=== PATIENT | female | born 1930 | race Caucasian/White ===

== ENCOUNTER 2017-08-04 22:31 | Inpatient (IN) | payer MEDICAID ==
[~2017-08-04] VITALS: Ht 162.6 cm; Wt 51.0 kg
[~2017-08-04 22:31] MED LIST: MELO7.5 PO; Z.0.NO CURRENT MEDS
[2017-08-04 22:43] VITALS: BP 148/78; PULSE 111; RESP 20; TEMP 98.6; O2SAT 100
[2017-08-04 22:50] VITALS: BP 176/111; PULSE 120; RESP 20; O2SAT 96
[2017-08-04] MEDS ORDERED: MELA1TAB18 PO (22:56)
--- NOTE | 2017-08-04 23:09 | PD ---
HPI Chief Complaint: Hip Injury Time Seen by Provider: 22:50 Travel History International Travel<30 days: No Contact w/Intl Traveler<30days: No Traveled to known affect area: No History of Present Illness HPI 87yo F who is Fijian speaking only here with c/o left hip pain since yesterday. As per her son, his found the patient on the floor next to the bed at 5pm yesterday and they brought her back to bed. Unsure how she got on the floor but did not think she was there for long. Pt is baseline confuse as per son and was at baseline mental status after the fall. However, they noticed she did not get up to walk today and had pain in her left hip. Denies any other complaints. Pt was agitated and given versed 2mg by [facility]. As per [facility], pt was talking and following commands prior to versed. She was moving all extremities except left lower. Pt was also given a total of morphine 10mg prior to my evaluation in the medical bed. PFSH Past Medical History Medical History: Denies Significant Hx Tetanus Vaccination: Unknown Influenza Vaccination: No ?: Not Past Surgical History Surgical History: No Previous Surgery Social History Alcohol Use: No Tobacco Use: No Substance Use: No Allergies-Medications (Allergen,Severity, Reaction): Coded Allergies: No Known Allergies (Unverified Allergy, Unknown, 08/05/17) Reported Meds & Prescriptions Reported Meds & Active Scripts Active Reported Melatonin 10 Mg-1 Mg Tab 10 Mg PO HS PRN Review of Systems Except as stated in HPI: all other systems reviewed are Neg Physical Exam Narrative GENERAL: 87yo F in mild distress. SKIN: Focused skin assessment warm/dry. HEAD: Atraumatic. Normocephalic. EYES: Pupils equal and round at 3mm bilaterally. ENT: No nasal bleeding or discharge. Mucous membranes pink and moist. NECK: Trachea midline. No JVD. CARDIOVASCULAR: Regular rate and rhythm. No murmur appreciated. RESPIRATORY: No accessory muscle use. Clear to auscultation. Breath sounds equal bilaterally. GASTROINTESTINAL: Abdomen soft, non-tender, nondistended. No rebound tenderness or guarding. MUSCULOSKELETAL: No obvious deformities. No clubbing. No cyanosis. No edema. NEUROLOGICAL: Awake and opens eyes. Moves bilateral upper extremities but not to command. Pt is not talking to me or son now. Unable to do further testing. Data Data Last Documented VS Vital Signs Date Time Temp Pulse Resp B/P (MAP) Pulse Ox O2 Delivery O2 Flow Rate FiO2 08/04/17 22:50 120 20 176/111 (132) 96 Nasal Cannula 2.00 08/04/17 22:[address] Brain W/O Iv Contrast(Rout) (08/04/17 ) Ct Cerv Spine W/O Contrast (08/04/17 ) Complete Blood Count With Diff (08/04/17 23:02) Basic Metabolic Panel (Bmp) (08/04/17 23:02) Prothrombin Time / Inr (Pt) (08/04/17 23:02) Act Partial Throm Time (Ptt) (08/04/17 23:02) Creatine Kinase (Cpk) (08/04/17 23:02) Electrocardiogram (08/04/17 ) Hip, Uni(Ap&Lat) W Ap Pelvis (08/04/17 ) Hydralazine Inj (Apresoline Inj) (08/05/17 00:00) Sodium Chlorid 0.9% 500 Ml Inj (Ns 500 M (08/05/17 00:00) CKMB (08/04/17 23:00) CKMB% (08/04/17 23:00) Troponin I (08/04/17 23:00) Chest, Single Ap (08/05/17 ) Admit To Inpatient (08/05/17 ) Vital Signs (Adult) Q4H (08/05/17 01:08) Activity Bed Rest (08/05/17 01:08) Eyeglass Assembler / Telemetry .CONTINUOUS (08/05/17 01:08) Diet Npo (08/05/17 Breakfast) Sodium Chloride 0.9% Flush (Ns Flush) (08/05/17 01:15) Sodium Chloride 0.9% Flush (Ns Flush) (08/05/17 09:00) Basic Metabolic Panel (Bmp) (08/06/17 06:00) Complete Blood Count With Diff (08/06/17 06:00) Resp Oxygen Xavier C Titrat 1-4 L (08/05/17 ) Case Management Consult (08/05/17 01:08) Naloxone Inj (Narcan Inj) (08/05/17 01:15) Inpatient Certification (08/05/17 ) Ct Pulmonary Angiogram (08/05/17 ) Consult Orthopedic (08/05/17 ) (Hub Use Only)Inp Phy Cons/Ref (08/05/17 ) Admit Order (Ed Use Only) (08/05/17 01:31) Labs Laboratory Tests Test 08/04/17 23:00 White Blood Count 6.8 TH/MM3 Red Blood Count 3.76 MIL/MM3 Hemoglobin 10.9 GM/DL Hematocrit 31.7 % Mean Corpuscular Volume 84.4 FL Mean Corpuscular Hemoglobin 29.1 PG Mean Corpuscular Hemoglobin Concent 34.5 % Red Cell Distribution Width 15.0 % Platelet Count 143 TH/MM3 Mean Platelet Volume 8.1 FL Neutrophils (%) (Auto) 80.4 % Lymphocytes (%) (Auto) 12.9 % Monocytes (%) (Auto) 6.3 % Eosinophils (%) (Auto) 0.2 % Basophils (%) (Auto) 0.2 % Neutrophils # (Auto) 5.5 TH/MM3 Lymphocytes # (Auto) 0.9 TH/MM3 Monocytes # (Auto) 0.4 TH/MM3 Eosinophils # (Auto) 0.0 TH/MM3 Basophils # (Auto) 0.0 TH/MM3 CBC Comment DIFF FINAL Differential Comment Prothrombin Time 10.6 SEC Prothromb Time International Ratio 1.0 RATIO Activated Partial Thromboplast Time 25.9 SEC Blood Urea Nitrogen 27 MG/DL Creatinine 1.04 MG/DL Random Glucose 123 MG/DL Calcium Level 9.9 MG/DL Sodium Level 142 MEQ/L Potassium Level 3.9 MEQ/L Chloride Level 109 MEQ/L Carbon Dioxide Level 27.3 MEQ/L Anion Gap 6 MEQ/L Estimat Glomerular Filtration Rate 50 ML/MIN Total Creatine Kinase 563 U/L Creatine Kinase MB 5.7 NG/ML Creatine Kinase MB % 1.0 % Troponin I 0.09 NG/ML MDM Medical Decision Making Medical Screen Exam Complete: Yes Emergency Medical Condition: Yes Interpretation(s) EKG: Sinus tachycardia at 105bpm. LAD. No significant ST segment elevation. Differential Diagnosis AMS secondary to baseline dementia vs. hip fracture vs. dehydration vs. electrolyte abnormality Narrative Course 87yo F with left hip pain s/p being found on the floor yesterday. Pt has pain in left hip. Xray left hip showed intertrochanteric left hip fracture. CT brain negative. CT cspine showed no fracture or dislocation. Soft tissue nodule in right neck felt to relate to exophytic thyroid nodule. Pt can follow up as outpatient. Pt noted to be hypoxic on room air in the 80s so CXR ordered. CXR showed no acute disease. CTA showed no PE. Labs reviewed, no leukocytosis. H/H 10.9/31.7. BUN/creatinine elevated at 27/1.04. Pt given NS IVF for hydration. CPK also mildly elevated at 563. Troponin is mildly elevated at 0.09, will trend. Discussed with Dr. Carvalho and accepted to her service. Diagnosis Primary Impression: Trochanteric fracture of left femur Qualified Codes: S72.102A - Unspecified trochanteric fracture of left femur, initial encounter for closed fracture Additional Impression: Elevated troponin Admitting Information Admitting Physician Requests: Olivia Seo DO Aug 04, 2017 23:09
[2017-08-04 23:26] LABS: AUTOMATED NEUTROPHIL # 5.5 TH/MM3 (1.8-7.7); BASOPHIL % 0.2 % (0.0-2.0); EOSINOPHIL % 0.2 % (0.0-4.0); HEMATOCRIT 31.7 % (35.0-46.0); HEMOGLOBIN 10.9 GM/DL (11.6-15.3); LYMPH % 12.9 % (9.0-44.0); LYMPHOCYTE # 0.9 TH/MM3 (1.0-4.8); MEAN CELL VOLUME 84.4 FL (80.0-100.0); MEAN CORPUSCULAR HEMOGLOBIN 29.1 PG (27.0-34.0); MEAN CORPUSCULAR HGB CONC 34.5 % (32.0-36.0); MEAN PLATELET VOLUME 8.1 FL (7.0-11.0); MONO % 6.3 % (0.0-8.0); MONOCYTE # 0.4 TH/MM3 (0-0.9); NEUT % 80.4 % (16.0-70.0); PLATELET COUNT 143 TH/MM3 (150-450); RED BLOOD COUNT 3.76 MIL/MM3 (4.00-5.30); WHITE BLOOD COUNT 6.8 TH/MM3 (4.0-11.0)
--- NOTE | 2017-08-04 23:43 | RADRPT ---
EXAM DATE/TIME: 08/04/2017 23:29 [facility] COMPARISON: No previous studies available for comparison. INDICATIONS : Trauma. Fall. Altered mental status. RADIATION DOSE: 56.34 CTDIvol (mGy) MEDICAL HISTORY : None SURGICAL HISTORY : None. ENCOUNTER: Initial ACUITY: 1 day PAIN SCALE: 0/10 LOCATION: cranial TECHNIQUE: Multiple contiguous axial images were obtained of the head. Using automated exposure control and adj ustment of the mA and/or kV according to patient size, radiation dose was kept as low as reasonably a chievable to obtain optimal diagnostic quality images. DICOM format image data is available electro nically for review and comparison. FINDINGS: CEREBRUM: Atrophy. The ventricles are normal for age. No evidence of midline shift, mass lesion, hemorrhage or acute infarction. No extra-axial fluid collections are seen. POSTERIOR FOSSA: The cerebellum and brainstem are intact. The 4th ventricle is midline. The cerebellopontine angle i s unremarkable. EXTRACRANIAL: The visualized portion of the orbits is intact. SKULL: The calvaria is intact. No evidence of skull fracture. CONCLUSION: No acute disease. Carlos Klein Jr., MD on August 04, 2017 at 23:39 Board Certified Radiologist. This report was verified electronically.
[2017-08-04 23:47] LABS: BICARBONATE 27.3 MEQ/L (21.0-32.0); CALCIUM 9.9 MG/DL (8.5-10.1); CREATININE 1.04 MG/DL (0.50-1.00)
--- NOTE | 2017-08-04 23:51 | RADRPT ---
EXAM DATE/TIME: 08/04/2017 23:29 [facility] COMPARISON: No previous studies available for comparison. INDICATIONS : Trauma. Fall. Altered mental status. RADIATION DOSE: 28.97 CTDIvol (mGy) MEDICAL HISTORY : None SURGICAL HISTORY : None. ENCOUNTER: Initial ACUITY: 1 day PAIN SCALE: 0/10 LOCATION: neck TECHNIQUE: Volumetric scanning of the cervical spine was performed. Multiplanar reconstructions in the sagittal, coronal and oblique axial planes were performed. Using automated exposure control and adjustment o f the mA and/or kV according to patient size, radiation dose was kept as low as reasonably achievable to obtain optimal diagnostic quality images. DICOM format image data is available electronically f or review and comparison. FINDINGS: VERTEBRAE: Normal vertebral body height. ALIGNMENT: No evidence of subluxation. A 2.5 x 1.6 and meter soft tissue nodules seen exophytic from the posterior margin of the right lobe of the thyroid. C2-C3: The bony spinal canal is normal in size. No evidence of disc bulge or herniation. The neural forami na are bilaterally patent. C3-C4: A mild broad-based disc bulge. No central canal stenosis. Prominent bony uncovertebral hypertrophy ge nerally severe left and moderate right neural foraminal narrowing. C4-C5: A broad-based disc bulge. No central canal stenosis. Prominent bony uncovertebral hypertrophy generat e significant bilateral neural foraminal narrowing. C5-C6: Mild broad-based disc bulge without central canal stenosis. Bony uncovertebral hypertrophy generate m oderate bilateral neural foraminal narrowing. C6-C7: A broad-based disc osteophyte complex without central canal stenosis. Bony uncovertebral hypertrophy generate severe left and moderate right neural foraminal narrowing. C7-T1: The bony spinal canal is normal in size. No evidence of disc bulge or herniation. The neural forami na are bilaterally patent. CONCLUSION: 1. No fracture or dislocation. 2. Degenerative changes. 3. 2.5 x 1.6 and meter soft tissue nodule involving the right neck felt to relate to an exophytic thy roid nodule from the right lobe. Ultrasound could be utilized to further evaluate if needed. Carlos Klein Jr., MD on August 04, 2017 at 23:45 Board Certified Radiologist. This report was verified electronically.
[2017-08-04 23:53] LABS: PROTHROMBIN TIME - PATIENT 10.6 SEC (9.8-11.6)
[2017-08-05] VITALS (7 sets, daily range): BP systolic 115–191; BP diastolic 61–92; PULSE 72–120; RESP 17–19; TEMP 95.9–98.5; O2SAT 91–100
[2017-08-05] MEDS ORDERED: SODIUM CHLORID 0.9% 500 ML INJ 500 ML IV ONE
[2017-08-05] MEDS ORDERED: hydrALAZINE HCL 20 MG/ML VIAL IV PUSH ONE
[2017-08-05 00:13] LABS: TROPONIN I 0.09 NG/ML (0.02-0.05)
--- NOTE | 2017-08-05 00:23 | RADRPT ---
EXAM DATE/TIME: 08/04/2017 23:57 [facility] COMPARISON: No previous studies available for comparison. INDICATIONS : Left hip pain post fall. MEDICAL HISTORY : None. SURGICAL HISTORY : None. ENCOUNTER: Initial ACUITY: 1 day PAIN SCORE: Non-responsive. LOCATION: Left hip. FINDINGS: 3 views the pelvis left hip reveal acute intertrochanteric fracture on the left. No angulation or dis traction. Femoral head remains in contact with the acetabulum. Bilateral hip osteoarthritis. Underlyi ng osteopenia. The remaining pelvis is intact. CONCLUSION: Intertrochanteric left hip fracture. Carlos Klein Jr., MD on August 05, 2017 at 0:20 Board Certified Radiologist. This report was verified electronically.
[2017-08-05] MEDS ORDERED: SODIUM CHLORIDE 0.9% FLUSH 10 ML FLUSH IV FLUSH PRN (01:15)
[2017-08-05] MEDS ORDERED: NALOXONE HCL 0.4 MG/ML AMP IV PUSH PRN (01:15)
--- NOTE | 2017-08-05 01:18 | RADRPT ---
EXAM DATE/TIME: 08/05/2017 00:55 [facility] COMPARISON: No previous studies available for comparison. INDICATIONS : Short of breath. MEDICAL HISTORY : None. SURGICAL HISTORY : None. ENCOUNTER: Initial ACUITY: 1 day PAIN SCORE: Non-responsive. LOCATION: Bilateral chest FINDINGS: A single portable frontal view the chest shows a top normal heart size. No pulmonary vascular engorge ment. Clear lungs. No effusions. A scoliotic spine. CONCLUSION: No acute disease. Carlos Klein Jr., MD on August 05, 2017 at 1:16 Board Certified Radiologist. This report was verified electronically.
[2017-08-05] MEDS ORDERED: IOHEXOL 350 MG/ML 10 ML VIAL (for RAD DIAG) IVCONTRAST ONE (01:58)
--- NOTE | 2017-08-05 02:05 | RADRPT ---
EXAM DATE/TIME: 08/05/2017 01:47 [facility] COMPARISON: No previous studies available for comparison. INDICATIONS : Hip injury; rule out pulmonary embolus. IV CONTRAST: 75 cc Omnipaque 350 (iohexol) IV RADIATION DOSE: 8.98 CTDIvol (mGy) MEDICAL HISTORY : None SURGICAL HISTORY : None. ENCOUNTER: Initial ACUITY: 1 day PAIN SCALE: Non-responsive LOCATION: chest TECHNIQUE: Volumetric scanning of the chest was performed using a pulmonary embolism protocol MIP images were re constructed. Using automated exposure control and adjustment of the mA and/or kV according to patien t size, radiation dose was kept as low as reasonably achievable to obtain optimal diagnostic quality images. DICOM format image data is available electronically for review and comparison. Follow-up recommendations for detected pulmonary nodules are based at a minimum on nodule size and pa tient risk factors according to Fleischner Society Guidelines. FINDINGS: PULMONARY ARTERIES: No filling defects are seen in the pulmonary arteries through the segmental level. LUNGS: Bibasilar atelectasis. There is no consolidation or pneumothorax . No concerning pulmonary nodule is visualized. PLEURAE: There is no pleural thickening or pleural effusion. MEDIASTINUM: There is a soft tissue nodule within the base of the neck described in the CT of the cervical spine r eport. There is good visualization of the great vessels of the middle mediastinum. No evidence of me diastinal or hilar adenopathy/mass. Mild cardiomegaly without pericardial effusion. MUSCULOSKELETAL: Within normal limits for patient age. MISCELLANEOUS: The visualized upper abdominal organs demonstrate no acute abnormality. Diffuse thickening of the adr enal glands bilaterally without a discrete mass. CONCLUSION: 1. No pulmonary emboli. 2. Bibasilar atelectasis. 3. Cardiomegaly. 4. Soft tissue nodule involving within the neck. See the CT of the cervical spine reported separately . 5. Diffuse thickening of adrenal glands bilaterally without a discrete mass. Carlos Klein Jr., MD on August 05, 2017 at 2:01 Board Certified Radiologist. This report was verified electronically.
--- NOTE | 2017-08-05 05:39 | HHI.HP ---
[facility] Service [facility] Primary Care Physician No Primary Care Physician Admission Diagnosis Left trochanteric fracture, elevated troponin Diagnoses: Travel History International Travel<30 Days: No Contact w/Intl Traveler <30 Da: No Traveled to Known Affected Are: No History of Present Illness History from ER physician communication, interview of medical records. Patient is Angolan-speaking. Even when I had a nurse at the bedside who speaks fluent Angolan, patient is not answering any questions at all. She would not even answer her name when asking Angolan. The patient's family was not present at the time of my exam. I have left a voice mail message for patient's son to get further history from him. Per ER communication, patient's family was present at the bedside when the ER physician evaluated her. The of patient's son found the patient on the floor next to the bed 5 PM yesterday. They brought her back to her bed. They were not sure how long patient has been on the floor although they do not think that it was that long. Patient at baseline also has confusion as per the son. Per ER notes, patient's mental status is at her baseline confusion after the fall. They noticed though that patient was not getting up to walk today and had pain on her left hip which was why they brought her to hospital. Patient was agitated on the ambulance and was given 2 mg Versed by [facility]. Apparently, patient was talking and following commands prior to Versed. Per ER physician, patient was also given 10 mg morphine total IV prior to her evaluation. At the time of my exam, patient is saturating 98% on room air. She would easily awakens to verbal stimuli. However she would not speak back. She would just stare. Review of Systems ROS Limitations: Altered Mental Status (not able to obtain review of system at all due to baseline confusion) Past Family Social History Past Medical History Per EMR: No medical history Past Surgical History Per EMR: No prior history of surgeries Allergies: Coded Allergies: No Known Allergies (Unverified Allergy, Unknown, 08/05/17) Social History Per EMR: No history of smoking/alcohol abuse/drug abuse. Physical Exam Vital Signs Vital Signs Date Time Temp Pulse Resp B/P (MAP) Pulse Ox O2 Delivery O2 Flow Rate FiO2 08/05/17 03:53 76 18 115/61 (79) 94 Nasal Cannula 2.00 08/05/17 03:33 93 08/05/17 02:56 100 18 180/92 (121) 91 2.00 08/04/17 22:50 120 20 176/111 (132) 96 Nasal Cannula 2.00 08/04/17 22:43 98.6 111 20 148/78 (101) 100 Physical Exam GENERAL: This is an elderly lady, not in acute distress. Noncommunicative. Easily opens eyes to verbal stimuli. SKIN: No rashes, ecchymoses or lesions. Cool and dry. HEAD: Atraumatic. Normocephalic. No temporal or scalp tenderness. EYES:No scleral icterus. No injection or drainage. ENT: Nose without bleeding, purulent drainage or septal hematoma.. Airway patent. NECK: Trachea midline. No JVD Supple, nontender, no meningeal signs. CARDIOVASCULAR: Regular rate and rhythm without murmurs, gallops, or rubs. RESPIRATORY: Bilateral basilar crepitations. Decreased air entry bilaterally. GASTROINTESTINAL: Abdomen soft, non-tender, nondistended. No guarding. MUSCULOSKELETAL: Extremities without clubbing, cyanosis, or edema. No calf asymmetry or tenderness. Left lower extremity slightly shorter than the right NEUROLOGICAL: Awake Motor and sensory grossly within normal limits. Normal speech. Laboratory Laboratory Tests Test 08/04/17 23:00 White Blood Count 6.8 Red Blood Count 3.76 Hemoglobin 10.9 Hematocrit 31.7 Mean Corpuscular Volume 84.4 Mean Corpuscular Hemoglobin 29.1 Mean Corpuscular Hemoglobin Concent 34.5 Red Cell Distribution Width 15.0 Platelet Count 143 Mean Platelet Volume 8.1 Neutrophils (%) (Auto) 80.4 Lymphocytes (%) (Auto) 12.9 Monocytes (%) (Auto) 6.3 Eosinophils (%) (Auto) 0.2 Basophils (%) (Auto) 0.2 Neutrophils # (Auto) 5.5 Lymphocytes # (Auto) 0.9 Monocytes # (Auto) 0.4 Eosinophils # (Auto) 0.0 Basophils # (Auto) 0.0 CBC Comment DIFF FINAL Differential Comment Prothrombin Time 10.6 Prothromb Time International Ratio 1.0 Activated Partial Thromboplast Time 25.9 Blood Urea Nitrogen 27 Creatinine 1.04 Random Glucose 123 Calcium Level 9.9 Sodium Level 142 Potassium Level 3.9 Chloride Level 109 Carbon Dioxide Level 27.3 Anion Gap 6 Estimat Glomerular Filtration Rate 50 Total Creatine Kinase 563 Creatine Kinase MB 5.7 Creatine Kinase MB % 1.0 Troponin I 0.09 Result Diagram: 08/04/170 08/04/17 2300 Imaging Last 48 hours Impressions Chest X-Ray 08/05/17 0000 Signed Impressions: Service Date/Time: Saturday, August 05, 2017 00:55 - CONCLUSION: No acute disease. Carlos Klein Jr., MD CT Angiography 08/05/17 0000 Signed Impressions: Service Date/Time: Saturday, August 05, 2017 01:47 - CONCLUSION: 1. No pulmonary emboli. 2. Bibasilar atelectasis. 3. Cardiomegaly. 4. Soft tissue nodule involving within the neck. See the CT of the cervical spine reported separately. 5. Diffuse thickening of adrenal glands bilaterally without a discrete mass. Carlos Klein Jr., MD Hip and Pelvis X-Ray 08/04/17 0000 Signed Impressions: Service Date/Time: Friday, August 04, 2017 23:57 - CONCLUSION: Intertrochanteric left hip fracture. Carlos Klein Jr., MD Head CT 08/04/17 0000 Signed Impressions: Service Date/Time: Friday, August 04, 2017 23:29 - CONCLUSION: No acute disease. Carlos Klein Jr., MD Cervical Spine CT 08/04/17 0000 Signed Impressions: Service Date/Time: Friday, August 04, 2017 23:29 - CONCLUSION: 1. No fracture or dislocation. 2. Degenerative changes. 3. 2.5 x 1.6 and meter soft tissue nodule involving the right neck felt to relate to an exophytic thyroid nodule from the right lobe. Ultrasound could be utilized to further evaluate if needed. MD Joyce Ramsey Jr.i VTE Risk Assessment Caprini VTE Risk Assessment: Mod/High Risk (score >= 2) Caprini Risk Assessment Model Point Value = 1 Point Value = 2 Point Value = 3 Point Value = 5 Age 41-60 Minor surgery BMI > 25 kg/m2 Swollen legs Varicose veins or History of unexplained or recurrent spontaneous Oral contraceptives or hormone replacement Sepsis (< 1 month) Serious lung disease, including pneumonia (< 1 month) Abnormal pulmonary function Acute myocardial infarction Congestive heart failure (< 1 month) History of inflammatory bowel disease Medical patient at bed rest Age 61-74 Arthroscopic surgery Major open surgery (> 45 min) Laparoscopic surgery (> 45 min) Malignancy Confined to bed (> 72 hours) Immobilizing plaster cast Central venous access Age >= 75 History of VTE Family history of VTE Factor V Leiden Prothrombin [id number] Lupus anticoagulant Anticardiolipin antibodies Elevated serum homocysteine Heparin-induced thrombocytopenia Other congenital or acquired thrombophilia Stroke (< 1 month) Elective arthroplasty Hip, pelvis, or leg fracture Acute spinal cord injury (< 1 month) Prophylaxis Regimen Total Risk Factor Score Risk Level Prophylaxis Regimen 0-1 Low Early ambulation 2 Moderate Order ONE of the following: *Sequential Compression Device (SCD) *Heparin 5000 units SQ BID 3-4 Higher Order ONE of the following medications: *Heparin 5000 units SQ TID *Enoxaparin/Lovenox 40 mg SQ daily (WT < 150 kg, CrCl > 30 mL/min) *Enoxaparin/Lovenox 30 mg SQ daily (WT < 150 kg, CrCl > 10-29 mL/min) *Enoxaparin/Lovenox 30 mg SQ BID (WT < 150 kg, CrCl > 30 mL/min) AND/OR *Sequential Compression Device (SCD) 5 or more Highest Order ONE of the following medications: *Heparin 5000 units SQ TID (Preferred with Epidurals) *Enoxaparin/Lovenox 40 mg SQ daily (WT < 150 kg, CrCl > 30 mL/min) *Enoxaparin/Lovenox 30 mg SQ daily (WT < 150 kg, CrCl > 10-29 mL/min) *Enoxaparin/Lovenox 30 mg SQ BID (WT < 150 kg, CrCl > 30 mL/min) AND *Sequential Compression Device (SCD) Assessment and Plan Assessment and Plan Impression: Status post fall on August 03, 2017. Left hip intertrochanteric fracture secondary to the fall Altered mental status. At baseline per family reports to ER. Possible mild exacerbation by medications Versed/morphine Mild elevated troponin. Difficult to access for cardiac risk factors since patient is not communicative. However most likely this is secondary to rhabdo. Elevated CPK. Mild rhabdo status post fall Renal insufficiency. Likely underlying chronic kidney disease. Doubt that this is related to rhabdo. We'll check UA for RBCs. Unwitnessed fall and elderly. Question whether this could be a syncopal episode Acute urinary retention on exam. Plan: Nothing by mouth. Telemetry monitoring. Orthopedics was consulted. For now, would avoid sedative medications. Serial cardiac enzymes and EKGs. Would check echocardiogram. Carotid sono. We'll follow CPK and renal function for mild rhabdo. Check UA for RBCs. Insert Silverio catheter. DVT prophylaxis with SCD. To start chemical prophylaxis post surgery. GI prophylaxis on pantoprazole. Physician Certification 2 Midnight Certification Type: Admission for Inpatient Services Order for Inpatient Services The services are ordered in accordance with Medicare regulations or non- Medicare payer requirements, as applicable. In the case of services not specified as inpatient-only, they are appropriately provided as inpatient services in accordance with the 2-midnight benchmark. Estimated LOS (days): 3 days is the estimated time the patient will need to remain in the hospital, assuming treatment plan goals are met and no additional complications. Post-Hospital Plan: Not yet determined José Luis Carvalho MD Aug 05, 2017 05:38
[2017-08-05] MEDS ORDERED: PANTOPRAZOLE SODIUM 40 MG VIAL IV PUSH ONE (06:30)
[2017-08-05 06:46] LABS: BACTERIA, URINE RARE /hpf; BILIRUBIN, URINE NEG (NEG); BLOOD, URINE NEG (NEG); GLUCOSE,URINE NEG (NEG); HYALINE CAST, URINE 1 /lpf (RARE); KETONE, URINE NEG (NEG); NITRITE,URINE NEG (NEG); URINE COLOR YELLOW (YELLW/STRAW); URINE LEUKOCYTE ESTERASE NEG (NEG)
[2017-08-05 07:05] LABS: TROPONIN I 0.08 NG/ML (0.02-0.05)
[2017-08-05] MEDS: SODIUM CHLORIDE 0.9% FLUSH 10 ML FLUSH IV FLUSH SCH ×2 (07:24→20:32)
[2017-08-05] MEDS ORDERED: GENTAMICIN SULFATE 80 MG/2 ML VIAL ONE (07:51)
--- NOTE | 2017-08-05 07:52 | PD.ORT.PN ---
Subjective Subjective Remarks s/'p fall left hip pain Objective Vitals Vital Signs Date Time Temp Pulse Resp B/P (MAP) Pulse Ox O2 Delivery O2 Flow Rate FiO2 08/05/17 07:34 79 18 99 Nasal Cannula 2.00 08/05/17 07:34 97.9 72 18 191/87 (121) 100 Nasal Cannula 2.00 08/05/17 05:56 114 18 143/68 (93) 91 Room Air 08/05/17 03:53 76 18 115/61 (79) 94 Nasal Cannula 2.00 08/05/17 03:33 93 08/05/17 02:56 100 18 180/92 (121) 91 2.00 08/04/17 22:50 120 20 176/111 (132) 96 Nasal Cannula 2.00 08/04/17 22:43 98.6 111 20 148/78 (101) 100 I/O 08/04/17 08/04/17 08/04/17 08/05/17 08/05/17 08/05/17 07:00 15:00 23:00 07:00 15:00 23:00 Intake Total 500 ml Balance 500 ml Intake IV Total 500 ml Result Diagram: 08/04/17 2300 08/04/17 2300 Other Results Laboratory Tests Test 08/04/17 23:00 Prothromb Time International Ratio 1.0 RATIO Prothrombin Time 10.6 SEC (9.8-11.6) Imaging Last 24 hours Impressions Chest X-Ray 08/05/17 0000 Signed Impressions: Service Date/Time: Saturday, August 05, 2017 00:55 - CONCLUSION: No acute disease. Carlos Klein Jr., MD CT Angiography 08/05/17 0000 Signed Impressions: Service Date/Time: Saturday, August 05, 2017 01:47 - CONCLUSION: 1. No pulmonary emboli. 2. Bibasilar atelectasis. 3. Cardiomegaly. 4. Soft tissue nodule involving within the neck. See the CT of the cervical spine reported separately. 5. Diffuse thickening of adrenal glands bilaterally without a discrete mass. Carlos Klein Jr., MD Objective Remarks LLE: +cap refill. pain with motion Assessment & Plan Assessment and Plan 1) Left Intertroch Hip Fx -consents -npo -surgery this AM with Pacheco Hernandez/[employer] General Supervisor PA Aug 05, 2017 07:52
[2017-08-05] MEDS ORDERED: MORPHINE SULFATE 2 MG/ML SYRINGE IV PUSH PRN (08:30)
--- NOTE | 2017-08-05 08:43 | HHI.PR ---
Subjective Remarks Follow up for left hip fracture. RN at bedside reports patient was quite agitated 15min ago, thrashing around in bed, appeared to be in pain with any movement. She has been placed in bilateral upper extremity soft restraints. The patient is now currently asleep, awakens to voice, opens eyes, then falls back asleep. RN having difficulty contacting son to obtain consents for surgery. It has been reported by family that she has baseline dementia and confusion. Vital signs reviewed, patient noted to be hypertensive however this is while patient agitated. Objective Vitals Vital Signs Date Time Temp Pulse Resp B/P (MAP) Pulse Ox O2 Delivery O2 Flow Rate FiO2 08/05/17 07:34 79 18 99 Nasal Cannula 2.00 08/05/17 07:34 97.9 72 18 191/87 (121) 100 Nasal Cannula 2.00 08/05/17 05:56 114 18 143/68 (93) 91 Room Air 08/05/17 03:53 76 18 115/61 (79) 94 Nasal Cannula 2.00 08/05/17 03:33 93 08/05/17 02:56 100 18 180/92 (121) 91 2.00 08/04/17 22:50 120 20 176/111 (132) 96 Nasal Cannula 2.00 08/04/17 22:43 98.6 111 20 148/78 (101) 100 I/O 08/04/17 08/04/17 08/04/17 08/05/17 08/05/17 08/05/17 07:00 15:00 23:00 07:00 15:00 23:00 Intake Total 500 ml Balance 500 ml Intake IV Total 500 ml Result Diagram: 08/04/17 2300 08/04/17 2300 Imaging Last Impressions Chest X-Ray 08/05/17 0000 Signed Impressions: Service Date/Time: Saturday, August 05, 2017 00:55 - CONCLUSION: No acute disease. Carlos Klein Jr., MD CT Angiography 08/05/17 0000 Signed Impressions: Service Date/Time: Saturday, August 05, 2017 01:47 - CONCLUSION: 1. No pulmonary emboli. 2. Bibasilar atelectasis. 3. Cardiomegaly. 4. Soft tissue nodule involving within the neck. See the CT of the cervical spine reported separately. 5. Diffuse thickening of adrenal glands bilaterally without a discrete mass. Carlos Klein Jr., MD Hip and Pelvis X-Ray 08/04/17 Signed Impressions: Service Date/Time: Friday, August 04, 2017 23:57 - CONCLUSION: Intertrochanteric left hip fracture. Carlos Klein Jr., MD Head CT 08/04/17 Signed Impressions: Service Date/Time: Friday, August 04, 2017 23:29 - CONCLUSION: No acute disease. Carlos Klein Jr., MD Cervical Spine CT 08/04/17 Signed Impressions: Service Date/Time: Friday, August 04, 2017 23:29 - CONCLUSION: 1. No fracture or dislocation. 2. Degenerative changes. 3. 2.5 x 1.6 and meter soft tissue nodule involving the right neck felt to relate to an exophytic thyroid nodule from the right lobe. Ultrasound could be utilized to further evaluate if needed. Carlos Klein Jr., MD Objective Remarks GENERAL: Well-nourished, well-developed elderly female patient in [facility]. SKIN: Warm and dry. No rash. HEAD: Normocephalic. Atraumatic. EYES: Pupils equal and round. No scleral icterus. No injection or drainage. ENT: No nasal bleeding or discharge. Mucous membranes pink and moist. NECK: Supple. Trachea midline. CARDIOVASCULAR: Regular rate and rhythm. No murmur appreciated. RESPIRATORY: No accessory muscle use. Clear to auscultation. Breath sounds equal bilaterally. GASTROINTESTINAL: Abdomen soft, non-tender, nondistended. Normoactive bowel sounds x4. MUSCULOSKELETAL: No obvious deformities. Extremities without clubbing, cyanosis , or edema. Bilateral pedal pulses 2+. NEUROLOGICAL: Awake and alert. No obvious cranial nerve deficits. Moving all extremities spontaneously. Unable to assess speech. Medications and IVs Current Medications Medications (Trade) Dose Ordered Sig/Gilmer Route Start Time Stop Time Status Last Admin (NS Flush) 2 ml UNSCH PRN IV FLUSH 08/05/17 01:15 (NS Flush) 2 ml BID IV FLUSH 08/05/17 09:00 (Narcan Inj) 0.4 mg UNSCH PRN IV PUSH 08/05/17 01:15 (Protonix) 40 mg DAILY PO 08/06/17 09:00 A/P Assessment and Plan 87-year-old [place]ian-speaking female with history of dementia, presents 08/04 after fall with left hip fracture Left hip intertrochanteric fracture s/p Fall: Hip/pelvis images reviewed, shows intertrochanteric left hip fracture. -Keep NPO -Consult orthopedics, plan for ORIF today once able to obtain consents from family -Tylenol and IV morphine prn pain Encephalopathy?: However family reported patient at baseline dementia per report to ER. Suspect mild exacerbation by medications, patient received Versed/ morphine. -Monitor neuro checks -Caution with any sedating medications -Soft restraints as needed for now -Monitor for improvement Mild elevated troponin: Difficult to access for cardiac risk factors since patient is not communicative. However most likely this is secondary to rhabdo vs CKD. -Troponins elevated but flat at 0.09, 0.08, checking third set -EKG reviewed, shows sinus tach with no acute ischemic changes -check echocardiogram Mild Rhabdomyolysis: Elevated CPK at 563. Suspect secondary to fall. -Give IVF hydration -Monitor CPK Renal insufficiency: Likely underlying chronic kidney disease however no previous labs to compare. UA clear. -Giving IVF hydration -Avoid nephrotoxins -Monitor BMP Unwitnessed fall and elderly: Question whether this could be a syncopal episode ? No clear history provided -Head CT and C-spine CT images reviewed, no acute fracture -Check carotid U/S -Check echocardiogram -Monitor on telemetry Acute urinary retention on exam: suspect secondary to medications/pain -Silverio inserted in the ED on 08/05 with initial volume 900cc -Continue Silverio for now Thyroid Nodule: incidentally found on C-spine CT; shows 2.5 x 1.6cm soft tissue nodule involving right neck, felt to relate to an exophytic thyroid nodule from the right lobe -check TSH/T4 -will need to discussed with patient/family when more awake/alert -Outpatient f/up DVT Prophylaxis: teds/SCDs to nonoperative leg; avoiding chemoprophylaxis for now with upcoming surgery Alexa Ribera PA-C Aug 05, 2017 8:43 am
[2017-08-05] MEDS ORDERED: SODIUM CHLOR 0.9% 1000 ML INJ 1,000 ML IV SCH (08:45)
[2017-08-05] MEDS ORDERED: BUPIVACAINE/EPINEPHRINE 0.25% PF 10 ML VIAL ONE (08:45)
[2017-08-05] MEDS ORDERED: CALCTAB19 PO (09:27)
[2017-08-05] MEDS ORDERED: VITA500012 PO (09:27)
[2017-08-05] MEDS ORDERED: XARE10TA PO (09:27)
[2017-08-05] MEDS ORDERED: NORC5TAB PO (09:27)
[2017-08-05] MEDS ORDERED: WALKER/ADULT/FO1 MIS (09:27)
[2017-08-05] MEDS ORDERED: ceFAZolin INJ 1,000 MG VIAL ONE (09:57)
[2017-08-05] MEDS ORDERED: VANCOMYCIN HCL 1000 MG VIAL ONE (09:57)
--- NOTE | 2017-08-05 10:43 | MB ---
cc: Live Pandya MD DATE OF CONSULT: 08/05/2017 REASON FOR CONSULTATION: Left hip intertrochanteric fracture. CONSULTING PHYSICIAN: Dr. Hudson HISTORY: Ms. Andres is an 87-year-old female who does have some mild dementia. She speaks [place]. She is currently having some confusion. She presented to the emergency room after having a fall. Patient's [id number]-ldh apparently found her on the floor next to the bed. She presented to the emergency room where x-rays revealed a left hip intertrochanteric fracture. She was unable to stand or ambulate. She only complains of left hip pain at this time. PAST MEDICAL HISTORY: The patient is unable to give significant history. She does have mild confusion. Review of her medical chart was done. ILLNESSES: Mild dementia. SURGERIES: None. ALLERGIES: None. MEDICATIONS: Please see EMR for a complete list of inpatient medications. SOCIAL HISTORY: The patient denies alcohol, tobacco or drug use. REVIEW OF SYSTEMS: Unobtainable secondary to mild confusion. FAMILY HISTORY: Unobtainable. PHYSICAL EXAM: GENERAL: The patient is a thin 87-year-old female. She is awake. She is currently in restraints. She appears well-developed, well-nourished. VITAL SIGNS: Temperature 97.9, pulse 79, respirations 18, blood pressure 191/87, O2 sat is 99% on 2 liters nasal cannula. HEAD: The patient is normocephalic. EYES: Pupils are equal. NECK: Soft and nontender. Trachea is midline. ABDOMEN: Soft, nontender and nondistended. EXTREMITIES: Examination of the bilateral upper extremities reveals no obvious pain or deformity with shoulder, elbow or wrist motion. She has good cap refill in her fingers. Skin is intact. Examination of the right leg reveals no obvious pain or deformity with hip, knee or ankle motion. Skin is intact. Dorsalis pedis pulse is palpable. Examination of the left leg reveals that it is shortened and externally rotated. She has pain with any hip motion. She has no tenderness around her knee, tibia or ankle. Skin is intact. Dorsalis pedis pulse is palpable. X-RAYS: X-rays of the left hip and femur were reviewed. X-rays reveal a left hip intertrochanteric fracture. LABS: The patient has a white blood cell count of 6.8, hemoglobin of 10.9 and hematocrit of 31.7. INR is 1.0. BUN is 27 and creatinine is 1.04. IMPRESSION: 1. Early dementia. 2. Left hip intertrochanteric fracture. 3. Postmenopausal osteoporosis. PLAN: Treatment options were discussed with the patient. I will attempt to contact her son for consents for surgery. At this point, I would recommend left femur reduction and intramedullary nail fixation. The risks of surgery include bleeding, infection, injury to arteries, nerves and blood vessels, nonunion, malunion, painful hardware, trochanteric bursitis, as well as medical complications including blood clot, stroke, heart attack and . I will plan on surgery today. A mid-level provider in my office, nurse practitioner or PA, may see this patient on a follow-up basis and continue to implement the objective of this plan including: Starting or adjusting medications, injections of muscle, tendon, bursa or joints, cast application, orthotic or brace application, physical therapy, further radiographic studies including x-ray, MRI, CT, ultrasounds or bone scan, vascular studies, neurologic studies, or other specialist consultations, and proceeding with surgical management as appropriate. MD TANJA Hawkins/MAURICE , 10:08 AM , 10:41 AM
--- NOTE | 2017-08-05 10:45 | PD.OP ---
cc: Live Álvarez MD Operative Report Date of Surgery: Aug 05, 2017 Preoperative Diagnosis: Displaced left hip intertrochanteric fracture Postoperative Diagnosis: Procedure: Left hip reduction and intramedullary nail fixation Anesthesia: Gen. Surgeon: Live Álvarez Lightout Examiner(s): WILBERTO Maza PA-C The surgical procedure was assisted by my physician phys assistant. My P.A. presence was necessary throughout this case for the manipulation and positioning of the surgical extremity. My P.A. was assisting me throughout the duration of this procedure. The skill set of a physician phys assistant was medically necessary to complete this procedure. During the surgical case the principal technical specialist was working at the back table and the physician phys assistant was directly assisting me. Operation and Findings: Implants used: [13]mm Biomet short troch nail Plan of activity: Weight-bear as tolerated Patient was seen and evaluated preoperatively. The patient has significant hip pain from intertrochanteric hip fracture. The risk and benefits of surgery were discussed in depth with the patient to include bleeding infection nonunion malunion and need for hip replacement painful hardware as well as medical competitions including but not stroke heart attack and . Informed consent was obtained. Operative site was marked. Patient was brought to the operating room and placed on fracture table. IV sedation was administered by anesthesiologist. Timeout procedure was performed. Hip and leg were prepped with alcohol followed by DuraPrep and draped in the usual sterile fashion. IV antibiotics were given prior to incision. Procedure began with reduction of fracture. Traction was applied. The leg was manipulated to achieve reduction. Excellent reduction was achieved. Fluoroscopy was used to confirm reduction. A three inch incision was made proximal to the trochanter. Subcutaneous tissue was dissected bluntly. Guidepin was placed at the tip of the trochanter and advanced into the femoral canal. Fluoroscopy confirmed appropriate guidepin placement. A opening reamer was placed over the guidepin. The nail was attached to the insertion handle. Nail was now placed through the tip of the trochanter into the femoral canal. Fluoroscopy confirmed appropriate nail placement. A second incision was made over the lateral thigh. Cannulas were placed through the insertion handle down to the femur. Guidepin was now placed through the femoral nail into the center of the femoral head. Fluoroscopy confirmed appropriate guidepin placement. Screw length was measured. Cannulated drill was placed over the guidepin. Appropriate length lag screw was now placed. Traction was released and compression was applied. The set screw was now tightened in dynamic mode. Using the insertion handle as a guide a distal interlocking screw was drilled and placed. Final fluoroscopy revealed well aligned fracture with well-placed hardware. Incision was closed with 3-0 Vicryl and evan. Sterile dressings were applied. Patient was awakened and transferred to recovery room. Live Álvarez MD Aug 05, 2017 10:45
[2017-08-05] MEDS ORDERED: DO NOT ADM ANY ANTICOAGULANT DRUGS PRN (11:00)
--- NOTE | 2017-08-05 11:03 | RADRPT ---
EXAM DATE/TIME: 08/05/2017 10:35 [facility] COMPARISON: None. INDICATIONS : <<Open reduction internal fixation left troch nail.>> MEDICAL HISTORY : None. SURGICAL HISTORY : None. ENCOUNTER: Initial ACUITY: 1 day PAIN SCORE: Non-responsive. LOCATION: Left Hip FINDINGS: There are postoperative changes of yisel and screw fixation of the proximal left femur across an intrat rochanteric fracture. Normal alignment. No complications identified. CONCLUSION: 1. Postoperative left proximal femur fixation. Deandre Guidry MD on August 05, 2017 at 11:00 Board Certified Radiologist. This report was verified electronically.
[2017-08-05] MEDS ORDERED: *LABETALOL HCL 100 MG/20 ML VIAL PERIprocedural Use ONLY ONE (11:31)
[2017-08-05] MEDS ORDERED: PROPOFOL 200 MG/20 ML AMP IV ONE (12:00)
[2017-08-05] MEDS ORDERED: ePHEDrine/NS 25 MG/5 ML SYRINGE IV ONE (12:00)
[2017-08-05] MEDS ORDERED: ROCURONIUM INJ 50 MG/5 ML SYRINGE IV PUSH ONE (12:00)
[2017-08-05] MEDS ORDERED: ONDANSETRON HCL 4 MG/2 ML VIAL IV ONE (12:00)
[2017-08-05] MEDS ORDERED: PHENYLEPH/NS 1000 MCG/10 ML SYR IV ONE (12:00)
[2017-08-05] MEDS ORDERED: GLYCOPYRROLATE 1 MG/5 ML SYRINGE IV PUSH ONE (12:00)
[2017-08-05] MEDS ORDERED: NEOSTIGMINE 5 MG/5 ML SYRINGE IV PUSH ONE (12:00)
[2017-08-05] MEDS ORDERED: LIDOCAINE HCL 1% PF 5 ML SYRINGE OTHER ONE (12:00)
[2017-08-05] MEDS ORDERED: ONDANSETRON HCL 4 MG/2 ML VIAL IVP PRN (13:00)
[2017-08-05] MEDS ORDERED: diphenhydrAMINE HCL 25 MG CAP PO PRN (13:00)
[2017-08-05] MEDS: CALCIUM/VITAMIN D 250 MG/125 U TAB PO SCH ×2 (13:00→18:02)
[2017-08-05] MEDS ORDERED: ERGOCALCIFEROL (VIT D2) 50,000 UNIT CAP PO ONE (14:00)
[2017-08-05 15:28] LABS: TROPONIN I 0.05 NG/ML (0.02-0.05)
--- NOTE | 2017-08-05 15:56 | RADRPT ---
EXAM DATE/TIME: 08/05/2017 14:22 [facility] COMPARISON: No previous studies available for comparison. INDICATIONS : Syncope. MEDICAL HISTORY : Altered mental status. Left trochanteric fracture SURGICAL HISTORY : Uanble to obtain. ENCOUNTER: Initial ACUITY: 1 day PAIN SCORE: 0/10 LOCATION: Bilateral neck PEAK SYSTOLIC VELOCITIES (cm/sec): ICA/CCA RATIO: Right: 1.5 Left: 1.8 ICA: Right: 85 Left: 126 CCA: Right: 59 Left: 72 ECA: Right: 49 Left: 47 VERTEBRAL: Right: 47 antegrade Left: 66 antegrade Elevated flow velocities and ICA/CCA ratios have been found to correlate with increased degrees of vessel stenosis, calculated as percentage of diameter relative to a normal segment of distal ICA/CCA FINDINGS: RIGHT CAROTID: No significant stenosis is visualized. The waveforms are within normal limits. LEFT CAROTID: No significant stenosis is visualized. The waveforms are within normal limits. VERTEBRAL ARTERIES: Antegrade flow is seen in both vertebral arteries. MISCELLANEOUS: None. CONCLUSION: 1. Bilateral carotid plaque without significant flow-limiting stenosis. 2. Antegrade vertebral artery flow bilaterally. Christiano Moore MD on August 05, 2017 at 15:54 Board Certified Radiologist. This report was verified electronically.
--- NOTE | 2017-08-05 19:18 | EKG ---
Date Performed: 08/05/2017 Time Performed: 06:07:59 PTAGE: 87 years EKG: SINUS TACHYCARDIA POSSIBLE RIGHT VENTRICULAR CONDUCTION DELAY NONSPECIFIC T-WAVE ABNORMALIT Y ABNORMAL RHYTHM ECG PREVIOUS TRACING : 08/04/2017 23.42 Since the previous tracing, no significant change noted DOCTOR: Nery Rendon Interpretating Date/Time 08/05/2017 19:17:26
--- NOTE | 2017-08-05 19:40 | EKG ---
Date Performed: 08/04/2017 Time Performed: 23:42:36 PTAGE: 87 years EKG: SINUS TACHYCARDIA POSSIBLE RIGHT VENTRICULAR CONDUCTION DELAY NONSPECIFIC T-WAVE ABNORMALIT Y ABNORMAL RHYTHM ECG NO PREVIOUS TRACING DOCTOR: Nery Rendon Interpretating Date/Time 08/05/2017 19:40:13
[2017-08-05] MEDS: ACETAMINOPHEN/HYDROcodone 325 MG/5 MG TAB PO PRN (20:51)
[2017-08-06] VITALS (9 sets, daily range): BP systolic 142–190; BP diastolic 70–90; PULSE 93–114; RESP 16–20; TEMP 96.7–98.3; O2SAT 91–98
--- NOTE | 2017-08-06 06:58 | PD.ORT.PN ---
Subjective Subjective Remarks Resting in bed comfortably. Confused Objective Vitals Vital Signs Date Time Temp Pulse Resp B/P (MAP) Pulse Ox O2 Delivery O2 Flow Rate FiO2 08/06/17 04:00 97.5 114 20 160/77 (104) 92 08/06/17 00:00 96.7 101 19 145/70 (95) 94 08/05/17 20:00 95.9 120 19 166/80 (108) 91 08/05/17 16:39 98.5 97 17 153/70 (97) 91 08/05/17 16:00 85 15 146/83 (104) 98 Room Air 08/05/17 15:00 72 12 147/80 (102) 97 Room Air 08/05/17 14:00 67 12 168/70 (102) 100 Nasal Cannula 2 08/05/17 13:00 65 12 175/74 (107) 100 Nasal Cannula 2 08/05/17 12:00 98.0 66 12 160/70 (100) 100 Nasal Cannula 2 08/05/17 11:45 74 12 161/73 (102) 100 Nasal Cannula 2 08/05/17 11:30 98 14 192/83 (119) 98 Nasal Cannula 2 08/05/17 11:15 101 14 177/83 (114) 99 Nasal Cannula 2 08/05/17 11:00 98.2 95 15 178/77 (110) 99 Nasal Cannula 2 08/05/17 07:34 79 18 99 Nasal Cannula 2.00 08/05/17 07:34 97.9 72 18 191/87 (121) 100 Nasal Cannula 2.00 I/O 08/05/17 08/05/17 08/05/17 08/06/17 08/06/17 08/06/17 07:00 15:00 23:00 07:00 15:00 23:00 Intake Total 500 ml 250 ml 610 ml 0 ml Output Total 1220 ml 225 ml 300 ml Balance 500 ml -970 ml 385 ml -300 ml Intake Oral 60 ml 0 ml IV Total 500 ml 250 ml 550 ml Output Urine Total 1200 ml 225 ml 300 ml Estimated Blood Loss 20 ml # Voids 0 # Bowel Movements 0 0 Result Diagram: 08/04/17 2300 08/04/17 2300 Imaging Last 24 hours Impressions Chest X-Ray 08/05/17 0000 Signed Impressions: Service Date/Time: Saturday, August 05, 2017 00:55 - CONCLUSION: No acute disease. Carlos Klein Jr., MD CT Angiography 08/05/17 0000 Signed Impressions: Service Date/Time: Saturday, August 05, 2017 01:47 - CONCLUSION: 1. No pulmonary emboli. 2. Bibasilar atelectasis. 3. Cardiomegaly. 4. Soft tissue nodule involving within the neck. See the CT of the cervical spine reported separately. 5. Diffuse thickening of adrenal glands bilaterally without a discrete mass. Carlos Klein Jr., MD Objective Remarks Left lower extremity: Clean dry dressings intact. No pain with knee or ankle motion. Swelling minimal Assessment & Plan Assessment and Plan 1) Left Intertroch Hip Fx IM nail POD 1 Weightbearing as tolerated left lower extremity Begin daily dressing changes POD 2 Incentive spirometry Lovenox Plan for discharge to rehabilitation when bed available Follow-up Dr. Álvarez or [facility] in 2 weeks Samson Desir Jr. Aug 06, 2017 06:57
[2017-08-06] MEDS: PANTOPRAZOLE SOD 40 MG DELAYED RELEASE TAB PO SCH (08:34)
[2017-08-06] MEDS: ACETAMINOPHEN/HYDROcodone 325 MG/5 MG TAB PO PRN ×2 (08:34→13:59)
[2017-08-06] MEDS: CHOLECALCIFEROL (VIT D3) 5000 UNIT CAP PO SCH (08:34)
[2017-08-06] MEDS: CALCIUM/VITAMIN D 250 MG/125 U TAB PO SCH ×2 (08:38→13:59)
--- NOTE | 2017-08-06 09:22 | HHI.PR ---
Subjective Remarks Follow up for left hip fracture. The patient is sleeping upon my arrival, awakens to touch, smiles, then falls back asleep throughout exam. Appears much more comfortable and less agitated compared to yesterday. Vitals signs reviewed , BP elevated. Objective Vitals Vital Signs Date Time Temp Pulse Resp B/P (MAP) Pulse Ox O2 Delivery O2 Flow Rate FiO2 08/06/17 08:00 97.5 100 16 177/71 (106) 91 08/06/17 04:00 97.5 114 20 160/77 (104) 92 08/06/17 00:00 96.7 101 19 145/70 (95) 94 08/05/17 20:00 95.9 120 19 166/80 (108) 91 08/05/17 16:39 98.5 97 17 153/70 (97) 91 08/05/17 16:00 85 15 146/83 (104) 98 Room Air 08/05/17 15:00 72 12 147/80 (102) 97 Room Air 08/05/17 14:00 67 12 168/70 (102) 100 Nasal Cannula 2 08/05/17 13:00 65 12 175/74 (107) 100 Nasal Cannula 2 08/05/17 12:00 98.0 66 12 160/70 (100) 100 Nasal Cannula 2 08/05/17 11:45 74 12 161/73 (102) 100 Nasal Cannula 2 08/05/17 11:30 98 14 192/83 (119) 98 Nasal Cannula 2 08/05/17 11:15 101 14 177/83 (114) 99 Nasal Cannula 2 08/05/17 11:00 98.2 95 15 178/77 (110) 99 Nasal Cannula 2 I/O 08/05/17 08/05/17 08/05/17 08/06/17 08/06/17 08/06/17 07:00 15:00 23:00 07:00 15:00 23:00 Intake Total 500 ml 250 ml 610 ml 0 ml Output Total 1220 ml 225 ml 300 ml Balance 500 ml -970 ml 385 ml -300 ml Intake Oral 60 ml 0 ml IV Total 500 ml 250 ml 550 ml Output Urine Total 1200 ml 225 ml 300 ml Estimated Blood Loss 20 ml # Voids 0 # Bowel Movements 0 0 Result Diagram: 3/12/18 2300 3/12/18 2300 Imaging Last Impressions Hip X-Ray 08/05/17 0000 Signed Impressions: Service Date/Time: Saturday, August 05, 2017 10:35 - CONCLUSION: 1. Postoperative left proximal femur fixation. Deandre Guidry MD Chest X-Ray 08/05/17 0000 Signed Impressions: Service Date/Time: Saturday, August 05, 2017 00:55 - CONCLUSION: No acute disease. Carlos Klein Jr., MD Carotid Artery Ultrasound 08/05/17 0000 Signed Impressions: Service Date/Time: Saturday, August 05, 2017 14:22 - CONCLUSION: 1. Bilateral carotid plaque without significant flow-limiting stenosis. 2. Antegrade vertebral artery flow bilaterally. Christiano Moore MD CT Angiography 08/05/17 0000 Signed Impressions: Service Date/Time: Saturday, August 05, 2017 01:47 - CONCLUSION: 1. No pulmonary emboli. 2. Bibasilar atelectasis. 3. Cardiomegaly. 4. Soft tissue nodule involving within the neck. See the CT of the cervical spine reported separately. 5. Diffuse thickening of adrenal glands bilaterally without a discrete mass. Carlos Klein Jr., MD Hip and Pelvis X-Ray 08/04/17 0000 Signed Impressions: Service Date/Time: Friday, August 04, 2017 23:57 - CONCLUSION: Intertrochanteric left hip fracture. Carlos Klein Jr., MD Head CT 08/04/17 0000 Signed Impressions: Service Date/Time: Friday, August 04, 2017 23:29 - CONCLUSION: No acute disease. Carlos Klein Jr., MD Cervical Spine CT 08/04/17 0000 Signed Impressions: Service Date/Time: Friday, August 04, 2017 23:29 - CONCLUSION: 1. No fracture or dislocation. 2. Degenerative changes. 3. 2.5 x 1.6 and meter soft tissue nodule involving the right neck felt to relate to an exophytic thyroid nodule from the right lobe. Ultrasound could be utilized to further evaluate if needed. Carlos Klein Jr., MD Objective Remarks GENERAL: Well-nourished, well-developed elderly female patient in [place]. Drowsy. SKIN: Warm and dry. No rash. HEENT: Normocephalic. Atraumatic. Pupils equal and round. Mucous membranes pink and moist. CARDIOVASCULAR: Regular rate and rhythm. No murmur appreciated. RESPIRATORY: No accessory muscle use. Clear to auscultation. Breath sounds equal bilaterally. GASTROINTESTINAL: Abdomen soft, non-tender, nondistended. Normoactive bowel sounds x4. MUSCULOSKELETAL: No obvious deformities. Extremities without clubbing, cyanosis , or edema. Bilateral pedal pulses 2+. Left hip with surgical dressing, CDI. NEUROLOGICAL: Awake and alert. No obvious cranial nerve deficits. Moving all extremities spontaneously. Unable to assess speech. Procedures 08/05/17 - Left hip reduction and intramedullary nail fixation by Dr. Álvarez Medications and IVs Current Medications Medications (Trade) Dose Ordered Sig/Gilmer Route Start Time Stop Time Status Last Admin (NS Flush) 2 ml UNSCH PRN IV FLUSH 08/05/17 01:15 (NS Flush) 2 ml BID IV FLUSH 08/05/17 09:00 (Narcan Inj) 0.4 mg UNSCH PRN IV PUSH 08/05/17 01:15 (Protonix) 40 mg DAILY PO 08/06/17 09:00 08/06/17 08:34 (Tylenol) 650 mg Q4H PRN PO 08/05/17 08:30 (Morphine Inj) 2 mg Q3HR PRN IV PUSH 08/05/17 08:30 (Lovenox Inj) 30 mg Q24H SQ 08/06/17 10:00 Cefazolin Sodium 1000 mg/Sodium Chloride 100 ml @ 200 mls/hr Q8H IV 08/05/17 18:00 08/06/17 10:29 08/06/17 08:35 (Zofran Inj) 4 mg Q4H PRN IVP 08/05/17 13:00 (Oscal-D 250-125) 250 mg TID PO 08/05/17 13:00 08/06/17 08:38 (Benadryl) 25 mg Q6H PRN PO 08/05/17 13:00 ([place] 5-325 Mg) 1 tab Q3H PRN PO 08/05/17 13:00 08/06/17 08:34 (Vitamin D3) 5,000 units DAILY PO 08/06/17 09:00 08/06/17 08:34 Miscellaneous Information ALL NURSING DEPARTME... UNSCH PRN .XX 08/05/17 11:00 08/06/17 10:59 A/P Assessment and Plan 87-year-old Uzbek-speaking female with history of dementia, presents 08/04 after fall with left hip fracture Left hip intertrochanteric fracture s/p Fall: Hip/pelvis images reviewed, shows intertrochanteric left hip fracture. -Consulted orthopedics,s/p Left hip reduction and intramedullary nail fixation on 08/05 -WBAT LLE -Lovenox per ortho -PT consulted, patient will likely need rehab placement -Pain control with tylenol, norco, morphine prn Encephalopathy?: However family reported patient at baseline dementia per report to ER. Suspect mild exacerbation by medications, patient received Versed/ morphine. -Monitor neuro checks -Caution with any sedating medications -D/c restraints -Patient appears much improved today, smiling, but still drowsy and falls back asleep Mild elevated troponin: Difficult to access for cardiac risk factors. However most likely this is secondary to rhabdo vs CKD. -Troponins elevated but flat at 0.09, 0.08, 0.05 -EKG reviewed, shows sinus tach with no acute ischemic changes -check echocardiogram Mild Rhabdomyolysis: Elevated CPK at 563. Suspect secondary to fall. -Give IVF hydration -Monitor CPK, trending down Renal insufficiency: Likely underlying chronic kidney disease however no previous labs to compare. UA clear. -Giving IVF hydration -Avoid nephrotoxins -Monitor BMP, repeat labs pending today Unwitnessed fall and elderly: Question whether this could be a syncopal episode ? No clear history provided -Head CT and C-spine CT images reviewed, no acute fracture -Carotid U/S with bilateral plaque, no significant stenosis -Check echocardiogram -Monitor on telemetry Acute urinary retention on exam: suspect secondary to medications/pain -Silverio inserted in the ED on 08/05 with initial volume 900cc -Continue Silverio for now until patient more awake/alert Thyroid Nodule: incidentally found on C-spine CT; shows 2.5 x 1.6cm soft tissue nodule involving right neck, felt to relate to an exophytic thyroid nodule from the right lobe -check TSH/T4, labs pending today -will need to discussed with patient/family when more awake/alert -Outpatient f/up Hypertension: BP consistently elevated, likely exacerbated by pain -will start on Norvasc 5mg daily for now, consider increasing dose -IV Vasotec prn -monitor BP, adjust antihypertensives as needed DVT Prophylaxis: Lovenox per ortho; teds/SCDs to nonoperative leg Discharge Planning Hopefully discharge in 1-2 days to rehab. Case management to assist with discharge planning. Alexa Ribera PA-C Aug 06, 2017 09:22
[2017-08-06 10:14] LABS: AUTOMATED NEUTROPHIL # 6.2 TH/MM3 (1.8-7.7); BASOPHIL % 0.1 % (0.0-2.0); EOSINOPHIL % 0.1 % (0.0-4.0); HEMATOCRIT 24.7 % (35.0-46.0); HEMOGLOBIN 8.3 GM/DL (11.6-15.3); LYMPH % 12.1 % (9.0-44.0); LYMPHOCYTE # 0.9 TH/MM3 (1.0-4.8); MEAN CELL VOLUME 85.2 FL (80.0-100.0); MEAN CORPUSCULAR HEMOGLOBIN 28.5 PG (27.0-34.0); MEAN CORPUSCULAR HGB CONC 33.4 % (32.0-36.0); MEAN PLATELET VOLUME 8.6 FL (7.0-11.0); MONO % 5.5 % (0.0-8.0); MONOCYTE # 0.4 TH/MM3 (0-0.9); NEUT % 82.2 % (16.0-70.0); PLATELET COUNT 132 TH/MM3 (150-450); RED CELL DISTRIBUTION WIDTH 15.4 % (11.6-17.2); WHITE BLOOD COUNT 7.5 TH/MM3 (4.0-11.0)
[2017-08-06 10:45] LABS: CALCIUM 10.1 MG/DL (8.5-10.1); CREATININE 0.9 MG/DL (0.50-1.00)
[2017-08-06 10:55] LABS: FREE T4 1.28 NG/DL (0.76-1.46)
[2017-08-06] MEDS: amLODIPine BESYLATE 5 MG TAB PO SCH (13:59)
[2017-08-06] MEDS: ENOXAPARIN SODIUM 30 MG/0.3 ML SYRINGE SQ SCH (14:00)
[2017-08-06] MEDS: SODIUM CHLORIDE 0.9% FLUSH 10 ML FLUSH IV FLUSH SCH (20:27)
[2017-08-06] MEDS: ENALAPRILAT 1.25 MG/ML VIAL IV PUSH PRN (21:16)
[2017-08-07] VITALS (8 sets, daily range): BP systolic 130–197; BP diastolic 66–94; PULSE 73–99; RESP 15–18; TEMP 97.4–98.9; O2SAT 92–98
[2017-08-07 04:45] LABS: AUTOMATED NEUTROPHIL # 3.8 TH/MM3 (1.8-7.7); BASOPHIL % 0.1 % (0.0-2.0); EOSINOPHIL % 0.8 % (0.0-4.0); HEMATOCRIT 21.4 % (35.0-46.0); HEMOGLOBIN 7.1 GM/DL (11.6-15.3); LYMPHOCYTE # 0.8 TH/MM3 (1.0-4.8); MEAN CORPUSCULAR HEMOGLOBIN 28.2 PG (27.0-34.0); MEAN CORPUSCULAR HGB CONC 33.2 % (32.0-36.0); MEAN PLATELET VOLUME 8.4 FL (7.0-11.0); MONO % 6.8 % (0.0-8.0); MONOCYTE # 0.3 TH/MM3 (0-0.9); NEUT % 76.3 % (16.0-70.0); PLATELET COUNT 122 TH/MM3 (150-450); RED BLOOD COUNT 2.52 MIL/MM3 (4.00-5.30); RED CELL DISTRIBUTION WIDTH 15.3 % (11.6-17.2); WHITE BLOOD COUNT 4.9 TH/MM3 (4.0-11.0)
[2017-08-07 05:12] LABS: BICARBONATE 24.6 MEQ/L (21.0-32.0); CALCIUM 9.8 MG/DL (8.5-10.1); CREATININE 0.75 MG/DL (0.50-1.00)
--- NOTE | 2017-08-07 06:37 | PD.ORT.PN ---
Subjective Subjective Remarks POD 2 s/p IMN left hip patient does not speak hebrew Objective Vitals Vital Signs Date Time Temp Pulse Resp B/P (MAP) Pulse Ox O2 Delivery O2 Flow Rate FiO2 08/07/17 04:00 97.4 85 18 168/66 (100) 97 08/06/17 23:30 97.0 93 17 155/77 (103) 97 08/06/17 22:38 96.9 105 18 189/87 (121) 98 08/06/17 19:55 97 08/06/17 15:55 98.3 105 16 142/89 (106) 97 08/06/17 12:00 97 08/06/17 11:59 98.0 107 16 190/90 (123) 97 08/06/17 08:00 97.5 100 16 177/71 (106) 91 I/O 08/06/17 08/06/17 08/06/17 08/07/17 08/07/17 08/07/17 07:00 15:00 23:00 07:00 15:00 23:00 Intake Total 0 ml 420 ml 240 ml 480 ml Output Total 300 ml 250 ml 250 ml 550 ml Balance -300 ml 170 ml -10 ml -70 ml Intake Oral 0 ml 420 ml 240 ml 480 ml Output Urine Total 300 ml 250 ml 250 ml 550 ml # Bowel Movements 0 0 0 0 Result Diagram: 08/07/17 0357 08/07/17 0357 Imaging Last 24 hours Impressions Chest X-Ray 08/05/17 0000 Signed Impressions: Service Date/Time: Saturday, August 05, 2017 00:55 - CONCLUSION: No acute disease. Carlos Klein Jr., MD CT Angiography 08/05/17 0000 Signed Impressions: Service Date/Time: Saturday, August 05, 2017 01:47 - CONCLUSION: 1. No pulmonary emboli. 2. Bibasilar atelectasis. 3. Cardiomegaly. 4. Soft tissue nodule involving within the neck. See the CT of the cervical spine reported separately. 5. Diffuse thickening of adrenal glands bilaterally without a discrete mass. Carlos Klein Jr., MD Objective Remarks Left lower extremity: Clean dry dressings intact. No pain with knee or ankle motion. Swelling minimal Assessment & Plan Assessment and Plan 1) Left Intertroch Hip Fx IM nail POD 2 Weightbearing as tolerated left lower extremity Begin daily dressing changes POD 2 Incentive spirometry Lovenox Plan for discharge to rehabilitation when bed available Follow-up Dr. Álvarez or PA in 2 weeks Pacheco Yi/First Kierra MARTINO Aug 07, 2017 06:37
[2017-08-07] MEDS: SODIUM CHLORIDE 0.9% FLUSH 10 ML FLUSH IV FLUSH SCH (09:00)
[2017-08-07] MEDS: PANTOPRAZOLE SOD 40 MG DELAYED RELEASE TAB PO SCH (09:40)
[2017-08-07] MEDS: amLODIPine BESYLATE 5 MG TAB PO SCH (09:40)
[2017-08-07] MEDS: CHOLECALCIFEROL (VIT D3) 5000 UNIT CAP PO SCH (09:40)
[2017-08-07] MEDS: CALCIUM/VITAMIN D 250 MG/125 U TAB PO SCH ×3 (09:40→18:00)
[2017-08-07] MEDS: ENALAPRILAT 1.25 MG/ML VIAL IV PUSH PRN (09:41)
[2017-08-07] MEDS: ENOXAPARIN SODIUM 30 MG/0.3 ML SYRINGE SQ SCH (09:45)
--- NOTE | 2017-08-07 11:24 | HHI.PR ---
Subjective Remarks Follow-up for left hip fracture. Patient seen and examined, lying in bed comfortably, awake and pleasant. [id number] at bedside and updated. Assist with some translating. Denies any acute complaints. Denies any pain. Vital signs are stable. Objective Vitals Vital Signs Date Time Temp Pulse Resp B/P (MAP) Pulse Ox O2 Delivery O2 Flow Rate FiO2 08/07/17 10:12 98 08/07/17 08:00 98.7 99 18 197/94 (128) 92 08/07/17 04:00 97.4 85 18 168/66 (100) 97 08/06/17 23:30 97.0 93 17 155/77 (103) 97 08/06/17 22:38 96.9 105 18 189/87 (121) 98 08/06/17 19:55 97 08/06/17 15:55 98.3 105 16 142/89 (106) 97 08/06/17 12:00 97 08/06/17 11:59 98.0 107 16 190/90 (123) 97 I/O 08/06/17 08/06/17 08/06/17 08/07/17 08/07/17 08/07/17 07:00 15:00 23:00 07:00 15:00 23:00 Intake Total 0 ml 420 ml 240 ml 480 ml Output Total 300 ml 250 ml 250 ml 550 ml Balance -300 ml 170 ml -10 ml -70 ml Intake Oral 0 ml 420 ml 240 ml 480 ml Output Urine Total 300 ml 250 ml 250 ml 550 ml # Bowel Movements 0 0 0 0 Result Diagram: 08/07/17 0357 08/07/17 0357 Imaging Last Impressions Hip X-Ray 08/05/17 0000 Signed Impressions: Service Date/Time: Saturday, August 05, 2017 10:35 - CONCLUSION: 1. Postoperative left proximal femur fixation. Deandre Guidry MD Chest X-Ray 08/05/17 0000 Signed Impressions: Service Date/Time: Saturday, August 05, 2017 00:55 - CONCLUSION: No acute disease. Carlos Klein Jr., MD Carotid Artery Ultrasound 08/05/17 0000 Signed Impressions: Service Date/Time: Saturday, August 05, 2017 14:22 - CONCLUSION: 1. Bilateral carotid plaque without significant flow-limiting stenosis. 2. Antegrade vertebral artery flow bilaterally. Christiano Moore MD CT Angiography 08/05/17 0000 Signed Impressions: Service Date/Time: Saturday, August 05, 2017 01:47 - CONCLUSION: 1. No pulmonary emboli. 2. Bibasilar atelectasis. 3. Cardiomegaly. 4. Soft tissue nodule involving within the neck. See the CT of the cervical spine reported separately. 5. Diffuse thickening of adrenal glands bilaterally without a discrete mass. Carlos Klein Jr., MD Hip and Pelvis X-Ray 08/04/17 0000 Signed Impressions: Service Date/Time: Friday, August 04, 2017 23:57 - CONCLUSION: Intertrochanteric left hip fracture. Carlos Klein Jr., MD Head CT 08/04/17 0000 Signed Impressions: Service Date/Time: Friday, August 04, 2017 23:29 - CONCLUSION: No acute disease. Carlos Klein Jr., MD Cervical Spine CT 08/04/17 0000 Signed Impressions: Service Date/Time: Friday, August 04, 2017 23:29 - CONCLUSION: 1. No fracture or dislocation. 2. Degenerative changes. 3. 2.5 x 1.6 and meter soft tissue nodule involving the right neck felt to relate to an exophytic thyroid nodule from the right lobe. Ultrasound could be utilized to further evaluate if needed. Carlos Klein Jr., MD Objective Remarks GENERAL: Well-nourished, well-developed elderly female patient in [facility]. Drowsy. SKIN: Warm and dry. No rash. HEENT: Normocephalic. Atraumatic. Pupils equal and round. Mucous membranes pink and moist. CARDIOVASCULAR: Regular rate and rhythm. No murmur appreciated. RESPIRATORY: No accessory muscle use. Clear to auscultation. Breath sounds equal bilaterally. GASTROINTESTINAL: Abdomen soft, non-tender, nondistended. Normoactive bowel sounds x4. MUSCULOSKELETAL: No obvious deformities. Extremities without clubbing, cyanosis , or edema. Bilateral pedal pulses 2+. Left hip with surgical dressing, CDI. NEUROLOGICAL: Awake and alert. No obvious cranial nerve deficits. Moving all extremities spontaneously. Unable to assess speech. Procedures 08/05/17 - Left hip reduction and intramedullary nail fixation by Dr. Álvarez A/P Assessment and Plan 87-year-old Turkish-speaking female with history of dementia, presents 08/04 after fall with left hip fracture Left hip intertrochanteric fracture s/p Fall: Hip/pelvis images reviewed, shows intertrochanteric left hip fracture. -Consulted orthopedics,s/p Left hip reduction and intramedullary nail fixation on 08/05 -WBAT LLE -Lovenox per ortho -PT consulted, patient will need rehab. -Pain control with Tylenol, [place], morphine prn Normocytic normochromic anemia suspect secondary to recent surgery due to blood loss versus dilutional. Will transfuse 2 units PRBC with Lasix in between. Recheck CBC. Trend H&H. No signs of bleeding at this time. We will continue to monitor. Encephalopathy?: However family reported patient at baseline dementia per report to ER. Suspect mild exacerbation by medications, patient received Versed/ morphine. -Monitor neuro checks -Caution with any sedating medications -D/c restraints -Patient improved, awake and alert, smiling. [id number]-rb-[id number] states she is pleasantly confused. Mild elevated troponin: Difficult to access for cardiac risk factors. However most likely this is secondary to rhabdo vs CKD. -Troponins elevated but flat at 0.09, 0.08, 0.05 -EKG reviewed, shows sinus tach with no acute ischemic changes -Echo pending, Follow. Mild Rhabdomyolysis: Elevated CPK at 563. Suspect secondary to fall. -Give IVF hydration -Monitor CPK, trending down. Continue to follow. Renal insufficiency: Likely underlying chronic kidney disease however no previous labs to compare. UA clear. Resolved. -Giving IVF hydration -Avoid nephrotoxins -Monitor BMP. Unwitnessed fall and elderly: Question whether this could be a syncopal episode ? No clear history provided -Head CT and C-spine CT images reviewed, no acute fracture -Carotid U/S with bilateral plaque, no significant stenosis -Check echocardiogram, pending. Follow. -Monitor on telemetry Acute urinary retention on exam: suspect secondary to medications/pain -Silverio inserted in the ED on 08/05 with initial volume 900cc -Continue Silverio, patient is receiving diuretics and blood. Thyroid Nodule: incidentally found on C-spine CT; shows 2.5 x 1.6cm soft tissue nodule involving right neck, felt to relate to an exophytic thyroid nodule from the right lobe -check TSH/T4, normal. -will need to discussed with patient/family when more awake/alert -Outpatient f/up Hypertension: BP consistently elevated, likely exacerbated by pain -Increase Norvasc from 5 mg daily to 10 mg daily. Still hypertensive. Continue to monitor BP trends. Adjust antihypertensive as needed. -IV Vasotec prn DVT Prophylaxis: Lovenox per ortho; teds/SCDs to nonoperative leg Discharge Planning Discharge to rehab hopefully tomorrow. enterprise project manager assisting with discharge planning. Monisha Gottlieb Aug 07, 2017 11:24
[2017-08-07 12:31] LABS: HEMATOCRIT 21.4 % (35.0-46.0)
[2017-08-07] MEDS: ACETAMINOPHEN/HYDROcodone 325 MG/5 MG TAB PO PRN (14:54)
[2017-08-07] MEDS ORDERED: FUROSEMIDE 20 MG/2 ML VIAL IV PUSH ONE (16:00)
[2017-08-07] MEDS ORDERED: SODIUM CHLOR 0.9% 250 ML INJ 250 ML IV ONE (16:00)
--- NOTE | 2017-08-07 17:20 | ECHRPT ---
Indication: Syncope and collapse CONCLUSIONS Wall thickness is measured at the upper limits of normal. Normal left ventricular size. Ylchb-pb-oenh mitral valve regurgitation. There is moderate to severe tricuspid valve regurgitation. The estimated pulmonary arterial pressure is 60.1 mmHg. BP: 168 / 70 HR: 67 Rhythm: Sinus MEASUREMENTS (Male / Female) Normal Values Technical Quality:Good 2D ECHO LV Diastolic Diameter PLAX 4.3 cm 4.2 - 5.9 / 3.9 - 5.3 cm LV Systolic Diameter PLAX 3.1 cm IVS Diastolic Thickness 1.2 cm 0.6 - 1.0 / 0.6 - 0.9 cm LVPW Diastolic Thickness 1.2 cm 0.6 - 1.0 / 0.6 - 0.9 cm LV Relative Wall Thickness 0.6 RV Internal Dim ED PLAX 2.9 cm LA Systolic Diameter LX 3.6 cm 3.0 - 4.0 / 2.7 - 3.8 cm M-MODE Aortic Root Diameter MM 2.8 cm LA Systolic Diameter MM 3.8 cm LA Ao Ratio MM 1.4 AV Cusp Separation MM 1.8 cm DOPPLER AV Peak Velocity 169.0 cm/s AV Peak Gradient 11.4 mmHg LVOT Peak Velocity 95.8 cm/s LVOT Peak Gradient 3.7 mmHg MV Area PHT 2.9 cm Mitral E Point Velocity 61.2 cm/s Mitral A Point Velocity 99.7 cm/s Mitral E to A Ratio 0.6 LV E' Lateral Velocity 12.4 cm/s Mitral E to LV E' Lateral Ratio 4.9 LV E' Septal Velocity 7.8 cm/s Mitral E to LV E' Septal Ratio 7.8 TR Peak Velocity 354.0 cm/s TR Peak Gradient 50.1 mmHg Right Atrial Pressure 10.0 mmHg Pulmonary Artery Systolic Pressu 60.1 mmHg Right Ventricular Systolic Press 60.1 mmHg FINDINGS LEFT VENTRICLE The left ventricular systolic function is normal with an estimated ejection fraction in the range of 60-65%. Wall thickness is measured at the upper limits of normal. Normal left ventricular size. RIGHT VENTRICLE Normal right ventricular size and systolic function. LEFT ATRIUM The left atrial size is normal. RIGHT ATRIUM The right atrial size is normal. ATRIAL SEPTUM Normal atrial septal thickness without atrial level shunting by limited color doppler interrogation. AORTA The aortic root and proximal ascending aorta are normal in size on limited imaging. MITRAL VALVE [id number]-[id number] mitral valve regurgitation. AORTIC VALVE Trileaflet aortic valve. No aortic valve stenosis or regurgitation. TRICUSPID VALVE There is moderate to severe tricuspid valve regurgitation. The estimated pulmonary arterial pressure is 60.1 mmHg. PULMONARY VALVE No pulmonary valve regurgitation or stenosis. VESSELS The inferior vena cava is normal in size. PERICARDIUM No pericardial effusion. Flavio Valdes MD, FACC (Electronically Signed) Final Date:07 August 2017 17:20
[2017-08-08] VITALS (13 sets, daily range): BP systolic 138–220; BP diastolic 66–115; PULSE 72–98; RESP 16–18; TEMP 96.8–98.8; O2SAT 94–100
--- NOTE | 2017-08-08 06:56 | PD.ORT.PN ---
Subjective Subjective Remarks Resting in bed comfortably. Confused Objective Vitals Vital Signs Date Time Temp Pulse Resp B/P (MAP) Pulse Ox O2 Delivery O2 Flow Rate FiO2 08/08/17 05:32 98.4 82 16 148/66 94 08/08/17 02:22 98.4 81 16 149/67 94 08/08/17 02:07 98.2 98 16 144/88 100 08/08/17 01:49 98.8 98 16 144/88 100 08/07/17 22:30 98.2 73 15 170/75 93 08/07/17 22:12 98.9 89 15 130/81 93 08/07/17 16:00 97.4 77 18 160/73 (102) 94 08/07/17 12:00 98.2 80 18 161/66 (97) 96 08/07/17 10:15 157/80 (105) 08/07/17 10:12 98 08/07/17 08:00 98.7 99 18 197/94 (128) 92 I/O 08/07/17 08/07/17 08/07/17 08/08/17 08/08/17 08/08/17 07:00 15:00 23:00 07:00 15:00 23:00 Intake Total 480 ml 120 ml 360 ml 660 ml Output Total 550 ml 1200 ml 425 ml 2700 ml Balance -70 ml -1080 ml -65 ml -2040 ml Intake Oral 480 ml 120 ml 360 ml 240 ml Packed Cells 400 ml Blood Product IV Normal Saline Flush 20 ml Output Urine Total 550 ml 1200 ml 425 ml 2700 ml # Bowel Movements 0 0 0 0 Result Diagram: 08/07/17 1207 08/07/17 0357 Imaging Last 24 hours Impressions Chest X-Ray 08/05/17 0000 Signed Impressions: Service Date/Time: Saturday, August 05, 2017 00:55 - CONCLUSION: No acute disease. Carlos Klein Jr., MD CT Angiography 08/05/17 0000 Signed Impressions: Service Date/Time: Saturday, August 05, 2017 01:47 - CONCLUSION: 1. No pulmonary emboli. 2. Bibasilar atelectasis. 3. Cardiomegaly. 4. Soft tissue nodule involving within the neck. See the CT of the cervical spine reported separately. 5. Diffuse thickening of adrenal glands bilaterally without a discrete mass. Carlos Klein Jr., MD Objective Remarks Left lower extremity: Clean dry dressings intact. No pain with knee or ankle motion. Swelling minimal Assessment & Plan Assessment and Plan 1) Left Intertroch Hip Fx IM nail POD 3 Weightbearing as tolerated left lower extremity Begin daily dressing changes POD 3 Incentive spirometry Lovenox Plan for discharge to rehabilitation when bed available Follow-up Dr. Álvarez or PA in 2 weeks Samson Desir Jr. PA Aug 08, 2017 06:56
[2017-08-08 07:02] LABS: AUTOMATED NEUTROPHIL # 4.1 TH/MM3 (1.8-7.7); BASOPHIL % 0.2 % (0.0-2.0); EOSINOPHIL # 0.1 TH/MM3 (0-0.4); EOSINOPHIL % 1.9 % (0.0-4.0); HEMATOCRIT 30.3 % (35.0-46.0); HEMOGLOBIN 10.4 GM/DL (11.6-15.3); LYMPH % 15.9 % (9.0-44.0); LYMPHOCYTE # 0.9 TH/MM3 (1.0-4.8); MEAN CELL VOLUME 83.4 FL (80.0-100.0); MEAN CORPUSCULAR HEMOGLOBIN 28.6 PG (27.0-34.0); MEAN CORPUSCULAR HGB CONC 34.3 % (32.0-36.0); MEAN PLATELET VOLUME 8.2 FL (7.0-11.0); MONO % 8.5 % (0.0-8.0); MONOCYTE # 0.5 TH/MM3 (0-0.9); NEUT % 73.5 % (16.0-70.0); PLATELET COUNT 155 TH/MM3 (150-450); RED BLOOD COUNT 3.64 MIL/MM3 (4.00-5.30); RED CELL DISTRIBUTION WIDTH 15.5 % (11.6-17.2); WHITE BLOOD COUNT 5.6 TH/MM3 (4.0-11.0)
[2017-08-08 07:28] LABS: BICARBONATE 27.2 MEQ/L (21.0-32.0); CALCIUM 9.9 MG/DL (8.5-10.1); CREATININE 0.74 MG/DL (0.50-1.00)
[2017-08-08] MEDS: ENALAPRILAT 1.25 MG/ML VIAL IV PUSH PRN ×2 (09:21→15:59)
[2017-08-08] MEDS: CHOLECALCIFEROL (VIT D3) 5000 UNIT CAP PO SCH (09:21)
[2017-08-08] MEDS: CALCIUM/VITAMIN D 250 MG/125 U TAB PO SCH ×3 (09:21→18:49)
[2017-08-08] MEDS: PANTOPRAZOLE SOD 40 MG DELAYED RELEASE TAB PO SCH (09:21)
[2017-08-08] MEDS: ENOXAPARIN SODIUM 30 MG/0.3 ML SYRINGE SQ SCH (09:22)
[2017-08-08] MEDS: SODIUM CHLORIDE 0.9% FLUSH 10 ML FLUSH IV FLUSH SCH ×2 (09:22→20:58)
[2017-08-08] MEDS ORDERED: POTASSIUM CHLORIDE 10 MEQ CONTROLLED RELEASE TAB PO ONE (12:00)
--- NOTE | 2017-08-08 13:31 | HHI.PR ---
Subjective Remarks Follow up on patient with left hip fracture, status post IM nailing. Patient seen and examined. Appears comfortable. [id number]-bd-[id number] is at the bedside. Discussed with nursing staff, no acute issues noted. Patient is afebrile. Vital signs are stable. Objective Vitals Vital Signs Date Time Temp Pulse Resp B/P (MAP) Pulse Ox O2 Delivery O2 Flow Rate FiO2 08/08/17 12:00 96.8 79 18 182/73 (109) 95 08/08/17 10:33 97 08/08/17 10:30 161/85 (110) 08/08/17 08:00 97.0 72 18 186/86 (119) 97 08/08/17 05:32 98.4 82 16 148/66 94 08/08/17 02:22 98.4 81 16 149/67 94 08/08/17 02:07 98.2 98 16 144/88 100 08/08/17 01:49 98.8 98 16 144/88 100 08/07/17 22:30 98.2 73 15 170/75 93 08/07/17 22:12 98.9 89 15 130/81 93 08/07/17 16:00 97.4 77 18 160/73 (102) 94 I/O 08/07/17 08/07/17 08/07/17 08/08/17 08/08/17 08/08/17 07:00 15:00 23:00 07:00 15:00 23:00 Intake Total 480 ml 120 ml 360 ml 660 ml Output Total 550 ml 1200 ml 425 ml 2700 ml Balance -70 ml -1080 ml -65 ml -2040 ml Intake Oral 480 ml 120 ml 360 ml 240 ml Packed Cells 400 ml Blood Product IV Normal Saline Flush 20 ml Output Urine Total 550 ml 1200 ml 425 ml 2700 ml # Bowel Movements 0 0 0 0 Result Diagram: 08/08/17 0631 08/08/17 0631 Imaging Last Impressions Hip X-Ray 08/05/17 0000 Signed Impressions: Service Date/Time: Saturday, August 05, 2017 10:35 - CONCLUSION: 1. Postoperative left proximal femur fixation. Deandre Guidry MD Chest X-Ray 08/05/17 0000 Signed Impressions: Service Date/Time: Saturday, August 05, 2017 00:55 - CONCLUSION: No acute disease. Carlos Klein Jr., MD Carotid Artery Ultrasound 08/05/17 0000 Signed Impressions: Service Date/Time: Saturday, August 05, 2017 14:22 - CONCLUSION: 1. Bilateral carotid plaque without significant flow-limiting stenosis. 2. Antegrade vertebral artery flow bilaterally. Christiano Moore MD CT Angiography 08/05/17 0000 Signed Impressions: Service Date/Time: Saturday, August 05, 2017 01:47 - CONCLUSION: 1. No pulmonary emboli. 2. Bibasilar atelectasis. 3. Cardiomegaly. 4. Soft tissue nodule involving within the neck. See the CT of the cervical spine reported separately. 5. Diffuse thickening of adrenal glands bilaterally without a discrete mass. Carlos Klein Jr., MD Hip and Pelvis X-Ray 08/04/17 0000 Signed Impressions: Service Date/Time: Friday, August 04, 2017 23:57 - CONCLUSION: Intertrochanteric left hip fracture. Carlos Klein Jr., MD Head CT 08/04/17 0000 Signed Impressions: Service Date/Time: Friday, August 04, 2017 23:29 - CONCLUSION: No acute disease. Carlos Klein Jr., MD Cervical Spine CT 08/04/17 0000 Signed Impressions: Service Date/Time: Friday, August 04, 2017 23:29 - CONCLUSION: 1. No fracture or dislocation. 2. Degenerative changes. 3. 2.5 x 1.6 and meter soft tissue nodule involving the right neck felt to relate to an exophytic thyroid nodule from the right lobe. Ultrasound could be utilized to further evaluate if needed. Carlos Klein Jr., MD Objective Remarks GENERAL: Well-nourished, well-developed Albanian speaking elderly female patient in [facility]. Appears comfortable. Confused. Hnuezgsy-fz-ywq is at the bedside. SKIN: Warm and dry. No rash. HEAD: Normocephalic. Atraumatic. EYES: Pupils equal and round. No scleral icterus. No injection or drainage. ENT: No nasal bleeding or discharge. Mucous membranes pink and moist. NECK: Trachea midline. CARDIOVASCULAR: Regular rate and rhythm. S1, S2 noted. No murmur appreciated. RESPIRATORY: Nonlabored. Clear to auscultation. Breath sounds equal bilaterally. GASTROINTESTINAL: Abdomen soft, non-tender, nondistended. Normoactive bowel sounds x4. MUSCULOSKELETAL: Extremities without clubbing, cyanosis, or edema. Left hip surgical dressing C/D/I. Bilateral pedal pulses 2+. NEUROLOGICAL: Awake and alert. No obvious cranial nerve deficits. Able to move all extremities spontaneously. No focal neurologic findings appreciated. Procedures 08/05/17 - Left hip reduction and intramedullary nail fixation by Dr. Álvarez Medications and IVs Current Medications Medications (Trade) Dose Ordered Sig/Gilmer Route Start Time Stop Time Status Last Admin (NS Flush) 2 ml UNSCH PRN IV FLUSH 08/05/17 01:15 (NS Flush) 2 ml BID IV FLUSH 08/05/17 09:00 08/08/17 09:22 (Narcan Inj) 0.4 mg UNSCH PRN IV PUSH 08/05/17 01:15 (Protonix) 40 mg DAILY PO 08/06/17 09:00 08/08/17 09:21 (Tylenol) 650 mg Q4H PRN PO 08/05/17 08:30 (Morphine Inj) 2 mg Q3HR PRN IV PUSH 08/05/17 08:30 (Lovenox Inj) 30 mg Q24H SQ 08/06/17 10:00 08/08/17 09:22 (Zofran Inj) 4 mg Q4H PRN IVP 08/05/17 13:00 (Oscal-D 250-125) 250 mg TID PO 08/05/17 13:00 08/08/17 09:21 (Benadryl) 25 mg Q6H PRN PO 08/05/17 13:00 (De Leon 5-325 Mg) 1 tab Q3H PRN PO 08/05/17 13:00 08/07/17 14:54 (Vitamin D3) 5,000 units DAILY PO 08/06/17 09:00 08/08/17 09:21 (Vasotec Inj) 1.25 mg Q6H PRN IV PUSH 08/06/17 14:15 08/08/17 09:21 (Norvasc) 10 mg DAILY PO 08/08/17 09:00 08/08/17 09:21 A/P Assessment and Plan 87-year-old Albanian-speaking female with history of dementia, presents 08/04 after fall with left hip fracture Left hip intertrochanteric fracture s/p fall: Hip/pelvis shows intertrochanteric left hip fracture. -Consulted orthopedics,s/p Left hip reduction and intramedullary nail fixation on 08/05 -WBAT LLE -Lovenox per ortho -PT consulted, patient will need rehab. -Pain control with Tylenol, De Leon, morphine prn with bowel regimen Normocytic normochromic anemia suspect secondary to recent surgery due to blood loss. s/p transfusion 2 units PRBC. Hemoglobin with good response post transfusion improving from 7.0 to 10.4. Repeat H/H in am. No signs of bleeding at this time. We will continue to monitor. Encephalopathy?: However family reported patient at baseline dementia per report to ER. Suspect mild exacerbation by medications, patient received Versed/ morphine. Dementia -Monitor neuro checks -Caution with any sedating medications -Patient improved, awake and alert, smiling. Cvozqlyj-qa-axg states she is pleasantly confused. Mild elevated troponin: Difficult to access for cardiac risk factors. However most likely this is secondary to rhabdo vs CKD. -Troponins elevated but flat at 0.09, 0.08, 0.05 -EKG reviewed, shows sinus tach with no acute ischemic changes -Echo shows moderate to severe tricuspid valve regurgitation Mild Rhabdomyolysis: Elevated CPK at 563. Suspect secondary to fall. -Resolved s/p IVF hydration Renal insufficiency: Likely underlying chronic kidney disease however no previous labs to compare. UA clear. Resolved. -given IVF hydration -Avoid nephrotoxins -Continue to monitor renal indices indicated Hypokalemia -Obtain magnesium level -Given oral repletion -Repeat potassium level in a.m. Unwitnessed fall and elderly: Question whether this could be a syncopal episode ? No clear history provided -Head CT and C-spine CT images reviewed, no acute findings -Carotid U/S with bilateral plaque, no significant stenosis -Echo shows EF 60-65%, moderate to severe tricuspid valve regurgitation -Obtain orthostatic BP measurements -fall precautions Acute urinary retention on exam: suspect secondary to medications/pain -Flower inserted in the ED on 08/05 with initial volume 900cc -d/c flower, monitor for recurrence of retention Thyroid Nodule: incidentally found on C-spine CT; shows 2.5 x 1.6cm soft tissue nodule involving right neck, felt to relate to an exophytic thyroid nodule from the right lobe -check TSH/T4, normal. -Outpatient f/up Hypertension: BP consistently elevated, likely exacerbated by pain -Not on any antihypertensives at home -Norvasc increased to 10 mg daily, still with elevated BP. Add Lisinopril 5mg daily. -Continue to monitor BP and adjust treatment accordingly. -IV Vasotec prn Vitamin D deficiency -Vitamin D level 16.7 -Continue on by mouth repletion -Patient will need to have vitamin D level rechecked in 3 months as outpatient DVT Prophylaxis: Lovenox per ortho; teds/SCDs to nonoperative leg Discharge Planning Difficult placement secondary to insurance coverage, change healthcare form completed and to be faxed per case management. Green card expires 08/12 - may be eligible for emergency Medicaid, then after 08/12 may be eligible for Medicaid. Tisha York Aug 08, 2017 13:31
[2017-08-08] MEDS: ACETAMINOPHEN/HYDROcodone 325 MG/5 MG TAB PO PRN ×2 (15:59→20:58)
[2017-08-08] MEDS ORDERED: LISINOPRIL 5 MG TAB PO ONE (17:45)
[2017-08-08] MEDS ORDERED: BISACODYL 10 MG SUPP RECTAL PRN (21:30)
[2017-08-09] VITALS (7 sets, daily range): BP systolic 151–190; BP diastolic 72–87; PULSE 67–76; RESP 17–18; TEMP 96.4–98.9; O2SAT 93–98
[2017-08-09] MEDS: ENALAPRILAT 1.25 MG/ML VIAL IV PUSH PRN (00:15)
[2017-08-09] MEDS: ACETAMINOPHEN/HYDROcodone 325 MG/5 MG TAB PO PRN (03:35)
[2017-08-09 09:05] LABS: HEMOGLOBIN 10.8 GM/DL (11.6-15.3)
[2017-08-09] MEDS: CHOLECALCIFEROL (VIT D3) 5000 UNIT CAP PO SCH (09:22)
[2017-08-09] MEDS: LISINOPRIL 5 MG TAB PO SCH (09:22)
[2017-08-09] MEDS: PANTOPRAZOLE SOD 40 MG DELAYED RELEASE TAB PO SCH (09:22)
[2017-08-09] MEDS: CALCIUM/VITAMIN D 250 MG/125 U TAB PO SCH ×3 (09:22→17:16)
[2017-08-09] MEDS: DOCUSATE SODIUM 50 MG/SENNA 8.6 MG TAB PO SCH ×2 (09:23→20:26)
[2017-08-09] MEDS: ENOXAPARIN SODIUM 30 MG/0.3 ML SYRINGE SQ SCH (09:23)
[2017-08-09] MEDS: MAGNESIUM HYDROXIDE SUSP 30 ML CUP PO SCH ×2 (09:23→20:26)
[2017-08-09] MEDS: SODIUM CHLORIDE 0.9% FLUSH 10 ML FLUSH IV FLUSH SCH ×2 (09:23→20:26)
--- NOTE | 2017-08-09 15:20 | HHI.PR ---
Subjective Remarks Follow up on patient with left hip fracture, status post IM nailing. Patient seen and examined. Appears comfortable. [id number]-ij-[id number] is at the bedside. Discussed with nursing staff, no acute issues noted. Patient is afebrile. Vital signs are stable. 08-09 AWAIT PLACEMENT PLACEMENT ISSUES DW RN AND CM PATIENT DOES NOT SPEAK BRUNEIAN AND HAS DEMENTIA Objective Vitals Vital Signs Date Time Temp Pulse Resp B/P (MAP) Pulse Ox O2 Delivery O2 Flow Rate FiO2 08/09/17 12:00 96.4 73 17 168/77 (107) 94 155/87 (109) 08/09/17 08:00 97.7 75 18 164/73 (103) 97 08/09/17 03:30 97.9 75 18 186/79 (114) 95 08/09/17 01:22 170/78 (108) 08/09/17 00:00 98.9 68 18 190/86 (120) 98 08/08/17 21:08 97 08/08/17 20:59 97.0 86 17 138/88 (105) 99 08/08/17 17:00 160/88 (112) 08/08/17 16:10 172/100 (124) 08/08/17 16:10 183/110 (134) 220/115 (150) 08/08/17 16:00 97.1 83 18 180/78 (112) 97 I/O 08/08/17 08/08/17 08/08/17 08/09/17 08/09/17 08/09/17 07:00 15:00 23:00 07:00 15:00 23:00 Intake Total 660 ml 480 ml 240 ml 480 ml Output Total 2700 ml 350 ml 400 ml Balance -2040 ml 130 ml -160 ml 480 ml Intake Oral 240 ml 480 ml 240 ml 480 ml Packed Cells 400 ml Blood Product IV Normal Saline Flush 20 ml Output Urine Total 2700 ml 350 ml 400 ml # Voids 1 # Bowel Movements 0 0 0 1 Result Diagram: 08/09/17 0840 08/09/17 0840 Other Results Laboratory Tests Test 08/07/17 03:57 08/07/17 12:07 08/08/17 06:31 08/09/17 08:40 White Blood Count 4.9 TH/MM3 5.6 TH/MM3 Red Blood Count 2.52 MIL/MM3 3.64 MIL/MM3 Hemoglobin 7.1 GM/DL 7.0 GM/DL 10.4 GM/DL 10.8 GM/DL Hematocrit 21.4 % 21.4 % 30.3 % 31.0 % Mean Corpuscular Volume 85.0 FL 83.4 FL Mean Corpuscular Hemoglobin 28.2 PG 28.6 PG Mean Corpuscular Hemoglobin Concent 33.2 % 34.3 % Red Cell Distribution Width 15.3 % 15.5 % Platelet Count 122 TH/MM3 155 TH/MM3 Mean Platelet Volume 8.4 FL 8.2 FL Neutrophils (%) (Auto) 76.3 % 73.5 % Lymphocytes (%) (Auto) 16.0 % 15.9 % Monocytes (%) (Auto) 6.8 % 8.5 % Eosinophils (%) (Auto) 0.8 % 1.9 % Basophils (%) (Auto) 0.1 % 0.2 % Neutrophils # (Auto) 3.8 TH/MM3 4.1 TH/MM3 Lymphocytes # (Auto) 0.8 TH/MM3 0.9 TH/MM3 Monocytes # (Auto) 0.3 TH/MM3 0.5 TH/MM3 Eosinophils # (Auto) 0.0 TH/MM3 0.1 TH/MM3 Basophils # (Auto) 0.0 TH/MM3 0.0 TH/MM3 CBC Comment DIFF FINAL DIFF FINAL Differential Comment Blood Urea Nitrogen 25 MG/DL 18 MG/DL Creatinine 0.75 MG/DL 0.74 MG/DL Random Glucose 124 MG/DL 98 MG/DL Calcium Level 9.8 MG/DL 9.9 MG/DL Sodium Level 146 MEQ/L 142 MEQ/L Potassium Level 3.5 MEQ/L 3.2 MEQ/L 3.8 MEQ/L Chloride Level 113 MEQ/L 108 MEQ/L Carbon Dioxide Level 24.6 MEQ/L 27.2 MEQ/L Anion Gap 8 MEQ/L 7 MEQ/L Estimat Glomerular Filtration Rate 73 ML/MIN 74 ML/MIN Magnesium Level 1.8 MG/DL Total Creatine Kinase 81 U/L Imaging Last Impressions Hip X-Ray 08/05/17 0000 Signed Impressions: Service Date/Time: Saturday, August 05, 2017 10:35 - CONCLUSION: 1. Postoperative left proximal femur fixation. Deandre Guidry MD Chest X-Ray 08/05/17 0000 Signed Impressions: Service Date/Time: Saturday, August 05, 2017 00:55 - CONCLUSION: No acute disease. Carlos Klein Jr., MD Carotid Artery Ultrasound 08/05/17 0000 Signed Impressions: Service Date/Time: Saturday, August 05, 2017 14:22 - CONCLUSION: 1. Bilateral carotid plaque without significant flow-limiting stenosis. 2. Antegrade vertebral artery flow bilaterally. Christiano Moore MD CT Angiography 08/05/17 0000 Signed Impressions: Service Date/Time: Saturday, August 05, 2017 01:47 - CONCLUSION: 1. No pulmonary emboli. 2. Bibasilar atelectasis. 3. Cardiomegaly. 4. Soft tissue nodule involving within the neck. See the CT of the cervical spine reported separately. 5. Diffuse thickening of adrenal glands bilaterally without a discrete mass. Carlos Klein Jr., MD Hip and Pelvis X-Ray 08/04/17 0000 Signed Impressions: Service Date/Time: Friday, August 04, 2017 23:57 - CONCLUSION: Intertrochanteric left hip fracture. Carlos Klein Jr., MD Head CT 08/04/17 0000 Signed Impressions: Service Date/Time: Friday, August 04, 2017 23:29 - CONCLUSION: No acute disease. Carlos Klein Jr., MD Cervical Spine CT 08/04/17 0000 Signed Impressions: Service Date/Time: Friday, August 04, 2017 23:29 - CONCLUSION: 1. No fracture or dislocation. 2. Degenerative changes. 3. 2.5 x 1.6 and meter soft tissue nodule involving the right neck felt to relate to an exophytic thyroid nodule from the right lobe. Ultrasound could be utilized to further evaluate if needed. Carlos Klein Jr., MD Objective Remarks GENERAL: Awake alert talkative moves all 4 extremities SKIN: Warm and dry. HEAD: Atraumatic. Normocephalic. EYES: Pupils equal and round. No scleral icterus. No injection or drainage. Extraocular muscles intact ENT: No nasal bleeding or discharge. Mucous membranes pink and moist. Tongue is midline NECK: Trachea midline. No JVD. Supple CARDIOVASCULAR: Regular rate and rhythm. S1-S2 no S3-S4 RESPIRATORY: No accessory muscle use. Clear to auscultation. Breath sounds equal bilaterally. GASTROINTESTINAL: Abdomen soft, non-tender, nondistended. Hepatic and splenic margins not palpable. MUSCULOSKELETAL: Extremities without clubbing, cyanosis, or edema. No obvious deformities. NEUROLOGICAL: Awake and alert. No obvious cranial nerve deficits. Motor grossly within normal limits. 4 out of 5 muscle strength in the arms and legs. Normal speech. PSYCHIATRIC: Cannot assess due to dementia and language barrier appropriate mood and affect; insight and judgment normal. Procedures 08/05/17 - Left hip reduction and intramedullary nail fixation by Dr. Álvarez Medications and IVs Current Medications Hydralazine HCl (Apresoline Inj) 10 mg ONCE ONCE IV PUSH Last administered on 08/05/17at 00:16; Start 08/05/17 at 00:00; Stop 08/05/17 at 00:01; Status DC Sodium Chloride 500 ml @ 500 mls/hr BOLUS ONCE IV Last administered on at 00:16; Start 08/05/17 at 00:00; Stop 08/05/17 at 00:59; Status DC Sodium Chloride (NS Flush) 2 ml UNSCH PRN IV FLUSH FLUSH AFTER USING IV ACCESS Last administered on 08/08/17at 16:02; Start 08/05/17 at 01:15 Sodium Chloride (NS Flush) 2 ml BID IV FLUSH Last administered on 08/09/17at 09: 23; Start 08/05/17 at 09:00 Naloxone HCl (Narcan Inj) 0.4 mg UNSCH PRN IV PUSH SEE LABEL COMMENTS; Start at 01:15 Iohexol (Omnipaque 350 Inj) 75 ml STK-MED ONCE IVCONTRAST ; Start 08/05/17 at 01 :58; Stop 08/05/17 at 01:59; Status DC Pantoprazole Sodium (Protonix) 40 mg DAILY PO Last administered on 08/09/17at 09 :22; Start 08/06/17 at 09:00 Pantoprazole Sodium (Protonix Inj) 40 mg ONCE ONCE IV PUSH Last administered on 08/05/17at 06:30; Start 08/05/17 at 06:30; Stop 08/05/17 at 06:31; Status DC Gentamicin Sulfate (Gentamicin Inj) 240 mg STK-MED ONCE .ROUTE Last administered on 08/05/17at 10:21; Start 08/05/17 at 07:51; Stop 08/05/17 at 07:52 ; Status DC Acetaminophen (Tylenol) 650 mg Q4H PRN PO headache/fever/pain1-3; Start at 08:30 Morphine Sulfate (Morphine Inj) 2 mg Q3HR PRN IV PUSH SEE LABEL COMMENTS; Start 08/05/17 at 08:30 Sodium Chloride 1,000 ml @ 84 mls/hr [id number] IV Last administered on at 12:00; Start 08/05/17 at 08:45; Stop 08/06/17 at 08:33; Status DC Bupivacaine HCl/ Epinephrine Bitart (Sensorcaine-Epinephrine Pf 0.25% Inj) 10 ml STK-MED ONCE .ROUTE Last administered on 08/05/17at 10:43; Start 08/05/17 at 08:45; Stop 08/05/17 at 08:46; Status DC Cefazolin Sodium (Ancef Inj) 1,000 mg STK-MED ONCE .ROUTE Last administered on 08/05/17at 10:07; Start 08/05/17 at 09:57; Stop 08/05/17 at 09:58; Status DC Vancomycin HCl (Vancomycin Inj) 1,000 mg STK-MED ONCE .ROUTE ; Start 08/05/17 at 09:57; Stop 08/05/17 at 09:58; Status DC Enoxaparin Sodium (Lovenox Inj) 30 mg Q24H SQ Last administered on 08/09/17at 09 :23; Start 08/06/17 at 10:00 Cefazolin Sodium 1000 mg/Sodium Chloride 100 ml @ 200 mls/hr Q8H IV Last administered on 08/06/17at 08:35; Start 08/05/17 at 18:00; Stop 08/06/17 at 10:29 ; Status DC Ondansetron HCl (Zofran Inj) 4 mg Q4H PRN IVP NAUSEA OR VOMITING; Start at 13:00 Calcium/Vitamin D (Oscal-D 250-125) 250 mg TID PO Last administered on at 14:06; Start 08/05/17 at 13:00 Diphenhydramine HCl (Benadryl) 25 mg Q6H PRN PO ITCHING; Start 08/05/17 at 13: 00 Acetaminophen/ Hydrocodone Bitart (Newell 5-325 Mg) 1 tab Q3H PRN PO pain 3<10 Last administered on 08/09/17at 03:35; Start 08/05/17 at 13:00 Cholecalciferol (Vitamin D3) 5,000 units DAILY PO Last administered on at 09:22; Start 08/06/17 at 09:00 Ergocalciferol (Drisdol) 50,000 units ONCE ONCE PO Last administered on at 18:02; Start 08/05/17 at 14:00; Stop 08/05/17 at 14:01; Status DC Fentanyl Citrate (fentaNYL INJ) 100 mcg STK-MED ONCE .ROUTE ; Start 08/05/17 at 11:07; Stop 08/05/17 at 11:08; Status DC Labetalol HCl (*TRANDATE INJ PERIprocedural Use ONLY) 100 mg STK-MED ONCE .ROUTE Last administered on 08/05/17at 11:31; Start 08/05/17 at 11:31; Stop at 11:32; Status DC Miscellaneous Information ALL NURSING DEPARTME... UNSCH PRN .XX SEE LABEL COMMENTS; Start 08/05/17 at 11:00; Stop 08/06/17 at 10:59; Status DC Amlodipine Besylate (Norvasc) 5 mg DAILY PO Last administered on 08/07/17at 09: 40; Start 08/06/17 at 09:15; Stop 08/07/17 at 11:25; Status DC Enalaprilat (Vasotec Inj) 1.25 mg Q6H PRN IV PUSH SBP> OR = 180, DBP> OR = 100 Last administered on 08/09/17at 00:15; Start 08/06/17 at 14:15 Amlodipine Besylate (Norvasc) 10 mg DAILY PO Last administered on 08/09/17at 09: 23; Start 08/08/17 at 09:00 Sodium Chloride 250 ml @ 15 mls/hr ONCE ONCE IV ; Start 08/07/17 at 16:00; Stop 08/08/17 at 08:39; Status DC Furosemide (Lasix Inj) 20 mg ONCE ONCE IV PUSH Last administered on 08/08/17at 01:52; Start 08/07/17 at 16:00; Stop 08/07/17 at 16:01; Status DC Potassium Chloride (KCl) 40 meq ONCE ONCE PO Last administered on 08/08/17at 12 :00; Start 08/08/17 at 12:00; Stop 08/08/17 at 12:01; Status DC Lidocaine HCl (Xylocaine-Mpf 1% Inj) 5 ml STK-MED ONCE OTHER ; Start 08/05/17 at 12:00; Stop 08/08/17 at 11:11; Status DC Rocuronium [place] (Zemuron Inj) 50 mg STK-MED ONCE IV PUSH ; Start 08/05/17 at 12:00; Stop 08/08/17 at 11:11; Status DC Neostigmine Methylsulfate (Prostigmine Inj) 5 mg STK-MED ONCE IV PUSH ; Start at 12:00; Stop 08/08/17 at 11:11; Status DC Glycopyrrolate (Robinul Inj) 1 mg STK-MED ONCE IV PUSH ; Start 08/05/17 at 12:00 ; Stop 08/08/17 at 11:11; Status DC Phenylephrine HCl (Neosynephrine/ NS 1000 Mcg/10ml Syr) 1,000 mcg STK-MED ONCE IV ; Start 08/05/17 at 12:00; Stop 08/08/17 at 11:11; Status DC Ephedrine Sulfate (ePHEDrine/NS 25 MG/5 ML SYR) 25 mg STK-MED ONCE IV ; Start at 12:00; Stop 08/08/17 at 11:11; Status DC Ondansetron HCl (Zofran Inj) 4 mg STK-MED ONCE IV ; Start 08/05/17 at 12:00; Stop 08/08/17 at 11:11; Status DC Propofol (Diprivan 200 Mg/20 ml Inj) 400 mg STK-MED ONCE IV ; Start 08/05/17 at 12:00; Stop 08/08/17 at 11:11; Status DC Lisinopril (Prinivil) 5 mg ONCE ONCE PO Last administered on 08/08/17at 18:46; Start 08/08/17 at 17:45; Stop 08/08/17 at 17:46; Status DC Lisinopril (Prinivil) 5 mg DAILY PO Last administered on 08/09/17at 09:22; Start 08/09/17 at 09:00 Bisacodyl (Dulcolax Supp) 10 mg Q24H PRN RECTAL CONSTIPATION; Start 08/08/17 at 21:30 Magnesium Hydroxide (Milk Of Lalito Bal) 30 ml BID PO Last administered on at 09:23; Start 08/09/17 at 09:00 Senna/Docusate Sodium (Kaylah-Colace) 1 tab BID PO Last administered on at 09:23; Start 08/09/17 at 09:00 A/P Assessment and Plan 87-year-old [place]ibian-speaking female with history of dementia, presents 08/04 after fall with left hip fracture Left hip intertrochanteric fracture s/p fall: Hip/pelvis shows intertrochanteric left hip fracture. -Consulted orthopedics,s/p Left hip reduction and intramedullary nail fixation on 08/05 -WBAT LLE -Lovenox per ortho -PT consulted, patient will need rehab. -Pain control with Tylenol, Newell, morphine prn with bowel regimen Normocytic normochromic anemia suspect secondary to recent surgery due to blood loss. s/p transfusion 2 units PRBC. Hemoglobin with good response post transfusion improving from 7.0 to 10.4. Repeat H/H in am. No signs of bleeding at this time. We will continue to monitor. Encephalopathy?: However family reported patient at baseline dementia per report to ER. Suspect mild exacerbation by medications, patient received Versed/ morphine. Dementia -Monitor neuro checks -Caution with any sedating medications -Patient improved, awake and alert, smiling. Hmlnaygv-zf-ysw states she is pleasantly confused. Mild elevated troponin: Difficult to access for cardiac risk factors. However most likely this is secondary to rhabdo vs CKD. -Troponins elevated but flat at 0.09, 0.08, 0.05 -EKG reviewed, shows sinus tach with no acute ischemic changes -Echo shows moderate to severe tricuspid valve regurgitation Mild Rhabdomyolysis: Elevated CPK at 563. Suspect secondary to fall. -Resolved s/p IVF hydration Renal insufficiency: Likely underlying chronic kidney disease however no previous labs to compare. UA clear. Resolved. -given IVF hydration -Avoid nephrotoxins -Continue to monitor renal indices indicated Hypokalemia -Obtain magnesium level -Given oral repletion -Repeat potassium level in a.m. Unwitnessed fall and elderly: Question whether this could be a syncopal episode ? No clear history provided -Head CT and C-spine CT images reviewed, no acute findings -Carotid U/S with bilateral plaque, no significant stenosis -Echo shows EF 60-65%, moderate to severe tricuspid valve regurgitation -Obtain orthostatic BP measurements -fall precautions Acute urinary retention on exam: suspect secondary to medications/pain -Flower inserted in the ED on 08/05 with initial volume 900cc -d/c flower, monitor for recurrence of retention Thyroid Nodule: incidentally found on C-spine CT; shows 2.5 x 1.6cm soft tissue nodule involving right neck, felt to relate to an exophytic thyroid nodule from the right lobe -check TSH/T4, normal. -Outpatient f/up Hypertension: BP consistently elevated, likely exacerbated by pain -Not on any antihypertensives at home -Norvasc increased to 10 mg daily, still with elevated BP. Add Lisinopril 5mg daily. -Continue to monitor BP and adjust treatment accordingly. -IV Vasotec prn Vitamin D deficiency -Vitamin D level 16.7 -Continue on by mouth repletion -Patient will need to have vitamin D level rechecked in 3 months as outpatient DVT Prophylaxis: Lovenox per ortho; teds/SCDs to nonoperative leg Discharge Planning Discharge Planning Difficult placement secondary to insurance coverage, change healthcare form completed and to be faxed per case management. Green card expires 08/12 - may be eligible for emergency Medicaid, then after 08/12 may be eligible for Medicaid. Rafa Castillo DO Aug 09, 2017 15:20
[2017-08-10] VITALS (7 sets, daily range): BP systolic 123–181; BP diastolic 67–87; PULSE 66–77; RESP 18; TEMP 95.4–98.7; O2SAT 92–100
[2017-08-10] MEDS: ACETAMINOPHEN/HYDROcodone 325 MG/5 MG TAB PO PRN ×2 (04:52→21:30)
[2017-08-10] MEDS: PANTOPRAZOLE SOD 40 MG DELAYED RELEASE TAB PO SCH (07:53)
[2017-08-10] MEDS: CHOLECALCIFEROL (VIT D3) 5000 UNIT CAP PO SCH (07:53)
[2017-08-10] MEDS: LISINOPRIL 5 MG TAB PO SCH (07:53)
[2017-08-10] MEDS: CALCIUM/VITAMIN D 250 MG/125 U TAB PO SCH ×3 (07:53→18:39)
[2017-08-10] MEDS: MAGNESIUM HYDROXIDE SUSP 30 ML CUP PO SCH ×2 (07:53→21:30)
[2017-08-10] MEDS: DOCUSATE SODIUM 50 MG/SENNA 8.6 MG TAB PO SCH ×2 (07:54→21:30)
[2017-08-10] MEDS: SODIUM CHLORIDE 0.9% FLUSH 10 ML FLUSH IV FLUSH SCH ×2 (07:54→21:30)
[2017-08-10] MEDS: ENOXAPARIN SODIUM 30 MG/0.3 ML SYRINGE SQ SCH (07:58)
[2017-08-10 09:32] LABS: AUTOMATED NEUTROPHIL # 4.4 TH/MM3 (1.8-7.7); BASOPHIL % 0.3 % (0.0-2.0); EOSINOPHIL % 0.8 % (0.0-4.0); HEMATOCRIT 33.3 % (35.0-46.0); LYMPH % 13.6 % (9.0-44.0); LYMPHOCYTE # 0.8 TH/MM3 (1.0-4.8); MEAN CELL VOLUME 84.4 FL (80.0-100.0); MEAN CORPUSCULAR HGB CONC 33.1 % (32.0-36.0); MEAN PLATELET VOLUME 7.9 FL (7.0-11.0); MONO % 9.1 % (0.0-8.0); MONOCYTE # 0.5 TH/MM3 (0-0.9); NEUT % 76.2 % (16.0-70.0); PLATELET COUNT 230 TH/MM3 (150-450); RED BLOOD COUNT 3.94 MIL/MM3 (4.00-5.30); RED CELL DISTRIBUTION WIDTH 15.6 % (11.6-17.2); WHITE BLOOD COUNT 5.8 TH/MM3 (4.0-11.0)
[2017-08-10 10:10] LABS: ALBUMIN 2.7 GM/DL (3.4-5.0); ALKALINE PHOSPHATASE 91 U/L (45-117); ALT (GPT) 47 U/L (10-53); AST (GOT) 65 U/L (15-37); BICARBONATE 26.7 MEQ/L (21.0-32.0); BLOOD UREA NITROGEN 25 MG/DL (7-18); CALCIUM 10.5 MG/DL (8.5-10.1); CHLORIDE 106 MEQ/L (98-107); CREATININE 0.77 MG/DL (0.50-1.00); FREE T4 1.07 NG/DL (0.76-1.46); GLOMERULAR FILTRATION RATE 71 ML/MIN (>89); GLUCOSE,RANDOM 116 MG/DL (74-106); MAGNESIUM 2.6 MG/DL (1.5-2.5); PHOSPHORUS 1.9 MG/DL (2.5-4.9); SODIUM (NA) 142 MEQ/L (136-145); TOTAL BILIRUBIN ADULT 0.7 MG/DL (0.2-1.0); TOTAL PROTEIN 6.2 GM/DL (6.4-8.2)
--- NOTE | 2017-08-10 10:51 | HHI.PR ---
Subjective Remarks Follow up on patient with left hip fracture, status post IM nailing. Patient seen and examined. Appears comfortable. [place] is at the bedside. Discussed with nursing staff, no acute issues noted. Patient is afebrile. Vital signs are stable. 08-09 AWAIT PLACEMENT PLACEMENT ISSUES DW RN AND CM PATIENT DOES NOT SPEAK RUSSIAN AND HAS DEMENTIA 08-10 AWAIT SAFE PLACEMENT NO NEW ISSUES DW RN AND CM Objective Vitals Vital Signs Date Time Temp Pulse Resp B/P (MAP) Pulse Ox O2 Delivery O2 Flow Rate FiO2 08/10/17 08:00 95.4 77 18 181/87 (118) 96 08/10/17 04:55 96.9 68 18 178/83 (114) 94 08/10/17 00:50 96.5 73 18 123/69 (87) 92 08/09/17 20:57 97.1 76 18 169/78 (108) 93 08/09/17 16:00 97.6 67 18 151/72 (98) 97 08/09/17 12:00 96.4 73 17 168/77 (107) 94 155/87 (109) I/O 08/09/17 08/09/17 08/09/17 08/10/17 08/10/17 08/10/17 07:00 15:00 23:00 07:00 15:00 23:00 Intake Total 240 ml 480 ml 240 ml Output Total 400 ml Balance -160 ml 480 ml 240 ml Intake Oral 240 ml 480 ml 240 ml Output Urine Total 400 ml # Voids 1 1 # Bowel Movements 0 1 1 Result Diagram: 08/10/17 0915 08/10/17 0915 Other Results Laboratory Tests Test 08/07/17 12:07 08/08/17 06:31 08/09/17 08:40 08/10/17 09:15 Hemoglobin 7.0 GM/DL 10.4 GM/DL 10.8 GM/DL 11.0 GM/DL Hematocrit 21.4 % 30.3 % 31.0 % 33.3 % White Blood Count 5.6 TH/MM3 5.8 TH/MM3 Red Blood Count 3.64 MIL/MM3 3.94 MIL/MM3 Mean Corpuscular Volume 83.4 FL 84.4 FL Mean Corpuscular Hemoglobin 28.6 PG 28.0 PG Mean Corpuscular Hemoglobin Concent 34.3 % 33.1 % Red Cell Distribution Width 15.5 % 15.6 % Platelet Count 155 TH/MM3 230 TH/MM3 Mean Platelet Volume 8.2 FL 7.9 FL Neutrophils (%) (Auto) 73.5 % 76.2 % Lymphocytes (%) (Auto) 15.9 % 13.6 % Monocytes (%) (Auto) 8.5 % 9.1 % Eosinophils (%) (Auto) 1.9 % 0.8 % Basophils (%) (Auto) 0.2 % 0.3 % Neutrophils # (Auto) 4.1 TH/MM3 4.4 TH/MM3 Lymphocytes # (Auto) 0.9 TH/MM3 0.8 TH/MM3 Monocytes # (Auto) 0.5 TH/MM3 0.5 TH/MM3 Eosinophils # (Auto) 0.1 TH/MM3 0.0 TH/MM3 Basophils # (Auto) 0.0 TH/MM3 0.0 TH/MM3 CBC Comment DIFF FINAL DIFF FINAL Differential Comment Blood Urea Nitrogen 18 MG/DL 25 MG/DL Creatinine 0.74 MG/DL 0.77 MG/DL Random Glucose 98 MG/DL 116 MG/DL Calcium Level 9.9 MG/DL 10.5 MG/DL Sodium Level 142 MEQ/L 142 MEQ/L Potassium Level 3.2 MEQ/L 3.8 MEQ/L 3.6 MEQ/L Chloride Level 108 MEQ/L 106 MEQ/L Carbon Dioxide Level 27.2 MEQ/L 26.7 MEQ/L Anion Gap 7 MEQ/L 9 MEQ/L Estimat Glomerular Filtration Rate 74 ML/MIN 71 ML/MIN Magnesium Level 1.8 MG/DL 2.6 MG/DL Total Creatine Kinase 81 U/L Total Protein 6.2 GM/DL Albumin 2.7 GM/DL Phosphorus Level 1.9 MG/DL Alkaline Phosphatase 91 U/L Aspartate Amino Transf (AST/SGOT) 65 U/L Alanine Aminotransferase (ALT/SGPT) 47 U/L Total Bilirubin 0.7 MG/DL Free Thyroxine 1.07 NG/DL Thyroid Stimulating Hormone 3rd Gen 0.889 uIU/ML Imaging Last Impressions Hip X-Ray 08/05/17 0000 Signed Impressions: Service Date/Time: Saturday, August 05, 2017 10:35 - CONCLUSION: 1. Postoperative left proximal femur fixation. Deandre Guidry MD Chest X-Ray 08/05/17 0000 Signed Impressions: Service Date/Time: Saturday, August 05, 2017 00:55 - CONCLUSION: No acute disease. Carlos Klein Jr., MD Carotid Artery Ultrasound 08/05/17 0000 Signed Impressions: Service Date/Time: Saturday, August 05, 2017 14:22 - CONCLUSION: 1. Bilateral carotid plaque without significant flow-limiting stenosis. 2. Antegrade vertebral artery flow bilaterally. Christiano Moore MD CT Angiography 08/05/17 0000 Signed Impressions: Service Date/Time: Saturday, August 05, 2017 01:47 - CONCLUSION: 1. No pulmonary emboli. 2. Bibasilar atelectasis. 3. Cardiomegaly. 4. Soft tissue nodule involving within the neck. See the CT of the cervical spine reported separately. 5. Diffuse thickening of adrenal glands bilaterally without a discrete mass. Carlos Klein Jr., MD Hip and Pelvis X-Ray 08/04/17 0000 Signed Impressions: Service Date/Time: Friday, August 04, 2017 23:57 - CONCLUSION: Intertrochanteric left hip fracture. Carlos Klein Jr., MD Head CT 08/04/17 0000 Signed Impressions: Service Date/Time: Friday, August 04, 2017 23:29 - CONCLUSION: No acute disease. Carlos Klein Jr., MD Cervical Spine CT 08/04/17 0000 Signed Impressions: Service Date/Time: Friday, August 04, 2017 23:29 - CONCLUSION: 1. No fracture or dislocation. 2. Degenerative changes. 3. 2.5 x 1.6 and meter soft tissue nodule involving the right neck felt to relate to an exophytic thyroid nodule from the right lobe. Ultrasound could be utilized to further evaluate if needed. Carlos Klein Jr., MD Objective Remarks GENERAL: Awake alert talkative moves all 4 extremities SKIN: Warm and dry. HEAD: Atraumatic. Normocephalic. EYES: Pupils equal and round. No scleral icterus. No injection or drainage. Extraocular muscles intact ENT: No nasal bleeding or discharge. Mucous membranes pink and moist. Tongue is midline NECK: Trachea midline. No JVD. Supple CARDIOVASCULAR: Regular rate and rhythm. S1-S2 no S3-S4 RESPIRATORY: No accessory muscle use. Clear to auscultation. Breath sounds equal bilaterally. GASTROINTESTINAL: Abdomen soft, non-tender, nondistended. Hepatic and splenic margins not palpable. MUSCULOSKELETAL: Extremities without clubbing, cyanosis, or edema. No obvious deformities. NEUROLOGICAL: Awake and alert. No obvious cranial nerve deficits. Motor grossly within normal limits. 4 out of 5 muscle strength in the arms and legs. Normal speech. PSYCHIATRIC: Cannot assess due to dementia and language barrier cannot assess whether has appropriate mood and affect; insight and judgment NOT ABLE TO BE ASSESSED. Procedures 08/05/17 - Left hip reduction and intramedullary nail fixation by Dr. Álvarez Medications and IVs Current Medications Hydralazine HCl (Apresoline Inj) 10 mg ONCE ONCE IV PUSH Last administered on 08/05/17at 00:16; Start 08/05/17 at 00:00; Stop 08/05/17 at 00:01; Status DC Sodium Chloride 500 ml @ 500 mls/hr BOLUS ONCE IV Last administered on at 00:16; Start 08/05/17 at 00:00; Stop 08/05/17 at 00:59; Status DC Sodium Chloride (NS Flush) 2 ml UNSCH PRN IV FLUSH FLUSH AFTER USING IV ACCESS Last administered on 08/08/17at 16:02; Start 08/05/17 at 01:15 Sodium Chloride (NS Flush) 2 ml BID IV FLUSH Last administered on 08/10/17at 07: 54; Start 08/05/17 at 09:00 Naloxone HCl (Narcan Inj) 0.4 mg UNSCH PRN IV PUSH SEE LABEL COMMENTS; Start at 01:15 Iohexol (Omnipaque 350 Inj) 75 ml STK-MED ONCE IVCONTRAST ; Start 08/05/17 at 01 :58; Stop 08/05/17 at 01:59; Status DC Pantoprazole Sodium (Protonix) 40 mg DAILY PO Last administered on 08/10/17at 07 :53; Start 08/06/17 at 09:00 Pantoprazole Sodium (Protonix Inj) 40 mg ONCE ONCE IV PUSH Last administered on 08/05/17at 06:30; Start 08/05/17 at 06:30; Stop 08/05/17 at 06:31; Status DC Gentamicin Sulfate (Gentamicin Inj) 240 mg STK-MED ONCE .ROUTE Last administered on 08/05/17at 10:21; Start 08/05/17 at 07:51; Stop 08/05/17 at 07:52 ; Status DC Acetaminophen (Tylenol) 650 mg Q4H PRN PO headache/fever/pain1-3; Start at 08:30 Morphine Sulfate (Morphine Inj) 2 mg Q3HR PRN IV PUSH SEE LABEL COMMENTS; Start 08/05/17 at 08:30 Sodium Chloride 1,000 ml @ 84 mls/hr [id number] IV Last administered on at 12:00; Start 08/05/17 at 08:45; Stop 08/06/17 at 08:33; Status DC Bupivacaine HCl/ Epinephrine Bitart (Sensorcaine-Epinephrine Pf 0.25% Inj) 10 ml STK-MED ONCE .ROUTE Last administered on 08/05/17at 10:43; Start 08/05/17 at 08:45; Stop 08/05/17 at 08:46; Status DC Cefazolin Sodium (Ancef Inj) 1,000 mg STK-MED ONCE .ROUTE Last administered on 08/05/17at 10:07; Start 08/05/17 at 09:57; Stop 08/05/17 at 09:58; Status DC Vancomycin HCl (Vancomycin Inj) 1,000 mg STK-MED ONCE .ROUTE ; Start 08/05/17 at 09:57; Stop 08/05/17 at 09:58; Status DC Enoxaparin Sodium (Lovenox Inj) 30 mg Q24H SQ Last administered on 08/10/17at 07 :58; Start 08/06/17 at 10:00 Cefazolin Sodium 1000 mg/Sodium Chloride 100 ml @ 200 mls/hr Q8H IV Last administered on 08/06/17at 08:35; Start 08/05/17 at 18:00; Stop 08/06/17 at 10:29 ; Status DC Ondansetron HCl (Zofran Inj) 4 mg Q4H PRN IVP NAUSEA OR VOMITING; Start at 13:00 Calcium/Vitamin D (Oscal-D 250-125) 250 mg TID PO Last administered on at 07:53; Start 08/05/17 at 13:00 Diphenhydramine HCl (Benadryl) 25 mg Q6H PRN PO ITCHING; Start 08/05/17 at 13: 00 Acetaminophen/ Hydrocodone Bitart ([place] 5-325 Mg) 1 tab Q3H PRN PO pain 3<10 Last administered on 08/10/17at 04:52; Start 08/05/17 at 13:00 Cholecalciferol (Vitamin D3) 5,000 units DAILY PO Last administered on at 07:53; Start 08/06/17 at 09:00 Ergocalciferol (Drisdol) 50,000 units ONCE ONCE PO Last administered on at 18:02; Start 08/05/17 at 14:00; Stop 08/05/17 at 14:01; Status DC Fentanyl Citrate (fentaNYL INJ) 100 mcg STK-MED ONCE .ROUTE ; Start 08/05/17 at 11:07; Stop 08/05/17 at 11:08; Status DC Labetalol HCl (*TRANDATE INJ PERIprocedural Use ONLY) 100 mg STK-MED ONCE .ROUTE Last administered on 08/05/17at 11:31; Start 08/05/17 at 11:31; Stop at 11:32; Status DC Miscellaneous Information ALL NURSING DEPARTME... UNSCH PRN .XX SEE LABEL COMMENTS; Start 08/05/17 at 11:00; Stop 08/06/17 at 10:59; Status DC Amlodipine Besylate (Norvasc) 5 mg DAILY PO Last administered on 08/07/17at 09: 40; Start 08/06/17 at 09:15; Stop 08/07/17 at 11:25; Status DC Enalaprilat (Vasotec Inj) 1.25 mg Q6H PRN IV PUSH SBP> OR = 180, DBP> OR = 100 Last administered on 08/09/17at 00:15; Start 08/06/17 at 14:15 Amlodipine Besylate (Norvasc) 10 mg DAILY PO Last administered on 08/10/17at 07: 53; Start 08/08/17 at 09:00 Sodium Chloride 250 ml @ 15 mls/hr ONCE ONCE IV ; Start 08/07/17 at 16:00; Stop 08/08/17 at 08:39; Status DC Furosemide (Lasix Inj) 20 mg ONCE ONCE IV PUSH Last administered on 08/08/17at 01:52; Start 08/07/17 at 16:00; Stop 08/07/17 at 16:01; Status DC Potassium Chloride (KCl) 40 meq ONCE ONCE PO Last administered on 08/08/17at 12 :00; Start 08/08/17 at 12:00; Stop 08/08/17 at 12:01; Status DC Lidocaine HCl (Xylocaine-Mpf 1% Inj) 5 ml STK-MED ONCE OTHER ; Start 08/05/17 at 12:00; Stop 08/08/17 at 11:11; Status DC Rocuronium [place] (Zemuron Inj) 50 mg STK-MED ONCE IV PUSH ; Start 08/05/17 at 12:00; Stop 08/08/17 at 11:11; Status DC Neostigmine Methylsulfate (Prostigmine Inj) 5 mg STK-MED ONCE IV PUSH ; Start at 12:00; Stop 08/08/17 at 11:11; Status DC Glycopyrrolate (Robinul Inj) 1 mg STK-MED ONCE IV PUSH ; Start 08/05/17 at 12:00 ; Stop 08/08/17 at 11:11; Status DC Phenylephrine HCl (Neosynephrine/ NS 1000 Mcg/10ml Syr) 1,000 mcg STK-MED ONCE IV ; Start 08/05/17 at 12:00; Stop 08/08/17 at 11:11; Status DC Ephedrine Sulfate (ePHEDrine/NS 25 MG/5 ML SYR) 25 mg STK-MED ONCE IV ; Start at 12:00; Stop 08/08/17 at 11:11; Status DC Ondansetron HCl (Zofran Inj) 4 mg STK-MED ONCE IV ; Start 08/05/17 at 12:00; Stop 08/08/17 at 11:11; Status DC Propofol (Diprivan 200 Mg/20 ml Inj) 400 mg STK-MED ONCE IV ; Start 08/05/17 at 12:00; Stop 08/08/17 at 11:11; Status DC Lisinopril (Prinivil) 5 mg ONCE ONCE PO Last administered on 08/08/17at 18:46; Start 08/08/17 at 17:45; Stop 08/08/17 at 17:46; Status DC Lisinopril (Prinivil) 5 mg DAILY PO Last administered on 08/10/17at 07:53; Start 08/09/17 at 09:00 Bisacodyl (Dulcolax Supp) 10 mg Q24H PRN RECTAL CONSTIPATION; Start 08/08/17 at 21:30 Magnesium Hydroxide (Milk Of Lalito Bal) 30 ml BID PO Last administered on at 20:26; Start 08/09/17 at 09:00 Senna/Docusate Sodium ([place]-Colace) 1 tab BID PO Last administered on at 07:54; Start 08/09/17 at 09:00 A/P Assessment and Plan 87-year-old Scottish-speaking female with history of dementia, presents 08/04 after fall with left hip fracture Left hip intertrochanteric fracture s/p fall: Hip/pelvis shows intertrochanteric left hip fracture. -Consulted orthopedics,s/p Left hip reduction and intramedullary nail fixation on 08/05 -WBAT LLE -Lovenox per ortho -PT consulted, patient will need rehab. -Pain control with Tylenol, [place], morphine prn with bowel regimen Normocytic normochromic anemia suspect secondary to recent surgery due to blood loss. s/p transfusion 2 units PRBC. Hemoglobin with good response post transfusion improving from 7.0 to 10.4. Repeat H/H in am. No signs of bleeding at this time. We will continue to monitor. Encephalopathy?: However family reported patient at baseline dementia per report to ER. Suspect mild exacerbation by medications, patient received Versed/ morphine. Dementia -Monitor neuro checks -Caution with any sedating medications -Patient improved, awake and alert, smiling. [place] states she is pleasantly confused. Mild elevated troponin: Difficult to access for cardiac risk factors. However most likely this is secondary to rhabdo vs CKD. -Troponins elevated but flat at 0.09, 0.08, 0.05 -EKG reviewed, shows sinus tach with no acute ischemic changes -Echo shows moderate to severe tricuspid valve regurgitation Mild Rhabdomyolysis: Elevated CPK at 563. Suspect secondary to fall. -Resolved s/p IVF hydration Renal insufficiency: Likely underlying chronic kidney disease however no previous labs to compare. UA clear. Resolved. -given IVF hydration -Avoid nephrotoxins -Continue to monitor renal indices indicated Hypokalemia -Obtain magnesium level -Given oral repletion -Repeat potassium level in a.m. Unwitnessed fall and elderly: Question whether this could be a syncopal episode ? No clear history provided -Head CT and C-spine CT images reviewed, no acute findings -Carotid U/S with bilateral plaque, no significant stenosis -Echo shows EF 60-65%, moderate to severe tricuspid valve regurgitation -Obtain orthostatic BP measurements -fall precautions Acute urinary retention on exam: suspect secondary to medications/pain -Flower inserted in the ED on 08/05 with initial volume 900cc -d/c flower, monitor for recurrence of retention Thyroid Nodule: incidentally found on C-spine CT; shows 2.5 x 1.6cm soft tissue nodule involving right neck, felt to relate to an exophytic thyroid nodule from the right lobe -check TSH/T4, normal. -Outpatient f/up Hypertension: BP consistently elevated, likely exacerbated by pain -Not on any antihypertensives at home -Norvasc increased to 10 mg daily, still with elevated BP. Add Lisinopril 5mg daily. -Continue to monitor BP and adjust treatment accordingly. -IV Vasotec prn Vitamin D deficiency -Vitamin D level 16.7 -Continue on by mouth repletion -Patient will need to have vitamin D level rechecked in 3 months as outpatient DVT Prophylaxis: Lovenox per ortho; teds/SCDs to nonoperative leg Discharge Planning Discharge Planning Difficult placement secondary to insurance coverage, change healthcare form completed and to be faxed per case management. Green card expires 08/12 - may be eligible for emergency Medicaid, then after 08/12 may be eligible for Medicaid. Rafa Castillo DO Aug 10, 2017 10:51
[2017-08-10 13:11] LABS: HEMOGLOBIN A1C 5.3 % (4.3-6.0)
[2017-08-11] VITALS (8 sets, daily range): BP systolic 115–160; BP diastolic 47–79; PULSE 59–79; RESP 17–19; TEMP 96.4–98.5; O2SAT 94–100
--- NOTE | 2017-08-11 06:48 | PD.ORT.PN ---
Subjective Subjective Remarks Resting in bed comfortably. Confused Objective Vitals Vital Signs Date Time Temp Pulse Resp B/P (MAP) Pulse Ox O2 Delivery O2 Flow Rate FiO2 08/11/17 04:00 98.2 60 18 144/67 (92) 97 08/11/17 00:00 97.8 79 18 160/71 (100) 96 08/10/17 20:00 98.7 76 18 161/75 (103) 98 08/10/17 19:53 99 21 08/10/17 16:00 96.4 66 18 155/67 (96) 100 08/10/17 12:00 96.4 67 18 157/70 (99) 98 08/10/17 08:00 95.4 77 18 181/87 (118) 96 I/O 08/10/17 08/10/17 08/10/17 08/11/17 08/11/17 08/11/17 07:00 15:00 23:00 07:00 15:00 23:00 Intake Total 240 ml 480 ml 220 ml 280 ml Output Total 400 ml 200 ml Balance 240 ml 480 ml -180 ml 80 ml Intake Oral 240 ml 480 ml 220 ml 280 ml Output Urine Total 400 ml 200 ml # Voids 1 1 # Bowel Movements 1 1 1 0 Result Diagram: 08/10/17 0915 08/10/17 0915 Imaging Last 24 hours Impressions Chest X-Ray 08/05/17 0000 Signed Impressions: Service Date/Time: Saturday, August 05, 2017 00:55 - CONCLUSION: No acute disease. Carlos Klein Jr., MD CT Angiography 08/05/17 0000 Signed Impressions: Service Date/Time: Saturday, August 05, 2017 01:47 - CONCLUSION: 1. No pulmonary emboli. 2. Bibasilar atelectasis. 3. Cardiomegaly. 4. Soft tissue nodule involving within the neck. See the CT of the cervical spine reported separately. 5. Diffuse thickening of adrenal glands bilaterally without a discrete mass. Carlos Klein Jr., MD Objective Remarks Left lower extremity: Clean dry dressings intact. No pain with knee or ankle motion. Swelling minimal Assessment & Plan Assessment and Plan 1) Left Intertroch Hip Fx IM nail POD 6 Weightbearing as tolerated left lower extremity Daily dressing changes Incentive spirometry Lovenox Plan for discharge to rehabilitation when bed available Follow-up Dr. Álvarez or PA in 2 weeks Samson Desir Jr. Aug 11, 2017 06:48
[2017-08-11] MEDS: CALCIUM/VITAMIN D 250 MG/125 U TAB PO SCH ×3 (09:00→17:32)
[2017-08-11] MEDS: DOCUSATE SODIUM 50 MG/SENNA 8.6 MG TAB PO SCH ×2 (09:25→19:26)
[2017-08-11] MEDS: PANTOPRAZOLE SOD 40 MG DELAYED RELEASE TAB PO SCH (09:25)
[2017-08-11] MEDS: LISINOPRIL 5 MG TAB PO SCH (09:25)
[2017-08-11] MEDS: CHOLECALCIFEROL (VIT D3) 5000 UNIT CAP PO SCH (09:25)
[2017-08-11] MEDS: SODIUM CHLORIDE 0.9% FLUSH 10 ML FLUSH IV FLUSH SCH ×2 (09:26→19:26)
[2017-08-11] MEDS: MAGNESIUM HYDROXIDE SUSP 30 ML CUP PO SCH ×2 (09:26→19:26)
[2017-08-11] MEDS: ENOXAPARIN SODIUM 30 MG/0.3 ML SYRINGE SQ SCH (12:12)
--- NOTE | 2017-08-11 13:59 | HHI.PR ---
Subjective Remarks The patient was resting comfortably in bed. She had no acute complaints. Discussed with nursing who stated there were no concerns. Objective Vitals Vital Signs Date Time Temp Pulse Resp B/P (MAP) Pulse Ox O2 Delivery O2 Flow Rate FiO2 08/11/17 12:00 98.5 72 18 158/67 (97) 95 08/11/17 09:35 100 21 08/11/17 07:55 97.6 59 19 115/47 (69) 94 08/11/17 04:00 98.2 60 18 144/67 (92) 97 08/11/17 00:00 97.8 79 18 160/71 (100) 96 08/10/17 20:00 98.7 76 18 161/75 (103) 98 08/10/17 19:53 99 21 08/10/17 16:00 96.4 66 18 155/67 (96) 100 I/O 08/10/17 08/10/17 08/10/17 08/11/17 08/11/17 08/11/17 07:00 15:00 23:00 07:00 15:00 23:00 Intake Total 240 ml 480 ml 220 ml 280 ml Output Total 400 ml 200 ml Balance 240 ml 480 ml -180 ml 80 ml Intake Oral 240 ml 480 ml 220 ml 280 ml Output Urine Total 400 ml 200 ml # Voids 1 1 # Bowel Movements 1 1 1 0 Result Diagram: 08/10/17 0915 08/10/17 0915 Imaging Last Impressions Hip X-Ray 08/05/17 0000 Signed Impressions: Service Date/Time: Saturday, August 05, 2017 10:35 - CONCLUSION: 1. Postoperative left proximal femur fixation. Deandre Guidry MD Chest X-Ray 08/05/17 0000 Signed Impressions: Service Date/Time: Saturday, August 05, 2017 00:55 - CONCLUSION: No acute disease. Carlos Klein Jr., MD Carotid Artery Ultrasound 08/05/17 0000 Signed Impressions: Service Date/Time: Saturday, August 05, 2017 14:22 - CONCLUSION: 1. Bilateral carotid plaque without significant flow-limiting stenosis. 2. Antegrade vertebral artery flow bilaterally. Christiano Moore MD CT Angiography 08/05/17 0000 Signed Impressions: Service Date/Time: Saturday, August 05, 2017 01:47 - CONCLUSION: 1. No pulmonary emboli. 2. Bibasilar atelectasis. 3. Cardiomegaly. 4. Soft tissue nodule involving within the neck. See the CT of the cervical spine reported separately. 5. Diffuse thickening of adrenal glands bilaterally without a discrete mass. Carlos Klein Jr., MD Hip and Pelvis X-Ray 08/04/17 0000 Signed Impressions: Service Date/Time: Friday, August 04, 2017 23:57 - CONCLUSION: Intertrochanteric left hip fracture. Carlos Klein Jr., MD Head CT 08/04/17 0000 Signed Impressions: Service Date/Time: Friday, August 04, 2017 23:29 - CONCLUSION: No acute disease. Carlos Klein Jr., MD Cervical Spine CT 08/04/17 0000 Signed Impressions: Service Date/Time: Friday, August 04, 2017 23:29 - CONCLUSION: 1. No fracture or dislocation. 2. Degenerative changes. 3. 2.5 x 1.6 and meter soft tissue nodule involving the right neck felt to relate to an exophytic thyroid nodule from the right lobe. Ultrasound could be utilized to further evaluate if needed. Carlos Klein Jr., MD Objective Remarks GENERAL: No distress. SKIN: Warm and dry. HEAD: Atraumatic. Normocephalic. EYES: Pupils equal and round. No scleral icterus. No injection or drainage. Extraocular muscles intact ENT: No nasal bleeding or discharge. Mucous membranes pink and moist. Tongue is midline NECK: Trachea midline. No JVD. Supple CARDIOVASCULAR: Regular rate and rhythm. S1-S2 no S3-S4 RESPIRATORY: No accessory muscle use. Clear to auscultation. Breath sounds equal bilaterally. GASTROINTESTINAL: Abdomen soft, non-tender, nondistended. Hepatic and splenic margins not palpable. MUSCULOSKELETAL: Extremities without clubbing, cyanosis, or edema. No obvious deformities. NEUROLOGICAL: Awake and alert. No obvious cranial nerve deficits. Motor grossly within normal limits. 4 out of 5 muscle strength in the arms and legs. Normal speech. PSYCHIATRIC: Calm. Procedures 08/05/17 - Left hip reduction and intramedullary nail fixation by Dr. Álvarez Medications and IVs Current Medications Medications (Trade) Dose Ordered Sig/Gilmer Route Start Time Stop Time Status Last Admin (NS Flush) 2 ml UNSCH PRN IV FLUSH 08/05/17 01:15 08/08/17 16:02 (NS Flush) 2 ml BID IV FLUSH 08/05/17 09:00 08/11/17 09:26 (Narcan Inj) 0.4 mg UNSCH PRN IV PUSH 08/05/17 01:15 (Protonix) 40 mg DAILY PO 08/06/17 09:00 08/11/17 09:25 (Tylenol) 650 mg Q4H PRN PO 08/05/17 08:30 (Morphine Inj) 2 mg Q3HR PRN IV PUSH 08/05/17 08:30 (Lovenox Inj) 30 mg Q24H SQ 08/06/17 10:00 08/11/17 12:12 (Zofran Inj) 4 mg Q4H PRN IVP 08/05/17 13:00 (Oscal-D 250-125) 250 mg TID PO 08/05/17 13:00 08/11/17 12:12 (Benadryl) 25 mg Q6H PRN PO 08/05/17 13:00 ([place] 5-325 Mg) 1 tab Q3H PRN PO 08/05/17 13:00 08/10/17 21:30 (Vitamin D3) 5,000 units DAILY PO 08/06/17 09:00 08/11/17 09:25 (Vasotec Inj) 1.25 mg Q6H PRN IV PUSH 08/06/17 14:15 08/09/17 00:15 (Norvasc) 10 mg DAILY PO 08/08/17 09:00 08/11/17 09:25 (Prinivil) 5 mg DAILY PO 08/09/17 09:00 08/11/17 09:25 (Dulcolax Supp) 10 mg Q24H PRN RECTAL 08/08/17 21:30 (Milk Of Magnesia Liq) 30 ml BID PO 08/09/17 09:00 08/11/17 09:26 ([place]-Colace) 1 tab BID PO 08/09/17 09:00 08/11/17 09:25 A/P Assessment and Plan 87-year-old [place]-speaking female with history of dementia, presents 08/04 after fall with left hip fracture Left hip intertrochanteric fracture s/p fall: Hip/pelvis shows intertrochanteric left hip fracture -Consulted orthopedics, s/p left hip reduction and intramedullary nail fixation on 08/05 -WBAT LLE -Lovenox per ortho -PT consulted, patient will need rehab. -Pain control with bowel regimen -Incentive spirometry Normocytic normochromic anemia suspect secondary to recent surgery due to blood loss. s/p transfusion 2 units PRBC. Hemoglobin with good response post transfusion improving from 7.0 to 10.4. No signs of bleeding at this time. We will continue to monitor as needed. Encephalopathy?: However family reported patient at baseline dementia per report to ER. Suspect mild exacerbation by medications, patient received Versed/ morphine. Dementia -Monitor neuro checks -Caution with any sedating medications -Patient improved, awake and alert, smiling. [id number] states she is pleasantly confused. Mild elevated troponin: Difficult to access for cardiac risk factors. However most likely this is secondary to rhabdo vs CKD. -Troponins elevated but flat at 0.09, 0.08, 0.05 -EKG reviewed, shows sinus tach with no acute ischemic changes -Echo shows moderate to severe tricuspid valve regurgitation Mild Rhabdomyolysis: Elevated CPK at 563. Suspect secondary to fall. -Resolved s/p IVF hydration Renal insufficiency: Likely underlying chronic kidney disease however no previous labs to compare. UA clear. Resolved. -given IVF hydration -Avoid nephrotoxins -Continue to monitor renal indices indicated Hypokalemia -Given oral repletion -Repeat potassium level in a.m. Hypophosphatemia -Potassium phosphate ordered. Follow BMP. Unwitnessed fall and elderly: Question whether this could be a syncopal episode ? No clear history provided -Head CT and C-spine CT images reviewed, no acute findings -Carotid U/S with bilateral plaque, no significant stenosis -Echo shows EF 60-65%, moderate to severe tricuspid valve regurgitation -Obtain orthostatic BP measurements -fall precautions Acute urinary retention on exam: suspect secondary to medications/pain -Flower inserted in the ED on 08/05 with initial volume 900cc -d/c flower, monitor for recurrence of retention Thyroid Nodule: incidentally found on C-spine CT; shows 2.5 x 1.6cm soft tissue nodule involving right neck, felt to relate to an exophytic thyroid nodule from the right lobe -check TSH/T4, normal. -Outpatient f/up Hypertension: BP consistently elevated, likely exacerbated by pain -Not on any antihypertensives at home -Norvasc increased to 10 mg daily, still with elevated BP. Add Lisinopril 5mg daily. -Continue to monitor BP and adjust treatment accordingly. -IV Vasotec prn Vitamin D deficiency -Vitamin D level 16.7 -Continue on by mouth repletion -Patient will need to have vitamin D level rechecked in 3 months as outpatient DVT Prophylaxis: Lovenox per ortho; teds/SCDs to nonoperative leg Discharge Planning Discharge once placement secured Samson Chauhan DO Aug 11, 2017 13:59
[2017-08-11] MEDS ORDERED: POTASSIUM PHOSPHATE INJ 15 MMOL in SODIUM CHLORIDE 0.9% INJ 150 ML IV ONE (16:00)
[2017-08-11] MEDS ORDERED: POTASSIUM PHOSPHATE INJ 15 MMOL in SODIUM CHLOR 0.9% 250 ML INJ 250 ML IV ONE (16:00)
[2017-08-12] VITALS (8 sets, daily range): BP systolic 130–173; BP diastolic 64–80; PULSE 70–91; RESP 17–18; TEMP 96.4–98.8; O2SAT 92–95
[2017-08-12] MEDS: ACETAMINOPHEN/HYDROcodone 325 MG/5 MG TAB PO PRN (06:05)
[2017-08-12] MEDS: CALCIUM/VITAMIN D 250 MG/125 U TAB PO SCH ×3 (09:00→17:44)
[2017-08-12] MEDS: CHOLECALCIFEROL (VIT D3) 5000 UNIT CAP PO SCH (10:25)
[2017-08-12] MEDS: DOCUSATE SODIUM 50 MG/SENNA 8.6 MG TAB PO SCH ×2 (10:26→19:30)
[2017-08-12] MEDS: ENOXAPARIN SODIUM 30 MG/0.3 ML SYRINGE SQ SCH (10:26)
[2017-08-12] MEDS: PANTOPRAZOLE SOD 40 MG DELAYED RELEASE TAB PO SCH (10:26)
[2017-08-12] MEDS: MAGNESIUM HYDROXIDE SUSP 30 ML CUP PO SCH ×2 (10:26→19:30)
[2017-08-12] MEDS: LISINOPRIL 5 MG TAB PO SCH (10:26)
[2017-08-12] MEDS: SODIUM CHLORIDE 0.9% FLUSH 10 ML FLUSH IV FLUSH SCH ×2 (10:29→19:29)
--- NOTE | 2017-08-12 11:33 | HHI.PR ---
Subjective Remarks Follow-up visit status post left hip intertrochanteric fracture from fall with nail fixation 08/05/17. Anemia, dementia. Patient seen and examined today sitting in the chair. Appears comfortable. Patient is [place]-speaking she is able to follow some commands with demonstration. Objective Vitals Vital Signs Date Time Temp Pulse Resp B/P (MAP) Pulse Ox O2 Delivery O2 Flow Rate FiO2 08/12/17 08:25 93 08/12/17 08:00 97.2 91 18 173/70 (104) 95 08/12/17 04:00 98.8 81 18 170/71 (104) 92 08/12/17 00:00 98.7 72 17 155/70 (98) 93 08/11/17 21:22 98 08/11/17 20:00 98.2 65 17 152/79 (103) 94 08/11/17 16:00 96.4 72 18 156/66 (96) 98 08/11/17 12:00 98.5 72 18 158/67 (97) 95 I/O 08/11/17 08/11/17 08/11/17 08/12/17 08/12/17 08/12/17 07:00 15:00 23:00 07:00 15:00 23:00 Intake Total 280 ml 600 ml Output Total 200 ml Balance 80 ml 600 ml Intake Oral 280 ml 600 ml Output Urine Total 200 ml # Voids 1 2 # Bowel Movements 0 0 Result Diagram: 08/10/17 0915 08/10/17 0915 Imaging Last Impressions Hip X-Ray 08/05/17 0000 Signed Impressions: Service Date/Time: Saturday, August 05, 2017 10:35 - CONCLUSION: 1. Postoperative left proximal femur fixation. Deandre Guidry MD Chest X-Ray 08/05/17 0000 Signed Impressions: Service Date/Time: Saturday, August 05, 2017 00:55 - CONCLUSION: No acute disease. Carlos Klein Jr., MD Carotid Artery Ultrasound 08/05/17 0000 Signed Impressions: Service Date/Time: Saturday, August 05, 2017 14:22 - CONCLUSION: 1. Bilateral carotid plaque without significant flow-limiting stenosis. 2. Antegrade vertebral artery flow bilaterally. Christiano Moore MD CT Angiography 08/05/17 0000 Signed Impressions: Service Date/Time: Saturday, August 05, 2017 01:47 - CONCLUSION: 1. No pulmonary emboli. 2. Bibasilar atelectasis. 3. Cardiomegaly. 4. Soft tissue nodule involving within the neck. See the CT of the cervical spine reported separately. 5. Diffuse thickening of adrenal glands bilaterally without a discrete mass. Carlos Klein Jr., MD Hip and Pelvis X-Ray 08/04/17 Signed Impressions: Service Date/Time: Friday, August 04, 2017 23:57 - CONCLUSION: Intertrochanteric left hip fracture. Carlos Klein Jr., MD Head CT 08/04/17 Signed Impressions: Service Date/Time: Friday, August 04, 2017 23:29 - CONCLUSION: No acute disease. Carlos Klein Jr., MD Cervical Spine CT 08/04/17 Signed Impressions: Service Date/Time: Friday, August 04, 2017 23:29 - CONCLUSION: 1. No fracture or dislocation. 2. Degenerative changes. 3. 2.5 x 1.6 and meter soft tissue nodule involving the right neck felt to relate to an exophytic thyroid nodule from the right lobe. Ultrasound could be utilized to further evaluate if needed. Carlos Klein Jr., MD Objective Remarks GENERAL: This is a well-nourished, well-developed patient, in no apparent distress. SKIN: Warm and dry. Right arm with with quater size diameter palpable mass with ecchymosis in the surrounding area HEENT: Normocephalic. Pupils equal round and reactive. Nose without bleeding. Airway patent. NECK: Trachea midline. No JVD. Supple. CARDIOVASCULAR: Regular rate and rhythm without murmurs, gallops, or rubs. RESPIRATORY: Clear to auscultation. Breath sounds equal bilaterally. No wheezes , rales, or rhonchi. GASTROINTESTINAL: Abdomen soft, non-tender, nondistended. Bowel Sounds normoactive x4. MUSCULOSKELETAL: Extremities without clubbing, cyanosis. Left hip dressing clean dry and intact. NEUROLOGICAL: Awake and alert. [place] Speaking. Confuse. Moves all extremities. Normal speech. Procedures 08/05/17 - Left hip reduction and intramedullary nail fixation by Dr. Álvarez A/P Problem List: (1) Fracture, intertrochanteric, left femur ICD Code: S72.142A - Displaced intertrochanteric fracture of left femur, initial encounter for closed fracture (2) Elevated troponin ICD Code: R74.8 - Abnormal levels of other serum enzymes Status: Acute Assessment and Plan 87-year-old [place]-speaking female with history of dementia, presents 08/04 after fall with left hip fracture Left hip intertrochanteric fracture s/p fall: Hip/pelvis shows intertrochanteric left hip fracture -Consulted orthopedics, s/p left hip reduction and intramedullary nail fixation on 08/05 -WBAT LLE -Lovenox per ortho -PT recommended, patient will need rehab. -Pain control with bowel regimen -Incentive spirometry Right arm mass versus hematoma -Right arm with notable, palpable quarter size diameter mass with ecchymosis surrounding areas -This might have been an injection site? -Check ultrasound Normocytic normochromic anemia suspect secondary to recent surgery due to blood loss. -s/p transfusion 2 units PRBC. Hemoglobin with good response post transfusion improving from 7.0 to 10.4. -No signs of bleeding at this time. We will continue to monitor as needed. Encephalopathy?: However family reported patient at baseline dementia per report to ER. Suspect mild exacerbation by medications, patient received Versed/ morphine. Dementia -Monitor neuro checks -Caution with any sedating medications Mild elevated troponin: Difficult to access for cardiac risk factors. However most likely this is secondary to rhabdo vs CKD. -Troponins elevated but flat at 0.09, 0.08, 0.05 -EKG reviewed, shows sinus tach with no acute ischemic changes -Echo shows moderate to severe tricuspid valve regurgitation Mild Rhabdomyolysis: Elevated CPK at 563. Suspect secondary to fall. -Resolved s/p IVF hydration Renal insufficiency: Likely underlying chronic kidney disease however no previous labs to compare. UA clear. Resolved. -IVF hydration provided -Avoid nephrotoxins -Continue to monitor renal indices indicated Hypophosphatemia -Potassium phosphate ordered. -Follow BMP. Unwitnessed fall and elderly: Question whether this could be a syncopal episode ? No clear history provided -Head CT and C-spine CT images reviewed, no acute findings -Carotid U/S with bilateral plaque, no significant stenosis -Echo shows EF 60-65%, moderate to severe tricuspid valve regurgitation -Obtain orthostatic BP measurements -Fall precautions Thyroid Nodule: incidentally found on C-spine CT; shows 2.5 x 1.6cm soft tissue nodule involving right neck, felt to relate to an exophytic thyroid nodule from the right lobe -TSH/T4, normal. -Outpatient f/up Hypertension: BP consistently elevated, may be exacerbated by pain -Not on any antihypertensives at home -Norvasc 10 mg daily, still with elevated BP. Increase Lisinopril 10mg daily. -Continue to monitor BP and adjust treatment accordingly. -IV Vasotec prn Vitamin D deficiency -Vitamin D level 16.7 -Continue on by mouth repletion -Patient will need to have vitamin D level rechecked in 3 months as outpatient DVT Prophylaxis: Lovenox per ortho; teds/SCDs to nonoperative leg Discharge Planning Plan to discharge home when placement arrangements are made. Problem Qualifiers (1) Fracture, intertrochanteric, left femur: Qualified Codes: S72.142A - Displaced intertrochanteric fracture of left femur , initial encounter for closed fracture Donavan Nieves Aug 12, 2017 11:33 am
--- NOTE | 2017-08-12 13:37 | HHI.PR ---
Subjective Remarks Follow-up mass posterior right arm. Requested by nursing staff to evaluate swelling/mass right arm. Patient confused unable to provide meaningful history seen with family apparently patient has dementia Objective Vitals Vital Signs Date Time Temp Pulse Resp B/P (MAP) Pulse Ox O2 Delivery O2 Flow Rate FiO2 08/12/17 08:25 93 08/12/17 08:00 97.2 91 18 173/70 (104) 95 08/12/17 04:00 98.8 81 18 170/71 (104) 92 08/12/17 00:00 98.7 72 17 155/70 (98) 93 08/11/17 21:22 98 08/11/17 20:00 98.2 65 17 152/79 (103) 94 08/11/17 16:00 96.4 72 18 156/66 (96) 98 I/O 08/11/17 08/11/17 08/11/17 08/12/17 08/12/17 08/12/17 07:00 15:00 23:00 07:00 15:00 23:00 Intake Total 280 ml 600 ml Output Total 200 ml Balance 80 ml 600 ml Intake Oral 280 ml 600 ml Output Urine Total 200 ml # Voids 1 2 # Bowel Movements 0 0 Result Diagram: 08/10/17 0915 08/10/17 0915 Imaging Last Impressions Hip X-Ray 08/05/17 0000 Signed Impressions: Service Date/Time: Saturday, August 05, 2017 10:35 - CONCLUSION: 1. Postoperative left proximal femur fixation. Deandre Guidry MD Chest X-Ray 08/05/17 0000 Signed Impressions: Service Date/Time: Saturday, August 05, 2017 00:55 - CONCLUSION: No acute disease. Carlos Klein Jr., MD Carotid Artery Ultrasound 08/05/17 0000 Signed Impressions: Service Date/Time: Saturday, August 05, 2017 14:22 - CONCLUSION: 1. Bilateral carotid plaque without significant flow-limiting stenosis. 2. Antegrade vertebral artery flow bilaterally. Christiano Moore MD CT Angiography 08/05/17 0000 Signed Impressions: Service Date/Time: Saturday, August 05, 2017 01:47 - CONCLUSION: 1. No pulmonary emboli. 2. Bibasilar atelectasis. 3. Cardiomegaly. 4. Soft tissue nodule involving within the neck. See the CT of the cervical spine reported separately. 5. Diffuse thickening of adrenal glands bilaterally without a discrete mass. Carlos Klein Jr., MD Hip and Pelvis X-Ray 08/04/17 0000 Signed Impressions: Service Date/Time: Friday, August 04, 2017 23:57 - CONCLUSION: Intertrochanteric left hip fracture. Carlos Klein Jr., MD Head CT 08/04/17 Signed Impressions: Service Date/Time: Friday, August 04, 2017 23:29 - CONCLUSION: No acute disease. Carlos Klein Jr., MD Cervical Spine CT 08/04/17 Signed Impressions: Service Date/Time: Friday, August 04, 2017 23:29 - CONCLUSION: 1. No fracture or dislocation. 2. Degenerative changes. 3. 2.5 x 1.6 and meter soft tissue nodule involving the right neck felt to relate to an exophytic thyroid nodule from the right lobe. Ultrasound could be utilized to further evaluate if needed. Carlos Klein Jr., MD Objective Remarks GENERAL: This is a well-nourished, well-developed patient, in no apparent distress. SKIN: Warm and dry. Right arm with with quater size diameter palpable cystic mass with ecchymosis in the surrounding area, nontender HEENT: Normocephalic. Pupils equal round and reactive. Nose without bleeding. Airway patent. NECK: Trachea midline. No JVD. Supple. CARDIOVASCULAR: Regular rate and rhythm without murmurs, gallops, or rubs. RESPIRATORY: Clear to auscultation. Breath sounds equal bilaterally. No wheezes , rales, or rhonchi. GASTROINTESTINAL: Abdomen soft, non-tender, nondistended. Bowel Sounds normoactive x4. MUSCULOSKELETAL: Extremities without clubbing, cyanosis. Left hip dressing clean dry and intact. NEUROLOGICAL: Awake and alert. [place] Speaking. Confused. Moves all extremities. Normal speech. Procedures 08/05/17 - Left hip reduction and intramedullary nail fixation by Dr. Álvarez A/P Problem List: (1) Fracture, intertrochanteric, left femur ICD Code: S72.142A - Displaced intertrochanteric fracture of left femur, initial encounter for closed fracture (2) Elevated troponin ICD Code: R74.8 - Abnormal levels of other serum enzymes Status: Acute Assessment and Plan 87-year-old [place]-speaking female with history of dementia, presents 08/04 after fall with left hip fracture Left hip intertrochanteric fracture s/p fall: Hip/pelvis shows intertrochanteric left hip fracture -Consulted orthopedics, s/p left hip reduction and intramedullary nail fixation on 08/05 -WBAT LLE -Lovenox per ortho -PT recommended, patient will need rehab. -Pain control with bowel regimen -Incentive spirometry Right arm mass likely lipoma versus hematoma -Right arm with notable, palpable quarter size diameter mass with ecchymosis surrounding areas -This might have been an injection site? -Will monitor consider ultrasound Normocytic normochromic anemia suspect secondary to recent surgery due to blood loss. -s/p transfusion 2 units PRBC. Hemoglobin with good response post transfusion improving from 7.0 to 10.4. -No signs of bleeding at this time. We will continue to monitor as needed. Encephalopathy?: However family reported patient at baseline dementia per report to ER. Suspect mild exacerbation by medications, patient received Versed/ morphine. Dementia -Monitor neuro checks -Caution with any sedating medications Mild elevated troponin: Difficult to access for cardiac risk factors. However most likely this is secondary to rhabdo vs CKD. -Troponins elevated but flat at 0.09, 0.08, 0.05 -EKG reviewed, shows sinus tach with no acute ischemic changes -Echo shows moderate to severe tricuspid valve regurgitation Mild Rhabdomyolysis: Elevated CPK at 563. Suspect secondary to fall. Mild AST elevation likely secondary to rhabdo -Resolved s/p IVF hydration Renal insufficiency: Likely underlying chronic kidney disease however no previous labs to compare. UA clear. Resolved. -IVF hydration provided -Avoid nephrotoxins -Continue to monitor renal indices indicated Hypophosphatemia -Potassium phosphate ordered. -Follow BMP. And possible Unwitnessed fall and elderly: Question whether this could be a syncopal episode ? No clear history provided -Head CT and C-spine CT images reviewed, no acute findings -Carotid U/S with bilateral plaque, no significant stenosis -Echo shows EF 60-65%, moderate to severe tricuspid valve regurgitation -Obtain orthostatic BP measurements -Fall precautions Thyroid Nodule: incidentally found on C-spine CT; shows 2.5 x 1.6cm soft tissue nodule involving right neck, felt to relate to an exophytic thyroid nodule from the right lobe -TSH/T4, normal. -Outpatient f/up Hypertension: BP consistently elevated, may be exacerbated by pain -Not on any antihypertensives at home -Norvasc 10 mg daily, still with elevated BP. Increase Lisinopril 10mg daily. -Continue to monitor BP and adjust treatment accordingly. -IV Vasotec prn Vitamin D deficiency -Vitamin D level 16.7 -Continue on by mouth repletion -Patient will need to have vitamin D level rechecked in 3 months as outpatient DVT Prophylaxis: Lovenox per ortho; teds/SCDs to nonoperative leg Problem Qualifiers (1) Fracture, intertrochanteric, left femur: Qualified Codes: S72.142A - Displaced intertrochanteric fracture of left femur , initial encounter for closed fracture Uziel Platt MD Aug 12, 2017 13:37
[2017-08-13] MEDS: ACETAMINOPHEN/HYDROcodone 325 MG/5 MG TAB PO PRN (00:38)
[2017-08-13 01:30] VITALS: BP 174/74; PULSE 88; RESP 18; TEMP 98.1; O2SAT 96
[2017-08-13 08:10] VITALS: BP 140/64; PULSE 64; RESP 17; TEMP 95.7; O2SAT 98
[2017-08-13] MEDS: SODIUM CHLORIDE 0.9% FLUSH 10 ML FLUSH IV FLUSH SCH ×2 (08:16→20:43)
[2017-08-13] MEDS: CHOLECALCIFEROL (VIT D3) 5000 UNIT CAP PO SCH (08:16)
[2017-08-13] MEDS: CALCIUM/VITAMIN D 250 MG/125 U TAB PO SCH ×3 (08:16→18:30)
[2017-08-13] MEDS: PANTOPRAZOLE SOD 40 MG DELAYED RELEASE TAB PO SCH (08:16)
[2017-08-13] MEDS: LISINOPRIL 10 MG TAB PO SCH (08:16)
[2017-08-13] MEDS: DOCUSATE SODIUM 50 MG/SENNA 8.6 MG TAB PO SCH ×2 (08:44→20:43)
[2017-08-13] MEDS: MAGNESIUM HYDROXIDE SUSP 30 ML CUP PO SCH ×2 (08:44→20:43)
[2017-08-13] MEDS: ENOXAPARIN SODIUM 30 MG/0.3 ML SYRINGE SQ SCH (09:35)
--- NOTE | 2017-08-13 10:12 | HHI.PR ---
Subjective Remarks Follow-up hypertension in the right arm swelling. Patient has no new complaints. Blood pressure much improved. Denies pain over right arm swelling. Discussed with nursing Objective Vitals Vital Signs Date Time Temp Pulse Resp B/P (MAP) Pulse Ox O2 Delivery O2 Flow Rate FiO2 08/13/17 08:10 95.7 64 17 140/64 (89) 98 08/13/17 01:30 98.1 88 18 174/74 (107) 96 08/12/17 21:14 98.4 75 17 136/64 (88) 95 08/12/17 20:00 95 21 08/12/17 16:00 97.6 70 17 130/74 (92) 95 08/12/17 12:00 96.4 70 18 132/80 (97) 95 I/O 08/12/17 08/12/17 08/12/17 08/13/17 08/13/17 08/13/17 07:00 15:00 23:00 07:00 15:00 23:00 Intake Total 500 ml 480 ml 360 ml Balance 500 ml 480 ml 360 ml Intake Oral 500 ml 480 ml 360 ml # Voids 2 4 3 2 # Bowel Movements 0 2 0 0 Result Diagram: 08/10/17 0915 08/10/17 0915 Imaging Last Impressions Hip X-Ray 08/05/17 0000 Signed Impressions: Service Date/Time: Saturday, August 05, 2017 10:35 - CONCLUSION: 1. Postoperative left proximal femur fixation. Deandre Guidry MD Chest X-Ray 08/05/17 0000 Signed Impressions: Service Date/Time: Saturday, August 05, 2017 00:55 - CONCLUSION: No acute disease. Carlos Klein Jr., MD Carotid Artery Ultrasound 08/05/17 0000 Signed Impressions: Service Date/Time: Saturday, August 05, 2017 14:22 - CONCLUSION: 1. Bilateral carotid plaque without significant flow-limiting stenosis. 2. Antegrade vertebral artery flow bilaterally. Christiano Moore MD CT Angiography 08/05/17 0000 Signed Impressions: Service Date/Time: Saturday, August 05, 2017 01:47 - CONCLUSION: 1. No pulmonary emboli. 2. Bibasilar atelectasis. 3. Cardiomegaly. 4. Soft tissue nodule involving within the neck. See the CT of the cervical spine reported separately. 5. Diffuse thickening of adrenal glands bilaterally without a discrete mass. Carlos Klein Jr., MD Hip and Pelvis X-Ray 08/04/17 0000 Signed Impressions: Service Date/Time: Friday, August 04, 2017 23:57 - CONCLUSION: Intertrochanteric left hip fracture. Carlos Klein Jr., MD Head CT 08/04/17 0000 Signed Impressions: Service Date/Time: Friday, August 04, 2017 23:29 - CONCLUSION: No acute disease. Carlos Klein Jr., MD Cervical Spine CT 08/04/17 0000 Signed Impressions: Service Date/Time: Friday, August 04, 2017 23:29 - CONCLUSION: 1. No fracture or dislocation. 2. Degenerative changes. 3. 2.5 x 1.6 and meter soft tissue nodule involving the right neck felt to relate to an exophytic thyroid nodule from the right lobe. Ultrasound could be utilized to further evaluate if needed. Carlos Klein Jr., MD Objective Remarks GENERAL: This is a well-nourished, well-developed patient, in no apparent distress. SKIN: Warm and dry. Right arm with with quater size diameter palpable cystic mass with ecchymosis in the surrounding area, nontender CARDIOVASCULAR: Regular rate and rhythm without murmurs, gallops, or rubs. RESPIRATORY: Clear to auscultation. Breath sounds equal bilaterally. No wheezes , rales, or rhonchi. GASTROINTESTINAL: Abdomen soft, non-tender, nondistended. Bowel Sounds normoactive x4. MUSCULOSKELETAL: Extremities without clubbing, cyanosis. Left hip dressing clean dry and intact. NEUROLOGICAL: Awake and alert. [place]i Speaking. Confused. Moves all extremities. Normal speech. Procedures 08/05/17 - Left hip reduction and intramedullary nail fixation by Dr. Álvarez A/P Problem List: (1) Fracture, intertrochanteric, left femur ICD Code: S72.142A - Displaced intertrochanteric fracture of left femur, initial encounter for closed fracture (2) Elevated troponin ICD Code: R74.8 - Abnormal levels of other serum enzymes Status: Acute Assessment and Plan 87-year-old Yemeni-speaking female with history of dementia, presents 08/04 after fall with left hip fracture Left hip intertrochanteric fracture s/p fall: Hip/pelvis shows intertrochanteric left hip fracture -Consulted orthopedics, s/p left hip reduction and intramedullary nail fixation on 08/05 -WBAT LLE -Lovenox per ortho -PT recommended, patient will need rehab. -Pain control with bowel regimen -Incentive spirometry Right arm mass likely lipoma versus hematoma. Stable -Right arm with notable, palpable quarter size diameter mass with ecchymosis surrounding areas -This might have been an injection site? -Will monitor consider ultrasound Normocytic normochromic anemia suspect secondary to recent surgery due to blood loss. -s/p transfusion 2 units PRBC. Hemoglobin with good response post transfusion improving from 7.0 to 10.4. -No signs of bleeding at this time. We will continue to monitor as needed. Encephalopathy?: However family reported patient at baseline dementia per report to ER. Suspect mild exacerbation by medications, patient received Versed/ morphine. Dementia -Monitor neuro checks -Caution with any sedating medications Mild elevated troponin: Difficult to access for cardiac risk factors. However most likely this is secondary to rhabdo vs CKD. -Troponins elevated but flat at 0.09, 0.08, 0.05 -EKG reviewed, shows sinus tach with no acute ischemic changes -Echo shows moderate to severe tricuspid valve regurgitation Mild Rhabdomyolysis: Elevated CPK at 563. Suspect secondary to fall. Mild AST elevation likely secondary to rhabdo -Resolved s/p IVF hydration Renal insufficiency: Likely underlying chronic kidney disease however no previous labs to compare. UA clear. Resolved. -IVF hydration provided -Avoid nephrotoxins -Continue to monitor renal indices indicated Hypophosphatemia -Potassium phosphate ordered. -Follow BMP. And possible Unwitnessed fall and elderly: Question whether this could be a syncopal episode ? No clear history provided -Head CT and C-spine CT images reviewed, no acute findings -Carotid U/S with bilateral plaque, no significant stenosis -Echo shows EF 60-65%, moderate to severe tricuspid valve regurgitation -Obtain orthostatic BP measurements -Fall precautions Thyroid Nodule: incidentally found on C-spine CT; shows 2.5 x 1.6cm soft tissue nodule involving right neck, felt to relate to an exophytic thyroid nodule from the right lobe -TSH/T4, normal. -Outpatient f/up Hypertension: BP consistently elevated, may be exacerbated by pain -Not on any antihypertensives at home -Norvasc 10 mg daily, still with elevated BP. Increase Lisinopril 10mg daily. BP improving -Continue to monitor BP and adjust treatment accordingly. -IV Vasotec prn Vitamin D deficiency -Vitamin D level 16.7 -Continue on by mouth repletion -Patient will need to have vitamin D level rechecked in 3 months as outpatient DVT Prophylaxis: Lovenox per ortho; teds/SCDs to nonoperative leg Discharge Planning Discharge to rehab when arranged case management following. Pt is undocumented alien this will be a difficult placement Problem Qualifiers (1) Fracture, intertrochanteric, left femur: Qualified Codes: S72.142A - Displaced intertrochanteric fracture of left femur , initial encounter for closed fracture Uziel Platt MD Aug 13, 2017 10:12
[2017-08-13 11:29] VITALS: BP 131/62; PULSE 68; RESP 17; TEMP 98.1; O2SAT 99
[2017-08-13 13:42] LABS: ALBUMIN 2.7 GM/DL (3.4-5.0); ALT (GPT) 48 U/L (10-53); AST (GOT) 42 U/L (15-37); BICARBONATE 26.2 MEQ/L (21.0-32.0); BLOOD UREA NITROGEN 35 MG/DL (7-18); CALCIUM 10.6 MG/DL (8.5-10.1); CHLORIDE 104 MEQ/L (98-107); CREATININE 0.87 MG/DL (0.50-1.00); GLOMERULAR FILTRATION RATE 61 ML/MIN (>89); GLUCOSE,RANDOM 130 MG/DL (74-106); MAGNESIUM 2.6 MG/DL (1.5-2.5); SODIUM (NA) 138 MEQ/L (136-145)
[2017-08-13 13:44] LABS: ALKALINE PHOSPHATASE 121 U/L (45-117); PHOSPHORUS 2.8 MG/DL (2.5-4.9); TOTAL BILIRUBIN ADULT 0.6 MG/DL (0.2-1.0); TOTAL PROTEIN 6.4 GM/DL (6.4-8.2)
[2017-08-13 16:00] VITALS: BP 136/56; PULSE 69; RESP 17; TEMP 96.9; O2SAT 96
[2017-08-13 19:15] VITALS: BP 146/64; PULSE 76; RESP 18; TEMP 98.9; O2SAT 95
[2017-08-14 01:03] VITALS: BP 136/60; PULSE 77; RESP 18; TEMP 97.9; O2SAT 96
[2017-08-14] MEDS: ACETAMINOPHEN 325 MG TAB PO PRN (04:05)
[2017-08-14 08:00] VITALS: BP 147/61; PULSE 63; RESP 18; TEMP 96.8; O2SAT 96
--- NOTE | 2017-08-14 10:10 | HHI.PR ---
Subjective Remarks Follow-up or to injury. Denies hip pain. She is confused because of dementia complains of gum pain. Seen with [id number]. Translation provided by cooper patient speaks Wallisian but was found to be confused and not oriented. She does follow simple commands. She is also hard of hearing. Discussed with nursing Objective Vitals Vital Signs Date Time Temp Pulse Resp B/P (MAP) Pulse Ox O2 Delivery O2 Flow Rate FiO2 08/14/17 08:00 96.8 63 18 147/61 (89) 96 08/14/17 01:03 97.9 77 18 136/60 (85) 96 08/13/17 21:48 21 08/13/17 19:15 98.9 76 18 146/64 (91) 95 08/13/17 16:00 96.9 69 17 136/56 (82) 96 08/13/17 11:29 98.1 68 17 131/62 (85) 99 I/O 08/13/17 08/13/17 08/13/17 08/14/17 08/14/17 08/14/17 07:00 15:00 23:00 07:00 15:00 23:00 Intake Total 360 ml 550 ml 360 ml 720 ml Balance 360 ml 550 ml 360 ml 720 ml Intake Oral 360 ml 550 ml 360 ml 720 ml # Voids 2 2 2 2 # Bowel Movements 0 1 0 0 Result Diagram: 08/10/17 0915 08/13/17 1025 Imaging Last Impressions Hip X-Ray 08/05/17 0000 Signed Impressions: Service Date/Time: Saturday, August 05, 2017 10:35 - CONCLUSION: 1. Postoperative left proximal femur fixation. Deandre Guidry MD Chest X-Ray 08/05/17 0000 Signed Impressions: Service Date/Time: Saturday, August 05, 2017 00:55 - CONCLUSION: No acute disease. Carlos Klein Jr., MD Carotid Artery Ultrasound 08/05/17 0000 Signed Impressions: Service Date/Time: Saturday, August 05, 2017 14:22 - CONCLUSION: 1. Bilateral carotid plaque without significant flow-limiting stenosis. 2. Antegrade vertebral artery flow bilaterally. Christiano Moore MD CT Angiography 08/05/17 0000 Signed Impressions: Service Date/Time: Saturday, August 05, 2017 01:47 - CONCLUSION: 1. No pulmonary emboli. 2. Bibasilar atelectasis. 3. Cardiomegaly. 4. Soft tissue nodule involving within the neck. See the CT of the cervical spine reported separately. 5. Diffuse thickening of adrenal glands bilaterally without a discrete mass. Carlos Klein Jr., MD Hip and Pelvis X-Ray 08/04/17 0000 Signed Impressions: Service Date/Time: Friday, August 04, 2017 23:57 - CONCLUSION: Intertrochanteric left hip fracture. Carlos Klein Jr., MD Head CT 08/04/17 0000 Signed Impressions: Service Date/Time: Friday, August 04, 2017 23:29 - CONCLUSION: No acute disease. Carlos Klein Jr., MD Cervical Spine CT 08/04/17 0000 Signed Impressions: Service Date/Time: Friday, August 04, 2017 23:29 - CONCLUSION: 1. No fracture or dislocation. 2. Degenerative changes. 3. 2.5 x 1.6 and meter soft tissue nodule involving the right neck felt to relate to an exophytic thyroid nodule from the right lobe. Ultrasound could be utilized to further evaluate if needed. Carlos Klein Jr., MD Objective Remarks GENERAL: This is a well-nourished, well-developed patient, in no apparent distress. [facility] SKIN: Warm and dry. Right arm with with quater size diameter palpable cystic mass with ecchymosis in the surrounding area, nontender Mouth: no gingivitis but has dental caries CARDIOVASCULAR: Regular rate and rhythm without murmurs, gallops, or rubs. RESPIRATORY: Clear to auscultation. Breath sounds equal bilaterally. No wheezes , rales, or rhonchi. GASTROINTESTINAL: Abdomen soft, non-tender, nondistended. Bowel Sounds normoactive x4. MUSCULOSKELETAL: Extremities without clubbing, cyanosis. Left hip dressing clean dry and intact. NEUROLOGICAL: Awake and alert. Wallisian Speaking. Confused. Moves all extremities. Normal speech. Procedures 08/05/17 - Left hip reduction and intramedullary nail fixation by Dr. Álvarez A/P Problem List: (1) Fracture, intertrochanteric, left femur ICD Code: S72.142A - Displaced intertrochanteric fracture of left femur, initial encounter for closed fracture (2) Elevated troponin ICD Code: R74.8 - Abnormal levels of other serum enzymes Status: Acute Assessment and Plan 87-year-old Wallisian-speaking female with history of dementia, presents 08/04 after fall with left hip fracture Left hip intertrochanteric fracture s/p fall: Hip/pelvis shows intertrochanteric left hip fracture -Consulted orthopedics, s/p left hip reduction and intramedullary nail fixation on 08/05 -WBAT LLE -Lovenox per ortho -PT recommended rehab. -Pain control with bowel regimen -Incentive spirometry Right arm mass likely lipoma versus hematoma. Stable -Right arm with notable, palpable quarter size diameter mass with ecchymosis ? surrounding areas -This might have been an injection site? -Will monitor consider ultrasound Normocytic normochromic anemia suspect secondary to recent surgery due to blood loss. -s/p transfusion 2 units PRBC. Hemoglobin with good response post transfusion improving from 7.0 to 10.4. -No signs of bleeding at this time. We will continue to monitor as needed. Encephalopathy?: However family reported patient at baseline dementia per report to ER. Suspect mild exacerbation by medications, patient received Versed/ morphine. Dementia -Monitor neuro checks -Caution with any sedating medications Mild elevated troponin: Difficult to access for cardiac risk factors. However most likely this is secondary to rhabdo vs CKD. -Troponins elevated but flat at 0.09, 0.08, 0.05 -EKG reviewed, shows sinus tach with no acute ischemic changes -Echo shows moderate to severe tricuspid valve regurgitation Mild Rhabdomyolysis: Elevated CPK at 563. Suspect secondary to fall. Mild AST elevation likely secondary to rhabdo -Resolved s/p IVF hydration Renal insufficiency: Likely underlying chronic kidney disease however no previous labs to compare. UA clear. Resolved. -IVF hydration provided -Avoid nephrotoxins -Continue to monitor renal indices indicated Hypophosphatemia -Potassium phosphate ordered. -Follow BMP. And possible Unwitnessed fall and elderly: Question whether this could be a syncopal episode ? No clear history provided -Head CT and C-spine CT images reviewed, no acute findings -Carotid U/S with bilateral plaque, no significant stenosis -Echo shows EF 60-65%, moderate to severe tricuspid valve regurgitation -Obtain orthostatic BP measurements -Fall precautions Thyroid Nodule: incidentally found on C-spine CT; shows 2.5 x 1.6cm soft tissue nodule involving right neck, felt to relate to an exophytic thyroid nodule from the right lobe -TSH/T4, normal. -Outpatient f/up Hypertension: BP consistently elevated, may be exacerbated by pain -Not on any antihypertensives at home -Norvasc 10 mg daily, still with elevated BP. Increase Lisinopril 10mg daily. BP improving -Continue to monitor BP and adjust treatment accordingly. -IV Vasotec prn Vitamin D deficiency -Vitamin D level 16.7 -Continue on by mouth repletion -Patient will need to have vitamin D level rechecked in 3 months as outpatient DVT Prophylaxis: Lovenox per ortho; teds/SCDs to nonoperative leg Discharge Planning Discharge to rehab when arranged case management following. Problem Qualifiers (1) Fracture, intertrochanteric, left femur: Qualified Codes: S72.142A - Displaced intertrochanteric fracture of left femur , initial encounter for closed fracture Uziel Platt MD Aug 14, 2017 10:10
[2017-08-14] MEDS: CHOLECALCIFEROL (VIT D3) 5000 UNIT CAP PO SCH (10:32)
[2017-08-14] MEDS: PANTOPRAZOLE SOD 40 MG DELAYED RELEASE TAB PO SCH (10:32)
[2017-08-14] MEDS: MAGNESIUM HYDROXIDE SUSP 30 ML CUP PO SCH ×2 (10:32→22:16)
[2017-08-14] MEDS: DOCUSATE SODIUM 50 MG/SENNA 8.6 MG TAB PO SCH ×2 (10:32→22:16)
[2017-08-14] MEDS: CALCIUM/VITAMIN D 250 MG/125 U TAB PO SCH ×3 (10:32→18:00)
[2017-08-14] MEDS: LISINOPRIL 10 MG TAB PO SCH (10:32)
[2017-08-14] MEDS: ENOXAPARIN SODIUM 30 MG/0.3 ML SYRINGE SQ SCH (10:39)
[2017-08-14] MEDS: SODIUM CHLORIDE 0.9% FLUSH 10 ML FLUSH IV FLUSH SCH ×2 (10:40→22:16)
[2017-08-14 12:00] VITALS: BP 159/72; PULSE 64; RESP 18; TEMP 96; O2SAT 96
[2017-08-14 16:00] VITALS: BP 142/61; PULSE 66; RESP 18; TEMP 96; O2SAT 98
[2017-08-14 20:45] VITALS: BP 133/61; PULSE 69; RESP 17; TEMP 97.3; O2SAT 96
[2017-08-15 00:05] VITALS: BP 150/63; PULSE 69; RESP 18; TEMP 96.8; O2SAT 96
[2017-08-15 08:00] VITALS: BP 168/72; PULSE 78; RESP 18; TEMP 97.2; O2SAT 94
[2017-08-15] MEDS: LISINOPRIL 10 MG TAB PO SCH (10:37)
[2017-08-15] MEDS: CHOLECALCIFEROL (VIT D3) 5000 UNIT CAP PO SCH (10:37)
[2017-08-15] MEDS: DOCUSATE SODIUM 50 MG/SENNA 8.6 MG TAB PO SCH ×2 (10:37→23:02)
[2017-08-15] MEDS: CALCIUM/VITAMIN D 250 MG/125 U TAB PO SCH ×2 (10:37→13:00)
[2017-08-15] MEDS: PANTOPRAZOLE SOD 40 MG DELAYED RELEASE TAB PO SCH (10:37)
[2017-08-15] MEDS: SODIUM CHLORIDE 0.9% FLUSH 10 ML FLUSH IV FLUSH SCH ×2 (10:38→23:02)
[2017-08-15] MEDS: ENOXAPARIN SODIUM 30 MG/0.3 ML SYRINGE SQ SCH (10:38)
[2017-08-15] MEDS: MAGNESIUM HYDROXIDE SUSP 30 ML CUP PO SCH ×2 (10:38→23:02)
[2017-08-15 12:00] VITALS: BP 131/68; PULSE 60; RESP 22; TEMP 98.1; O2SAT 97
--- NOTE | 2017-08-15 15:18 | HHI.PR ---
Subjective Remarks Follow-up for left hip fracture Patient speaks [place] Islander. [employer] phone roofing sales representative used but her daughter stated that it does not work for patient because she is hard of hearing and that she can translate. I did try to use a [employer] roofing sales representative still but patient did not understand at all so I was not able to use the translation line. Patient did not understand at all. Patient did not stated that it was okay for her daughter to translate. Patient complaining of pain all over. She also complained of fatigue. Her daughter stated that patient has been very tired today is very unusual for her. She also complained of chest pain that has been constant since her admission. Per daughter patient complains about this all the time and is usually due to her dementia. No nausea or vomiting. Physical therapy was also at the bedside who stated that patient had a lot more energy yesterday. Otherwise no other complaints. Objective Vitals Vital Signs Date Time Temp Pulse Resp B/P (MAP) Pulse Ox O2 Delivery O2 Flow Rate FiO2 08/15/17 08:00 97.2 78 18 168/72 (104) 94 08/15/17 00:05 96.8 69 18 150/63 (92) 96 08/14/17 20:45 97.3 69 17 133/61 (85) 96 08/14/17 16:00 96.0 66 18 142/61 (88) 98 I/O 08/14/17 08/14/17 08/14/17 08/15/17 08/15/17 08/15/17 07:00 15:00 23:00 07:00 15:00 23:00 Intake Total 720 ml 600 ml 240 ml Balance 720 ml 600 ml 240 ml Intake Oral 720 ml 600 ml 240 ml # Voids 2 2 1 # Bowel Movements 0 1 0 Result Diagram: 08/13/17 1025 Objective Remarks GENERAL: in NAD CARDIOVASCULAR: Regular rate and rhythm without murmurs, gallops, or rubs. RESPIRATORY: Breath sounds equal bilaterally. No accessory muscle use. GASTROINTESTINAL: Abdomen soft, non-tender, nondistended. EXT: neg edema Procedures 08/05/17 - Left hip reduction and intramedullary nail fixation by Dr. Álvarez Medications and IVs Current Medications Hydralazine HCl (Apresoline Inj) 10 mg ONCE ONCE IV PUSH Last administered on 08/05/17at 00:16; Start 08/05/17 at 00:00; Stop 08/05/17 at 00:01; Status DC Sodium Chloride 500 ml @ 500 mls/hr BOLUS ONCE IV Last administered on at 00:16; Start 08/05/17 at 00:00; Stop 08/05/17 at 00:59; Status DC Sodium Chloride (NS Flush) 2 ml UNSCH PRN IV FLUSH FLUSH AFTER USING IV ACCESS Last administered on 08/08/17at 16:02; Start 08/05/17 at 01:15 Sodium Chloride (NS Flush) 2 ml BID IV FLUSH Last administered on 08/15/17at 10: 38; Start 08/05/17 at 09:00 Naloxone HCl (Narcan Inj) 0.4 mg UNSCH PRN IV PUSH SEE LABEL COMMENTS; Start at 01:15 Iohexol (Omnipaque 350 Inj) 75 ml STK-MED ONCE IVCONTRAST ; Start 08/05/17 at 01 :58; Stop 08/05/17 at 01:59; Status DC Pantoprazole Sodium (Protonix) 40 mg DAILY PO Last administered on 08/15/17at 10 :37; Start 08/06/17 at 09:00 Pantoprazole Sodium (Protonix Inj) 40 mg ONCE ONCE IV PUSH Last administered on 08/05/17at 06:30; Start 08/05/17 at 06:30; Stop 08/05/17 at 06:31; Status DC Gentamicin Sulfate (Gentamicin Inj) 240 mg STK-MED ONCE .ROUTE Last administered on 08/05/17at 10:21; Start 08/05/17 at 07:51; Stop 08/05/17 at 07:52 ; Status DC Acetaminophen (Tylenol) 650 mg Q4H PRN PO headache/fever/pain1-3 Last administered on 08/14/17at 04:05; Start 08/05/17 at 08:30 Morphine Sulfate (Morphine Inj) 2 mg Q3HR PRN IV PUSH SEE LABEL COMMENTS; Start 08/05/17 at 08:30 Sodium Chloride 1,000 ml @ 84 mls/hr [id number] IV Last administered on at 12:00; Start 08/05/17 at 08:45; Stop 08/06/17 at 08:33; Status DC Bupivacaine HCl/ Epinephrine Bitart (Sensorcaine-Epinephrine Pf 0.25% Inj) 10 ml STK-MED ONCE .ROUTE Last administered on 08/05/17 10:43; Start 08/05/17 at 08:45; Stop 08/05/17 at 08:46; Status DC Cefazolin Sodium (Ancef Inj) 1,000 mg STK-MED ONCE .ROUTE Last administered on 08/05/17 10:07; Start 08/05/17 at 09:57; Stop 08/05/17 at 09:58; Status DC Vancomycin HCl (Vancomycin Inj) 1,000 mg STK-MED ONCE .ROUTE ; Start 08/05/17 at 09:57; Stop 08/05/17 at 09:58; Status DC Enoxaparin Sodium (Lovenox Inj) 30 mg Q24H SQ Last administered on 08/15/17 10 :38; Start 08/06/17 at 10:00 Cefazolin Sodium 1000 mg/Sodium Chloride 100 ml @ 200 mls/hr Q8H IV Last administered on 08/06/17 08:35; Start 08/05/17 at 18:00; Stop 08/06/17 at 10:29 ; Status DC Ondansetron HCl (Zofran Inj) 4 mg Q4H PRN IVP NAUSEA OR VOMITING; Start at 13:00 Calcium/Vitamin D (Oscal-D 250-125) 250 mg TID PO Last administered on 10:37; Start 08/05/17 at 13:00 Diphenhydramine HCl (Benadryl) 25 mg Q6H PRN PO ITCHING; Start 08/05/17 at 13: 00 Acetaminophen/ Hydrocodone Bitart ([place] 5-325 Mg) 1 tab Q3H PRN PO pain 3<10 Last administered on 08/13/17 00:38; Start 08/05/17 at 13:00 Cholecalciferol (Vitamin D3) 5,000 units DAILY PO Last administered on 10:37; Start 08/06/17 at 09:00 Ergocalciferol (Drisdol) 50,000 units ONCE ONCE PO Last administered on 18:02; Start 08/05/17 at 14:00; Stop 08/05/17 at 14:01; Status DC Fentanyl Citrate (fentaNYL INJ) 100 mcg STK-MED ONCE .ROUTE ; Start 08/05/17 at 11:07; Stop 08/05/17 at 11:08; Status DC Labetalol HCl (*TRANDATE INJ PERIprocedural Use ONLY) 100 mg STK-MED ONCE .ROUTE Last administered on 08/05/17at 11:31; Start 08/05/17 at 11:31; Stop at 11:32; Status DC Miscellaneous Information ALL NURSING DEPARTME... UNSCH PRN .XX SEE LABEL COMMENTS; Start 08/05/17 at 11:00; Stop 08/06/17 at 10:59; Status DC Amlodipine Besylate (Norvasc) 5 mg DAILY PO Last administered on 08/07/17at 09: 40; Start 08/06/17 at 09:15; Stop 08/07/17 at 11:25; Status DC Enalaprilat (Vasotec Inj) 1.25 mg Q6H PRN IV PUSH SBP> OR = 180, DBP> OR = 100 Last administered on 08/09/17at 00:15; Start 08/06/17 at 14:15 Amlodipine Besylate (Norvasc) 10 mg DAILY PO Last administered on 08/15/17at 10: 37; Start 08/08/17 at 09:00 Sodium Chloride 250 ml @ 15 mls/hr ONCE ONCE IV ; Start 08/07/17 at 16:00; Stop 08/08/17 at 08:39; Status DC Furosemide (Lasix Inj) 20 mg ONCE ONCE IV PUSH Last administered on 08/08/17at 01:52; Start 08/07/17 at 16:00; Stop 08/07/17 at 16:01; Status DC Potassium Chloride (KCl) 40 meq ONCE ONCE PO Last administered on 08/08/17at 12 :00; Start 08/08/17 at 12:00; Stop 08/08/17 at 12:01; Status DC Lidocaine HCl (Xylocaine-Mpf 1% Inj) 5 ml STK-MED ONCE OTHER ; Start 08/05/17 at 12:00; Stop 08/08/17 at 11:11; Status DC Rocuronium [place] (Zemuron Inj) 50 mg STK-MED ONCE IV PUSH ; Start 08/05/17 at 12:00; Stop 08/08/17 at 11:11; Status DC Neostigmine Methylsulfate (Prostigmine Inj) 5 mg STK-MED ONCE IV PUSH ; Start at 12:00; Stop 08/08/17 at 11:11; Status DC Glycopyrrolate (Robinul Inj) 1 mg STK-MED ONCE IV PUSH ; Start 08/05/17 at 12:00 ; Stop 08/08/17 at 11:11; Status DC Phenylephrine HCl (Neosynephrine/ NS 1000 Mcg/10ml Syr) 1,000 mcg STK-MED ONCE IV ; Start 08/05/17 at 12:00; Stop 08/08/17 at 11:11; Status DC Ephedrine Sulfate (ePHEDrine/NS 25 MG/5 ML SYR) 25 mg STK-MED ONCE IV ; Start at 12:00; Stop 08/08/17 at 11:11; Status DC Ondansetron HCl (Zofran Inj) 4 mg STK-MED ONCE IV ; Start 08/05/17 at 12:00; Stop 08/08/17 at 11:11; Status DC Propofol (Diprivan 200 Mg/20 ml Inj) 400 mg STK-MED ONCE IV ; Start 08/05/17 at 12:00; Stop 08/08/17 at 11:11; Status DC Lisinopril (Prinivil) 5 mg ONCE ONCE PO Last administered on 08/08/17at 18:46; Start 08/08/17 at 17:45; Stop 08/08/17 at 17:46; Status DC Lisinopril (Prinivil) 5 mg DAILY PO Last administered on 08/12/17at 10:26; Start 08/09/17 at 09:00; Stop 08/12/17 at 14:09; Status DC Bisacodyl (Dulcolax Supp) 10 mg Q24H PRN RECTAL CONSTIPATION; Start 08/08/17 at 21:30 Magnesium Hydroxide (Milk Of Magnesia Liq) 30 ml BID PO Last administered on at 10:38; Start 08/09/17 at 09:00 Senna/Docusate Sodium ([place]-Colace) 1 tab BID PO Last administered on at 10:37; Start 08/09/17 at 09:00 Potassium Phosphate 15 mmol/ Sodium Chloride 155 ml @ 38.75 mls/ hr ONCE ONCE IV ; Start 08/11/17 at 16:00; Stop 08/11/17 at 19:59; Status Cancel Potassium Phosphate 15 mmol/ Sodium Chloride 255 ml @ 63.75 mls/ hr ONCE ONCE IV Last administered on 08/11/17at 17:32; Start 08/11/17 at 16:00; Stop at 19:59; Status DC Lisinopril (Prinivil) 10 mg DAILY PO Last administered on 08/15/17at 10:37; Start 08/13/17 at 09:00 A/P Problem List: (1) Fracture, intertrochanteric, left femur ICD Code: S72.142A - Displaced intertrochanteric fracture of left femur, initial encounter for closed fracture (2) Elevated troponin ICD Code: R74.8 - Abnormal levels of other serum enzymes Status: Acute Assessment and Plan 87-year-old [place]er-speaking female with history of dementia, presents 08/04 after fall with left hip fracture Left hip intertrochanteric fracture s/p fall: Hip/pelvis shows intertrochanteric left hip fracture -Consulted orthopedics, s/p left hip reduction and intramedullary nail fixation on 08/05 -WBAT LLE -Lovenox per ortho -PT recommended rehab. -Pain control with bowel regimen -Incentive spirometry Right arm mass likely lipoma versus hematoma. Stable -Right arm with notable, palpable quarter size diameter mass with ecchymosis ? surrounding areas -This might have been an injection site? -Will monitor consider ultrasound Chest pain Atypical. Per patient's daughter she always complains of this. We will get a troponin and EKG. Although cardiac etiology is very unlikely. Fatigue -May be secondary to lack of sleep. Will get blood work to evaluate for other etiology. Normocytic normochromic anemia suspect secondary to recent surgery due to blood loss. -s/p transfusion 2 units PRBC. Hemoglobin with good response post transfusion improving from 7.0 to 10.4. -No signs of bleeding at this time. We will continue to monitor as needed. Encephalopathy in a patient with dementia -Per daughter patient is at her baseline. She does have dementia. -Monitor neuro checks -Caution with any sedating medications Mild elevated troponin: Difficult to access for cardiac risk factors. However most likely this is secondary to rhabdo vs CKD. -Troponins elevated but flat at 0.09, 0.08, 0.05 -EKG reviewed, shows sinus tach with no acute ischemic changes -Echo shows moderate to severe tricuspid valve regurgitation Mild Rhabdomyolysis: Elevated CPK at 563. Suspect secondary to fall. Mild AST elevation likely secondary to rhabdo -Resolved s/p IVF hydration Renal insufficiency: Likely underlying chronic kidney disease however no previous labs to compare. UA clear. Resolved. -IVF hydration provided -Avoid nephrotoxins -Continue to monitor renal indices indicated Hypophosphatemia -Potassium phosphate ordered. -Follow BMP. And possible Unwitnessed fall and elderly: Question whether this could be a syncopal episode ? No clear history provided -Head CT and C-spine CT images reviewed, no acute findings -Carotid U/S with bilateral plaque, no significant stenosis -Echo shows EF 60-65%, moderate to severe tricuspid valve regurgitation -Obtain orthostatic BP measurements -Fall precautions Thyroid Nodule: incidentally found on C-spine CT; shows 2.5 x 1.6cm soft tissue nodule involving right neck, felt to relate to an exophytic thyroid nodule from the right lobe -TSH/T4, normal. -Outpatient f/up Hypertension: BP consistently elevated, may be exacerbated by pain -Not on any antihypertensives at home -Norvasc 10 mg daily, still with elevated BP. Increase Lisinopril 10mg daily. BP improving -Continue to monitor BP and adjust treatment accordingly. -IV Vasotec prn Vitamin D deficiency -Vitamin D level 16.7 -Continue on by mouth repletion -Patient will need to have vitamin D level rechecked in 3 months as outpatient DVT Prophylaxis: Lovenox per ortho; teds/SCDs to nonoperative leg Discharge Planning Patient is Medicaid pending. There is no payor source. She will need daily physical therapy here in the hospital. Problem Qualifiers (1) Fracture, intertrochanteric, left femur: Qualified Codes: S72.142A - Displaced intertrochanteric fracture of left femur , initial encounter for closed fracture Hui Vieyra MD Aug 15, 2017 15:18
[2017-08-15 16:00] VITALS: BP 140/65; PULSE 69; RESP 18; TEMP 98.1; O2SAT 96
[2017-08-15 18:45] LABS: HEMATOCRIT 32.8 % (35.0-46.0); HEMOGLOBIN 10.8 GM/DL (11.6-15.3); MEAN CELL VOLUME 84.8 FL (80.0-100.0); PLATELET COUNT 377 TH/MM3 (150-450); RED BLOOD COUNT 3.86 MIL/MM3 (4.00-5.30); RED CELL DISTRIBUTION WIDTH 15.6 % (11.6-17.2); WHITE BLOOD COUNT 5.1 TH/MM3 (4.0-11.0)
[2017-08-15 19:20] LABS: BICARBONATE 28.2 MEQ/L (21.0-32.0); BLOOD UREA NITROGEN 37 MG/DL (7-18); CALCIUM 10.4 MG/DL (8.5-10.1); CHLORIDE 106 MEQ/L (98-107); CREATININE 0.91 MG/DL (0.50-1.00); GLOMERULAR FILTRATION RATE 58 ML/MIN (>89); GLUCOSE,RANDOM 133 MG/DL (74-106); SODIUM (NA) 141 MEQ/L (136-145)
[2017-08-15 19:25] LABS: TROPONIN I LESS THAN 0.02 NG/ML (0.02-0.05)
[2017-08-15 20:15] VITALS: BP 149/68; PULSE 80; RESP 17; TEMP 98.5; O2SAT 96
[2017-08-15] MEDS: ACETAMINOPHEN/HYDROcodone 325 MG/5 MG TAB PO PRN (23:02)
[2017-08-16 00:25] VITALS: BP 162/67; PULSE 70; RESP 18; TEMP 97.7; O2SAT 96
[2017-08-16 08:00] VITALS: BP 157/70; PULSE 59; RESP 18; TEMP 97.6; O2SAT 95
[2017-08-16] MEDS: LISINOPRIL 10 MG TAB PO SCH (08:44)
[2017-08-16] MEDS: PANTOPRAZOLE SOD 40 MG DELAYED RELEASE TAB PO SCH (08:44)
[2017-08-16] MEDS: CHOLECALCIFEROL (VIT D3) 5000 UNIT CAP PO SCH (08:44)
[2017-08-16] MEDS: MAGNESIUM HYDROXIDE SUSP 30 ML CUP PO SCH ×2 (08:45→21:00)
[2017-08-16] MEDS: DOCUSATE SODIUM 50 MG/SENNA 8.6 MG TAB PO SCH ×2 (08:45→21:00)
[2017-08-16] MEDS: ENOXAPARIN SODIUM 30 MG/0.3 ML SYRINGE SQ SCH (08:54)
[2017-08-16] MEDS: CALCIUM/VITAMIN D 250 MG/125 U TAB PO SCH (09:00)
[2017-08-16 12:00] VITALS: BP 137/68; PULSE 65; RESP 17; TEMP 97.7; O2SAT 98
--- NOTE | 2017-08-16 12:28 | HHI.PR ---
Subjective Remarks Follow-up for hip fracture. [employer] plant reliability engineer use with cell phone. I placed cell phone on speaker and to patient's good ear which is her left side. She was able to understand plant reliability engineer and responded appropriately. Patient stated that she feels better today. She stated that she is thirsty. Asked patient if she was drinking enough fluid. She stated that she is drinking but she would drink more. She had no other complaints. She stated that when she thinks of anything she will let me know. Patient states she has more energy today compared to yesterday. Denies any chest pain. Objective Vitals Vital Signs Date Time Temp Pulse Resp B/P (MAP) Pulse Ox O2 Delivery O2 Flow Rate FiO2 08/16/17 08:00 97.6 59 18 157/70 (99) 95 08/16/17 00:25 97.7 70 18 162/67 (98) 96 08/15/17 20:15 98.5 80 17 149/68 (95) 96 08/15/17 16:00 98.1 69 18 140/65 (90) 96 I/O 08/15/17 08/15/17 08/15/17 08/16/17 08/16/17 08/16/17 07:00 15:00 23:00 07:00 15:00 23:00 Intake Total 240 ml 480 ml 360 ml Balance 240 ml 480 ml 360 ml Intake Oral 240 ml 480 ml 360 ml # Voids 1 2 1 # Bowel Movements 0 1 Result Diagram: 08/15/17 1724 08/15/17 1724 Objective Remarks GENERAL: in NAD CARDIOVASCULAR: Regular rate and rhythm without murmurs, gallops, or rubs. RESPIRATORY: Breath sounds equal bilaterally. No accessory muscle use. GASTROINTESTINAL: Abdomen soft, non-tender, nondistended. EXT: neg edema Procedures 08/05/17 - Left hip reduction and intramedullary nail fixation by Dr. Álvarez Medications and IVs Current Medications Hydralazine HCl (Apresoline Inj) 10 mg ONCE ONCE IV PUSH Last administered on 08/05/17at 00:16; Start 08/05/17 at 00:00; Stop 08/05/17 at 00:01; Status DC Sodium Chloride 500 ml @ 500 mls/hr BOLUS ONCE IV Last administered on at 00:16; Start 08/05/17 at 00:00; Stop 08/05/17 at 00:59; Status DC Sodium Chloride (NS Flush) 2 ml UNSCH PRN IV FLUSH FLUSH AFTER USING IV ACCESS Last administered on 08/08/17at 16:02; Start 08/05/17 at 01:15 Sodium Chloride (NS Flush) 2 ml BID IV FLUSH Last administered on 08/15/17at 23: 02; Start 08/05/17 at 09:00 Naloxone HCl (Narcan Inj) 0.4 mg UNSCH PRN IV PUSH SEE LABEL COMMENTS; Start at 01:15 Iohexol (Omnipaque 350 Inj) 75 ml STK-MED ONCE IVCONTRAST ; Start 08/05/17 at 01 :58; Stop 08/05/17 at 01:59; Status DC Pantoprazole Sodium (Protonix) 40 mg DAILY PO Last administered on 08/16/17at 08 :44; Start 08/06/17 at 09:00 Pantoprazole Sodium (Protonix Inj) 40 mg ONCE ONCE IV PUSH Last administered on 08/05/17at 06:30; Start 08/05/17 at 06:30; Stop 08/05/17 at 06:31; Status DC Gentamicin Sulfate (Gentamicin Inj) 240 mg STK-MED ONCE .ROUTE Last administered on 08/05/17at 10:21; Start 08/05/17 at 07:51; Stop 08/05/17 at 07:52 ; Status DC Acetaminophen (Tylenol) 650 mg Q4H PRN PO headache/fever/pain1-3 Last administered on 08/14/17at 04:05; Start 08/05/17 at 08:30 Morphine Sulfate (Morphine Inj) 2 mg Q3HR PRN IV PUSH SEE LABEL COMMENTS; Start 08/05/17 at 08:30 Sodium Chloride 1,000 ml @ 84 mls/hr [id number] IV Last administered on at 12:00; Start 08/05/17 at 08:45; Stop 08/06/17 at 08:33; Status DC Bupivacaine HCl/ Epinephrine Bitart (Sensorcaine-Epinephrine Pf 0.25% Inj) 10 ml STK-MED ONCE .ROUTE Last administered on 08/05/17at 10:43; Start 08/05/17 at 08:45; Stop 08/05/17 at 08:46; Status DC Cefazolin Sodium (Ancef Inj) 1,000 mg STK-MED ONCE .ROUTE Last administered on 08/05/17at 10:07; Start 08/05/17 at 09:57; Stop 08/05/17 at 09:58; Status DC Vancomycin HCl (Vancomycin Inj) 1,000 mg STK-MED ONCE .ROUTE ; Start 08/05/17 at 09:57; Stop 08/05/17 at 09:58; Status DC Enoxaparin Sodium (Lovenox Inj) 30 mg Q24H SQ Last administered on 08/16/17at 08 :54; Start 08/06/17 at 10:00 Cefazolin Sodium 1000 mg/Sodium Chloride 100 ml @ 200 mls/hr Q8H IV Last administered on 08/06/17at 08:35; Start 08/05/17 at 18:00; Stop 08/06/17 at 10:29 ; Status DC Ondansetron HCl (Zofran Inj) 4 mg Q4H PRN IVP NAUSEA OR VOMITING; Start at 13:00 Calcium/Vitamin D (Oscal-D 250-125) 250 mg TID PO Last administered on at 13:00; Start 08/05/17 at 13:00 Diphenhydramine HCl (Benadryl) 25 mg Q6H PRN PO ITCHING; Start 08/05/17 at 13: 00 Acetaminophen/ Hydrocodone Bitart ([place] 5-325 Mg) 1 tab Q3H PRN PO pain 3<10 Last administered on 08/15/17at 23:02; Start 08/05/17 at 13:00 Cholecalciferol (Vitamin D3) 5,000 units DAILY PO Last administered on at 08:44; Start 08/06/17 at 09:00 Ergocalciferol (Drisdol) 50,000 units ONCE ONCE PO Last administered on at 18:02; Start 08/05/17 at 14:00; Stop 08/05/17 at 14:01; Status DC Fentanyl Citrate (fentaNYL INJ) 100 mcg STK-MED ONCE .ROUTE ; Start 08/05/17 at 11:07; Stop 08/05/17 at 11:08; Status DC Labetalol HCl (*TRANDATE INJ PERIprocedural Use ONLY) 100 mg STK-MED ONCE .ROUTE Last administered on 08/05/17at 11:31; Start 08/05/17 at 11:31; Stop at 11:32; Status DC Miscellaneous Information ALL NURSING DEPARTME... UNSCH PRN .XX SEE LABEL COMMENTS; Start 08/05/17 at 11:00; Stop 08/06/17 at 10:59; Status DC Amlodipine Besylate (Norvasc) 5 mg DAILY PO Last administered on 08/07/17at 09: 40; Start 08/06/17 at 09:15; Stop 08/07/17 at 11:25; Status DC Enalaprilat (Vasotec Inj) 1.25 mg Q6H PRN IV PUSH SBP> OR = 180, DBP> OR = 100 Last administered on 08/09/17at 00:15; Start 08/06/17 at 14:15 Amlodipine Besylate (Norvasc) 10 mg DAILY PO Last administered on 08/15/17at 10: 37; Start 08/08/17 at 09:00 Sodium Chloride 250 ml @ 15 mls/hr ONCE ONCE IV ; Start 08/07/17 at 16:00; Stop 08/08/17 at 08:39; Status DC Furosemide (Lasix Inj) 20 mg ONCE ONCE IV PUSH Last administered on 08/08/17at 01:52; Start 08/07/17 at 16:00; Stop 08/07/17 at 16:01; Status DC Potassium Chloride (KCl) 40 meq ONCE ONCE PO Last administered on 08/08/17at 12 :00; Start 08/08/17 at 12:00; Stop 08/08/17 at 12:01; Status DC Lidocaine HCl (Xylocaine-Mpf 1% Inj) 5 ml STK-MED ONCE OTHER ; Start 08/05/17 at 12:00; Stop 08/08/17 at 11:11; Status DC Rocuronium [place] (Zemuron Inj) 50 mg STK-MED ONCE IV PUSH ; Start 08/05/17 at 12:00; Stop 08/08/17 at 11:11; Status DC Neostigmine Methylsulfate (Prostigmine Inj) 5 mg STK-MED ONCE IV PUSH ; Start at 12:00; Stop 08/08/17 at 11:11; Status DC Glycopyrrolate (Robinul Inj) 1 mg STK-MED ONCE IV PUSH ; Start 08/05/17 at 12:00 ; Stop 08/08/17 at 11:11; Status DC Phenylephrine HCl (Neosynephrine/ NS 1000 Mcg/10ml Syr) 1,000 mcg STK-MED ONCE IV ; Start 08/05/17 at 12:00; Stop 08/08/17 at 11:11; Status DC Ephedrine Sulfate (ePHEDrine/NS 25 MG/5 ML SYR) 25 mg STK-MED ONCE IV ; Start at 12:00; Stop 08/08/17 at 11:11; Status DC Ondansetron HCl (Zofran Inj) 4 mg STK-MED ONCE IV ; Start 08/05/17 at 12:00; Stop 08/08/17 at 11:11; Status DC Propofol (Diprivan 200 Mg/20 ml Inj) 400 mg STK-MED ONCE IV ; Start 08/05/17 at 12:00; Stop 08/08/17 at 11:11; Status DC Lisinopril (Prinivil) 5 mg ONCE ONCE PO Last administered on 08/08/17at 18:46; Start 08/08/17 at 17:45; Stop 08/08/17 at 17:46; Status DC Lisinopril (Prinivil) 5 mg DAILY PO Last administered on 08/12/17at 10:26; Start 08/09/17 at 09:00; Stop 08/12/17 at 14:09; Status DC Bisacodyl (Dulcolax Supp) 10 mg Q24H PRN RECTAL CONSTIPATION; Start 08/08/17 at 21:30 Magnesium Hydroxide (Milk Of Magnesia Liq) 30 ml BID PO Last administered on at 08:45; Start 08/09/17 at 09:00 Senna/Docusate Sodium ([place]-Colace) 1 tab BID PO Last administered on at 08:45; Start 08/09/17 at 09:00 Potassium Phosphate 15 mmol/ Sodium Chloride 155 ml @ 38.75 mls/ hr ONCE ONCE IV ; Start 08/11/17 at 16:00; Stop 08/11/17 at 19:59; Status Cancel Potassium Phosphate 15 mmol/ Sodium Chloride 255 ml @ 63.75 mls/ hr ONCE ONCE IV Last administered on 08/11/17at 17:32; Start 08/11/17 at 16:00; Stop at 19:59; Status DC Lisinopril (Prinivil) 10 mg DAILY PO Last administered on 08/16/17at 08:44; Start 08/13/17 at 09:00 A/P Problem List: (1) Fracture, intertrochanteric, left femur ICD Code: S72.142A - Displaced intertrochanteric fracture of left femur, initial encounter for closed fracture (2) Elevated troponin ICD Code: R74.8 - Abnormal levels of other serum enzymes Status: Acute Assessment and Plan 87-year-old Danish-speaking female with history of dementia, presents 08/04 after fall with left hip fracture Left hip intertrochanteric fracture s/p fall: Hip/pelvis shows intertrochanteric left hip fracture -Consulted orthopedics, s/p left hip reduction and intramedullary nail fixation on 08/05 -WBAT LLE -Lovenox per ortho -PT recommended rehab. -Pain control with bowel regimen -Incentive spirometry Right arm mass likely lipoma versus hematoma. Stable -Right arm with notable, palpable quarter size diameter mass with ecchymosis ? surrounding areas -This might have been an injection site? -Will monitor consider ultrasound Chest pain Atypical. Seemed to resolve today. Troponin repeated negative. Labs reviewed stable. EKG did not show any ST elevation depression or ST wave changes. Fatigue -Improving today. Most likely secondary to lack of sleep. Normocytic normochromic anemia suspect secondary to recent surgery due to blood loss. -s/p transfusion 2 units PRBC. Hemoglobin with good response post transfusion improving from 7.0 to 10.4. -No signs of bleeding at this time. We will continue to monitor as needed. Encephalopathy in a patient with dementia -Per daughter patient is at her baseline. She does have dementia. -Monitor neuro checks -Caution with any sedating medications Mild elevated troponin: Difficult to access for cardiac risk factors. However most likely this is secondary to rhabdo vs CKD. -Troponins elevated but flat at 0.09, 0.08, 0.05 -EKG reviewed, shows sinus tach with no acute ischemic changes -Echo shows moderate to severe tricuspid valve regurgitation Mild Rhabdomyolysis: Elevated CPK at 563. Suspect secondary to fall. Mild AST elevation likely secondary to rhabdo -Resolved s/p IVF hydration Renal insufficiency: Likely underlying chronic kidney disease however no previous labs to compare. UA clear. Resolved. -IVF hydration provided -Avoid nephrotoxins -Continue to monitor renal indices indicated Hypophosphatemia -Potassium phosphate ordered. -Follow BMP. And possible Unwitnessed fall and elderly: Question whether this could be a syncopal episode ? No clear history provided -Head CT and C-spine CT images reviewed, no acute findings -Carotid U/S with bilateral plaque, no significant stenosis -Echo shows EF 60-65%, moderate to severe tricuspid valve regurgitation -Obtain orthostatic BP measurements -Fall precautions Thyroid Nodule: incidentally found on C-spine CT; shows 2.5 x 1.6cm soft tissue nodule involving right neck, felt to relate to an exophytic thyroid nodule from the right lobe -TSH/T4, normal. -Outpatient f/up Hypertension: BP consistently elevated, may be exacerbated by pain -Not on any antihypertensives at home -Norvasc 10 mg daily, still with elevated BP. Increase Lisinopril 10mg daily. BP improving -Continue to monitor BP and adjust treatment accordingly. -IV Vasotec prn Vitamin D deficiency -Vitamin D level 16.7 -Continue on by mouth repletion -Patient will need to have vitamin D level rechecked in 3 months as outpatient DVT Prophylaxis: Lovenox per ortho; teds/SCDs to nonoperative leg Discharge Planning Patient is Medicaid pending. There is no payor source. She will need daily physical therapy here in the hospital. Problem Qualifiers (1) Fracture, intertrochanteric, left femur: Qualified Codes: S72.142A - Displaced intertrochanteric fracture of left femur , initial encounter for closed fracture Hui Vieyra MD Aug 16, 2017 12:28
[2017-08-16 16:16] VITALS: BP 127/61; PULSE 68; RESP 19; TEMP 97.7; O2SAT 97
--- NOTE | 2017-08-16 19:30 | EKG ---
Date Performed: 08/15/2017 Time Performed: 17:14:37 PTAGE: 87 years EKG: Sinus rhythm WITH FIRST DEGREE AV BLOCK ABNORMAL ECG Since the PREVIOUS TRACING , no significant change noted PREVIOUS TRACIN08/05/2017 06.07 DOCTOR: Maycol Verma Interpretating Date/Time 08/16/2017 19:29:07
[2017-08-16 20:00] VITALS: BP 145/67; PULSE 70; RESP 16; TEMP 98.1; O2SAT 94
[2017-08-16] MEDS: SODIUM CHLORIDE 0.9% FLUSH 10 ML FLUSH IV FLUSH SCH (21:00)
[2017-08-17] VITALS: BP 141/64; PULSE 65; RESP 16; TEMP 98; O2SAT 95
[2017-08-17 04:00] VITALS: BP 166/74; PULSE 65; RESP 16; TEMP 98; O2SAT 95
[2017-08-17 07:45] VITALS: BP 144/65; PULSE 61; RESP 18; TEMP 97.5; O2SAT 93
[2017-08-17] MEDS: MAGNESIUM HYDROXIDE SUSP 30 ML CUP PO SCH ×2 (09:00→20:39)
[2017-08-17] MEDS: CALCIUM/VITAMIN D 250 MG/125 U TAB PO SCH ×4 (09:00→18:33)
[2017-08-17] MEDS: DOCUSATE SODIUM 50 MG/SENNA 8.6 MG TAB PO SCH ×2 (09:00→20:39)
[2017-08-17] MEDS: ENOXAPARIN SODIUM 30 MG/0.3 ML SYRINGE SQ SCH (10:15)
[2017-08-17] MEDS: LISINOPRIL 10 MG TAB PO SCH (10:16)
[2017-08-17] MEDS: CHOLECALCIFEROL (VIT D3) 5000 UNIT CAP PO SCH (10:16)
[2017-08-17] MEDS: PANTOPRAZOLE SOD 40 MG DELAYED RELEASE TAB PO SCH (10:16)
[2017-08-17] MEDS: SODIUM CHLORIDE 0.9% FLUSH 10 ML FLUSH IV FLUSH SCH ×2 (10:17→21:00)
[2017-08-17 11:42] VITALS: BP 161/70; PULSE 76; RESP 17; TEMP 97.4; O2SAT 98
--- NOTE | 2017-08-17 14:14 | HHI.PR ---
Subjective Remarks Follow-up for placement Patient is Bangladeshi-speaking. She does not want [employer] translation today because her daughter is at the bedside. Patient's daughter also refused who speaks Kinyarwanda. Patient daughter stated that she continues to be fatigued but she is gaining her strength back because she was arguing with her today. Patient stated that she feels better but continues to have her chest pain. Chest pain has been chronic. Otherwise she has no other complaints. She stated that she is drinking more water but she does not like drinking a lot of water. No other events. Objective Vitals Vital Signs Date Time Temp Pulse Resp B/P (MAP) Pulse Ox O2 Delivery O2 Flow Rate FiO2 08/17/17 11:42 97.4 76 17 161/70 (100) 98 08/17/17 07:45 97.5 61 18 144/65 (91) 93 08/17/17 04:00 98.0 65 16 166/74 (104) 95 08/17/17 00:00 98.0 65 16 141/64 (89) 95 08/16/17 20:00 98.1 70 16 145/67 (93) 94 08/16/17 16:16 97.7 68 19 127/61 (83) 97 I/O 08/16/17 08/16/17 08/16/17 08/17/17 08/17/17 08/17/17 07:00 15:00 23:00 07:00 15:00 23:00 Intake Total 360 ml 480 ml Output Total 1150 ml Balance 360 ml -670 ml Intake Oral 360 ml 480 ml Output Urine Total 1150 ml # Voids 1 1 1 # Bowel Movements 1 0 1 Result Diagram: 08/15/17 1724 08/15/17 1724 Objective Remarks GENERAL: in NAD CARDIOVASCULAR: Regular rate and rhythm without murmurs, gallops, or rubs. Patient pointed to where her chest pain was I palpated it and chest pain was reproducible. RESPIRATORY: Breath sounds equal bilaterally. No accessory muscle use. GASTROINTESTINAL: Abdomen soft, non-tender, nondistended. EXT: neg edema Procedures 08/05/17 - Left hip reduction and intramedullary nail fixation by Dr. Álvarez Medications and IVs Current Medications Hydralazine HCl (Apresoline Inj) 10 mg ONCE ONCE IV PUSH Last administered on 08/05/17at 00:16; Start 08/05/17 at 00:00; Stop 08/05/17 at 00:01; Status DC Sodium Chloride 500 ml @ 500 mls/hr BOLUS ONCE IV Last administered on at 00:16; Start 08/05/17 at 00:00; Stop 08/05/17 at 00:59; Status DC Sodium Chloride (NS Flush) 2 ml UNSCH PRN IV FLUSH FLUSH AFTER USING IV ACCESS Last administered on 08/08/17at 16:02; Start 08/05/17 at 01:15 Sodium Chloride (NS Flush) 2 ml BID IV FLUSH Last administered on 08/17/17at 10: 17; Start 08/05/17 at 09:00 Naloxone HCl (Narcan Inj) 0.4 mg UNSCH PRN IV PUSH SEE LABEL COMMENTS; Start at 01:15 Iohexol (Omnipaque 350 Inj) 75 ml STK-MED ONCE IVCONTRAST ; Start 08/05/17 at 01 :58; Stop 08/05/17 at 01:59; Status DC Pantoprazole Sodium (Protonix) 40 mg DAILY PO Last administered on 08/17/17at 10 :16; Start 08/06/17 at 09:00 Pantoprazole Sodium (Protonix Inj) 40 mg ONCE ONCE IV PUSH Last administered on 08/05/17at 06:30; Start 08/05/17 at 06:30; Stop 08/05/17 at 06:31; Status DC Gentamicin Sulfate (Gentamicin Inj) 240 mg STK-MED ONCE .ROUTE Last administered on 08/05/17at 10:21; Start 08/05/17 at 07:51; Stop 08/05/17 at 07:52 ; Status DC Acetaminophen (Tylenol) 650 mg Q4H PRN PO headache/fever/pain1-3 Last administered on 08/14/17at 04:05; Start 08/05/17 at 08:30 Morphine Sulfate (Morphine Inj) 2 mg Q3HR PRN IV PUSH SEE LABEL COMMENTS; Start 08/05/17 at 08:30 Sodium Chloride 1,000 ml @ 84 mls/hr [id number] IV Last administered on at 12:00; Start 08/05/17 at 08:45; Stop 08/06/17 at 08:33; Status DC Bupivacaine HCl/ Epinephrine Bitart (Sensorcaine-Epinephrine Pf 0.25% Inj) 10 ml STK-MED ONCE .ROUTE Last administered on 08/05/17 10:43; Start 08/05/17 at 08:45; Stop 08/05/17 at 08:46; Status DC Cefazolin Sodium (Ancef Inj) 1,000 mg STK-MED ONCE .ROUTE Last administered on 08/05/17 10:07; Start 08/05/17 at 09:57; Stop 08/05/17 at 09:58; Status DC Vancomycin HCl (Vancomycin Inj) 1,000 mg STK-MED ONCE .ROUTE ; Start 08/05/17 at 09:57; Stop 08/05/17 at 09:58; Status DC Enoxaparin Sodium (Lovenox Inj) 30 mg Q24H SQ Last administered on 08/17/17 10 :15; Start 08/06/17 at 10:00 Cefazolin Sodium 1000 mg/Sodium Chloride 100 ml @ 200 mls/hr Q8H IV Last administered on 08/06/17at 08:35; Start 08/05/17 at 18:00; Stop 08/06/17 at 10:29 ; Status DC Ondansetron HCl (Zofran Inj) 4 mg Q4H PRN IVP NAUSEA OR VOMITING; Start at 13:00 Calcium/Vitamin D (Oscal-D 250-125) 250 mg TID PO Last administered on 09:00; Start 08/05/17 at 13:00 Diphenhydramine HCl (Benadryl) 25 mg Q6H PRN PO ITCHING; Start 08/05/17 at 13: 00 Acetaminophen/ Hydrocodone Bitart ([place] 5-325 Mg) 1 tab Q3H PRN PO pain 3<10 Last administered on 08/15/17 23:02; Start 08/05/17 at 13:00 Cholecalciferol (Vitamin D3) 5,000 units DAILY PO Last administered on 10:16; Start 08/06/17 at 09:00 Ergocalciferol (Drisdol) 50,000 units ONCE ONCE PO Last administered on 18:02; Start 08/05/17 at 14:00; Stop 08/05/17 at 14:01; Status DC Fentanyl Citrate (fentaNYL INJ) 100 mcg STK-MED ONCE .ROUTE ; Start 08/05/17 at 11:07; Stop 08/05/17 at 11:08; Status DC Labetalol HCl (*TRANDATE INJ PERIprocedural Use ONLY) 100 mg STK-MED ONCE .ROUTE Last administered on 08/05/17at 11:31; Start 08/05/17 at 11:31; Stop at 11:32; Status DC Miscellaneous Information ALL NURSING DEPARTME... UNSCH PRN .XX SEE LABEL COMMENTS; Start 08/05/17 at 11:00; Stop 08/06/17 at 10:59; Status DC Amlodipine Besylate (Norvasc) 5 mg DAILY PO Last administered on 08/07/17at 09: 40; Start 08/06/17 at 09:15; Stop 08/07/17 at 11:25; Status DC Enalaprilat (Vasotec Inj) 1.25 mg Q6H PRN IV PUSH SBP> OR = 180, DBP> OR = 100 Last administered on 08/09/17at 00:15; Start 08/06/17 at 14:15 Amlodipine Besylate (Norvasc) 10 mg DAILY PO Last administered on 08/17/17at 10: 16; Start 08/08/17 at 09:00 Sodium Chloride 250 ml @ 15 mls/hr ONCE ONCE IV ; Start 08/07/17 at 16:00; Stop 08/08/17 at 08:39; Status DC Furosemide (Lasix Inj) 20 mg ONCE ONCE IV PUSH Last administered on 08/08/17at 01:52; Start 08/07/17 at 16:00; Stop 08/07/17 at 16:01; Status DC Potassium Chloride (KCl) 40 meq ONCE ONCE PO Last administered on 08/08/17at 12 :00; Start 08/08/17 at 12:00; Stop 08/08/17 at 12:01; Status DC Lidocaine HCl (Xylocaine-Mpf 1% Inj) 5 ml STK-MED ONCE OTHER ; Start 08/05/17 at 12:00; Stop 08/08/17 at 11:11; Status DC Rocuronium [place] (Zemuron Inj) 50 mg STK-MED ONCE IV PUSH ; Start 08/05/17 at 12:00; Stop 08/08/17 at 11:11; Status DC Neostigmine Methylsulfate (Prostigmine Inj) 5 mg STK-MED ONCE IV PUSH ; Start at 12:00; Stop 08/08/17 at 11:11; Status DC Glycopyrrolate (Robinul Inj) 1 mg STK-MED ONCE IV PUSH ; Start 08/05/17 at 12:00 ; Stop 08/08/17 at 11:11; Status DC Phenylephrine HCl (Neosynephrine/ NS 1000 Mcg/10ml Syr) 1,000 mcg STK-MED ONCE IV ; Start 08/05/17 at 12:00; Stop 08/08/17 at 11:11; Status DC Ephedrine Sulfate (ePHEDrine/NS 25 MG/5 ML SYR) 25 mg STK-MED ONCE IV ; Start at 12:00; Stop 08/08/17 at 11:11; Status DC Ondansetron HCl (Zofran Inj) 4 mg STK-MED ONCE IV ; Start 08/05/17 at 12:00; Stop 08/08/17 at 11:11; Status DC Propofol (Diprivan 200 Mg/20 ml Inj) 400 mg STK-MED ONCE IV ; Start 08/05/17 at 12:00; Stop 08/08/17 at 11:11; Status DC Lisinopril (Prinivil) 5 mg ONCE ONCE PO Last administered on 08/08/17at 18:46; Start 08/08/17 at 17:45; Stop 08/08/17 at 17:46; Status DC Lisinopril (Prinivil) 5 mg DAILY PO Last administered on 08/12/17at 10:26; Start 08/09/17 at 09:00; Stop 08/12/17 at 14:09; Status DC Bisacodyl (Dulcolax Supp) 10 mg Q24H PRN RECTAL CONSTIPATION; Start 08/08/17 at 21:30 Magnesium Hydroxide (Milk Of Magnesia Liq) 30 ml BID PO Last administered on at 08:45; Start 08/09/17 at 09:00 Senna/Docusate Sodium ([place]-Colace) 1 tab BID PO Last administered on at 08:45; Start 08/09/17 at 09:00 Potassium Phosphate 15 mmol/ Sodium Chloride 155 ml @ 38.75 mls/ hr ONCE ONCE IV ; Start 08/11/17 at 16:00; Stop 08/11/17 at 19:59; Status Cancel Potassium Phosphate 15 mmol/ Sodium Chloride 255 ml @ 63.75 mls/ hr ONCE ONCE IV Last administered on 08/11/17at 17:32; Start 08/11/17 at 16:00; Stop at 19:59; Status DC Lisinopril (Prinivil) 10 mg DAILY PO Last administered on 08/17/17at 10:16; Start 08/13/17 at 09:00 Ketorolac Tromethamine (Toradol Inj) 15 mg TID IV PUSH ; Start 08/17/17 at 18:00 ; Stop 08/22/17 at 17:59 A/P Problem List: (1) Fracture, intertrochanteric, left femur ICD Code: S72.142A - Displaced intertrochanteric fracture of left femur, initial encounter for closed fracture (2) Elevated troponin ICD Code: R74.8 - Abnormal levels of other serum enzymes Status: Acute Assessment and Plan 87-year-old Bangladeshi-speaking female with history of dementia, presents 08/04 after fall with left hip fracture Left hip intertrochanteric fracture s/p fall: Hip/pelvis shows intertrochanteric left hip fracture -Consulted orthopedics, s/p left hip reduction and intramedullary nail fixation on 08/05 -WBAT LLE -Lovenox per ortho -PT recommended rehab. -Pain control with bowel regimen -Incentive spirometry Right arm mass likely lipoma versus hematoma. Stable -Right arm with notable, palpable quarter size diameter mass with ecchymosis ? surrounding areas -This might have been an injection site? -Will monitor consider ultrasound Chest pain Atypical. Troponin repeated negative. Labs reviewed stable. EKG did not show any ST elevation depression or ST wave changes. This seems more musculoskeletal since it is reproducible. Patient is a poor historian because of dementia. Will try Toradol to see if this helps with the pain. Fatigue -Continues to improve. Most likely lack of sleep. Normocytic normochromic anemia suspect secondary to recent surgery due to blood loss. -s/p transfusion 2 units PRBC. Hemoglobin with good response post transfusion improving from 7.0 to 10.4. -No signs of bleeding at this time. We will continue to monitor as needed. Encephalopathy in a patient with dementia -Per daughter patient is at her baseline. She does have dementia. -Monitor neuro checks -Caution with any sedating medications Mild elevated troponin: Difficult to access for cardiac risk factors. However most likely this is secondary to rhabdo vs CKD. -Troponins elevated but flat at 0.09, 0.08, 0.05 -EKG reviewed, shows sinus tach with no acute ischemic changes -Echo shows moderate to severe tricuspid valve regurgitation Mild Rhabdomyolysis: Elevated CPK at 563. Suspect secondary to fall. Mild AST elevation likely secondary to rhabdo -Resolved s/p IVF hydration Renal insufficiency: Likely underlying chronic kidney disease however no previous labs to compare. UA clear. Resolved. -IVF hydration provided -Avoid nephrotoxins -Continue to monitor renal indices indicated Hypophosphatemia -Potassium phosphate ordered. -Follow BMP. And possible Unwitnessed fall and elderly: Question whether this could be a syncopal episode ? No clear history provided -Head CT and C-spine CT images reviewed, no acute findings -Carotid U/S with bilateral plaque, no significant stenosis -Echo shows EF 60-65%, moderate to severe tricuspid valve regurgitation -Obtain orthostatic BP measurements -Fall precautions Thyroid Nodule: incidentally found on C-spine CT; shows 2.5 x 1.6cm soft tissue nodule involving right neck, felt to relate to an exophytic thyroid nodule from the right lobe -TSH/T4, normal. -Outpatient f/up Hypertension: BP consistently elevated, may be exacerbated by pain -Not on any antihypertensives at home -Norvasc 10 mg daily, still with elevated BP. Increase Lisinopril 10mg daily. BP improving -Continue to monitor BP and adjust treatment accordingly. -IV Vasotec prn Vitamin D deficiency -Vitamin D level 16.7 -Continue on by mouth repletion -Patient will need to have vitamin D level rechecked in 3 months as outpatient DVT Prophylaxis: Lovenox per ortho; teds/SCDs to nonoperative leg Discharge Planning Patient is Medicaid pending. There is no payor source. She will need daily physical therapy here in the hospital. Problem Qualifiers (1) Fracture, intertrochanteric, left femur: Qualified Codes: S72.142A - Displaced intertrochanteric fracture of left femur , initial encounter for closed fracture Hui Vieyra MD Aug 17, 2017 14:14
[2017-08-17 16:06] VITALS: BP 124/61; PULSE 70; RESP 18; TEMP 97.6; O2SAT 97
[2017-08-17] MEDS: KETOROLAC TROMETHAMINE 30 MG/ML (IVP) VIAL IV PUSH SCH (18:33)
[2017-08-17 20:00] VITALS: BP 172/96; PULSE 82; RESP 19; TEMP 97.5; O2SAT 97
[2017-08-17] MEDS: ACETAMINOPHEN/HYDROcodone 325 MG/5 MG TAB PO PRN (20:40)
[2017-08-18] VITALS (7 sets, daily range): BP systolic 123–168; BP diastolic 59–77; PULSE 51–67; RESP 18; TEMP 97.3–98.1; O2SAT 95–100
[2017-08-18] MEDS: MAGNESIUM HYDROXIDE SUSP 30 ML CUP PO SCH ×2 (08:36→21:02)
[2017-08-18] MEDS: ENOXAPARIN SODIUM 30 MG/0.3 ML SYRINGE SQ SCH (08:36)
[2017-08-18] MEDS: PANTOPRAZOLE SOD 40 MG DELAYED RELEASE TAB PO SCH (08:37)
[2017-08-18] MEDS: CHOLECALCIFEROL (VIT D3) 5000 UNIT CAP PO SCH (08:37)
[2017-08-18] MEDS: DOCUSATE SODIUM 50 MG/SENNA 8.6 MG TAB PO SCH ×2 (08:37→21:02)
[2017-08-18] MEDS: LISINOPRIL 10 MG TAB PO SCH (08:37)
[2017-08-18] MEDS: CALCIUM/VITAMIN D 250 MG/125 U TAB PO SCH ×3 (08:37→17:39)
[2017-08-18] MEDS: SODIUM CHLORIDE 0.9% FLUSH 10 ML FLUSH IV FLUSH SCH ×2 (08:37→21:01)
[2017-08-18] MEDS: KETOROLAC TROMETHAMINE 30 MG/ML (IVP) VIAL IV PUSH SCH (08:37)
--- NOTE | 2017-08-18 12:01 | HHI.PR ---
Subjective Remarks Follow-up for placement Patient is Cameroonian-speaking. She wants her daughter to translate due to difficulties using translation lines at times. Patient states she feels the same. She denies any chest pain today. She has no other complaints. Her daughter asked the patient patient to take a shower and if there could be a standing order for patient to get the same meals every day. I spoke to patient' s nurse in regards to this to see if it is possible. Objective Vitals Vital Signs Date Time Temp Pulse Resp B/P (MAP) Pulse Ox O2 Delivery O2 Flow Rate FiO2 08/18/17 11:12 97.6 59 18 139/64 (89) 95 08/18/17 07:35 97.3 60 18 162/72 (102) 98 08/18/17 04:00 98.1 51 18 139/61 (87) 100 08/18/17 00:00 97.3 61 18 159/67 (97) 95 08/17/17 20:00 97.5 82 19 172/96 (121) 97 08/17/17 16:06 97.6 70 18 124/61 (82) 97 I/O 08/17/17 08/17/17 08/17/17 08/18/17 08/18/17 08/18/17 07:00 15:00 23:00 07:00 15:00 23:00 Intake Total 600 ml Balance 600 ml Intake Oral 600 ml # Voids 1 1 2 # Bowel Movements 1 Result Diagram: 08/15/17 1724 08/15/17 1724 Objective Remarks GENERAL: in NAD CARDIOVASCULAR: Regular rate and rhythm without murmurs, gallops, or rubs. no TTP on chest wall. RESPIRATORY: Breath sounds equal bilaterally. No accessory muscle use. GASTROINTESTINAL: Abdomen soft, non-tender, nondistended. EXT: neg edema Procedures 08/05/17 - Left hip reduction and intramedullary nail fixation by Dr. Álvarez Medications and IVs Current Medications Hydralazine HCl (Apresoline Inj) 10 mg ONCE ONCE IV PUSH Last administered on 08/05/17at 00:16; Start 08/05/17 at 00:00; Stop 08/05/17 at 00:01; Status DC Sodium Chloride 500 ml @ 500 mls/hr BOLUS ONCE IV Last administered on at 00:16; Start 08/05/17 at 00:00; Stop 08/05/17 at 00:59; Status DC Sodium Chloride (NS Flush) 2 ml UNSCH PRN IV FLUSH FLUSH AFTER USING IV ACCESS Last administered on 08/08/17at 16:02; Start 08/05/17 at 01:15 Sodium Chloride (NS Flush) 2 ml BID IV FLUSH Last administered on 08/18/17at 08: 37; Start 08/05/17 at 09:00 Naloxone HCl (Narcan Inj) 0.4 mg UNSCH PRN IV PUSH SEE LABEL COMMENTS; Start at 01:15 Iohexol (Omnipaque 350 Inj) 75 ml STK-MED ONCE IVCONTRAST ; Start 08/05/17 at 01 :58; Stop 08/05/17 at 01:59; Status DC Pantoprazole Sodium (Protonix) 40 mg DAILY PO Last administered on 08/18/17at 08 :37; Start 08/06/17 at 09:00 Pantoprazole Sodium (Protonix Inj) 40 mg ONCE ONCE IV PUSH Last administered on 08/05/17at 06:30; Start 08/05/17 at 06:30; Stop 08/05/17 at 06:31; Status DC Gentamicin Sulfate (Gentamicin Inj) 240 mg STK-MED ONCE .ROUTE Last administered on 08/05/17at 10:21; Start 08/05/17 at 07:51; Stop 08/05/17 at 07:52 ; Status DC Acetaminophen (Tylenol) 650 mg Q4H PRN PO headache/fever/pain1-3 Last administered on 08/14/17at 04:05; Start 08/05/17 at 08:30 Morphine Sulfate (Morphine Inj) 2 mg Q3HR PRN IV PUSH SEE LABEL COMMENTS; Start 08/05/17 at 08:30 Sodium Chloride 1,000 ml @ 84 mls/hr [id number] IV Last administered on at 12:00; Start 08/05/17 at 08:45; Stop 08/06/17 at 08:33; Status DC Bupivacaine HCl/ Epinephrine Bitart (Sensorcaine-Epinephrine Pf 0.25% Inj) 10 ml STK-MED ONCE .ROUTE Last administered on 08/05/17at 10:43; Start 08/05/17 at 08:45; Stop 08/05/17 at 08:46; Status DC Cefazolin Sodium (Ancef Inj) 1,000 mg STK-MED ONCE .ROUTE Last administered on 08/05/17at 10:07; Start 08/05/17 at 09:57; Stop 08/05/17 at 09:58; Status DC Vancomycin HCl (Vancomycin Inj) 1,000 mg STK-MED ONCE .ROUTE ; Start 08/05/17 at 09:57; Stop 08/05/17 at 09:58; Status DC Enoxaparin Sodium (Lovenox Inj) 30 mg Q24H SQ Last administered on 08/18/17at 08 :36; Start 08/06/17 at 10:00 Cefazolin Sodium 1000 mg/Sodium Chloride 100 ml @ 200 mls/hr Q8H IV Last administered on 08/06/17at 08:35; Start 08/05/17 at 18:00; Stop 08/06/17 at 10:29 ; Status DC Ondansetron HCl (Zofran Inj) 4 mg Q4H PRN IVP NAUSEA OR VOMITING; Start at 13:00 Calcium/Vitamin D (Oscal-D 250-125) 250 mg TID PO Last administered on at 08:37; Start 08/05/17 at 13:00 Diphenhydramine HCl (Benadryl) 25 mg Q6H PRN PO ITCHING; Start 08/05/17 at 13: 00 Acetaminophen/ Hydrocodone Bitart ([place] 5-325 Mg) 1 tab Q3H PRN PO pain 3<10 Last administered on 08/17/17at 20:40; Start 08/05/17 at 13:00 Cholecalciferol (Vitamin D3) 5,000 units DAILY PO Last administered on at 08:37; Start 08/06/17 at 09:00 Ergocalciferol (Drisdol) 50,000 units ONCE ONCE PO Last administered on at 18:02; Start 08/05/17 at 14:00; Stop 08/05/17 at 14:01; Status DC Fentanyl Citrate (fentaNYL INJ) 100 mcg STK-MED ONCE .ROUTE ; Start 08/05/17 at 11:07; Stop 08/05/17 at 11:08; Status DC Labetalol HCl (*TRANDATE INJ PERIprocedural Use ONLY) 100 mg STK-MED ONCE .ROUTE Last administered on 08/05/17at 11:31; Start 08/05/17 at 11:31; Stop at 11:32; Status DC Miscellaneous Information ALL NURSING DEPARTME... UNSCH PRN .XX SEE LABEL COMMENTS; Start 08/05/17 at 11:00; Stop 08/06/17 at 10:59; Status DC Amlodipine Besylate (Norvasc) 5 mg DAILY PO Last administered on 08/07/17at 09: 40; Start 08/06/17 at 09:15; Stop 08/07/17 at 11:25; Status DC Enalaprilat (Vasotec Inj) 1.25 mg Q6H PRN IV PUSH SBP> OR = 180, DBP> OR = 100 Last administered on 08/09/17at 00:15; Start 08/06/17 at 14:15 Amlodipine Besylate (Norvasc) 10 mg DAILY PO Last administered on 08/18/17at 08: 37; Start 08/08/17 at 09:00 Sodium Chloride 250 ml @ 15 mls/hr ONCE ONCE IV ; Start 08/07/17 at 16:00; Stop 08/08/17 at 08:39; Status DC Furosemide (Lasix Inj) 20 mg ONCE ONCE IV PUSH Last administered on 08/08/17at 01:52; Start 08/07/17 at 16:00; Stop 08/07/17 at 16:01; Status DC Potassium Chloride (KCl) 40 meq ONCE ONCE PO Last administered on 08/08/17at 12 :00; Start 08/08/17 at 12:00; Stop 08/08/17 at 12:01; Status DC Lidocaine HCl (Xylocaine-Mpf 1% Inj) 5 ml STK-MED ONCE OTHER ; Start 08/05/17 at 12:00; Stop 08/08/17 at 11:11; Status DC Rocuronium [place] (Zemuron Inj) 50 mg STK-MED ONCE IV PUSH ; Start 08/05/17 at 12:00; Stop 08/08/17 at 11:11; Status DC Neostigmine Methylsulfate (Prostigmine Inj) 5 mg STK-MED ONCE IV PUSH ; Start at 12:00; Stop 08/08/17 at 11:11; Status DC Glycopyrrolate (Robinul Inj) 1 mg STK-MED ONCE IV PUSH ; Start 08/05/17 at 12:00 ; Stop 08/08/17 at 11:11; Status DC Phenylephrine HCl (Neosynephrine/ NS 1000 Mcg/10ml Syr) 1,000 mcg STK-MED ONCE IV ; Start 08/05/17 at 12:00; Stop 08/08/17 at 11:11; Status DC Ephedrine Sulfate (ePHEDrine/NS 25 MG/5 ML SYR) 25 mg STK-MED ONCE IV ; Start at 12:00; Stop 08/08/17 at 11:11; Status DC Ondansetron HCl (Zofran Inj) 4 mg STK-MED ONCE IV ; Start 08/05/17 at 12:00; Stop 08/08/17 at 11:11; Status DC Propofol (Diprivan 200 Mg/20 ml Inj) 400 mg STK-MED ONCE IV ; Start 08/05/17 at 12:00; Stop 08/08/17 at 11:11; Status DC Lisinopril (Prinivil) 5 mg ONCE ONCE PO Last administered on 08/08/17at 18:46; Start 08/08/17 at 17:45; Stop 08/08/17 at 17:46; Status DC Lisinopril (Prinivil) 5 mg DAILY PO Last administered on 08/12/17at 10:26; Start 08/09/17 at 09:00; Stop 08/12/17 at 14:09; Status DC Bisacodyl (Dulcolax Supp) 10 mg Q24H PRN RECTAL CONSTIPATION; Start 08/08/17 at 21:30 Magnesium Hydroxide (Milk Of Magnesia Liq) 30 ml BID PO Last administered on at 08:36; Start 08/09/17 at 09:00 Senna/Docusate Sodium ([place]-Colace) 1 tab BID PO Last administered on at 08:37; Start 08/09/17 at 09:00 Potassium Phosphate 15 mmol/ Sodium Chloride 155 ml @ 38.75 mls/ hr ONCE ONCE IV ; Start 08/11/17 at 16:00; Stop 08/11/17 at 19:59; Status Cancel Potassium Phosphate 15 mmol/ Sodium Chloride 255 ml @ 63.75 mls/ hr ONCE ONCE IV Last administered on 08/11/17at 17:32; Start 08/11/17 at 16:00; Stop at 19:59; Status DC Lisinopril (Prinivil) 10 mg DAILY PO Last administered on 08/18/17at 08:37; Start 08/13/17 at 09:00 Ketorolac Tromethamine (Toradol Inj) 15 mg TID IV PUSH Last administered on at 08:37; Start 08/17/17 at 18:00; Stop 08/18/17 at 11:36; Status DC A/P Problem List: (1) Fracture, intertrochanteric, left femur ICD Code: S72.142A - Displaced intertrochanteric fracture of left femur, initial encounter for closed fracture (2) Elevated troponin ICD Code: R74.8 - Abnormal levels of other serum enzymes Status: Acute Assessment and Plan 87-year-old Cam[place]onian-speaking female with history of dementia, presents 08/04 after fall with left hip fracture Left hip intertrochanteric fracture s/p fall: Hip/pelvis shows intertrochanteric left hip fracture -Consulted orthopedics, s/p left hip reduction and intramedullary nail fixation on 08/05 -WBAT LLE -Lovenox per ortho -PT recommended rehab. -Pain control with bowel regimen -Incentive spirometry Right arm mass likely lipoma versus hematoma. Stable -Right arm with notable, palpable quarter size diameter mass with ecchymosis ? surrounding areas -This might have been an injection site? -Will monitor consider ultrasound Chest pain Atypical. Troponin repeated negative. Labs reviewed stable. EKG did not show any ST elevation depression or ST wave changes. This seems more musculoskeletal since it is reproducible. Patient is a poor historian because of dementia. Patient was given Toradol with resolution of chest pain. Will DC Toradol. Fatigue -Continues to improve. Most likely lack of sleep. Normocytic normochromic anemia suspect secondary to recent surgery due to blood loss. -s/p transfusion 2 units PRBC. Hemoglobin with good response post transfusion improving from 7.0 to 10.4. -No signs of bleeding at this time. We will continue to monitor as needed. Encephalopathy in a patient with dementia -Per daughter patient is at her baseline. She does have dementia. -Monitor neuro checks -Caution with any sedating medications Mild elevated troponin: Difficult to access for cardiac risk factors. However most likely this is secondary to rhabdo vs CKD. -Troponins elevated but flat at 0.09, 0.08, 0.05 -EKG reviewed, shows sinus tach with no acute ischemic changes -Echo shows moderate to severe tricuspid valve regurgitation Mild Rhabdomyolysis: Elevated CPK at 563. Suspect secondary to fall. Mild AST elevation likely secondary to rhabdo -Resolved s/p IVF hydration Renal insufficiency: Likely underlying chronic kidney disease however no previous labs to compare. UA clear. Resolved. -IVF hydration provided -Avoid nephrotoxins -Continue to monitor renal indices indicated Hypophosphatemia -Potassium phosphate ordered. -Follow BMP. And possible Unwitnessed fall and elderly: Question whether this could be a syncopal episode ? No clear history provided -Head CT and C-spine CT images reviewed, no acute findings -Carotid U/S with bilateral plaque, no significant stenosis -Echo shows EF 60-65%, moderate to severe tricuspid valve regurgitation -Obtain orthostatic BP measurements -Fall precautions Thyroid Nodule: incidentally found on C-spine CT; shows 2.5 x 1.6cm soft tissue nodule involving right neck, felt to relate to an exophytic thyroid nodule from the right lobe -TSH/T4, normal. -Outpatient f/up Hypertension: BP consistently elevated, may be exacerbated by pain -Not on any antihypertensives at home -Norvasc 10 mg daily, still with elevated BP. Increase Lisinopril 10mg daily. BP improving -Continue to monitor BP and adjust treatment accordingly. -IV Vasotec prn Vitamin D deficiency -Vitamin D level 16.7 -Continue on by mouth repletion -Patient will need to have vitamin D level rechecked in 3 months as outpatient DVT Prophylaxis: Lovenox per ortho; teds/SCDs to nonoperative leg Discharge Planning Patient is Medicaid pending. There is no payor source. She will need daily physical therapy here in the hospital. Problem Qualifiers (1) Fracture, intertrochanteric, left femur: Qualified Codes: S72.142A - Displaced intertrochanteric fracture of left femur , initial encounter for closed fracture Hui Vieyra MD Aug 18, 2017 12:01
[2017-08-19 08:00] VITALS: BP 158/65; PULSE 67; RESP 17; TEMP 98.6; O2SAT 96
[2017-08-19] MEDS: MAGNESIUM HYDROXIDE SUSP 30 ML CUP PO SCH ×2 (08:28→20:49)
[2017-08-19] MEDS: SODIUM CHLORIDE 0.9% FLUSH 10 ML FLUSH IV FLUSH SCH ×2 (08:30→20:49)
[2017-08-19] MEDS: DOCUSATE SODIUM 50 MG/SENNA 8.6 MG TAB PO SCH ×2 (08:30→20:49)
[2017-08-19] MEDS: CHOLECALCIFEROL (VIT D3) 5000 UNIT CAP PO SCH (08:30)
[2017-08-19] MEDS: CALCIUM/VITAMIN D 250 MG/125 U TAB PO SCH ×3 (08:30→17:12)
[2017-08-19] MEDS: LISINOPRIL 10 MG TAB PO SCH (08:30)
[2017-08-19] MEDS: ENOXAPARIN SODIUM 30 MG/0.3 ML SYRINGE SQ SCH (08:30)
[2017-08-19] MEDS: PANTOPRAZOLE SOD 40 MG DELAYED RELEASE TAB PO SCH (08:30)
--- NOTE | 2017-08-19 10:35 | RADRPT ---
EXAM DATE/TIME: 08/19/2017 10:06 [place] COMPARISON: HIP LEFT (AP&LAT 2/3VWS) WO AP PELVIS, August 05, 2017, 10:35. HIP LEFT (AP&LAT 2/3VWS) W AP PELVIS, August 04, 2017, 23:57. INDICATIONS : Left hip pain. MEDICAL HISTORY : None. SURGICAL HISTORY : Left hip ORIF. ENCOUNTER: Subsequent ACUITY: 2 weeks PAIN SCORE: 3/10 LOCATION: Left hip FINDINGS: Examination of the left hip was performed with AP Pelvis. A nondisplaced fracture is identified through the left inferior pubic ramus. A second fracture is not clearly delineated. Postsurgical changes following ORIF of a left intertrochanteric fracture with a trochanteric nail [place] ears stable. The bones are significantly demineralized. CONCLUSION: 1. Nondisplaced fracture of the left inferior pubic ramus. Second fracture not clearly identified. 2. Stable left hip status post ORIF. 3. Decreased bone density otherwise intact pelvis. Eugene Dutta MD on August 19, 2017 at 10:27 Board Certified Radiologist. This report was verified electronically.
[2017-08-19 11:48] VITALS: BP 168/73; PULSE 70; RESP 17; TEMP 97.5; O2SAT 97
[2017-08-19] MEDS: ACETAMINOPHEN/HYDROcodone 325 MG/5 MG TAB PO PRN ×2 (12:06→17:12)
--- NOTE | 2017-08-19 12:23 | HHI.PR ---
Subjective Remarks in no acute distress. pain seems to be controlled. Bp trend noted. d/w the RN. Objective Vitals Vital Signs Date Time Temp Pulse Resp B/P (MAP) Pulse Ox O2 Delivery O2 Flow Rate FiO2 08/19/17 11:48 97.5 70 17 168/73 (104) 97 08/19/17 08:00 98.6 67 17 158/65 (96) 96 08/18/17 23:15 97.3 67 18 168/77 (107) 95 08/18/17 20:00 98.0 67 18 147/63 (91) 98 08/18/17 15:22 98.0 60 18 123/59 (80) 95 I/O 08/18/17 08/18/17 08/18/17 08/19/17 08/19/17 08/19/17 07:00 15:00 23:00 07:00 15:00 23:00 Intake Total 480 ml 360 ml Balance 480 ml 360 ml Intake Oral 480 ml 360 ml # Voids 2 2 1 # Bowel Movements 0 1 0 Result Diagram: 08/15/17 1724 08/15/17 1724 Imaging Last Impressions Hip X-Ray 08/05/17 0000 Signed Impressions: Service Date/Time: Saturday, August 05, 2017 10:35 - CONCLUSION: 1. Postoperative left proximal femur fixation. Deandre Guidry MD Chest X-Ray 08/05/17 0000 Signed Impressions: Service Date/Time: Saturday, August 05, 2017 00:55 - CONCLUSION: No acute disease. Carlos Klein Jr., MD Carotid Artery Ultrasound 08/05/17 0000 Signed Impressions: Service Date/Time: Saturday, August 05, 2017 14:22 - CONCLUSION: 1. Bilateral carotid plaque without significant flow-limiting stenosis. 2. Antegrade vertebral artery flow bilaterally. Christiano Moore MD CT Angiography 08/05/17 0000 Signed Impressions: Service Date/Time: Saturday, August 05, 2017 01:47 - CONCLUSION: 1. No pulmonary emboli. 2. Bibasilar atelectasis. 3. Cardiomegaly. 4. Soft tissue nodule involving within the neck. See the CT of the cervical spine reported separately. 5. Diffuse thickening of adrenal glands bilaterally without a discrete mass. Carlos Klein Jr., MD Hip and Pelvis X-Ray 08/04/17 0000 Signed Impressions: Service Date/Time: Friday, August 04, 2017 23:57 - CONCLUSION: Intertrochanteric left hip fracture. Carlos Klein Jr., MD Head CT 08/04/17 0000 Signed Impressions: Service Date/Time: Friday, August 04, 2017 23:29 - CONCLUSION: No acute disease. Carlos Klein Jr., MD Cervical Spine CT 08/04/17 0000 Signed Impressions: Service Date/Time: Friday, August 04, 2017 23:29 - CONCLUSION: 1. No fracture or dislocation. 2. Degenerative changes. 3. 2.5 x 1.6 and meter soft tissue nodule involving the right neck felt to relate to an exophytic thyroid nodule from the right lobe. Ultrasound could be utilized to further evaluate if needed. Carlos Klein Jr., MD Objective Remarks GENERAL: This is a well-nourished, well-developed patient, in no apparent distress. CARDIOVASCULAR: Regular rate and regular rhythm without murmurs, gallops, or rubs. RESPIRATORY: Clear to auscultation. Breath sounds equal bilaterally. No wheezes , rales, or rhonchi. GASTROINTESTINAL: Abdomen soft, non-tender, nondistended. Normal, active bowel sounds MUSCULOSKELETAL: Extremities without clubbing, cyanosis, or edema. NEURO: awake and alert. Procedures 08/05/17 - Left hip reduction and intramedullary nail fixation by Dr. Álvarez Medications and IVs Inpatient Medications Acetaminophen (Tylenol) 650 mg Q4H PRN PO headache/fever/pain1-3 Last administered on 08/14/17at 04:05; Start 08/05/17 at 08:30 Acetaminophen/ Hydrocodone Bitart ([place] 5-325 Mg) 1 tab Q3H PRN PO pain 3<10 Last administered on 08/19/17at 12:06; Start 08/05/17 at 13:00 Amlodipine Besylate (Norvasc) 10 mg DAILY PO Last administered on 08/19/17at 08: 30; Start 08/08/17 at 09:00 Bisacodyl (Dulcolax Supp) 10 mg Q24H PRN RECTAL CONSTIPATION; Start 08/08/17 at 21:30 Calcium/Vitamin D (Oscal-D 250-125) 250 mg TID PO Last administered on at 12:06; Start 08/05/17 at 13:00 Cefazolin Sodium 1000 mg/Sodium Chloride 100 ml @ 200 mls/hr Q8H IV Last administered on 08/06/17at 08:35; Start 08/05/17 at 18:00; Stop 08/06/17 at 10:29 ; Status DC Cholecalciferol (Vitamin D3) 5,000 units DAILY PO Last administered on at 08:30; Start 08/06/17 at 09:00 Diphenhydramine HCl (Benadryl) 25 mg Q6H PRN PO ITCHING; Start 08/05/17 at 13: 00 Enalaprilat (Vasotec Inj) 1.25 mg Q6H PRN IV PUSH SBP> OR = 180, DBP> OR = 100 Last administered on 08/09/17at 00:15; Start 08/06/17 at 14:15 Enoxaparin Sodium (Lovenox Inj) 30 mg Q24H SQ Last administered on 08/19/17at 08 :30; Start 08/06/17 at 10:00 Ergocalciferol (Drisdol) 50,000 units ONCE ONCE PO Last administered on at 18:02; Start 08/05/17 at 14:00; Stop 08/05/17 at 14:01; Status DC Furosemide (Lasix Inj) 20 mg ONCE ONCE IV PUSH Last administered on 08/08/17at 01:52; Start 08/07/17 at 16:00; Stop 08/07/17 at 16:01; Status DC Hydralazine HCl (Apresoline Inj) 10 mg ONCE ONCE IV PUSH Last administered on 08/05/17at 00:16; Start 08/05/17 at 00:00; Stop 08/05/17 at 00:01; Status DC Ketorolac Tromethamine (Toradol Inj) 15 mg TID IV PUSH Last administered on at 08:37; Start 08/17/17 at 18:00; Stop 08/18/17 at 11:36; Status DC Lisinopril (Prinivil) 10 mg DAILY PO Last administered on 08/19/17at 08:30; Start 08/13/17 at 09:00 Magnesium Hydroxide (Milk Of Magnesia Liq) 30 ml BID PO Last administered on at 21:02; Start 08/09/17 at 09:00 Miscellaneous Information ALL NURSING DEPARTME... UNSCH PRN .XX SEE LABEL COMMENTS; Start 08/05/17 at 11:00; Stop 08/06/17 at 10:59; Status DC Morphine Sulfate (Morphine Inj) 2 mg Q3HR PRN IV PUSH SEE LABEL COMMENTS; Start 08/05/17 at 08:30 Naloxone HCl (Narcan Inj) 0.4 mg UNSCH PRN IV PUSH SEE LABEL COMMENTS; Start at 01:15 Ondansetron HCl (Zofran Inj) 4 mg Q4H PRN IVP NAUSEA OR VOMITING; Start at 13:00 Pantoprazole Sodium (Protonix Inj) 40 mg ONCE ONCE IV PUSH Last administered on 08/05/17at 06:30; Start 08/05/17 at 06:30; Stop 08/05/17 at 06:31; Status DC Pantoprazole Sodium (Protonix) 40 mg DAILY PO Last administered on 08/19/17at 08 :30; Start 08/06/17 at 09:00 Potassium Phosphate 15 mmol/ Sodium Chloride 255 ml @ 63.75 mls/ hr ONCE ONCE IV Last administered on 08/11/17at 17:32; Start 08/11/17 at 16:00; Stop at 19:59; Status DC Potassium Chloride (KCl) 40 meq ONCE ONCE PO Last administered on 08/08/17at 12 :00; Start 08/08/17 at 12:00; Stop 08/08/17 at 12:01; Status DC Senna/Docusate Sodium ([place]-Colace) 1 tab BID PO Last administered on at 08:30; Start 08/09/17 at 09:00 Sodium Chloride 250 ml @ 15 mls/hr ONCE ONCE IV ; Start 08/07/17 at 16:00; Stop 08/08/17 at 08:39; Status DC Sodium Chloride (NS Flush) 2 ml BID IV FLUSH Last administered on 08/19/17at 08: 30; Start 08/05/17 at 09:00 A/P Problem List: (1) Fracture, intertrochanteric, left femur ICD Code: S72.142A - Displaced intertrochanteric fracture of left femur, initial encounter for closed fracture (2) Elevated troponin ICD Code: R74.8 - Abnormal levels of other serum enzymes Status: Acute Assessment and Plan Left hip intertrochanteric fracture s/p fall: Hip/pelvis shows intertrochanteric left hip fracture -Consulted orthopedics, s/p left hip reduction and intramedullary nail fixation on 08/05 -WBAT LLE -Lovenox per ortho -PT recommended rehab. -Pain control with bowel regimen -Incentive spirometry Right arm mass likely lipoma versus hematoma. Stable -Right arm with notable, palpable quarter size diameter mass with ecchymosis ? surrounding areas -This might have been an injection site? -Will monitor . Chest pain Atypical. Troponin repeated negative. Labs reviewed stable. EKG did not show any ST elevation depression or ST wave changes. This seems more musculoskeletal since it is reproducible. Patient is a poor historian because of dementia. Patient was given Toradol with resolution of chest pain. Fatigue -Continues to improve. Most likely lack of sleep. Normocytic normochromic anemia suspect secondary to recent surgery due to blood loss. -s/p transfusion 2 units PRBC. Hemoglobin with good response post transfusion improving from 7.0 to 10.4. -No signs of bleeding at this time. We will continue to monitor as needed. Encephalopathy in a patient with dementia -Per daughter patient is at her baseline. She does have dementia. -Monitor neuro checks -Caution with any sedating medications Mild elevated troponin: Difficult to access for cardiac risk factors. However most likely this is secondary to rhabdo vs CKD. -Troponins elevated but flat at 0.09, 0.08, 0.05 -EKG reviewed, shows sinus tach with no acute ischemic changes -Echo shows moderate to severe tricuspid valve regurgitation Mild Rhabdomyolysis: Elevated CPK at 563. Suspect secondary to fall. Mild AST elevation likely secondary to rhabdo -Resolved s/p IVF hydration Renal insufficiency: Likely underlying chronic kidney disease however no previous labs to compare. UA clear. Resolved. -IVF hydration provided -Avoid nephrotoxins -Continue to monitor renal indices indicated Hypophosphatemia-replaced. Unwitnessed fall and elderly: Question whether this could be a syncopal episode ? No clear history provided -Head CT and C-spine CT images reviewed, no acute findings -Carotid U/S with bilateral plaque, no significant stenosis -Echo shows EF 60-65%, moderate to severe tricuspid valve regurgitation -Fall precautions Thyroid Nodule: incidentally found on C-spine CT; shows 2.5 x 1.6cm soft tissue nodule involving right neck, felt to relate to an exophytic thyroid nodule from the right lobe -TSH/T4, normal. -Outpatient f/up Hypertension: BP consistently elevated, may be exacerbated by pain -Not on any antihypertensives at home -continue Norvasc and Lisinopril- -Continue to monitor BP and adjust treatment accordingly. -IV Vasotec prn Vitamin D deficiency -Vitamin D level 16.7 -Continue on by mouth repletion -Patient will need to have vitamin D level rechecked in 3 months as outpatient DVT Prophylaxis: Lovenox per ortho; teds/SCDs to nonoperative leg Discharge Planning d/w the case management; dc planning in progress. Problem Qualifiers (1) Fracture, intertrochanteric, left femur: Qualified Codes: S72.142A - Displaced intertrochanteric fracture of left femur , initial encounter for closed fracture Crytsal Ballard MD Aug 19, 2017 12:23
[2017-08-19 16:00] VITALS: BP 125/60; PULSE 70; RESP 18; TEMP 98.9; O2SAT 96
[2017-08-19 20:57] VITALS: BP 157/67; PULSE 67; RESP 17; TEMP 98; O2SAT 97
[2017-08-20 00:59] VITALS: BP 131/60; PULSE 58; RESP 18; TEMP 97.6; O2SAT 97
[2017-08-20 04:20] VITALS: BP 136/64; PULSE 63; RESP 17; TEMP 97.7; O2SAT 95
[2017-08-20] MEDS: ACETAMINOPHEN/HYDROcodone 325 MG/5 MG TAB PO PRN ×2 (06:32→18:07)
--- NOTE | 2017-08-20 06:40 | PD.ORT.PN ---
Subjective Subjective Remarks Resting in bed comfortably. Eating apple sauce Objective Vitals Vital Signs Date Time Temp Pulse Resp B/P (MAP) Pulse Ox O2 Delivery O2 Flow Rate FiO2 08/20/17 00:59 97.6 58 18 131/60 (83) 97 08/19/17 20:57 98.0 67 17 157/67 (97) 97 08/19/17 16:00 98.9 70 18 125/60 (81) 96 08/19/17 11:48 97.5 70 17 168/73 (104) 97 08/19/17 08:00 98.6 67 17 158/65 (96) 96 I/O 08/19/17 08/19/17 08/19/17 08/20/17 08/20/17 08/20/17 07:00 15:00 23:00 07:00 15:00 23:00 Intake Total 360 ml 600 ml Balance 360 ml 600 ml Intake Oral 360 ml 600 ml # Voids 1 1 # Bowel Movements 0 1 Imaging Last 24 hours Impressions Chest X-Ray 08/05/17 0000 Signed Impressions: Service Date/Time: Saturday, August 05, 2017 00:55 - CONCLUSION: No acute disease. Carlos Klein Jr., MD CT Angiography 08/05/17 0000 Signed Impressions: Service Date/Time: Saturday, August 05, 2017 01:47 - CONCLUSION: 1. No pulmonary emboli. 2. Bibasilar atelectasis. 3. Cardiomegaly. 4. Soft tissue nodule involving within the neck. See the CT of the cervical spine reported separately. 5. Diffuse thickening of adrenal glands bilaterally without a discrete mass. Carlos Klein Jr., MD Objective Remarks Left lower extremity: Clean dry dressings intact. No pain with knee or ankle motion. Swelling minimal. Incisions healing well Assessment & Plan Assessment and Plan 1) Left Intertroch Hip Fx IM nail POD 15 Weightbearing as tolerated left lower extremity Daily dressing changes Incentive spirometry Lovenox DC evan Plan for discharge to rehabilitation when bed available Follow-up Dr. Álvarez or [facility] in 2 weeks Samson Desir Jr. Aug 20, 2017 06:40
[2017-08-20 08:00] VITALS: BP 122/59; PULSE 60; RESP 18; TEMP 98.3; O2SAT 98
[2017-08-20] MEDS: MAGNESIUM HYDROXIDE SUSP 30 ML CUP PO SCH ×2 (09:14→19:48)
[2017-08-20] MEDS: DOCUSATE SODIUM 50 MG/SENNA 8.6 MG TAB PO SCH ×2 (09:14→19:48)
[2017-08-20] MEDS: LISINOPRIL 10 MG TAB PO SCH (09:14)
[2017-08-20] MEDS: CHOLECALCIFEROL (VIT D3) 5000 UNIT CAP PO SCH (09:14)
[2017-08-20] MEDS: CALCIUM/VITAMIN D 250 MG/125 U TAB PO SCH ×3 (09:14→18:07)
[2017-08-20] MEDS: ENOXAPARIN SODIUM 30 MG/0.3 ML SYRINGE SQ SCH (09:15)
[2017-08-20] MEDS: PANTOPRAZOLE SOD 40 MG DELAYED RELEASE TAB PO SCH (09:15)
[2017-08-20] MEDS: ACETAMINOPHEN 325 MG TAB PO PRN (09:15)
--- NOTE | 2017-08-20 11:47 | HHI.PR ---
Subjective Remarks resting comfortably. in no distress. pain seems to be controlled. Objective Vitals Vital Signs Date Time Temp Pulse Resp B/P (MAP) Pulse Ox O2 Delivery O2 Flow Rate FiO2 08/20/17 08:00 98.3 60 18 122/59 (80) 98 08/20/17 04:20 97.7 63 17 136/64 (88) 95 08/20/17 00:59 97.6 58 18 131/60 (83) 97 08/19/17 20:57 98.0 67 17 157/67 (97) 97 08/19/17 16:00 98.9 70 18 125/60 (81) 96 08/19/17 11:48 97.5 70 17 168/73 (104) 97 I/O 08/19/17 08/19/17 08/19/17 08/20/17 08/20/17 08/20/17 07:00 15:00 23:00 07:00 15:00 23:00 Intake Total 360 ml 600 ml 360 ml Balance 360 ml 600 ml 360 ml Intake Oral 360 ml 600 ml 360 ml # Voids 1 1 1 # Bowel Movements 0 1 0 Imaging Last Impressions Hip and Pelvis X-Ray 08/19/17 0000 Signed Impressions: Service Date/Time: Saturday, August 19, 2017 10:06 - CONCLUSION: 1. Nondisplaced fracture of the left inferior pubic ramus. Second fracture not clearly identified. 2. Stable left hip status post ORIF. 3. Decreased bone density otherwise intact pelvis. Eugene Dutta MD Hip X-Ray 08/05/17 0000 Signed Impressions: Service Date/Time: Saturday, August 05, 2017 10:35 - CONCLUSION: 1. Postoperative left proximal femur fixation. Deandre Guidry MD Chest X-Ray 08/05/17 0000 Signed Impressions: Service Date/Time: Saturday, August 05, 2017 00:55 - CONCLUSION: No acute disease. Carlos Klein Jr., MD Carotid Artery Ultrasound 08/05/17 0000 Signed Impressions: Service Date/Time: Saturday, August 05, 2017 14:22 - CONCLUSION: 1. Bilateral carotid plaque without significant flow-limiting stenosis. 2. Antegrade vertebral artery flow bilaterally. Christiano Moore MD CT Angiography 08/05/17 0000 Signed Impressions: Service Date/Time: Saturday, August 05, 2017 01:47 - CONCLUSION: 1. No pulmonary emboli. 2. Bibasilar atelectasis. 3. Cardiomegaly. 4. Soft tissue nodule involving within the neck. See the CT of the cervical spine reported separately. 5. Diffuse thickening of adrenal glands bilaterally without a discrete mass. aCrlos Klein Jr., MD Head CT 08/04/17 0000 Signed Impressions: Service Date/Time: Friday, August 04, 2017 23:29 - CONCLUSION: No acute disease. Carlos Klein Jr., MD Cervical Spine CT 08/04/17 0000 Signed Impressions: Service Date/Time: Friday, August 04, 2017 23:29 - CONCLUSION: 1. No fracture or dislocation. 2. Degenerative changes. 3. 2.5 x 1.6 and meter soft tissue nodule involving the right neck felt to relate to an exophytic thyroid nodule from the right lobe. Ultrasound could be utilized to further evaluate if needed. Carlos Klein Jr., MD Objective Remarks GENERAL: This is a well-nourished, well-developed patient, in no apparent distress. CARDIOVASCULAR: Regular rate and regular rhythm without murmurs, gallops, or rubs. RESPIRATORY: Clear to auscultation. Breath sounds equal bilaterally. No wheezes , rales, or rhonchi. GASTROINTESTINAL: Abdomen soft, non-tender, nondistended. Normal, active bowel sounds MUSCULOSKELETAL: Extremities without clubbing, cyanosis, or edema. NEURO: awake and alert. Procedures 08/05/17 - Left hip reduction and intramedullary nail fixation by Dr. Álvarez Medications and IVs Inpatient Medications Acetaminophen (Tylenol) 650 mg Q4H PRN PO headache/fever/pain1-3 Last administered on 08/20/17 09:15; Start 08/05/17 at 08:30 Acetaminophen/ Hydrocodone Bitart ([place] 5-325 Mg) 1 tab Q3H PRN PO pain 3<10 Last administered on 08/20/17at 06:32; Start 08/05/17 at 13:00 Amlodipine Besylate (Norvasc) 10 mg DAILY PO Last administered on 08/20/17at 09: 14; Start 08/08/17 at 09:00 Bisacodyl (Dulcolax Supp) 10 mg Q24H PRN RECTAL CONSTIPATION; Start 08/08/17 at 21:30 Calcium/Vitamin D (Oscal-D 250-125) 250 mg TID PO Last administered on at 09:14; Start 08/05/17 at 13:00 Cefazolin Sodium 1000 mg/Sodium Chloride 100 ml @ 200 mls/hr Q8H IV Last administered on 08/06/17at 08:35; Start 08/05/17 at 18:00; Stop 08/06/17 at 10:29 ; Status DC Cholecalciferol (Vitamin D3) 5,000 units DAILY PO Last administered on at 09:14; Start 08/06/17 at 09:00 Diphenhydramine HCl (Benadryl) 25 mg Q6H PRN PO ITCHING; Start 08/05/17 at 13: 00 Enalaprilat (Vasotec Inj) 1.25 mg Q6H PRN IV PUSH SBP> OR = 180, DBP> OR = 100 Last administered on 08/09/17at 00:15; Start 08/06/17 at 14:15 Enoxaparin Sodium (Lovenox Inj) 30 mg Q24H SQ Last administered on 08/20/17at 09 :15; Start 08/06/17 at 10:00 Ergocalciferol (Drisdol) 50,000 units ONCE ONCE PO Last administered on at 18:02; Start 08/05/17 at 14:00; Stop 08/05/17 at 14:01; Status DC Furosemide (Lasix Inj) 20 mg ONCE ONCE IV PUSH Last administered on 08/08/17at 01:52; Start 08/07/17 at 16:00; Stop 08/07/17 at 16:01; Status DC Hydralazine HCl (Apresoline Inj) 10 mg ONCE ONCE IV PUSH Last administered on 08/05/17at 00:16; Start 08/05/17 at 00:00; Stop 08/05/17 at 00:01; Status DC Ketorolac Tromethamine (Toradol Inj) 15 mg TID IV PUSH Last administered on at 08:37; Start 08/17/17 at 18:00; Stop 08/18/17 at 11:36; Status DC Lisinopril (Prinivil) 10 mg DAILY PO Last administered on 08/20/17at 09:14; Start 08/13/17 at 09:00 Magnesium Hydroxide (Milk Of Magnoscar Liq) 30 ml BID PO Last administered on at 09:14; Start 08/09/17 at 09:00 Miscellaneous Information ALL NURSING DEPARTME... UNSCH PRN .XX SEE LABEL COMMENTS; Start 08/05/17 at 11:00; Stop 08/06/17 at 10:59; Status DC Morphine Sulfate (Morphine Inj) 2 mg Q3HR PRN IV PUSH SEE LABEL COMMENTS; Start 08/05/17 at 08:30 Naloxone HCl (Narcan Inj) 0.4 mg UNSCH PRN IV PUSH SEE LABEL COMMENTS; Start at 01:15 Ondansetron HCl (Zofran Inj) 4 mg Q4H PRN IVP NAUSEA OR VOMITING; Start at 13:00 Pantoprazole Sodium (Protonix Inj) 40 mg ONCE ONCE IV PUSH Last administered on 08/05/17at 06:30; Start 08/05/17 at 06:30; Stop 08/05/17 at 06:31; Status DC Pantoprazole Sodium (Protonix) 40 mg DAILY PO Last administered on 08/20/17at 09 :15; Start 08/06/17 at 09:00 Potassium Phosphate 15 mmol/ Sodium Chloride 255 ml @ 63.75 mls/ hr ONCE ONCE IV Last administered on 08/11/17at 17:32; Start 08/11/17 at 16:00; Stop at 19:59; Status DC Potassium Chloride (KCl) 40 meq ONCE ONCE PO Last administered on 08/08/17at 12 :00; Start 08/08/17 at 12:00; Stop 08/08/17 at 12:01; Status DC Senna/Docusate Sodium (Kaylah-Colace) 1 tab BID PO Last administered on at 09:14; Start 08/09/17 at 09:00 Sodium Chloride 250 ml @ 15 mls/hr ONCE ONCE IV ; Start 08/07/17 at 16:00; Stop 08/08/17 at 08:39; Status DC Sodium Chloride (NS Flush) 2 ml BID IV FLUSH Last administered on 08/19/17at 20: 49; Start 08/05/17 at 09:00 A/P Problem List: (1) Fracture, intertrochanteric, left femur ICD Code: S72.142A - Displaced intertrochanteric fracture of left femur, initial encounter for closed fracture (2) Elevated troponin ICD Code: R74.8 - Abnormal levels of other serum enzymes Status: Acute Assessment and Plan Left hip intertrochanteric fracture s/p fall: Hip/pelvis shows intertrochanteric left hip fracture -Consulted orthopedics, s/p left hip reduction and intramedullary nail fixation on 08/05 -WBAT LLE -Lovenox per ortho -PT recommended rehab. -Pain control with bowel regimen -Incentive spirometry Right arm mass likely lipoma versus hematoma. Stable -Right arm with notable, palpable quarter size diameter mass with ecchymosis ? surrounding areas -Will monitor . Chest pain Atypical. Troponin repeated negative. Labs reviewed stable. EKG did not show any ST elevation depression or ST wave changes. This seems more musculoskeletal since it is reproducible. Patient is a poor historian because of dementia. Patient was given Toradol with resolution of chest pain. Fatigue -Continues to improve. Most likely lack of sleep. Normocytic normochromic anemia suspect secondary to recent surgery due to blood loss. -s/p transfusion 2 units PRBC. -No signs of bleeding at this time. We will continue to monitor as needed. Encephalopathy in a patient with dementia -Per daughter patient is at her baseline. She does have dementia. -Monitor neuro checks -Caution with any sedating medications Mild elevated troponin: Difficult to access for cardiac risk factors. However most likely this is secondary to rhabdo vs CKD. -Troponins elevated but flat at 0.09, 0.08, 0.05 -EKG reviewed, shows sinus tach with no acute ischemic changes -Echo shows moderate to severe tricuspid valve regurgitation Mild Rhabdomyolysis: Elevated CPK at 563. Suspect secondary to fall. Mild AST elevation likely secondary to rhabdo -Resolved s/p IVF hydration Renal insufficiency: Likely underlying chronic kidney disease however no previous labs to compare. UA clear. Resolved. -IVF hydration provided -Avoid nephrotoxins -Continue to monitor renal indices indicated Hypophosphatemia-replaced. Unwitnessed fall and elderly: Question whether this could be a syncopal episode ? No clear history provided -Head CT and C-spine CT images reviewed, no acute findings -Carotid U/S with bilateral plaque, no significant stenosis -Echo shows EF 60-65%, moderate to severe tricuspid valve regurgitation -Fall precautions Thyroid Nodule: incidentally found on C-spine CT; shows 2.5 x 1.6cm soft tissue nodule involving right neck, felt to relate to an exophytic thyroid nodule from the right lobe -TSH/T4, normal. -Outpatient f/up Hypertension: BP consistently elevated, may be exacerbated by pain -Not on any antihypertensives at home -continue Norvasc and Lisinopril- -Continue to monitor BP and adjust treatment accordingly. -IV Vasotec prn Vitamin D deficiency -Vitamin D level 16.7 -Continue on by mouth repletion -Patient will need to have vitamin D level rechecked in 3 months as outpatient DVT Prophylaxis: Lovenox per ortho. Discharge Planning dc planning in progress. Problem Qualifiers (1) Fracture, intertrochanteric, left femur: Qualified Codes: S72.142A - Displaced intertrochanteric fracture of left femur , initial encounter for closed fracture Crystal Ballard MD Aug 20, 2017 11:47
[2017-08-20 13:39] VITALS: BP 130/61; PULSE 63; RESP 18; TEMP 98.1; O2SAT 96
[2017-08-20 14:58] VITALS: BP 118/56; PULSE 64; RESP 18; TEMP 97.1; O2SAT 95
[2017-08-20] MEDS: SODIUM CHLORIDE 0.9% FLUSH 10 ML FLUSH IV FLUSH SCH (19:46)
[2017-08-20 20:00] VITALS: BP 127/58; PULSE 60; RESP 18; TEMP 98.1; O2SAT 97
[2017-08-21] VITALS (7 sets, daily range): BP systolic 121–157; BP diastolic 57–78; PULSE 52–70; RESP 15–21; TEMP 97.4–98.3; O2SAT 94–96
[2017-08-21] MEDS: ACETAMINOPHEN/HYDROcodone 325 MG/5 MG TAB PO PRN ×3 (04:04→21:23)
[2017-08-21] MEDS: MAGNESIUM HYDROXIDE SUSP 30 ML CUP PO SCH ×2 (09:00→21:17)
[2017-08-21] MEDS: SODIUM CHLORIDE 0.9% FLUSH 10 ML FLUSH IV FLUSH SCH ×2 (09:00→21:23)
[2017-08-21] MEDS: CHOLECALCIFEROL (VIT D3) 5000 UNIT CAP PO SCH (10:18)
[2017-08-21] MEDS: PANTOPRAZOLE SOD 40 MG DELAYED RELEASE TAB PO SCH (10:18)
[2017-08-21] MEDS: LISINOPRIL 10 MG TAB PO SCH (10:18)
[2017-08-21] MEDS: CALCIUM/VITAMIN D 250 MG/125 U TAB PO SCH ×3 (10:18→18:00)
[2017-08-21] MEDS: DOCUSATE SODIUM 50 MG/SENNA 8.6 MG TAB PO SCH ×2 (10:18→21:17)
[2017-08-21] MEDS: ENOXAPARIN SODIUM 30 MG/0.3 ML SYRINGE SQ SCH (10:26)
--- NOTE | 2017-08-21 12:38 | HHI.PR ---
Subjective Remarks in no acute distress. d/w the RN and no acute issues over night. Objective Vitals Vital Signs Date Time Temp Pulse Resp B/P (MAP) Pulse Ox O2 Delivery O2 Flow Rate FiO2 08/21/17 12:00 97.7 59 21 157/69 (98) 96 08/21/17 08:00 97.4 52 18 122/57 (78) 96 08/21/17 04:16 97.8 54 16 129/63 (85) 94 08/21/17 00:21 97.5 55 16 121/58 (79) 96 08/20/17 20:00 98.1 60 18 127/58 (81) 97 08/20/17 14:58 97.1 64 18 118/56 (76) 95 08/20/17 13:39 98.1 63 18 130/61 (84) 96 I/O 08/20/17 08/20/17 08/20/17 08/21/17 08/21/17 08/21/17 07:00 15:00 23:00 07:00 15:00 23:00 Intake Total 360 ml 480 ml 240 ml Balance 360 ml 480 ml 240 ml Intake Oral 360 ml 480 ml 240 ml # Voids 1 2 1 # Bowel Movements 0 1 0 Imaging Last Impressions Hip and Pelvis X-Ray 08/19/17 0000 Signed Impressions: Service Date/Time: Saturday, August 19, 2017 10:06 - CONCLUSION: 1. Nondisplaced fracture of the left inferior pubic ramus. Second fracture not clearly identified. 2. Stable left hip status post ORIF. 3. Decreased bone density otherwise intact pelvis. Eugene Dutta MD Hip X-Ray 08/05/17 0000 Signed Impressions: Service Date/Time: Saturday, August 05, 2017 10:35 - CONCLUSION: 1. Postoperative left proximal femur fixation. Deandre Guidry MD Chest X-Ray 08/05/17 0000 Signed Impressions: Service Date/Time: Saturday, August 05, 2017 00:55 - CONCLUSION: No acute disease. Carlos Klein Jr., MD Carotid Artery Ultrasound 08/05/17 0000 Signed Impressions: Service Date/Time: Saturday, August 05, 2017 14:22 - CONCLUSION: 1. Bilateral carotid plaque without significant flow-limiting stenosis. 2. Antegrade vertebral artery flow bilaterally. Christiano Moore MD CT Angiography 08/05/17 Signed Impressions: Service Date/Time: Saturday, August 05, 2017 01:47 - CONCLUSION: 1. No pulmonary emboli. 2. Bibasilar atelectasis. 3. Cardiomegaly. 4. Soft tissue nodule involving within the neck. See the CT of the cervical spine reported separately. 5. Diffuse thickening of adrenal glands bilaterally without a discrete mass. Carlos Klein Jr., MD Head CT 08/04/17 Signed Impressions: Service Date/Time: Friday, August 04, 2017 23:29 - CONCLUSION: No acute disease. Carlos Klein Jr., MD Cervical Spine CT 08/04/17 Signed Impressions: Service Date/Time: Friday, August 04, 2017 23:29 - CONCLUSION: 1. No fracture or dislocation. 2. Degenerative changes. 3. 2.5 x 1.6 and meter soft tissue nodule involving the right neck felt to relate to an exophytic thyroid nodule from the right lobe. Ultrasound could be utilized to further evaluate if needed. Carlos Klein Jr., MD Objective Remarks GENERAL: This is a well-nourished, well-developed patient, in no apparent distress. CARDIOVASCULAR: Regular rate and regular rhythm without murmurs, gallops, or rubs. RESPIRATORY: Clear to auscultation. Breath sounds equal bilaterally. No wheezes , rales, or rhonchi. GASTROINTESTINAL: Abdomen soft, non-tender, nondistended. Normal, active bowel sounds MUSCULOSKELETAL: Extremities without clubbing, cyanosis, or edema. NEURO: awake and alert. Procedures 08/05/17 - Left hip reduction and intramedullary nail fixation by Dr. Álvarez Medications and IVs Inpatient Medications Acetaminophen (Tylenol) 650 mg Q4H PRN PO headache/fever/pain1-3 Last administered on 08/20/17at 09:15; Start 08/05/17 at 08:30 Acetaminophen/ Hydrocodone Bitart ([place] 5-325 Mg) 1 tab Q3H PRN PO pain 3<10 Last administered on 08/21/17at 04:04; Start 08/05/17 at 13:00 Amlodipine Besylate (Norvasc) 10 mg DAILY PO Last administered on 08/21/17at 10: 18; Start 08/08/17 at 09:00 Bisacodyl (Dulcolax Supp) 10 mg Q24H PRN RECTAL CONSTIPATION; Start 08/08/17 at 21:30 Calcium/Vitamin D (Oscal-D 250-125) 250 mg TID PO Last administered on at 10:18; Start 08/05/17 at 13:00 Cefazolin Sodium 1000 mg/Sodium Chloride 100 ml @ 200 mls/hr Q8H IV Last administered on 08/06/17at 08:35; Start 08/05/17 at 18:00; Stop 08/06/17 at 10:29 ; Status DC Cholecalciferol (Vitamin D3) 5,000 units DAILY PO Last administered on at 10:18; Start 08/06/17 at 09:00 Diphenhydramine HCl (Benadryl) 25 mg Q6H PRN PO ITCHING; Start 08/05/17 at 13: 00 Enalaprilat (Vasotec Inj) 1.25 mg Q6H PRN IV PUSH SBP> OR = 180, DBP> OR = 100 Last administered on 08/09/17at 00:15; Start 08/06/17 at 14:15 Enoxaparin Sodium (Lovenox Inj) 30 mg Q24H SQ Last administered on 08/21/17at 10 :26; Start 08/06/17 at 10:00 Ergocalciferol (Drisdol) 50,000 units ONCE ONCE PO Last administered on at 18:02; Start 08/05/17 at 14:00; Stop 08/05/17 at 14:01; Status DC Furosemide (Lasix Inj) 20 mg ONCE ONCE IV PUSH Last administered on 08/08/17at 01:52; Start 08/07/17 at 16:00; Stop 08/07/17 at 16:01; Status DC Hydralazine HCl (Apresoline Inj) 10 mg ONCE ONCE IV PUSH Last administered on 08/05/17at 00:16; Start 08/05/17 at 00:00; Stop 08/05/17 at 00:01; Status DC Ketorolac Tromethamine (Toradol Inj) 15 mg TID IV PUSH Last administered on at 08:37; Start 08/17/17 at 18:00; Stop 08/18/17 at 11:36; Status DC Lisinopril (Prinivil) 10 mg DAILY PO Last administered on 08/21/17at 10:18; Start 08/13/17 at 09:00 Magnesium Hydroxide (Milk Of Magnoscar Liq) 30 ml BID PO Last administered on at 19:48; Start 08/09/17 at 09:00 Miscellaneous Information ALL NURSING DEPARTME... UNSCH PRN .XX SEE LABEL COMMENTS; Start 08/05/17 at 11:00; Stop 08/06/17 at 10:59; Status DC Morphine Sulfate (Morphine Inj) 2 mg Q3HR PRN IV PUSH SEE LABEL COMMENTS; Start 08/05/17 at 08:30 Naloxone HCl (Narcan Inj) 0.4 mg UNSCH PRN IV PUSH SEE LABEL COMMENTS; Start at 01:15 Ondansetron HCl (Zofran Inj) 4 mg Q4H PRN IVP NAUSEA OR VOMITING; Start at 13:00 Pantoprazole Sodium (Protonix Inj) 40 mg ONCE ONCE IV PUSH Last administered on 08/05/17at 06:30; Start 08/05/17 at 06:30; Stop 08/05/17 at 06:31; Status DC Pantoprazole Sodium (Protonix) 40 mg DAILY PO Last administered on 08/21/17at 10 :18; Start 08/06/17 at 09:00 Potassium Phosphate 15 mmol/ Sodium Chloride 255 ml @ 63.75 mls/ hr ONCE ONCE IV Last administered on 08/11/17at 17:32; Start 08/11/17 at 16:00; Stop at 19:59; Status DC Potassium Chloride (KCl) 40 meq ONCE ONCE PO Last administered on 08/08/17at 12 :00; Start 08/08/17 at 12:00; Stop 08/08/17 at 12:01; Status DC Senna/Docusate Sodium ([place]-Colace) 1 tab BID PO Last administered on at 10:18; Start 08/09/17 at 09:00 Sodium Chloride 250 ml @ 15 mls/hr ONCE ONCE IV ; Start 08/07/17 at 16:00; Stop 08/08/17 at 08:39; Status DC Sodium Chloride (NS Flush) 2 ml BID IV FLUSH Last administered on 08/20/17at 19: 46; Start 08/05/17 at 09:00 A/P Problem List: (1) Fracture, intertrochanteric, left femur ICD Code: S72.142A - Displaced intertrochanteric fracture of left femur, initial encounter for closed fracture (2) Elevated troponin ICD Code: R74.8 - Abnormal levels of other serum enzymes Status: Acute Assessment and Plan Left hip intertrochanteric fracture s/p fall: Hip/pelvis shows intertrochanteric left hip fracture -Consulted orthopedics, s/p left hip reduction and intramedullary nail fixation on 08/05 -WBAT LLE -Lovenox per ortho -PT recommended rehab. -Pain control with bowel regimen -Incentive spirometry Right arm mass likely lipoma versus hematoma. Stable -Right arm with notable, palpable quarter size diameter mass with ecchymosis ? surrounding areas -Will monitor . Chest pain Atypical. Troponin repeated negative. Labs reviewed stable. EKG did not show any ST elevation depression or ST wave changes. This seems more musculoskeletal since it is reproducible. Patient is a poor historian because of dementia. Patient was given Toradol with resolution of chest pain. Fatigue -Continues to improve. Most likely lack of sleep. Normocytic normochromic anemia suspect secondary to recent surgery due to blood loss. -s/p transfusion 2 units PRBC. -No signs of bleeding at this time. We will continue to monitor as needed. Encephalopathy in a patient with dementia -Per daughter patient is at her baseline. She does have dementia. -Monitor neuro checks -Caution with any sedating medications Mild elevated troponin: Difficult to access for cardiac risk factors. However most likely this is secondary to rhabdo vs CKD. -Troponins elevated but flat at 0.09, 0.08, 0.05 -EKG reviewed, shows sinus tach with no acute ischemic changes -Echo shows moderate to severe tricuspid valve regurgitation Mild Rhabdomyolysis: Elevated CPK at 563. Suspect secondary to fall. Mild AST elevation likely secondary to rhabdo -Resolved s/p IVF hydration Renal insufficiency: Likely underlying chronic kidney disease however no previous labs to compare. UA clear. Resolved. -IVF hydration provided -Avoid nephrotoxins -Continue to monitor renal indices indicated Hypophosphatemia-replaced. Unwitnessed fall and elderly: Question whether this could be a syncopal episode ? No clear history provided -Head CT and C-spine CT images reviewed, no acute findings -Carotid U/S with bilateral plaque, no significant stenosis -Echo shows EF 60-65%, moderate to severe tricuspid valve regurgitation -Fall precautions Thyroid Nodule: incidentally found on C-spine CT; shows 2.5 x 1.6cm soft tissue nodule involving right neck, felt to relate to an exophytic thyroid nodule from the right lobe -TSH/T4, normal. -Outpatient f/up Hypertension: BP consistently elevated, may be exacerbated by pain -Not on any antihypertensives at home -continue Norvasc and Lisinopril- -Continue to monitor BP and adjust treatment accordingly. -IV Vasotec prn Vitamin D deficiency -Vitamin D level 16.7 -Continue on by mouth repletion -Patient will need to have vitamin D level rechecked in 3 months as outpatient DVT Prophylaxis: Lovenox per ortho. Discharge Planning dc planning in progress. Problem Qualifiers (1) Fracture, intertrochanteric, left femur: Qualified Codes: S72.142A - Displaced intertrochanteric fracture of left femur , initial encounter for closed fracture Crystal Ballard MD Aug 21, 2017 12:38
[2017-08-21] MEDS ORDERED: LISI10TA3 PO (12:39)
[2017-08-21] MEDS ORDERED: AMLO10 PO (12:39)
[2017-08-22 08:16] VITALS: BP 118/57; PULSE 55; RESP 17; TEMP 98; O2SAT 98
[2017-08-22] MEDS: ENOXAPARIN SODIUM 30 MG/0.3 ML SYRINGE SQ SCH (11:04)
[2017-08-22] MEDS: LISINOPRIL 10 MG TAB PO SCH (11:05)
[2017-08-22] MEDS: DOCUSATE SODIUM 50 MG/SENNA 8.6 MG TAB PO SCH ×2 (11:05→21:41)
[2017-08-22] MEDS: CHOLECALCIFEROL (VIT D3) 5000 UNIT CAP PO SCH (11:05)
[2017-08-22] MEDS: PANTOPRAZOLE SOD 40 MG DELAYED RELEASE TAB PO SCH (11:05)
[2017-08-22] MEDS: SODIUM CHLORIDE 0.9% FLUSH 10 ML FLUSH IV FLUSH SCH ×2 (11:05→21:41)
[2017-08-22] MEDS: CALCIUM/VITAMIN D 250 MG/125 U TAB PO SCH ×3 (11:05→18:10)
[2017-08-22] MEDS: MAGNESIUM HYDROXIDE SUSP 30 ML CUP PO SCH ×2 (11:05→21:41)
--- NOTE | 2017-08-22 11:16 | HHI.PR ---
Subjective Remarks resting comfortably with no distress. clinically no change. Objective Vitals Vital Signs Date Time Temp Pulse Resp B/P (MAP) Pulse Ox O2 Delivery O2 Flow Rate FiO2 08/22/17 08:16 98.0 55 17 118/57 (77) 98 08/21/17 23:15 98.2 70 16 141/78 (99) 96 08/21/17 23:04 Room Air 08/21/17 22:49 17 08/21/17 18:20 98.3 67 15 127/58 (81) 95 08/21/17 16:00 98.0 59 20 144/63 (90) 96 08/21/17 12:00 97.7 59 21 157/69 (98) 96 I/O 08/21/17 08/21/17 08/21/17 08/22/17 08/22/17 08/22/17 07:00 15:00 23:00 07:00 15:00 23:00 Intake Total 240 ml 720 ml Balance 240 ml 720 ml Intake Oral 240 ml 720 ml # Voids 1 2 # Bowel Movements 0 1 Imaging Last Impressions Hip and Pelvis X-Ray 08/19/17 0000 Signed Impressions: Service Date/Time: Saturday, August 19, 2017 10:06 - CONCLUSION: 1. Nondisplaced fracture of the left inferior pubic ramus. Second fracture not clearly identified. 2. Stable left hip status post ORIF. 3. Decreased bone density otherwise intact pelvis. Eugene Dutta MD Hip X-Ray 08/05/17 0000 Signed Impressions: Service Date/Time: Saturday, August 05, 2017 10:35 - CONCLUSION: 1. Postoperative left proximal femur fixation. Deandre Guidry MD Chest X-Ray 08/05/17 0000 Signed Impressions: Service Date/Time: Saturday, August 05, 2017 00:55 - CONCLUSION: No acute disease. Carlos Klein Jr., MD Carotid Artery Ultrasound 08/05/17 0000 Signed Impressions: Service Date/Time: Saturday, August 05, 2017 14:22 - CONCLUSION: 1. Bilateral carotid plaque without significant flow-limiting stenosis. 2. Antegrade vertebral artery flow bilaterally. Christiano Moore MD CT Angiography 08/05/17 0000 Signed Impressions: Service Date/Time: Saturday, August 05, 2017 01:47 - CONCLUSION: 1. No pulmonary emboli. 2. Bibasilar atelectasis. 3. Cardiomegaly. 4. Soft tissue nodule involving within the neck. See the CT of the cervical spine reported separately. 5. Diffuse thickening of adrenal glands bilaterally without a discrete mass. Carlos Klein Jr., MD Head CT 08/04/17 0000 Signed Impressions: Service Date/Time: Friday, August 04, 2017 23:29 - CONCLUSION: No acute disease. Carlos Klein Jr., MD Cervical Spine CT 08/04/17 0000 Signed Impressions: Service Date/Time: Friday, August 04, 2017 23:29 - CONCLUSION: 1. No fracture or dislocation. 2. Degenerative changes. 3. 2.5 x 1.6 and meter soft tissue nodule involving the right neck felt to relate to an exophytic thyroid nodule from the right lobe. Ultrasound could be utilized to further evaluate if needed. Carlos Klein Jr., MD Objective Remarks GENERAL: This is a well-nourished, well-developed patient, in no apparent distress. CARDIOVASCULAR: Regular rate and regular rhythm without murmurs, gallops, or rubs. RESPIRATORY: Clear to auscultation. Breath sounds equal bilaterally. No wheezes , rales, or rhonchi. GASTROINTESTINAL: Abdomen soft, non-tender, nondistended. Normal, active bowel sounds MUSCULOSKELETAL: Extremities without clubbing, cyanosis, or edema. NEURO: awake and alert. Procedures 08/05/17 - Left hip reduction and intramedullary nail fixation by Dr. Álvarez Medications and IVs Inpatient Medications Acetaminophen (Tylenol) 650 mg Q4H PRN PO headache/fever/pain1-3 Last administered on 08/20/17at 09:15; Start 08/05/17 at 08:30 Acetaminophen/ Hydrocodone Bitart ([place] 5-325 Mg) 1 tab Q3H PRN PO pain 3<10 Last administered on 08/21/17at 21:23; Start 08/05/17 at 13:00 Amlodipine Besylate (Norvasc) 10 mg DAILY PO Last administered on 08/22/17at 11: 05; Start 08/08/17 at 09:00 Bisacodyl (Dulcolax Supp) 10 mg Q24H PRN RECTAL CONSTIPATION; Start 08/08/17 at 21:30 Calcium/Vitamin D (Oscal-D 250-125) 250 mg TID PO Last administered on 11:05; Start 08/05/17 at 13:00 Cefazolin Sodium 1000 mg/Sodium Chloride 100 ml @ 200 mls/hr Q8H IV Last administered on 08/06/17at 08:35; Start 08/05/17 at 18:00; Stop 08/06/17 at 10:29 ; Status DC Cholecalciferol (Vitamin D3) 5,000 units DAILY PO Last administered on at 11:05; Start 08/06/17 at 09:00 Diphenhydramine HCl (Benadryl) 25 mg Q6H PRN PO ITCHING; Start 08/05/17 at 13: 00 Enalaprilat (Vasotec Inj) 1.25 mg Q6H PRN IV PUSH SBP> OR = 180, DBP> OR = 100 Last administered on 08/09/17at 00:15; Start 08/06/17 at 14:15 Enoxaparin Sodium (Lovenox Inj) 30 mg Q24H SQ Last administered on 08/22/17at 11 :04; Start 08/06/17 at 10:00 Ergocalciferol (Drisdol) 50,000 units ONCE ONCE PO Last administered on at 18:02; Start 08/05/17 at 14:00; Stop 08/05/17 at 14:01; Status DC Furosemide (Lasix Inj) 20 mg ONCE ONCE IV PUSH Last administered on 08/08/17at 01:52; Start 08/07/17 at 16:00; Stop 08/07/17 at 16:01; Status DC Hydralazine HCl (Apresoline Inj) 10 mg ONCE ONCE IV PUSH Last administered on 08/05/17at 00:16; Start 08/05/17 at 00:00; Stop 08/05/17 at 00:01; Status DC Ketorolac Tromethamine (Toradol Inj) 15 mg TID IV PUSH Last administered on at 08:37; Start 08/17/17 at 18:00; Stop 08/18/17 at 11:36; Status DC Lisinopril (Prinivil) 10 mg DAILY PO Last administered on 08/22/17at 11:05; Start 08/13/17 at 09:00 Magnesium Hydroxide (Milk Of Magnesia Liq) 30 ml BID PO Last administered on at 11:05; Start 08/09/17 at 09:00 Miscellaneous Information ALL NURSING DEPARTME... UNSCH PRN .XX SEE LABEL COMMENTS; Start 08/05/17 at 11:00; Stop 08/06/17 at 10:59; Status DC Morphine Sulfate (Morphine Inj) 2 mg Q3HR PRN IV PUSH SEE LABEL COMMENTS; Start 08/05/17 at 08:30 Naloxone HCl (Narcan Inj) 0.4 mg UNSCH PRN IV PUSH SEE LABEL COMMENTS; Start at 01:15 Ondansetron HCl (Zofran Inj) 4 mg Q4H PRN IVP NAUSEA OR VOMITING; Start at 13:00 Pantoprazole Sodium (Protonix Inj) 40 mg ONCE ONCE IV PUSH Last administered on 08/05/17at 06:30; Start 08/05/17 at 06:30; Stop 08/05/17 at 06:31; Status DC Pantoprazole Sodium (Protonix) 40 mg DAILY PO Last administered on 08/22/17at 11 :05; Start 08/06/17 at 09:00 Potassium Phosphate 15 mmol/ Sodium Chloride 255 ml @ 63.75 mls/ hr ONCE ONCE IV Last administered on 08/11/17at 17:32; Start 08/11/17 at 16:00; Stop at 19:59; Status DC Potassium Chloride (KCl) 40 meq ONCE ONCE PO Last administered on 08/08/17at 12 :00; Start 08/08/17 at 12:00; Stop 08/08/17 at 12:01; Status DC Senna/Docusate Sodium ([place]-Colace) 1 tab BID PO Last administered on at 11:05; Start 08/09/17 at 09:00 Sodium Chloride 250 ml @ 15 mls/hr ONCE ONCE IV ; Start 08/07/17 at 16:00; Stop 08/08/17 at 08:39; Status DC Sodium Chloride (NS Flush) 2 ml BID IV FLUSH Last administered on 08/22/17at 11: 05; Start 08/05/17 at 09:00 A/P Problem List: (1) Fracture, intertrochanteric, left femur ICD Code: S72.142A - Displaced intertrochanteric fracture of left femur, initial encounter for closed fracture (2) Elevated troponin ICD Code: R74.8 - Abnormal levels of other serum enzymes Status: Acute Assessment and Plan Left hip intertrochanteric fracture s/p fall: Hip/pelvis shows intertrochanteric left hip fracture -Consulted orthopedics, s/p left hip reduction and intramedullary nail fixation on 08/05 -WBAT LLE -Lovenox per ortho -PT recommended rehab. -Pain control with bowel regimen -Incentive spirometry Right arm mass likely lipoma versus hematoma. Stable -Will monitor . Chest pain-resolved. Atypical. Troponin repeated negative. Labs reviewed stable. EKG did not show any ST elevation depression or ST wave changes. Normocytic normochromic anemia suspect secondary to recent surgery due to blood loss. -s/p transfusion 2 units PRBC. -No signs of bleeding at this time. We will continue to monitor as needed. Encephalopathy in a patient with dementia -Per daughter patient is at her baseline. She does have dementia. -Caution with any sedating medications Mild elevated troponin: Difficult to access for cardiac risk factors. However most likely this is secondary to rhabdo vs CKD. -Troponins elevated but flat at 0.09, 0.08, 0.05 -EKG reviewed, shows sinus tach with no acute ischemic changes -Echo shows moderate to severe tricuspid valve regurgitation Mild Rhabdomyolysis: Elevated CPK at 563. Suspect secondary to fall. Mild AST elevation likely secondary to rhabdo -Resolved s/p IVF hydration Renal insufficiency: Likely underlying chronic kidney disease however no previous labs to compare. UA clear. Resolved. -IVF hydration provided -Avoid nephrotoxins -Continue to monitor renal indices indicated Unwitnessed fall and elderly: Question whether this could be a syncopal episode ? No clear history provided -Head CT and C-spine CT images reviewed, no acute findings -Carotid U/S with bilateral plaque, no significant stenosis -Echo shows EF 60-65%, moderate to severe tricuspid valve regurgitation -Fall precautions Thyroid Nodule: incidentally found on C-spine CT; shows 2.5 x 1.6cm soft tissue nodule involving right neck, felt to relate to an exophytic thyroid nodule from the right lobe -TSH/T4, normal. -Outpatient f/up Hypertension: BP consistently elevated, may be exacerbated by pain -Not on any antihypertensives at home -continue Norvasc and Lisinopril- -Continue to monitor BP and adjust treatment accordingly. -IV Vasotec prn Vitamin D deficiency -Vitamin D level 16.7 -Continue on by mouth repletion -Patient will need to have vitamin D level rechecked in 3 months as outpatient DVT Prophylaxis: Lovenox per ortho. Discharge Planning dc planning in progress. Problem Qualifiers (1) Fracture, intertrochanteric, left femur: Qualified Codes: S72.142A - Displaced intertrochanteric fracture of left femur , initial encounter for closed fracture Crystal Ballard MD Aug 22, 2017 11:16
[2017-08-22 12:12] VITALS: BP 130/62; PULSE 60; RESP 17; TEMP 97.5; O2SAT 97
[2017-08-22 16:00] VITALS: BP 117/56; PULSE 57; RESP 18; TEMP 97.5; O2SAT 95
[2017-08-22] MEDS: ACETAMINOPHEN/HYDROcodone 325 MG/5 MG TAB PO PRN (18:43)
[2017-08-22 20:00] VITALS: BP 130/63; PULSE 63; RESP 18; TEMP 97.7; O2SAT 96
[2017-08-23] VITALS: BP 146/65; PULSE 65; RESP 18; TEMP 97.7; O2SAT 97
[2017-08-23 08:00] VITALS: BP 139/79; PULSE 64; RESP 18; TEMP 97.1; O2SAT 98
[2017-08-23] MEDS: CHOLECALCIFEROL (VIT D3) 5000 UNIT CAP PO SCH (10:16)
[2017-08-23] MEDS: PANTOPRAZOLE SOD 40 MG DELAYED RELEASE TAB PO SCH (10:16)
[2017-08-23] MEDS: MAGNESIUM HYDROXIDE SUSP 30 ML CUP PO SCH ×2 (10:16→20:17)
[2017-08-23] MEDS: DOCUSATE SODIUM 50 MG/SENNA 8.6 MG TAB PO SCH ×2 (10:17→20:17)
[2017-08-23] MEDS: ENOXAPARIN SODIUM 30 MG/0.3 ML SYRINGE SQ SCH (10:17)
[2017-08-23] MEDS: LISINOPRIL 10 MG TAB PO SCH (10:17)
[2017-08-23] MEDS: CALCIUM/VITAMIN D 250 MG/125 U TAB PO SCH ×3 (10:17→16:58)
[2017-08-23] MEDS: SODIUM CHLORIDE 0.9% FLUSH 10 ML FLUSH IV FLUSH SCH ×2 (10:18→20:18)
[2017-08-23 12:00] VITALS: BP 132/62; PULSE 59; RESP 18; TEMP 97.3; O2SAT 94
--- NOTE | 2017-08-23 12:26 | HHI.PR ---
Subjective Remarks looks comfortable. d/w the RN and no acute issues. Objective Vitals Vital Signs Date Time Temp Pulse Resp B/P (MAP) Pulse Ox O2 Delivery O2 Flow Rate FiO2 08/23/17 08:00 97.1 64 18 139/79 (99) 98 08/23/17 00:00 97.7 65 18 146/65 (92) 97 08/22/17 20:00 97.7 63 18 130/63 (85) 96 08/22/17 16:00 97.5 57 18 117/56 (76) 95 I/O 08/22/17 08/22/17 08/22/17 08/23/17 08/23/17 08/23/17 06:59 14:59 22:59 06:59 14:59 22:59 Intake Total 720 ml 240 ml Balance 720 ml 240 ml Intake Oral 720 ml 240 ml # Voids 3 1 # Bowel Movements 1 0 Imaging Last Impressions Hip and Pelvis X-Ray 08/19/17 0000 Signed Impressions: Service Date/Time: Saturday, August 19, 2017 10:06 - CONCLUSION: 1. Nondisplaced fracture of the left inferior pubic ramus. Second fracture not clearly identified. 2. Stable left hip status post ORIF. 3. Decreased bone density otherwise intact pelvis. Eugene Dutta MD Hip X-Ray 08/05/17 0000 Signed Impressions: Service Date/Time: Saturday, August 05, 2017 10:35 - CONCLUSION: 1. Postoperative left proximal femur fixation. Deandre Guidry MD Chest X-Ray 08/05/17 0000 Signed Impressions: Service Date/Time: Saturday, August 05, 2017 00:55 - CONCLUSION: No acute disease. Carlos Klein Jr., MD Carotid Artery Ultrasound 08/05/17 0000 Signed Impressions: Service Date/Time: Saturday, August 05, 2017 14:22 - CONCLUSION: 1. Bilateral carotid plaque without significant flow-limiting stenosis. 2. Antegrade vertebral artery flow bilaterally. Christiano Moore MD CT Angiography 08/05/17 0000 Signed Impressions: Service Date/Time: Saturday, August 05, 2017 01:47 - CONCLUSION: 1. No pulmonary emboli. 2. Bibasilar atelectasis. 3. Cardiomegaly. 4. Soft tissue nodule involving within the neck. See the CT of the cervical spine reported separately. 5. Diffuse thickening of adrenal glands bilaterally without a discrete mass. Carlos Klein Jr., MD Head CT 08/04/17 0000 Signed Impressions: Service Date/Time: Friday, August 04, 2017 23:29 - CONCLUSION: No acute disease. Carlos Klein Jr., MD Cervical Spine CT 08/04/17 0000 Signed Impressions: Service Date/Time: Friday, August 04, 2017 23:29 - CONCLUSION: 1. No fracture or dislocation. 2. Degenerative changes. 3. 2.5 x 1.6 and meter soft tissue nodule involving the right neck felt to relate to an exophytic thyroid nodule from the right lobe. Ultrasound could be utilized to further evaluate if needed. Carlos Klein Jr., MD Objective Remarks GENERAL: This is a well-nourished, well-developed patient, in no apparent distress. CARDIOVASCULAR: Regular rate and regular rhythm without murmurs, gallops, or rubs. RESPIRATORY: Clear to auscultation. Breath sounds equal bilaterally. No wheezes , rales, or rhonchi. GASTROINTESTINAL: Abdomen soft, non-tender, nondistended. Normal, active bowel sounds MUSCULOSKELETAL: Extremities without clubbing, cyanosis, or edema. NEURO: awake and alert. Procedures 08/05/17 - Left hip reduction and intramedullary nail fixation by Dr. Álvarez Medications and IVs Inpatient Medications Acetaminophen (Tylenol) 650 mg Q4H PRN PO headache/fever/pain1-3 Last administered on 08/20/17at 09:15; Start 08/05/17 at 08:30 Acetaminophen/ Hydrocodone Bitart ([place] 5-325 Mg) 1 tab Q3H PRN PO pain 3<10 Last administered on 08/22/17at 18:43; Start 08/05/17 at 13:00 Amlodipine Besylate (Norvasc) 10 mg DAILY PO Last administered on 08/23/17at 10: 17; Start 08/08/17 at 09:00 Bisacodyl (Dulcolax Supp) 10 mg Q24H PRN RECTAL CONSTIPATION; Start 08/08/17 at 21:30 Calcium/Vitamin D (Oscal-D 250-125) 250 mg TID PO Last administered on at 10:17; Start 08/05/17 at 13:00 Cefazolin Sodium 1000 mg/Sodium Chloride 100 ml @ 200 mls/hr Q8H IV Last administered on 08/06/17at 08:35; Start 08/05/17 at 18:00; Stop 08/06/17 at 10:29 ; Status DC Cholecalciferol (Vitamin D3) 5,000 units DAILY PO Last administered on at 10:16; Start 08/06/17 at 09:00 Diphenhydramine HCl (Benadryl) 25 mg Q6H PRN PO ITCHING; Start 08/05/17 at 13: 00 Enalaprilat (Vasotec Inj) 1.25 mg Q6H PRN IV PUSH SBP> OR = 180, DBP> OR = 100 Last administered on 08/09/17at 00:15; Start 08/06/17 at 14:15 Enoxaparin Sodium (Lovenox Inj) 30 mg Q24H SQ Last administered on 08/23/17at 10 :17; Start 08/06/17 at 10:00 Ergocalciferol (Drisdol) 50,000 units ONCE ONCE PO Last administered on at 18:02; Start 08/05/17 at 14:00; Stop 08/05/17 at 14:01; Status DC Furosemide (Lasix Inj) 20 mg ONCE ONCE IV PUSH Last administered on 08/08/17at 01:52; Start 08/07/17 at 16:00; Stop 08/07/17 at 16:01; Status DC Hydralazine HCl (Apresoline Inj) 10 mg ONCE ONCE IV PUSH Last administered on 08/05/17at 00:16; Start 08/05/17 at 00:00; Stop 08/05/17 at 00:01; Status DC Ketorolac Tromethamine (Toradol Inj) 15 mg TID IV PUSH Last administered on at 08:37; Start 08/17/17 at 18:00; Stop 08/18/17 at 11:36; Status DC Lisinopril (Prinivil) 10 mg DAILY PO Last administered on 08/23/17at 10:17; Start 08/13/17 at 09:00 Magnesium Hydroxide (Milk Of Magnesia Liq) 30 ml BID PO Last administered on at 10:16; Start 08/09/17 at 09:00 Miscellaneous Information ALL NURSING DEPARTME... UNSCH PRN .XX SEE LABEL COMMENTS; Start 08/05/17 at 11:00; Stop 08/06/17 at 10:59; Status DC Morphine Sulfate (Morphine Inj) 2 mg Q3HR PRN IV PUSH SEE LABEL COMMENTS; Start 08/05/17 at 08:30 Naloxone HCl (Narcan Inj) 0.4 mg UNSCH PRN IV PUSH SEE LABEL COMMENTS; Start at 01:15 Ondansetron HCl (Zofran Inj) 4 mg Q4H PRN IVP NAUSEA OR VOMITING; Start at 13:00 Pantoprazole Sodium (Protonix Inj) 40 mg ONCE ONCE IV PUSH Last administered on 08/05/17at 06:30; Start 08/05/17 at 06:30; Stop 08/05/17 at 06:31; Status DC Pantoprazole Sodium (Protonix) 40 mg DAILY PO Last administered on 08/23/17at 10 :16; Start 08/06/17 at 09:00 Potassium Phosphate 15 mmol/ Sodium Chloride 255 ml @ 63.75 mls/ hr ONCE ONCE IV Last administered on 08/11/17at 17:32; Start 08/11/17 at 16:00; Stop at 19:59; Status DC Potassium Chloride (KCl) 40 meq ONCE ONCE PO Last administered on 08/08/17at 12 :00; Start 08/08/17 at 12:00; Stop 08/08/17 at 12:01; Status DC Senna/Docusate Sodium ([place]-Colace) 1 tab BID PO Last administered on at 10:17; Start 08/09/17 at 09:00 Sodium Chloride 250 ml @ 15 mls/hr ONCE ONCE IV ; Start 08/07/17 at 16:00; Stop 08/08/17 at 08:39; Status DC Sodium Chloride (NS Flush) 2 ml BID IV FLUSH Last administered on 08/23/17at 10: 18; Start 08/05/17 at 09:00 A/P Problem List: (1) Fracture, intertrochanteric, left femur ICD Code: S72.142A - Displaced intertrochanteric fracture of left femur, initial encounter for closed fracture (2) Elevated troponin ICD Code: R74.8 - Abnormal levels of other serum enzymes Status: Acute Assessment and Plan Left hip intertrochanteric fracture s/p fall: Hip/pelvis shows intertrochanteric left hip fracture -Consulted orthopedics, s/p left hip reduction and intramedullary nail fixation on 08/05 -WBAT LLE -Lovenox per ortho -PT recommended rehab. -Pain control with bowel regimen -Incentive spirometry Right arm mass likely lipoma versus hematoma. Stable -Will monitor . Chest pain-resolved. Atypical. Troponin repeated negative. Labs reviewed stable. EKG did not show any ST elevation depression or ST wave changes. Normocytic normochromic anemia suspect secondary to recent surgery due to blood loss. -s/p transfusion 2 units PRBC. -No signs of bleeding at this time. We will continue to monitor as needed. Encephalopathy in a patient with dementia -Per daughter patient is at her baseline. She does have dementia. -Caution with any sedating medications Mild elevated troponin: However most likely this is secondary to rhabdo vs CKD. -Troponins elevated but flat at 0.09, 0.08, 0.05 -EKG reviewed, shows sinus tach with no acute ischemic changes -Echo shows moderate to severe tricuspid valve regurgitation Mild Rhabdomyolysis: Elevated CPK at 563. Suspect secondary to fall. Mild AST elevation likely secondary to rhabdo -Resolved s/p IVF hydration Renal insufficiency: Likely underlying chronic kidney disease however no previous labs to compare. UA clear. Resolved. -IVF hydration provided -Avoid nephrotoxins -Continue to monitor renal indices indicated Unwitnessed fall and elderly: Question whether this could be a syncopal episode ? No clear history provided -Head CT and C-spine CT images reviewed, no acute findings -Carotid U/S with bilateral plaque, no significant stenosis -Echo shows EF 60-65%, moderate to severe tricuspid valve regurgitation -Fall precautions Thyroid Nodule: incidentally found on C-spine CT; shows 2.5 x 1.6cm soft tissue nodule involving right neck, felt to relate to an exophytic thyroid nodule from the right lobe -TSH/T4, normal. -Outpatient f/up Hypertension: BP consistently elevated, may be exacerbated by pain -Not on any antihypertensives at home -continue Norvasc and Lisinopril- -Continue to monitor BP and adjust treatment accordingly. -IV Vasotec prn Vitamin D deficiency -Vitamin D level 16.7 -Continue on by mouth repletion -Patient will need to have vitamin D level rechecked in 3 months as outpatient DVT Prophylaxis: Lovenox per ortho. Discharge Planning dc planning in progress. Problem Qualifiers (1) Fracture, intertrochanteric, left femur: Qualified Codes: S72.142A - Displaced intertrochanteric fracture of left femur , initial encounter for closed fracture Crystal Ballard MD Aug 23, 2017 12:26
[2017-08-23 16:00] VITALS: BP 113/54; PULSE 64; RESP 17; TEMP 97.6; O2SAT 98
[2017-08-23 20:00] VITALS: BP 153/71; PULSE 93; RESP 18; TEMP 98.6; O2SAT 98
[2017-08-24] VITALS: BP 160/66; PULSE 66; RESP 18; TEMP 99.1; O2SAT 98
[2017-08-24 04:00] VITALS: BP 131/60; PULSE 61; RESP 17; TEMP 98.3; O2SAT 97
[2017-08-24 08:00] VITALS: BP 131/65; PULSE 62; RESP 18; TEMP 97.8; O2SAT 98
[2017-08-24] MEDS: DOCUSATE SODIUM 50 MG/SENNA 8.6 MG TAB PO SCH (09:00)
[2017-08-24] MEDS: MAGNESIUM HYDROXIDE SUSP 30 ML CUP PO SCH (09:00)
[2017-08-24] MEDS: LISINOPRIL 10 MG TAB PO SCH (10:10)
[2017-08-24] MEDS: ENOXAPARIN SODIUM 30 MG/0.3 ML SYRINGE SQ SCH (10:11)
[2017-08-24] MEDS: ACETAMINOPHEN/HYDROcodone 325 MG/5 MG TAB PO PRN (10:11)
[2017-08-24] MEDS: PANTOPRAZOLE SOD 40 MG DELAYED RELEASE TAB PO SCH (10:11)
[2017-08-24] MEDS: CHOLECALCIFEROL (VIT D3) 5000 UNIT CAP PO SCH (10:11)
[2017-08-24] MEDS: CALCIUM/VITAMIN D 250 MG/125 U TAB PO SCH ×3 (10:11→18:00)
[2017-08-24] MEDS: SODIUM CHLORIDE 0.9% FLUSH 10 ML FLUSH IV FLUSH SCH ×2 (10:17→21:00)
--- NOTE | 2017-08-24 11:38 | HHI.PR ---
Subjective Remarks in no acute distress. pain seems to be controlled. had diarrhea earlier this morning. d/w the RN. Objective Vitals Vital Signs Date Time Temp Pulse Resp B/P (MAP) Pulse Ox O2 Delivery O2 Flow Rate FiO2 08/24/17 08:00 97.8 62 18 131/65 (87) 98 08/24/17 04:00 98.3 61 17 131/60 (83) 97 08/24/17 00:00 99.1 66 18 160/66 (97) 98 08/23/17 22:07 Room Air 08/23/17 20:00 98.6 93 18 153/71 (98) 98 08/23/17 16:00 97.6 64 17 113/54 (73) 98 08/23/17 12:00 97.3 59 18 132/62 (85) 94 I/O 08/23/17 08/23/17 08/23/17 08/24/17 08/24/17 08/24/17 07:00 15:00 23:00 07:00 15:00 23:00 Intake Total 240 ml Output Total 600 ml Balance 240 ml -600 ml Intake Oral 240 ml Output Urine Total 600 ml # Voids 1 1 3 # Bowel Movements 0 6 Imaging Last Impressions Hip and Pelvis X-Ray 08/19/17 0000 Signed Impressions: Service Date/Time: Saturday, August 19, 2017 10:06 - CONCLUSION: 1. Nondisplaced fracture of the left inferior pubic ramus. Second fracture not clearly identified. 2. Stable left hip status post ORIF. 3. Decreased bone density otherwise intact pelvis. Eugene Dutta MD Hip X-Ray 08/05/17 0000 Signed Impressions: Service Date/Time: Saturday, August 05, 2017 10:35 - CONCLUSION: 1. Postoperative left proximal femur fixation. Deandre Guidry MD Chest X-Ray 08/05/17 0000 Signed Impressions: Service Date/Time: Saturday, August 05, 2017 00:55 - CONCLUSION: No acute disease. Carlos Klein Jr., MD Carotid Artery Ultrasound 08/05/17 0000 Signed Impressions: Service Date/Time: Saturday, August 05, 2017 14:22 - CONCLUSION: 1. Bilateral carotid plaque without significant flow-limiting stenosis. 2. Antegrade vertebral artery flow bilaterally. Christiano Moore MD CT Angiography 08/05/17 0000 Signed Impressions: Service Date/Time: Saturday, August 05, 2017 01:47 - CONCLUSION: 1. No pulmonary emboli. 2. Bibasilar atelectasis. 3. Cardiomegaly. 4. Soft tissue nodule involving within the neck. See the CT of the cervical spine reported separately. 5. Diffuse thickening of adrenal glands bilaterally without a discrete mass. Carlos Klein Jr., MD Head CT 08/04/17 0000 Signed Impressions: Service Date/Time: Friday, August 04, 2017 23:29 - CONCLUSION: No acute disease. Carlos Klein Jr., MD Cervical Spine CT 08/04/17 0000 Signed Impressions: Service Date/Time: Friday, August 04, 2017 23:29 - CONCLUSION: 1. No fracture or dislocation. 2. Degenerative changes. 3. 2.5 x 1.6 and meter soft tissue nodule involving the right neck felt to relate to an exophytic thyroid nodule from the right lobe. Ultrasound could be utilized to further evaluate if needed. Carlos Klein Jr., MD Objective Remarks GENERAL: This is a well-nourished, well-developed patient, in no apparent distress. CARDIOVASCULAR: Regular rate and regular rhythm without murmurs, gallops, or rubs. RESPIRATORY: Clear to auscultation. Breath sounds equal bilaterally. No wheezes , rales, or rhonchi. GASTROINTESTINAL: Abdomen soft, non-tender, nondistended. Normal, active bowel sounds MUSCULOSKELETAL: Extremities without clubbing, cyanosis, or edema. NEURO: awake and alert. Procedures 08/05/17 - Left hip reduction and intramedullary nail fixation by Dr. Álvarez Medications and IVs Inpatient Medications Acetaminophen (Tylenol) 650 mg Q4H PRN PO headache/fever/pain1-3 Last administered on 08/20/17at 09:15; Start 08/05/17 at 08:30 Acetaminophen/ Hydrocodone Bitart ([place] 5-325 Mg) 1 tab Q3H PRN PO pain 3<10 Last administered on 08/24/17at 10:11; Start 08/05/17 at 13:00 Amlodipine Besylate (Norvasc) 10 mg DAILY PO Last administered on 08/24/17 10: 11; Start 08/08/17 at 09:00 Bisacodyl (Dulcolax Supp) 10 mg Q24H PRN RECTAL CONSTIPATION; Start 08/08/17 at 21:30 Calcium/Vitamin D (Oscal-D 250-125) 250 mg TID PO Last administered on at 10:11; Start 08/05/17 at 13:00 Cefazolin Sodium 1000 mg/Sodium Chloride 100 ml @ 200 mls/hr Q8H IV Last administered on 08/06/17at 08:35; Start 08/05/17 at 18:00; Stop 08/06/17 at 10:29 ; Status DC Cholecalciferol (Vitamin D3) 5,000 units DAILY PO Last administered on 10:11; Start 08/06/17 at 09:00 Diphenhydramine HCl (Benadryl) 25 mg Q6H PRN PO ITCHING; Start 08/05/17 at 13: 00 Enalaprilat (Vasotec Inj) 1.25 mg Q6H PRN IV PUSH SBP> OR = 180, DBP> OR = 100 Last administered on 08/09/17at 00:15; Start 08/06/17 at 14:15 Enoxaparin Sodium (Lovenox Inj) 30 mg Q24H SQ Last administered on 08/24/17 10: 11; Start 08/06/17 at 10:00 Ergocalciferol (Drisdol) 50,000 units ONCE ONCE PO Last administered on at 18:02; Start 08/05/17 at 14:00; Stop 08/05/17 at 14:01; Status DC Furosemide (Lasix Inj) 20 mg ONCE ONCE IV PUSH Last administered on 08/08/17at 01:52; Start 08/07/17 at 16:00; Stop 08/07/17 at 16:01; Status DC Hydralazine HCl (Apresoline Inj) 10 mg ONCE ONCE IV PUSH Last administered on 08/05/17at 00:16; Start 08/05/17 at 00:00; Stop 08/05/17 at 00:01; Status DC Ketorolac Tromethamine (Toradol Inj) 15 mg TID IV PUSH Last administered on at 08:37; Start 08/17/17 at 18:00; Stop 08/18/17 at 11:36; Status DC Lisinopril (Prinivil) 10 mg DAILY PO Last administered on 08/24/17at 10:10; Start 08/13/17 at 09:00 Magnesium Hydroxide (Milk Of Magnoscar Liq) 30 ml BID PO Last administered on at 20:17; Start 08/09/17 at 09:00 Miscellaneous Information ALL NURSING DEPARTME... UNSCH PRN .XX SEE LABEL COMMENTS; Start 08/05/17 at 11:00; Stop 08/06/17 at 10:59; Status DC Morphine Sulfate (Morphine Inj) 2 mg Q3HR PRN IV PUSH SEE LABEL COMMENTS; Start 08/05/17 at 08:30 Naloxone HCl (Narcan Inj) 0.4 mg UNSCH PRN IV PUSH SEE LABEL COMMENTS; Start at 01:15 Ondansetron HCl (Zofran Inj) 4 mg Q4H PRN IVP NAUSEA OR VOMITING; Start at 13:00 Pantoprazole Sodium (Protonix Inj) 40 mg ONCE ONCE IV PUSH Last administered on 08/05/17at 06:30; Start 08/05/17 at 06:30; Stop 08/05/17 at 06:31; Status DC Pantoprazole Sodium (Protonix) 40 mg DAILY PO Last administered on 08/24/17at 10: 11; Start 08/06/17 at 09:00 Potassium Phosphate 15 mmol/ Sodium Chloride 255 ml @ 63.75 mls/ hr ONCE ONCE IV Last administered on 08/11/17at 17:32; Start 08/11/17 at 16:00; Stop at 19:59; Status DC Potassium Chloride (KCl) 40 meq ONCE ONCE PO Last administered on 08/08/17at 12 :00; Start 08/08/17 at 12:00; Stop 08/08/17 at 12:01; Status DC Senna/Docusate Sodium ([place]-Colace) 1 tab BID PO Last administered on at 20:17; Start 08/09/17 at 09:00 Sodium Chloride 250 ml @ 15 mls/hr ONCE ONCE IV ; Start 08/07/17 at 16:00; Stop 08/08/17 at 08:39; Status DC Sodium Chloride (NS Flush) 2 ml BID IV FLUSH Last administered on 08/24/17at 10: 17; Start 08/05/17 at 09:00 A/P Problem List: (1) Fracture, intertrochanteric, left femur ICD Code: S72.142A - Displaced intertrochanteric fracture of left femur, initial encounter for closed fracture (2) Elevated troponin ICD Code: R74.8 - Abnormal levels of other serum enzymes Status: Acute Assessment and Plan Left hip intertrochanteric fracture s/p fall: Hip/pelvis shows intertrochanteric left hip fracture -Consulted orthopedics, s/p left hip reduction and intramedullary nail fixation on 08/05 -WBAT LLE -Lovenox per ortho -PT recommended rehab. -Pain control with bowel regimen -Incentive spirometry Right arm mass likely lipoma versus hematoma. Stable -Will monitor . Chest pain-resolved. Atypical. Troponin repeated negative. Labs reviewed stable. EKG did not show any ST elevation depression or ST wave changes. Normocytic normochromic anemia suspect secondary to recent surgery due to blood loss. -s/p transfusion 2 units PRBC. -No signs of bleeding at this time. We will continue to monitor as needed. Encephalopathy in a patient with dementia -Per daughter patient is at her baseline. She does have dementia. -Caution with any sedating medications Mild elevated troponin: However most likely this is secondary to rhabdo vs CKD. -Troponins elevated but flat at 0.09, 0.08, 0.05 -EKG reviewed, shows sinus tach with no acute ischemic changes -Echo shows moderate to severe tricuspid valve regurgitation Mild Rhabdomyolysis: Elevated CPK at 563. Suspect secondary to fall. Mild AST elevation likely secondary to rhabdo -Resolved s/p IVF hydration Renal insufficiency: Likely underlying chronic kidney disease however no previous labs to compare. UA clear. Resolved. -IVF hydration provided -Avoid nephrotoxins -Continue to monitor renal indices indicated Unwitnessed fall and elderly: Question whether this could be a syncopal episode ? No clear history provided -Head CT and C-spine CT images reviewed, no acute findings -Carotid U/S with bilateral plaque, no significant stenosis -Echo shows EF 60-65%, moderate to severe tricuspid valve regurgitation -Fall precautions Thyroid Nodule: incidentally found on C-spine CT; shows 2.5 x 1.6cm soft tissue nodule involving right neck, felt to relate to an exophytic thyroid nodule from the right lobe -TSH/T4, normal. -Outpatient f/up Hypertension: BP consistently elevated, may be exacerbated by pain -Not on any antihypertensives at home -continue Norvasc and Lisinopril- -Continue to monitor BP and adjust treatment accordingly. -IV Vasotec prn Vitamin D deficiency -Vitamin D level 16.7 -Continue on by mouth repletion -Patient will need to have vitamin D level rechecked in 3 months as outpatient Diarrhea - stop laxatives -will monitor DVT Prophylaxis: Lovenox per ortho. Discharge Planning dc planning in progress. Problem Qualifiers (1) Fracture, intertrochanteric, left femur: Qualified Codes: S72.142A - Displaced intertrochanteric fracture of left femur , initial encounter for closed fracture Crystal Ballard MD Aug 24, 2017 11:38
[2017-08-24] MEDS ORDERED: LOPERAMIDE HCL 2 MG CAP PO PRN (11:45)
[2017-08-24 12:00] VITALS: BP 154/70; PULSE 63; RESP 18; TEMP 97.2; O2SAT 98
[2017-08-24 16:00] VITALS: BP 138/86; PULSE 54; RESP 18; TEMP 97.1; O2SAT 96
[2017-08-24 20:00] VITALS: BP 135/64; PULSE 53; RESP 18; TEMP 98.4; O2SAT 96
[2017-08-25] VITALS (7 sets, daily range): BP systolic 120–138; BP diastolic 58–65; PULSE 46–67; RESP 16–19; TEMP 97.1–98.9; O2SAT 93–100
[2017-08-25] MEDS: CHOLECALCIFEROL (VIT D3) 5000 UNIT CAP PO SCH (08:43)
[2017-08-25] MEDS: SODIUM CHLORIDE 0.9% FLUSH 10 ML FLUSH IV FLUSH SCH ×2 (08:43→21:00)
[2017-08-25] MEDS: CALCIUM/VITAMIN D 250 MG/125 U TAB PO SCH ×3 (08:43→17:06)
[2017-08-25] MEDS: LISINOPRIL 10 MG TAB PO SCH (08:43)
[2017-08-25] MEDS: PANTOPRAZOLE SOD 40 MG DELAYED RELEASE TAB PO SCH (08:43)
[2017-08-25] MEDS: ENOXAPARIN SODIUM 30 MG/0.3 ML SYRINGE SQ SCH (08:44)
--- NOTE | 2017-08-25 11:44 | HHI.PR ---
Subjective Remarks Pleasant female. In the chair, doesn't appear in acute distress. No events overnight. Objective Vitals Vital Signs Date Time Temp Pulse Resp B/P (MAP) Pulse Ox O2 Delivery O2 Flow Rate FiO2 08/25/17 08:00 97.5 50 18 120/59 (79) 97 08/25/17 04:00 98.1 46 16 121/58 (79) 100 08/25/17 00:00 98.9 52 17 129/62 (84) 98 08/24/17 20:00 98.4 53 18 135/64 (87) 96 08/24/17 20:00 96 Room Air 08/24/17 16:00 97.1 54 18 138/86 (103) 96 08/24/17 12:00 97.2 63 18 154/70 (98) 98 I/O 08/24/17 08/24/17 08/24/17 08/25/17 08/25/17 08/25/17 07:00 15:00 23:00 07:00 15:00 23:00 Intake Total 480 ml Output Total 200 ml Balance 280 ml Intake Oral 480 ml Output Urine Total 200 ml # Voids 3 2 # Bowel Movements 6 4 Imaging Last Impressions Hip and Pelvis X-Ray 08/19/17 0000 Signed Impressions: Service Date/Time: Saturday, August 19, 2017 10:06 - CONCLUSION: 1. Nondisplaced fracture of the left inferior pubic ramus. Second fracture not clearly identified. 2. Stable left hip status post ORIF. 3. Decreased bone density otherwise intact pelvis. Eugene Dutta MD Hip X-Ray 08/05/17 0000 Signed Impressions: Service Date/Time: Saturday, August 05, 2017 10:35 - CONCLUSION: 1. Postoperative left proximal femur fixation. Deandre Guidry MD Chest X-Ray 08/05/17 0000 Signed Impressions: Service Date/Time: Saturday, August 05, 2017 00:55 - CONCLUSION: No acute disease. Carlos Klein Jr., MD Carotid Artery Ultrasound 08/05/17 0000 Signed Impressions: Service Date/Time: Saturday, August 05, 2017 14:22 - CONCLUSION: 1. Bilateral carotid plaque without significant flow-limiting stenosis. 2. Antegrade vertebral artery flow bilaterally. Christiano Moore MD CT Angiography 08/05/17 0000 Signed Impressions: Service Date/Time: Saturday, August 05, 2017 01:47 - CONCLUSION: 1. No pulmonary emboli. 2. Bibasilar atelectasis. 3. Cardiomegaly. 4. Soft tissue nodule involving within the neck. See the CT of the cervical spine reported separately. 5. Diffuse thickening of adrenal glands bilaterally without a discrete mass. Carlos Klein Jr., MD Head CT 08/04/17 0000 Signed Impressions: Service Date/Time: Friday, August 04, 2017 23:29 - CONCLUSION: No acute disease. Carlos Klein Jr., MD Cervical Spine CT 08/04/17 0000 Signed Impressions: Service Date/Time: Friday, August 04, 2017 23:29 - CONCLUSION: 1. No fracture or dislocation. 2. Degenerative changes. 3. 2.5 x 1.6 and meter soft tissue nodule involving the right neck felt to relate to an exophytic thyroid nodule from the right lobe. Ultrasound could be utilized to further evaluate if needed. Carlos Klein Jr., MD Objective Remarks GENERAL: This is a well-nourished, well-developed patient, in no apparent distress. CARDIOVASCULAR: Regular rate and regular rhythm without murmurs, gallops, or rubs. RESPIRATORY: Clear to auscultation. Breath sounds equal bilaterally. No wheezes , rales, or rhonchi. GASTROINTESTINAL: Abdomen soft, non-tender, nondistended. Normal, active bowel sounds MUSCULOSKELETAL: Extremities without clubbing, cyanosis, or edema. NEURO: awake and alert. Procedures 08/05/17 - Left hip reduction and intramedullary nail fixation by Dr. Álvarez A/P Problem List: (1) Fracture, intertrochanteric, left femur ICD Code: S72.142A - Displaced intertrochanteric fracture of left femur, initial encounter for closed fracture (2) Elevated troponin ICD Code: R74.8 - Abnormal levels of other serum enzymes Status: Acute Assessment and Plan Left hip intertrochanteric fracture s/p fall: Hip/pelvis shows intertrochanteric left hip fracture -Consulted orthopedics, s/p left hip reduction and intramedullary nail fixation on 08/05 -WBAT LLE -Lovenox per ortho -PT recommended rehab. -Pain control with bowel regimen -Incentive spirometry Right arm mass likely lipoma versus hematoma. Stable -Will monitor . Chest pain-resolved. Atypical. Troponin repeated negative. Labs reviewed stable. EKG did not show any ST elevation depression or ST wave changes. Normocytic normochromic anemia suspect secondary to recent surgery due to blood loss. -s/p transfusion 2 units PRBC. -No signs of bleeding at this time. We will continue to monitor as needed. Encephalopathy in a patient with dementia -Per daughter patient is at her baseline. She does have dementia. -Caution with any sedating medications Mild elevated troponin: However most likely this is secondary to rhabdo vs CKD. -Troponins elevated but flat at 0.09, 0.08, 0.05 -EKG reviewed, shows sinus tach with no acute ischemic changes -Echo shows moderate to severe tricuspid valve regurgitation Mild Rhabdomyolysis: Elevated CPK at 563. Suspect secondary to fall. Mild AST elevation likely secondary to rhabdo -Resolved s/p IVF hydration Renal insufficiency: Likely underlying chronic kidney disease however no previous labs to compare. UA clear. Resolved. -IVF hydration provided -Avoid nephrotoxins -Continue to monitor renal indices indicated Unwitnessed fall and elderly: Question whether this could be a syncopal episode ? No clear history provided -Head CT and C-spine CT images reviewed, no acute findings -Carotid U/S with bilateral plaque, no significant stenosis -Echo shows EF 60-65%, moderate to severe tricuspid valve regurgitation -Fall precautions Thyroid Nodule: incidentally found on C-spine CT; shows 2.5 x 1.6cm soft tissue nodule involving right neck, felt to relate to an exophytic thyroid nodule from the right lobe -TSH/T4, normal. -Outpatient f/up Hypertension: BP consistently elevated, may be exacerbated by pain -Not on any antihypertensives at home -continue Norvasc and Lisinopril- -Continue to monitor BP and adjust treatment accordingly. -IV Vasotec prn Vitamin D deficiency -Vitamin D level 16.7 -Continue on by mouth repletion -Patient will need to have vitamin D level rechecked in 3 months as outpatient Diarrhea - stop laxatives -will monitor DVT Prophylaxis: Lovenox per ortho. Discharge Planning DC planning in progress.CM following . Difficult DC. Patient is denied by SNF as she doesn't speak Togolese. Problem Qualifiers (1) Fracture, intertrochanteric, left femur: Qualified Codes: S72.142A - Displaced intertrochanteric fracture of left femur , initial encounter for closed fracture Madiha Brewer MD Aug 25, 2017 11:44
[2017-08-25] MEDS: ACETAMINOPHEN/HYDROcodone 325 MG/5 MG TAB PO PRN (12:32)
[2017-08-25] MEDS ORDERED: RESP: ALBUTEROL 2.5 MG/IPRATROPIUM 0.5 MG NEB (SCH) NEB ONE (22:45)
--- NOTE | 2017-08-25 23:13 | RADRPT ---
EXAM DATE/TIME: 08/25/2017 22:40 [facility] COMPARISON: CHEST SINGLE AP, August 05, 2017, 0:55. CT PULMONARY ANGIOGRAM, August 05, 2017, 1:47. INDICATIONS : Short of breath. Wheezing. MEDICAL HISTORY : None. SURGICAL HISTORY : Left hip ORIF. ENCOUNTER: Initial ACUITY: 1 day PAIN SCORE: 0/10 LOCATION: Bilateral chest FINDINGS: Small focal infiltrate in the lateral left lung base. Right lung is grossly clear. Right paratracheal soft tissue prominence is felt related to known thyroid mass. Cardiac contours are grossly stable. CONCLUSION: Mild left base infiltrate Morgan Villa MD on August 25, 2017 at 23:09 Board Certified Radiologist. This report was verified electronically.
[2017-08-26] VITALS (8 sets, daily range): BP systolic 118–148; BP diastolic 56–65; PULSE 55–72; RESP 16–28; TEMP 97.4–98.6; O2SAT 95–100
[2017-08-26] MEDS ORDERED: PROCHLORPERAZINE INJ 10 MG/2 ML VIAL IV PUSH PRN (04:15)
[2017-08-26] MEDS ORDERED: RESP: ALBUTEROL 2.5 MG/IPRATROPIUM 0.5 MG NEB (PRN) INH (04:15)
[2017-08-26] MEDS: AZITHROMYCIN INJ 500 MG in SODIUM CHLOR 0.9% 250 ML INJ 250 ML IV SCH (04:46)
[2017-08-26] MEDS: PIPERACIL-TAZO 4.5 GM PREMIX 100 ML IV SCH ×4 (04:57→22:47)
[2017-08-26] MEDS: RESP: ALBUTEROL 2.5 MG/IPRATROPIUM 0.5 MG NEB (SCH) INH ×3 (09:21→21:25)
[2017-08-26] MEDS: CALCIUM/VITAMIN D 250 MG/125 U TAB PO SCH ×3 (09:22→16:58)
[2017-08-26] MEDS: CHOLECALCIFEROL (VIT D3) 5000 UNIT CAP PO SCH (09:22)
[2017-08-26] MEDS: LISINOPRIL 10 MG TAB PO SCH (09:22)
[2017-08-26] MEDS: PANTOPRAZOLE SOD 40 MG DELAYED RELEASE TAB PO SCH (09:22)
[2017-08-26] MEDS: SODIUM CHLORIDE 0.9% FLUSH 10 ML FLUSH IV FLUSH SCH ×2 (09:23→22:40)
[2017-08-26] MEDS: ENOXAPARIN SODIUM 30 MG/0.3 ML SYRINGE SQ SCH (09:26)
--- NOTE | 2017-08-26 11:33 | PD.WCN.NOT ---
Wound Consult Description: Received consult from Doctor Brewer for pressure ulcer to buttock area. Communicated with: DENA cameron and Doctor Brewer Recommendation: 1.Please cleanse wound to coccyx with normal saline and pat dry 2. Apply Maxorb II just to wound bed 3. Apply Calazime skin protectant paste to periwound 4. Apply skin prep before applying cover dressing 5. Apply bordered gauze 6. Change dressing every other day or PRN if saturated or dislodged. 7. Turn patient every 2 hours and PRN for comfort and offloading of pressure from rody prominences. Additional Information: Patient seen on for evaluation of pressure ulcer to buttock area. Patient was turned with the assistance of DENA cameron and contract writer. Patient noted with a stage 3 pressure in gluteal cleft just to the Left beside the coccyx. Wound presents with ~40% pink tissue and ~60% adipose tissue.Wound cleansed with normal saline and patted dry.Wound drainage is minimal and serous without odor. Wound margins are well defined.Periwound presents with maceration that is circumferential, but is otherwise unremarkable.Wound measures ~1.9cm x ~0.4 cm x ~ 0.1cm. Applied maxorb II ( calcium alginate) just over wound bed. Applied Calazime skin protectant paste to periwound. Then applied skin prep before covering entire wound with bordered gauze. Patient was positioned off bottom with pillow in place for support. Bed was lowered to a safe height before leaving patient's room.Airapy bed to be delivered from environmental. Melissa Lyn [facility] Aug 26, 2017 11:33
--- NOTE | 2017-08-26 16:00 | HHI.PR ---
Subjective Remarks Was seen earlier today. She is in bed appears in not acute distress. Eating breakfast. Patient noted with some wounds on her buttocks. Wound care consult. Objective Vitals Vital Signs Date Time Temp Pulse Resp B/P (MAP) Pulse Ox O2 Delivery O2 Flow Rate FiO2 08/26/17 15:32 98 21 08/26/17 12:00 98.3 72 16 118/56 (76) 98 08/26/17 08:00 97.7 65 16 142/65 (90) 97 08/26/17 03:50 97.9 55 18 148/64 (92) 95 08/26/17 00:10 97.4 57 18 131/62 (85) 98 08/25/17 23:43 100 08/25/17 20:21 97.1 52 19 131/60 (83) 93 08/25/17 16:00 97.5 48 18 138/61 (86) 98 I/O 08/25/17 08/25/17 08/25/17 08/26/17 08/26/17 08/26/17 07:00 15:00 23:00 07:00 15:00 23:00 Intake Total 480 ml 360 ml 360 ml Output Total 200 ml Balance 280 ml 360 ml 360 ml Intake Oral 480 ml 360 ml 360 ml Output Urine Total 200 ml # Voids 1 2 # Bowel Movements 0 0 Imaging Last Impressions Chest X-Ray 08/25/17 0000 Signed Impressions: Service Date/Time: Friday, August 25, 2017 22:40 - CONCLUSION: Mild left base infiltrate Morgan Villa MD Hip and Pelvis X-Ray 08/19/17 0000 Signed Impressions: Service Date/Time: Saturday, August 19, 2017 10:06 - CONCLUSION: 1. Nondisplaced fracture of the left inferior pubic ramus. Second fracture not clearly identified. 2. Stable left hip status post ORIF. 3. Decreased bone density otherwise intact pelvis. Eugene Dutta MD Hip X-Ray 08/05/17 0000 Signed Impressions: Service Date/Time: Saturday, August 05, 2017 10:35 - CONCLUSION: 1. Postoperative left proximal femur fixation. Deandre Guidry MD Carotid Artery Ultrasound 08/05/17 0000 Signed Impressions: Service Date/Time: Saturday, August 05, 2017 14:22 - CONCLUSION: 1. Bilateral carotid plaque without significant flow-limiting stenosis. 2. Antegrade vertebral artery flow bilaterally. Christiano Moore MD CT Angiography 08/05/17 0000 Signed Impressions: Service Date/Time: Saturday, August 05, 2017 01:47 - CONCLUSION: 1. No pulmonary emboli. 2. Bibasilar atelectasis. 3. Cardiomegaly. 4. Soft tissue nodule involving within the neck. See the CT of the cervical spine reported separately. 5. Diffuse thickening of adrenal glands bilaterally without a discrete mass. Carlos Klein Jr., MD Head CT 08/04/17 Signed Impressions: Service Date/Time: Friday, August 04, 2017 23:29 - CONCLUSION: No acute disease. Carlos Klein Jr., MD Cervical Spine CT 08/04/17 0000 Signed Impressions: Service Date/Time: Friday, August 04, 2017 23:29 - CONCLUSION: 1. No fracture or dislocation. 2. Degenerative changes. 3. 2.5 x 1.6 and meter soft tissue nodule involving the right neck felt to relate to an exophytic thyroid nodule from the right lobe. Ultrasound could be utilized to further evaluate if needed. Carlos Klein Jr., MD Objective Remarks GENERAL: This is a well-nourished, well-developed patient, in no apparent distress. CARDIOVASCULAR: Regular rate and regular rhythm without murmurs, gallops, or rubs. RESPIRATORY: Clear to auscultation. Breath sounds equal bilaterally. No wheezes , rales, or rhonchi. GASTROINTESTINAL: Abdomen soft, non-tender, nondistended. Normal, active bowel sounds SKIN: Wounds on buttocks MUSCULOSKELETAL: Extremities without clubbing, cyanosis, or edema. NEURO: awake and alert. Procedures 08/05/17 - Left hip reduction and intramedullary nail fixation by Dr. Álvarez A/P Problem List: (1) Fracture, intertrochanteric, left femur ICD Code: S72.142A - Displaced intertrochanteric fracture of left femur, initial encounter for closed fracture (2) Elevated troponin ICD Code: R74.8 - Abnormal levels of other serum enzymes Status: Acute Assessment and Plan Left hip intertrochanteric fracture s/p fall: Hip/pelvis shows intertrochanteric left hip fracture -Consulted orthopedics, s/p left hip reduction and intramedullary nail fixation on 08/05 -WBAT LLE -Lovenox per ortho -PT recommended rehab. -Pain control with bowel regimen -Incentive spirometry Buttocks Stage 3 pressure ulcers in gluteal lift just to the left bedside the coccyx. - Discussed with Melissa from wound care , appreciate recommendations 1.Please cleanse wound to coccyx with normal saline and pat dry 2. Apply Maxorb II just to wound bed 3. Apply Calazime skin protectant paste to periwound 4. Apply skin prep before applying cover dressing 5. Apply bordered gauze 6. Change dressing every other day or PRN if saturated or dislodged. 7. Turn patient every 2 hours and PRN for comfort and offloading of pressure from rody prominences. Right arm mass likely lipoma versus hematoma. Stable -Will monitor . Chest pain-resolved. Atypical. Troponin repeated negative. Labs reviewed stable. EKG did not show any ST elevation depression or ST wave changes. Normocytic normochromic anemia suspect secondary to recent surgery due to blood loss. -s/p transfusion 2 units PRBC. -No signs of bleeding at this time. We will continue to monitor as needed. Encephalopathy in a patient with dementia -Per daughter patient is at her baseline. She does have dementia. -Caution with any sedating medications Mild elevated troponin: However most likely this is secondary to rhabdo vs CKD. -Troponins elevated but flat at 0.09, 0.08, 0.05 -EKG reviewed, shows sinus tach with no acute ischemic changes -Echo shows moderate to severe tricuspid valve regurgitation Mild Rhabdomyolysis: Elevated CPK at 563 on admission. Suspect secondary to fall. Mild AST elevation likely secondary to rhabdo -Resolved s/p IVF hydration Renal insufficiency: Likely underlying chronic kidney disease however no previous labs to compare. UA clear. Resolved. -IVF hydration provided -Avoid nephrotoxins -Continue to monitor renal indices indicated Unwitnessed fall and elderly: Question whether this could be a syncopal episode ? No clear history provided -Head CT and C-spine CT images reviewed, no acute findings -Carotid U/S with bilateral plaque, no significant stenosis -Echo shows EF 60-65%, moderate to severe tricuspid valve regurgitation -Fall precautions Thyroid Nodule: incidentally found on C-spine CT; shows 2.5 x 1.6cm soft tissue nodule involving right neck, felt to relate to an exophytic thyroid nodule from the right lobe -TSH/T4, normal. -Outpatient f/up Hypertension: BP consistently elevated, may be exacerbated by pain -Not on any antihypertensives at home -continue Norvasc and Lisinopril- -Continue to monitor BP and adjust treatment accordingly. -IV Vasotec prn Vitamin D deficiency -Vitamin D level 16.7 -Continue on by mouth repletion -Patient will need to have vitamin D level rechecked in 3 months as outpatient Diarrhea - stop laxatives -will monitor DVT Prophylaxis: Lovenox per ortho. Discharge Planning DC planning in progress. CM following . Difficult DC. Patient is denied by SNF as she doesn't speak Greek. Problem Qualifiers (1) Fracture, intertrochanteric, left femur: Qualified Codes: S72.142A - Displaced intertrochanteric fracture of left femur , initial encounter for closed fracture Madiha Brewer MD Aug 26, 2017 16:00
[2017-08-27] VITALS (7 sets, daily range): BP systolic 121–152; BP diastolic 56–70; PULSE 56–76; RESP 16–18; TEMP 97.1–98.1; O2SAT 97–100
[2017-08-27] MEDS: RESP: ALBUTEROL 2.5 MG/IPRATROPIUM 0.5 MG NEB (SCH) INH ×4 (04:22→21:09)
[2017-08-27] MEDS: AZITHROMYCIN INJ 500 MG in SODIUM CHLOR 0.9% 250 ML INJ 250 ML IV SCH (04:55)
[2017-08-27] MEDS: PIPERACIL-TAZO 4.5 GM PREMIX 100 ML IV SCH ×4 (05:19→23:15)
[2017-08-27] MEDS: CHOLECALCIFEROL (VIT D3) 5000 UNIT CAP PO SCH (08:42)
[2017-08-27] MEDS: PANTOPRAZOLE SOD 40 MG DELAYED RELEASE TAB PO SCH (08:42)
[2017-08-27] MEDS: CALCIUM/VITAMIN D 250 MG/125 U TAB PO SCH ×3 (08:42→18:08)
[2017-08-27] MEDS: LISINOPRIL 10 MG TAB PO SCH (08:42)
[2017-08-27] MEDS: SODIUM CHLORIDE 0.9% FLUSH 10 ML FLUSH IV FLUSH SCH ×2 (08:43→22:30)
[2017-08-27] MEDS: ENOXAPARIN SODIUM 30 MG/0.3 ML SYRINGE SQ SCH (08:43)
--- NOTE | 2017-08-27 11:06 | HHI.PR ---
Subjective Remarks Patient in bed appears in nad. She is not coughing. No events overnight. Objective Vitals Vital Signs Date Time Temp Pulse Resp B/P (MAP) Pulse Ox O2 Delivery O2 Flow Rate FiO2 08/27/17 08:00 98.1 65 18 134/62 (86) 98 08/27/17 04:50 98.0 56 16 128/60 (82) 97 08/27/17 04:25 97 21 08/26/17 23:16 98.4 62 24 120/58 (78) 96 08/26/17 19:09 98.6 65 28 134/62 (86) 97 08/26/17 16:00 98.2 66 16 131/60 (83) 100 08/26/17 15:32 98 21 08/26/17 12:00 98.3 72 16 118/56 (76) 98 I/O 08/26/17 08/26/17 08/26/17 08/27/17 08/27/17 08/27/17 07:00 15:00 23:00 07:00 15:00 23:00 Intake Total 360 ml 240 ml 120 ml Balance 360 ml 240 ml 120 ml Intake Oral 360 ml 240 ml 120 ml # Voids 2 1 1 2 # Bowel Movements 0 0 0 Imaging Last Impressions Chest X-Ray 08/25/17 0000 Signed Impressions: Service Date/Time: Friday, August 25, 2017 22:40 - CONCLUSION: Mild left base infiltrate Morgan Villa MD Hip and Pelvis X-Ray 08/19/17 0000 Signed Impressions: Service Date/Time: Saturday, August 19, 2017 10:06 - CONCLUSION: 1. Nondisplaced fracture of the left inferior pubic ramus. Second fracture not clearly identified. 2. Stable left hip status post ORIF. 3. Decreased bone density otherwise intact pelvis. Eugene Dutta MD Hip X-Ray 08/05/17 0000 Signed Impressions: Service Date/Time: Saturday, August 05, 2017 10:35 - CONCLUSION: 1. Postoperative left proximal femur fixation. Deandre Guidry MD Carotid Artery Ultrasound 08/05/17 0000 Signed Impressions: Service Date/Time: Saturday, August 05, 2017 14:22 - CONCLUSION: 1. Bilateral carotid plaque without significant flow-limiting stenosis. 2. Antegrade vertebral artery flow bilaterally. Christiano Moore MD CT Angiography 08/05/17 0000 Signed Impressions: Service Date/Time: Saturday, August 05, 2017 01:47 - CONCLUSION: 1. No pulmonary emboli. 2. Bibasilar atelectasis. 3. Cardiomegaly. 4. Soft tissue nodule involving within the neck. See the CT of the cervical spine reported separately. 5. Diffuse thickening of adrenal glands bilaterally without a discrete mass. Carlos Klein Jr., MD Head CT 08/04/17 0000 Signed Impressions: Service Date/Time: Friday, August 04, 2017 23:29 - CONCLUSION: No acute disease. Carlos Klein Jr., MD Cervical Spine CT 08/04/17 0000 Signed Impressions: Service Date/Time: Friday, August 04, 2017 23:29 - CONCLUSION: 1. No fracture or dislocation. 2. Degenerative changes. 3. 2.5 x 1.6 and meter soft tissue nodule involving the right neck felt to relate to an exophytic thyroid nodule from the right lobe. Ultrasound could be utilized to further evaluate if needed. Carlos Klein Jr., MD Objective Remarks GENERAL: This is a well-nourished, well-developed patient, in no apparent distress. CARDIOVASCULAR: Regular rate and regular rhythm without murmurs, gallops, or rubs. RESPIRATORY: Clear to auscultation. Breath sounds equal bilaterally. No wheezes , rales, or rhonchi. GASTROINTESTINAL: Abdomen soft, non-tender, nondistended. Normal, active bowel sounds SKIN: Wounds on buttocks MUSCULOSKELETAL: Extremities without clubbing, cyanosis, or edema. NEURO: awake and alert. Procedures 08/05/17 - Left hip reduction and intramedullary nail fixation by Dr. Álvarez A/P Problem List: (1) Fracture, intertrochanteric, left femur ICD Code: S72.142A - Displaced intertrochanteric fracture of left femur, initial encounter for closed fracture (2) Elevated troponin ICD Code: R74.8 - Abnormal levels of other serum enzymes Status: Acute Assessment and Plan Left hip intertrochanteric fracture s/p fall: Hip/pelvis shows intertrochanteric left hip fracture -Consulted orthopedics, s/p left hip reduction and intramedullary nail fixation on 08/05 -WBAT LLE -Lovenox per ortho -PT recommended rehab. -Pain control with bowel regimen -Incentive spirometry PNA CXR reviewed LLL infiltrate. Obtain sputum cx, blood cx. Started IV abx azithromycin, zosyn. Buttocks Stage 3 pressure ulcers in gluteal lift just to the left bedside the coccyx. Wound cx wit pseudomonas, on IV abx monitor cultures - Discussed with Melissa from wound care, appreciate recommendations 1.Please cleanse wound to coccyx with normal saline and pat dry 2. Apply Maxorb II just to wound bed 3. Apply Calazime skin protectant paste to periwound 4. Apply skin prep before applying cover dressing 5. Apply bordered gauze 6. Change dressing every other day or PRN if saturated or dislodged. 7. Turn patient every 2 hours and PRN for comfort and offloading of pressure from rody prominences. Right arm mass likely lipoma versus hematoma. Stable -Will monitor . Chest pain-resolved. Atypical. Troponin repeated negative. Labs reviewed stable. EKG did not show any ST elevation depression or ST wave changes. Normocytic normochromic anemia suspect secondary to recent surgery due to blood loss. -s/p transfusion 2 units PRBC. -No signs of bleeding at this time. We will continue to monitor as needed. Encephalopathy in a patient with dementia -Per daughter patient is at her baseline. She does have dementia. -Caution with any sedating medications Mild elevated troponin: However most likely this is secondary to rhabdo vs CKD. -Troponins elevated but flat at 0.09, 0.08, 0.05 -EKG reviewed, shows sinus tach with no acute ischemic changes -Echo shows moderate to severe tricuspid valve regurgitation Mild Rhabdomyolysis: Elevated CPK at 563 on admission. Suspect secondary to fall. Mild AST elevation likely secondary to rhabdo -Resolved s/p IVF hydration Renal insufficiency: Likely underlying chronic kidney disease however no previous labs to compare. UA clear. Resolved. -IVF hydration provided -Avoid nephrotoxins -Continue to monitor renal indices indicated Unwitnessed fall and elderly: Question whether this could be a syncopal episode ? No clear history provided -Head CT and C-spine CT images reviewed, no acute findings -Carotid U/S with bilateral plaque, no significant stenosis -Echo shows EF 60-65%, moderate to severe tricuspid valve regurgitation -Fall precautions Thyroid Nodule: incidentally found on C-spine CT; shows 2.5 x 1.6cm soft tissue nodule involving right neck, felt to relate to an exophytic thyroid nodule from the right lobe -TSH/T4, normal. -Outpatient f/up Hypertension: BP consistently elevated, may be exacerbated by pain -Not on any antihypertensives at home -continue Norvasc and Lisinopril- -Continue to monitor BP and adjust treatment accordingly. -IV Vasotec prn Vitamin D deficiency -Vitamin D level 16.7 -Continue on by mouth repletion -Patient will need to have vitamin D level rechecked in 3 months as outpatient Diarrhea - stop laxatives -will monitor DVT Prophylaxis: Lovenox per ortho. Discharge Planning DC planning in progress. CM following. Difficult DC. Patient is denied by SNF as she doesn't speak Thai. Problem Qualifiers (1) Fracture, intertrochanteric, left femur: Qualified Codes: S72.142A - Displaced intertrochanteric fracture of left femur , initial encounter for closed fracture Madiha Brewer MD Aug 27, 2017 11:05
[2017-08-27 13:43] LABS: AUTOMATED NEUTROPHIL # 1.9 TH/MM3 (1.8-7.7); BASOPHIL % 0.3 % (0.0-2.0); EOSINOPHIL % 0.7 % (0.0-4.0); HEMATOCRIT 27.8 % (35.0-46.0); HEMOGLOBIN 9.1 GM/DL (11.6-15.3); LYMPH % 22.1 % (9.0-44.0); LYMPHOCYTE # 0.6 TH/MM3 (1.0-4.8); MEAN CELL VOLUME 85.3 FL (80.0-100.0); MEAN CORPUSCULAR HGB CONC 32.8 % (32.0-36.0); MEAN PLATELET VOLUME 8.1 FL (7.0-11.0); MONO % 8.7 % (0.0-8.0); MONOCYTE # 0.2 TH/MM3 (0-0.9); NEUT % 68.2 % (16.0-70.0); PLATELET COUNT 195 TH/MM3 (150-450); RED BLOOD COUNT 3.26 MIL/MM3 (4.00-5.30); RED CELL DISTRIBUTION WIDTH 15.4 % (11.6-17.2); WHITE BLOOD COUNT 2.7 TH/MM3 (4.0-11.0)
[2017-08-27 14:03] LABS: BICARBONATE 25.8 MEQ/L (21.0-32.0); CALCIUM 10.4 MG/DL (8.5-10.1); CREATININE 1.16 MG/DL (0.50-1.00)
[2017-08-28] MEDS: RESP: ALBUTEROL 2.5 MG/IPRATROPIUM 0.5 MG NEB (SCH) INH ×4 (03:18→20:58)
[2017-08-28 03:50] VITALS: BP 176/74; PULSE 63; RESP 18; O2SAT 98
[2017-08-28] MEDS: AZITHROMYCIN INJ 500 MG in SODIUM CHLOR 0.9% 250 ML INJ 250 ML IV SCH (03:56)
[2017-08-28] MEDS: PIPERACIL-TAZO 4.5 GM PREMIX 100 ML IV SCH (06:11)
[2017-08-28 06:15] VITALS: BP 141/63; PULSE 68
[2017-08-28 07:17] LABS: AUTOMATED NEUTROPHIL # 2.4 TH/MM3 (1.8-7.7); BASOPHIL % 1.4 % (0.0-2.0); EOSINOPHIL # 0.1 TH/MM3 (0-0.4); EOSINOPHIL % 1.9 % (0.0-4.0); HEMOGLOBIN 10.5 GM/DL (11.6-15.3); LYMPH % 21.4 % (9.0-44.0); LYMPHOCYTE # 0.7 TH/MM3 (1.0-4.8); MEAN CORPUSCULAR HEMOGLOBIN 27.9 PG (27.0-34.0); MEAN CORPUSCULAR HGB CONC 32.8 % (32.0-36.0); MEAN PLATELET VOLUME 8.1 FL (7.0-11.0); MONO % 7.6 % (0.0-8.0); MONOCYTE # 0.3 TH/MM3 (0-0.9); NEUT % 67.7 % (16.0-70.0); PLATELET COUNT 214 TH/MM3 (150-450); RED BLOOD COUNT 3.77 MIL/MM3 (4.00-5.30); RED CELL DISTRIBUTION WIDTH 15.7 % (11.6-17.2); WHITE BLOOD COUNT 3.5 TH/MM3 (4.0-11.0)
[2017-08-28 07:56] LABS: BICARBONATE 26.2 MEQ/L (21.0-32.0); CALCIUM 10.7 MG/DL (8.5-10.1); CREATININE 1.13 MG/DL (0.50-1.00)
[2017-08-28] MEDS: SODIUM CHLORIDE 0.9% FLUSH 10 ML FLUSH IV FLUSH SCH ×2 (09:00→21:00)
[2017-08-28] MEDS: CALCIUM/VITAMIN D 250 MG/125 U TAB PO SCH ×3 (10:25→18:00)
[2017-08-28] MEDS: ENOXAPARIN SODIUM 30 MG/0.3 ML SYRINGE SQ SCH (10:25)
[2017-08-28] MEDS: CHOLECALCIFEROL (VIT D3) 5000 UNIT CAP PO SCH (10:26)
[2017-08-28] MEDS: LISINOPRIL 10 MG TAB PO SCH (10:26)
[2017-08-28] MEDS: PANTOPRAZOLE SOD 40 MG DELAYED RELEASE TAB PO SCH (10:27)
[2017-08-28] MEDS: ACETAMINOPHEN/HYDROcodone 325 MG/5 MG TAB PO PRN (10:43)
[2017-08-28 12:00] VITALS: BP 141/74; PULSE 70; RESP 18; TEMP 98; O2SAT 96
--- NOTE | 2017-08-28 15:53 | HHI.PR ---
Subjective Remarks The patient is in the bed he does not appear in acute distress at this time. Speaking Norwegian used the translation services. Not much input from the patient as she is with dementia. However the patient is refusing to have a line placed for IV antibiotics. However she will is taking by mouth antibiotics and pills. The patient denies having any shortness of breath she is breathing well and she is saturating well on room air. She is not coughing. No fever or chills. Vital signs are stable. She denies having any pain. Very pleasantly confused. Discussed with the nurse. We will leave the IV out at this time. Will monitor while on p.o. antibiotics changed to Levaquin p.o. DC IV antibiotics. Objective Vitals Vital Signs Date Time Temp Pulse Resp B/P (MAP) Pulse Ox O2 Delivery O2 Flow Rate FiO2 08/28/17 12:00 98.0 70 18 141/74 (96) 96 08/28/17 06:15 68 141/63 (89) 08/28/17 03:50 63 18 176/74 (108) 98 08/27/17 23:25 Room Air 08/27/17 23:10 97.6 72 16 152/67 (95) 97 08/27/17 20:00 97.1 76 16 149/70 (96) 97 08/27/17 16:00 97.5 65 18 121/56 (77) 98 I/O 08/27/17 08/27/17 08/27/17 08/28/17 08/28/17 08/28/17 07:00 15:00 23:00 07:00 15:00 23:00 Intake Total 600 ml Balance 600 ml Intake Oral 600 ml # Voids 5 1 # Bowel Movements 0 Result Diagram: 08/28/17 0652 08/28/17 0652 Imaging Last Impressions Chest X-Ray 08/25/17 0000 Signed Impressions: Service Date/Time: Friday, August 25, 2017 22:40 - CONCLUSION: Mild left base infiltrate Morgan Villa MD Hip and Pelvis X-Ray 08/19/17 0000 Signed Impressions: Service Date/Time: Saturday, August 19, 2017 10:06 - CONCLUSION: 1. Nondisplaced fracture of the left inferior pubic ramus. Second fracture not clearly identified. 2. Stable left hip status post ORIF. 3. Decreased bone density otherwise intact pelvis. Eugene Dutta MD Hip X-Ray 08/05/17 Signed Impressions: Service Date/Time: Saturday, August 05, 2017 10:35 - CONCLUSION: 1. Postoperative left proximal femur fixation. Deandre Guidry MD Carotid Artery Ultrasound 08/05/17 0000 Signed Impressions: Service Date/Time: Saturday, August 05, 2017 14:22 - CONCLUSION: 1. Bilateral carotid plaque without significant flow-limiting stenosis. 2. Antegrade vertebral artery flow bilaterally. Christiano Moore MD CT Angiography 08/05/17 0000 Signed Impressions: Service Date/Time: Saturday, August 05, 2017 01:47 - CONCLUSION: 1. No pulmonary emboli. 2. Bibasilar atelectasis. 3. Cardiomegaly. 4. Soft tissue nodule involving within the neck. See the CT of the cervical spine reported separately. 5. Diffuse thickening of adrenal glands bilaterally without a discrete mass. Carlos Klein Jr., MD Head CT 08/04/17 Signed Impressions: Service Date/Time: Friday, August 04, 2017 23:29 - CONCLUSION: No acute disease. Carlos Klein Jr., MD Cervical Spine CT 08/04/17 0000 Signed Impressions: Service Date/Time: Friday, August 04, 2017 23:29 - CONCLUSION: 1. No fracture or dislocation. 2. Degenerative changes. 3. 2.5 x 1.6 and meter soft tissue nodule involving the right neck felt to relate to an exophytic thyroid nodule from the right lobe. Ultrasound could be utilized to further evaluate if needed. Carlos Klein Jr., MD Objective Remarks GENERAL: This is a very pleasantly confused elderly female Norwegian-speaking only , well-nourished, well-developed patient, in no apparent distress. CARDIOVASCULAR: Regular rate and regular rhythm without murmurs, gallops, or rubs. RESPIRATORY: Clear to auscultation. Breath sounds equal bilaterally. No wheezes , rales, or rhonchi. GASTROINTESTINAL: Abdomen soft, non-tender, nondistended. Normal, active bowel sounds SKIN: Wounds on buttocks MUSCULOSKELETAL: Extremities without clubbing, cyanosis, or edema. NEURO: awake and alert. Procedures 08/05/17 - Left hip reduction and intramedullary nail fixation by Dr. Álvarez A/P Problem List: (1) Fracture, intertrochanteric, left femur ICD Code: S72.142A - Displaced intertrochanteric fracture of left femur, initial encounter for closed fracture (2) Elevated troponin ICD Code: R74.8 - Abnormal levels of other serum enzymes Status: Acute Assessment and Plan Left hip intertrochanteric fracture s/p fall: Hip/pelvis shows intertrochanteric left hip fracture -Consulted orthopedics, s/p left hip reduction and intramedullary nail fixation on 08/05 -WBAT LLE -Lovenox per ortho -PT recommended rehab. -Pain control with bowel regimen -Incentive spirometry PNA CXR reviewed LLL infiltrate. Obtain sputum cx, blood cx. Started IV abx azithromycin, zosyn. Buttocks Stage 3 pressure ulcers in gluteal lift just to the left bedside the coccyx. Wound cx wit pseudomonas, on IV abx monitor cultures - Discussed with Melissa from wound care, appreciate recommendations 1.Please cleanse wound to coccyx with normal saline and pat dry 2. Apply Maxorb II just to wound bed 3. Apply Calazime skin protectant paste to periwound 4. Apply skin prep before applying cover dressing 5. Apply bordered gauze 6. Change dressing every other day or PRN if saturated or dislodged. 7. Turn patient every 2 hours and PRN for comfort and offloading of pressure from rody prominences. Right arm mass likely lipoma versus hematoma. Stable -Will monitor . Chest pain-resolved. Atypical. Troponin repeated negative. Labs reviewed stable. EKG did not show any ST elevation depression or ST wave changes. Normocytic normochromic anemia suspect secondary to recent surgery due to blood loss. -s/p transfusion 2 units PRBC. -No signs of bleeding at this time. We will continue to monitor as needed. Encephalopathy in a patient with dementia -Per daughter patient is at her baseline. She does have dementia. -Caution with any sedating medications Mild elevated troponin: However most likely this is secondary to rhabdo vs CKD. -Troponins elevated but flat at 0.09, 0.08, 0.05 -EKG reviewed, shows sinus tach with no acute ischemic changes -Echo shows moderate to severe tricuspid valve regurgitation Mild Rhabdomyolysis: Elevated CPK at 563 on admission. Suspect secondary to fall. Mild AST elevation likely secondary to rhabdo -Resolved s/p IVF hydration Renal insufficiency: Likely underlying chronic kidney disease however no previous labs to compare. UA clear. Resolved. -IVF hydration provided -Avoid nephrotoxins -Continue to monitor renal indices indicated Unwitnessed fall and elderly: Question whether this could be a syncopal episode ? No clear history provided -Head CT and C-spine CT images reviewed, no acute findings -Carotid U/S with bilateral plaque, no significant stenosis -Echo shows EF 60-65%, moderate to severe tricuspid valve regurgitation -Fall precautions Thyroid Nodule: incidentally found on C-spine CT; shows 2.5 x 1.6cm soft tissue nodule involving right neck, felt to relate to an exophytic thyroid nodule from the right lobe -TSH/T4, normal. -Outpatient f/up Hypertension: BP consistently elevated, may be exacerbated by pain -Not on any antihypertensives at home -continue Norvasc and Lisinopril- -Continue to monitor BP and adjust treatment accordingly. -IV Vasotec prn Vitamin D deficiency -Vitamin D level 16.7 -Continue on by mouth repletion -Patient will need to have vitamin D level rechecked in 3 months as outpatient Diarrhea - stop laxatives -will monitor DVT Prophylaxis: Lovenox per ortho. Discharge Planning DC planning in progress. CM following. Difficult DC. Patient is denied by SNF as she doesn't speak Niuean. Note : The patient is speaking Norwegian only used the translation services. Not much input from the patient as she is with dementia. However the patient is refusing to have a line placed for IV antibiotics. She is taking by mouth antibiotics and pills. The patient denies having any shortness of breath she is breathing well and she is saturating well on room air. She is not coughing. No fever or chills. Vital signs are stable. She denies having any pain. Very pleasantly confused. Discussed with the nurse. We will leave the IV out at this time. Will monitor while on p.o. antibiotics changed to Levaquin p.o. DC IV antibiotics. Problem Qualifiers (1) Fracture, intertrochanteric, left femur: Qualified Codes: S72.142A - Displaced intertrochanteric fracture of left femur , initial encounter for closed fracture Madiha Brewer MD Aug 28, 2017 15:53
[2017-08-28 16:00] VITALS: BP 140/62; PULSE 67; RESP 18; TEMP 97.7; O2SAT 98
[2017-08-28] MEDS: LEVOFLOXACIN 750 MG TAB PO SCH (17:30)
[2017-08-28 19:50] VITALS: BP 149/67; PULSE 73; RESP 16; TEMP 97.3; O2SAT 96
[2017-08-28 23:30] VITALS: BP 167/74; PULSE 68; RESP 16; TEMP 98.1; O2SAT 95
[2017-08-29] VITALS (7 sets, daily range): BP systolic 145–165; BP diastolic 63–90; PULSE 61–68; RESP 15–17; TEMP 97.3–98.4; O2SAT 94–98
[2017-08-29] MEDS: RESP: ALBUTEROL 2.5 MG/IPRATROPIUM 0.5 MG NEB (SCH) INH ×4 (04:00→21:12)
[2017-08-29] MEDS: SODIUM CHLORIDE 0.9% FLUSH 10 ML FLUSH IV FLUSH SCH ×2 (09:00→20:35)
[2017-08-29] MEDS: CHOLECALCIFEROL (VIT D3) 5000 UNIT CAP PO SCH (09:45)
[2017-08-29] MEDS: CALCIUM/VITAMIN D 250 MG/125 U TAB PO SCH ×3 (10:21→17:29)
[2017-08-29] MEDS: PANTOPRAZOLE SOD 40 MG DELAYED RELEASE TAB PO SCH (10:23)
[2017-08-29] MEDS: ENOXAPARIN SODIUM 30 MG/0.3 ML SYRINGE SQ SCH (10:23)
[2017-08-29] MEDS: LISINOPRIL 10 MG TAB PO SCH (10:23)
--- NOTE | 2017-08-29 10:48 | HHI.PR ---
Subjective Remarks In nad. Pleasant. No cough. No fever or chills. Objective Vitals Vital Signs Date Time Temp Pulse Resp B/P (MAP) Pulse Ox O2 Delivery O2 Flow Rate FiO2 08/29/17 08:00 98.4 66 16 145/90 (108) 96 08/29/17 04:00 97.8 68 16 154/71 (98) 98 08/28/17 23:30 98.1 68 16 167/74 (105) 95 08/28/17 22:20 Room Air 08/28/17 19:50 97.3 73 16 149/67 (94) 96 08/28/17 16:00 97.7 67 18 140/62 (88) 98 08/28/17 12:00 98.0 70 18 141/74 (96) 96 I/O 08/28/17 08/28/17 08/28/17 08/29/17 08/29/17 08/29/17 07:00 15:00 23:00 07:00 15:00 23:00 Intake Total 720 ml 120 ml Balance 720 ml 120 ml Intake Oral 720 ml 120 ml # Voids 1 2 1 # Bowel Movements 0 Result Diagram: 08/28/17 0652 08/28/17 0652 Imaging Last Impressions Chest X-Ray 08/25/17 0000 Signed Impressions: Service Date/Time: Friday, August 25, 2017 22:40 - CONCLUSION: Mild left base infiltrate Morgan Villa MD Hip and Pelvis X-Ray 08/19/17 0000 Signed Impressions: Service Date/Time: Saturday, August 19, 2017 10:06 - CONCLUSION: 1. Nondisplaced fracture of the left inferior pubic ramus. Second fracture not clearly identified. 2. Stable left hip status post ORIF. 3. Decreased bone density otherwise intact pelvis. Eugene Dutta MD Hip X-Ray 08/05/17 0000 Signed Impressions: Service Date/Time: Saturday, August 05, 2017 10:35 - CONCLUSION: 1. Postoperative left proximal femur fixation. Deandre Guidry MD Carotid Artery Ultrasound 08/05/17 0000 Signed Impressions: Service Date/Time: Saturday, August 05, 2017 14:22 - CONCLUSION: 1. Bilateral carotid plaque without significant flow-limiting stenosis. 2. Antegrade vertebral artery flow bilaterally. Christiano Moore MD CT Angiography 08/05/17 0000 Signed Impressions: Service Date/Time: Saturday, August 05, 2017 01:47 - CONCLUSION: 1. No pulmonary emboli. 2. Bibasilar atelectasis. 3. Cardiomegaly. 4. Soft tissue nodule involving within the neck. See the CT of the cervical spine reported separately. 5. Diffuse thickening of adrenal glands bilaterally without a discrete mass. Carlos Klein Jr., MD Head CT 08/04/17 Signed Impressions: Service Date/Time: Friday, August 04, 2017 23:29 - CONCLUSION: No acute disease. Carlos Klein Jr., MD Cervical Spine CT 08/04/17 0000 Signed Impressions: Service Date/Time: Friday, August 04, 2017 23:29 - CONCLUSION: 1. No fracture or dislocation. 2. Degenerative changes. 3. 2.5 x 1.6 and meter soft tissue nodule involving the right neck felt to relate to an exophytic thyroid nodule from the right lobe. Ultrasound could be utilized to further evaluate if needed. Carlos Klein Jr., MD Objective Remarks GENERAL: This is a very pleasantly confused elderly female St [place]ian-speaking only , well-nourished, well-developed patient, in no apparent distress. CARDIOVASCULAR: Regular rate and regular rhythm without murmurs, gallops, or rubs. RESPIRATORY: Clear to auscultation. Breath sounds equal bilaterally. No wheezes , rales, or rhonchi. GASTROINTESTINAL: Abdomen soft, non-tender, nondistended. Normal, active bowel sounds SKIN: Wounds on buttocks MUSCULOSKELETAL: Extremities without clubbing, cyanosis, or edema. NEURO: awake and alert. Procedures 08/05/17 - Left hip reduction and intramedullary nail fixation by Dr. Álvarez A/P Problem List: (1) Fracture, intertrochanteric, left femur ICD Code: S72.142A - Displaced intertrochanteric fracture of left femur, initial encounter for closed fracture (2) Elevated troponin ICD Code: R74.8 - Abnormal levels of other serum enzymes Status: Acute Assessment and Plan Left hip intertrochanteric fracture s/p fall: Hip/pelvis shows intertrochanteric left hip fracture -Consulted orthopedics, s/p left hip reduction and intramedullary nail fixation on 08/05 -WBAT LLE -Lovenox per ortho -PT recommended rehab. -Pain control with bowel regimen -Incentive spirometry PNA CXR reviewed LLL infiltrate. Obtain sputum cx, blood cx. Started IV abx azithromycin, zosyn. Buttocks Stage 3 pressure ulcers in gluteal lift just to the left bedside the coccyx. Wound cx wit pseudomonas, on IV abx monitor cultures - Discussed with Melissa from wound care, appreciate recommendations 1.Please cleanse wound to coccyx with normal saline and pat dry 2. Apply Maxorb II just to wound bed 3. Apply Calazime skin protectant paste to periwound 4. Apply skin prep before applying cover dressing 5. Apply bordered gauze 6. Change dressing every other day or PRN if saturated or dislodged. 7. Turn patient every 2 hours and PRN for comfort and offloading of pressure from rody prominences. Right arm mass likely lipoma versus hematoma. Stable -Will monitor . Chest pain-resolved. Atypical. Troponin repeated negative. Labs reviewed stable. EKG did not show any ST elevation depression or ST wave changes. Normocytic normochromic anemia suspect secondary to recent surgery due to blood loss. -s/p transfusion 2 units PRBC. -No signs of bleeding at this time. We will continue to monitor as needed. Encephalopathy in a patient with dementia -Per daughter patient is at her baseline. She does have dementia. -Caution with any sedating medications Mild elevated troponin: However most likely this is secondary to rhabdo vs CKD. -Troponins elevated but flat at 0.09, 0.08, 0.05 -EKG reviewed, shows sinus tach with no acute ischemic changes -Echo shows moderate to severe tricuspid valve regurgitation Mild Rhabdomyolysis: Elevated CPK at 563 on admission. Suspect secondary to fall. Mild AST elevation likely secondary to rhabdo -Resolved s/p IVF hydration Renal insufficiency: Likely underlying chronic kidney disease however no previous labs to compare. UA clear. Resolved. -IVF hydration provided -Avoid nephrotoxins -Continue to monitor renal indices indicated Unwitnessed fall and elderly: Question whether this could be a syncopal episode ? No clear history provided -Head CT and C-spine CT images reviewed, no acute findings -Carotid U/S with bilateral plaque, no significant stenosis -Echo shows EF 60-65%, moderate to severe tricuspid valve regurgitation -Fall precautions Thyroid Nodule: incidentally found on C-spine CT; shows 2.5 x 1.6cm soft tissue nodule involving right neck, felt to relate to an exophytic thyroid nodule from the right lobe -TSH/T4, normal. -Outpatient f/up Hypertension: BP consistently elevated, may be exacerbated by pain -Not on any antihypertensives at home -continue Norvasc and Lisinopril- -Continue to monitor BP and adjust treatment accordingly. -IV Vasotec prn Vitamin D deficiency -Vitamin D level 16.7 -Continue on by mouth repletion -Patient will need to have vitamin D level rechecked in 3 months as outpatient Diarrhea - stop laxatives -will monitor DVT Prophylaxis: Lovenox per ortho. Discharge Planning DC planning in progress. CM following. Difficult DC. Patient is denied by SNF as she doesn't speak Japanese. Note : The patient is speaking [place] only used the translation services. Not much input from the patient as she is with dementia. However the patient is refusing to have a line placed for IV antibiotics. She is taking by mouth antibiotics and pills. The patient denies having any shortness of breath she is breathing well and she is saturating well on room air. She is not coughing. No fever or chills. Vital signs are stable. She denies having any pain. Very pleasantly confused. Discussed with the nurse. We will leave the IV out at this time. Will monitor while on p.o. antibiotics changed to Levaquin p.o. DC IV antibiotics. Doing well on PO levaquin Monitor cultures Problem Qualifiers (1) Fracture, intertrochanteric, left femur: Qualified Codes: S72.142A - Displaced intertrochanteric fracture of left femur , initial encounter for closed fracture Madiha Brewer MD Aug 29, 2017 10:48
[2017-08-29] MEDS ORDERED: BISACODYL 10 MG SUPP RECTAL PRN (11:00)
[2017-08-29] MEDS ORDERED: MAGNESIUM HYDROXIDE SUSP 30 ML CUP PO PRN (11:00)
[2017-08-29] MEDS ORDERED: NALOXONE HCL 0.4 MG/ML AMP IV PUSH PRN (11:00)
[2017-08-29] MEDS ORDERED: SENNOSIDES 8.6 MG TAB PO PRN (11:00)
[2017-08-29] MEDS: LACTOBACILLUS ACIDOPHILUS TAB PO SCH ×2 (12:00→20:32)
[2017-08-29] MEDS: ACETAMINOPHEN/HYDROcodone 325 MG/5 MG TAB PO PRN ×2 (12:10→20:32)
[2017-08-29] MEDS: LACTULOSE SYRUP 20 GM/30 ML CUP PO PRN (12:11)
[2017-08-29] MEDS: LEVOFLOXACIN 750 MG TAB PO SCH (17:29)
[2017-08-29] MEDS: DOCUSATE SODIUM 50 MG/SENNA 8.6 MG TAB PO SCH (20:32)
[2017-08-30] VITALS (7 sets, daily range): BP systolic 139–166; BP diastolic 65–85; PULSE 60–72; RESP 16–20; TEMP 97.2–97.9; O2SAT 94–98
[2017-08-30] MEDS: RESP: ALBUTEROL 2.5 MG/IPRATROPIUM 0.5 MG NEB (SCH) INH ×2 (04:11→08:59)
--- NOTE | 2017-08-30 07:03 | HHI.PR ---
Subjective Remarks Patient seen and examined this morning. Her vitals are stable and she is afebrile. Without complaints or concerns. Denies pain. Objective Vital Signs Date Time Temp Pulse Resp B/P (MAP) Pulse Ox O2 Delivery O2 Flow Rate FiO2 08/30/17 04:11 96 08/30/17 03:30 97.8 69 16 139/65 (89) 98 08/29/17 23:30 97.8 61 15 151/69 (96) 97 08/29/17 20:35 Room Air 08/29/17 20:05 97.7 67 15 165/76 (105) 96 08/29/17 16:00 98.3 66 17 160/71 (100) 94 08/29/17 15:39 96 21 08/29/17 12:00 97.3 61 16 145/63 (90) 97 08/29/17 08:00 98.4 66 16 145/90 (108) 96 I/O 08/29/17 08/29/17 08/29/17 08/30/17 08/30/17 08/30/17 07:00 15:00 23:00 07:00 15:00 23:00 Intake Total 120 ml 480 ml 240 ml Output Total 200 ml Balance 120 ml 280 ml 240 ml Intake Oral 120 ml 480 ml 240 ml Output Urine Total 200 ml # Voids 1 1 # Bowel Movements 0 0 0 Result Diagram: 08/28/17 0652 08/28/17 0652 Imaging Last Impressions Chest X-Ray 08/25/17 0000 Signed Impressions: Service Date/Time: Friday, August 25, 2017 22:40 - CONCLUSION: Mild left base infiltrate Morgan Villa MD Hip and Pelvis X-Ray 08/19/17 0000 Signed Impressions: Service Date/Time: Saturday, August 19, 2017 10:06 - CONCLUSION: 1. Nondisplaced fracture of the left inferior pubic ramus. Second fracture not clearly identified. 2. Stable left hip status post ORIF. 3. Decreased bone density otherwise intact pelvis. Eugene Dutta MD Hip X-Ray 08/05/17 0000 Signed Impressions: Service Date/Time: Saturday, August 05, 2017 10:35 - CONCLUSION: 1. Postoperative left proximal femur fixation. Deandre Guidry MD Carotid Artery Ultrasound 08/05/17 0000 Signed Impressions: Service Date/Time: Saturday, August 05, 2017 14:22 - CONCLUSION: 1. Bilateral carotid plaque without significant flow-limiting stenosis. 2. Antegrade vertebral artery flow bilaterally. Christiano Moore MD CT Angiography 08/05/17 0000 Signed Impressions: Service Date/Time: Saturday, August 05, 2017 01:47 - CONCLUSION: 1. No pulmonary emboli. 2. Bibasilar atelectasis. 3. Cardiomegaly. 4. Soft tissue nodule involving within the neck. See the CT of the cervical spine reported separately. 5. Diffuse thickening of adrenal glands bilaterally without a discrete mass. Carlos Klein Jr., MD Head CT 08/04/17 0000 Signed Impressions: Service Date/Time: Friday, August 04, 2017 23:29 - CONCLUSION: No acute disease. Carlos Klein Jr., MD Cervical Spine CT 08/04/17 0000 Signed Impressions: Service Date/Time: Friday, August 04, 2017 23:29 - CONCLUSION: 1. No fracture or dislocation. 2. Degenerative changes. 3. 2.5 x 1.6 and meter soft tissue nodule involving the right neck felt to relate to an exophytic thyroid nodule from the right lobe. Ultrasound could be utilized to further evaluate if needed. Carlos Klein Jr., MD Procedures 08/05/17 - Left hip reduction and intramedullary nail fixation by Dr. Pandya Objective Remarks GENERAL: WN, WD elderly female laying comfortably in bed in NAD. SKIN: Warm and dry. Wound on buttocks reported. HEENT: Pupils equal and round. MMM. NECK: Supple no tender LAD or JVD. HEART: RRR no m/r/g. LUNGS: CTAB without wheezes or crackles. ABDOMEN: Soft, NT, ND. EXTREMITIES: No LE edema or calf tenderness. NEURO: Awake and alert. PSYCH: Appropriate mood and affect. A/P Problem List: (1) Trochanteric fracture of left femur ICD Code: S72.102A - Unspecified trochanteric fracture of left femur, initial encounter for closed fracture Status: Acute (2) Elevated troponin ICD Code: R74.8 - Abnormal levels of other serum enzymes Status: Acute (3) Pneumonia ICD Code: J18.9 - Pneumonia, unspecified organism (4) Decubitus ulcers ICD Code: L89.90 - Pressure ulcer of unspecified site, unspecified stage Assessment and Plan 1. Fracture left femur - Status post left hip reduction and intramedullary nail fixation by Dr. Pandya on 08/05/17 2. Elevated troponin - Repeat negative, EKG no ST or T-wave changes. Patient without any signs of chest pain 3. Pneumonia - X-ray on 08/25 shows mildl left base infiltrate - Levaquin 750 mg by mouth 08/28-09/07 -Sputum cultures ordered 4. Buttocks Stage 3 pressure ulcers - Wound cultures positive for Pseudomonas - Wound care - Wound cultures sensitive to Levaquin Encephalopathy - Patient currently at her baseline. She does have dementia. Does not speak [place]an Rhabdomyolysis on admission - Resolved Renal insufficiency - Renally dose all meds - AVoid nephrotoxic agents Thyroid nodule - to Be followed up as an outpatient Discharge Planning Per case management on August 27: [facility] is willing to take the patient and work on a contract with the hospital once Jung machuca returns from time off. Patient will not be discharged to sometime next week. Problem Qualifiers (1) Trochanteric fracture of left femur: Qualified Codes: S72.102A - Unspecified trochanteric fracture of left femur, initial encounter for closed fracture (2) Decubitus ulcers: Luh Noble MD Aug 30, 2017 07:03
[2017-08-30] MEDS: DOCUSATE SODIUM 50 MG/SENNA 8.6 MG TAB PO SCH ×2 (10:22→21:00)
[2017-08-30] MEDS: CALCIUM/VITAMIN D 250 MG/125 U TAB PO SCH ×3 (10:22→16:46)
[2017-08-30] MEDS: CHOLECALCIFEROL (VIT D3) 5000 UNIT CAP PO SCH (10:22)
[2017-08-30] MEDS: ENOXAPARIN SODIUM 30 MG/0.3 ML SYRINGE SQ SCH (10:22)
[2017-08-30] MEDS: LACTOBACILLUS ACIDOPHILUS TAB PO SCH ×2 (10:22→20:20)
[2017-08-30] MEDS: LISINOPRIL 10 MG TAB PO SCH (10:22)
[2017-08-30] MEDS: PANTOPRAZOLE SOD 40 MG DELAYED RELEASE TAB PO SCH (10:22)
[2017-08-30] MEDS: SODIUM CHLORIDE 0.9% FLUSH 10 ML FLUSH IV FLUSH SCH ×2 (10:23→21:00)
[2017-08-30] MEDS: ACETAMINOPHEN/HYDROcodone 325 MG/5 MG TAB PO PRN ×2 (14:09→20:21)
[2017-08-30] MEDS ORDERED: POTASSIUM CHLORIDE 10 MEQ CONTROLLED RELEASE TAB PO ONE (16:00)
[2017-08-30] MEDS: LEVOFLOXACIN 750 MG TAB PO SCH (16:47)
[2017-08-31] VITALS: BP 136/72; PULSE 72; RESP 18; TEMP 97.1; O2SAT 96
--- NOTE | 2017-08-31 06:46 | HHI.PR ---
Subjective Remarks Patient seen and examined this morning. Her vitals are stable and she is afebrile. Without complaints or concerns. Denies pain. Resting comfortably. Objective Vital Signs Date Time Temp Pulse Resp B/P (MAP) Pulse Ox O2 Delivery O2 Flow Rate FiO2 08/31/17 00:00 97.1 72 18 136/72 (93) 96 08/30/17 20:00 97.9 68 20 152/85 (107) 97 08/30/17 16:26 97.6 72 18 162/71 (101) 98 08/30/17 12:25 97.2 60 18 151/67 (95) 98 08/30/17 09:00 94 08/30/17 08:00 97.4 63 17 166/75 (105) 97 I/O 08/30/17 08/30/17 08/30/17 08/31/17 08/31/17 08/31/17 07:00 15:00 23:00 07:00 15:00 23:00 Intake Total 240 ml 500 ml 240 ml Balance 240 ml 500 ml 240 ml Intake Oral 240 ml 500 ml 240 ml # Voids 1 1 2 # Bowel Movements 0 3 1 Result Diagram: 08/28/17 0652 08/30/17 1616 Procedures 08/05/17 - Left hip reduction and intramedullary nail fixation by Dr. Álvarez Objective Remarks GENERAL: WN, WD elderly female laying comfortably in bed in NAD. SKIN: Warm and dry. Wound on buttocks reported. HEENT: Pupils equal and round. MMM. NECK: Supple no tender LAD or JVD. HEART: RRR no m/r/g. LUNGS: CTAB without wheezes or crackles. ABDOMEN: Soft, NT, ND. EXTREMITIES: No LE edema or calf tenderness. NEURO: Awake and alert. PSYCH: Appropriate mood and affect. A/P Problem List: (1) Trochanteric fracture of left femur ICD Code: S72.102A - Unspecified trochanteric fracture of left femur, initial encounter for closed fracture Status: Acute (2) Elevated troponin ICD Code: R74.8 - Abnormal levels of other serum enzymes Status: Acute (3) Pneumonia ICD Code: J18.9 - Pneumonia, unspecified organism (4) Decubitus ulcers ICD Code: L89.90 - Pressure ulcer of unspecified site, unspecified stage Assessment and Plan Hospitalist consulted for medical management: 1. Fracture left femur - Status post left hip reduction and intramedullary nail fixation by Dr. Álvarez on 08/05/17 2. Elevated troponin - Repeat negative, EKG no ST or T-wave changes. Patient without any signs of chest pain 3. Pneumonia - X-ray on 08/25 shows mildl left base infiltrate - Levaquin 750 mg by mouth 08/28-09/07 -Sputum cultures ordered 4. Buttocks Stage 3 pressure ulcers - Wound cultures positive for Pseudomonas - Wound care - Wound cultures sensitive to Levaquin Encephalopathy - Patient currently at her baseline. She does have dementia. Does not speak [place]ian Rhabdomyolysis on admission - Resolved Renal insufficiency - Renally dose all meds - AVoid nephrotoxic agents Thyroid nodule - to Be followed up as an outpatient Discharge Planning Per case management on August 27: [facility] is willing to take the patient and work on a contract with the hospital once Jung machuca returns from time off. Patient will not be discharged until sometime next week. Problem Qualifiers (1) Trochanteric fracture of left femur: Qualified Codes: S72.102A - Unspecified trochanteric fracture of left femur, initial encounter for closed fracture (2) Decubitus ulcers: Luh Noble MD Aug 31, 2017 06:46
[2017-08-31 07:39] LABS: AUTOMATED NEUTROPHIL # 2.1 TH/MM3 (1.8-7.7); BASOPHIL % 0.2 % (0.0-2.0); EOSINOPHIL # 0.1 TH/MM3 (0-0.4); EOSINOPHIL % 2.8 % (0.0-4.0); HEMATOCRIT 31.6 % (35.0-46.0); HEMOGLOBIN 10.3 GM/DL (11.6-15.3); LYMPH % 26.1 % (9.0-44.0); LYMPHOCYTE # 0.9 TH/MM3 (1.0-4.8); MEAN CELL VOLUME 85.3 FL (80.0-100.0); MEAN CORPUSCULAR HEMOGLOBIN 27.9 PG (27.0-34.0); MEAN CORPUSCULAR HGB CONC 32.7 % (32.0-36.0); MEAN PLATELET VOLUME 8.2 FL (7.0-11.0); MONO % 9.5 % (0.0-8.0); MONOCYTE # 0.3 TH/MM3 (0-0.9); NEUT % 61.4 % (16.0-70.0); PLATELET COUNT 188 TH/MM3 (150-450); RED CELL DISTRIBUTION WIDTH 15.7 % (11.6-17.2); WHITE BLOOD COUNT 3.3 TH/MM3 (4.0-11.0)
[2017-08-31 08:04] VITALS: BP 149/67; PULSE 63; RESP 17; TEMP 97.6; O2SAT 98
[2017-08-31 08:27] LABS: BICARBONATE 27.4 MEQ/L (21.0-32.0); CALCIUM 11.1 MG/DL (8.5-10.1)
[2017-08-31] MEDS: LACTOBACILLUS ACIDOPHILUS TAB PO SCH ×2 (09:13→19:18)
[2017-08-31] MEDS: PANTOPRAZOLE SOD 40 MG DELAYED RELEASE TAB PO SCH (09:13)
[2017-08-31] MEDS: SODIUM CHLORIDE 0.9% FLUSH 10 ML FLUSH IV FLUSH SCH ×2 (09:13→19:18)
[2017-08-31] MEDS: DOCUSATE SODIUM 50 MG/SENNA 8.6 MG TAB PO SCH ×2 (09:13→19:18)
[2017-08-31] MEDS: CALCIUM/VITAMIN D 250 MG/125 U TAB PO SCH ×3 (09:13→16:16)
[2017-08-31] MEDS: LISINOPRIL 10 MG TAB PO SCH (09:13)
[2017-08-31] MEDS: CHOLECALCIFEROL (VIT D3) 5000 UNIT CAP PO SCH (09:13)
[2017-08-31] MEDS: ENOXAPARIN SODIUM 30 MG/0.3 ML SYRINGE SQ SCH (09:16)
[2017-08-31 12:26] VITALS: BP 152/70; PULSE 64; RESP 18; TEMP 97.1; O2SAT 97
[2017-08-31 15:57] VITALS: BP 131/64; PULSE 82; RESP 17; TEMP 97.2; O2SAT 98
[2017-08-31] MEDS: LEVOFLOXACIN 750 MG TAB PO SCH (16:16)
[2017-08-31] MEDS: ACETAMINOPHEN/HYDROcodone 325 MG/5 MG TAB PO PRN (16:16)
[2017-08-31 19:00] VITALS: BP 124/58; PULSE 88; RESP 19; TEMP 98.4; O2SAT 97
[2017-08-31 23:07] VITALS: BP 131/59; PULSE 71; RESP 18; TEMP 98.1; O2SAT 96
[2017-09-01] MEDS: CALCIUM/VITAMIN D 250 MG/125 U TAB PO SCH ×3 (07:51→17:51)
[2017-09-01] MEDS: CHOLECALCIFEROL (VIT D3) 5000 UNIT CAP PO SCH (07:51)
[2017-09-01] MEDS: PANTOPRAZOLE SOD 40 MG DELAYED RELEASE TAB PO SCH (07:51)
[2017-09-01] MEDS: LACTOBACILLUS ACIDOPHILUS TAB PO SCH ×2 (07:51→23:18)
[2017-09-01] MEDS: DOCUSATE SODIUM 50 MG/SENNA 8.6 MG TAB PO SCH ×2 (07:51→21:00)
[2017-09-01] MEDS: ACETAMINOPHEN/HYDROcodone 325 MG/5 MG TAB PO PRN (07:52)
[2017-09-01] MEDS: LISINOPRIL 10 MG TAB PO SCH (07:52)
[2017-09-01 07:57] VITALS: BP 139/63; PULSE 65; RESP 19; TEMP 97.3; O2SAT 99
[2017-09-01] MEDS: SODIUM CHLORIDE 0.9% FLUSH 10 ML FLUSH IV FLUSH SCH ×2 (09:00→21:00)
[2017-09-01] MEDS: ENOXAPARIN SODIUM 30 MG/0.3 ML SYRINGE SQ SCH (10:15)
--- NOTE | 2017-09-01 10:34 | HHI.PR ---
Subjective Remarks resting comfortably. in no distress. d/w the RN and no acute issues over night. Objective Vitals Vital Signs Date Time Temp Pulse Resp B/P (MAP) Pulse Ox O2 Delivery O2 Flow Rate FiO2 09/01/17 07:57 97.3 65 19 139/63 (88) 99 08/31/17 23:07 98.1 71 18 131/59 (83) 96 08/31/17 19:00 98.4 88 19 124/58 (80) 97 08/31/17 15:57 97.2 82 17 131/64 (86) 98 08/31/17 12:26 97.1 64 18 152/70 (97) 97 I/O 08/31/17 08/31/17 08/31/17 09/01/17 09/01/17 09/01/17 07:00 15:00 23:00 07:00 15:00 23:00 Intake Total 240 ml 600 ml 360 ml Balance 240 ml 600 ml 360 ml Intake Oral 240 ml 600 ml 360 ml # Voids 2 1 2 # Bowel Movements 1 2 1 Result Diagram: 08/31/17 0629 08/31/17 0629 Imaging Last Impressions Chest X-Ray 08/25/17 0000 Signed Impressions: Service Date/Time: Friday, August 25, 2017 22:40 - CONCLUSION: Mild left base infiltrate Morgan Villa MD Hip and Pelvis X-Ray 08/19/17 0000 Signed Impressions: Service Date/Time: Saturday, August 19, 2017 10:06 - CONCLUSION: 1. Nondisplaced fracture of the left inferior pubic ramus. Second fracture not clearly identified. 2. Stable left hip status post ORIF. 3. Decreased bone density otherwise intact pelvis. Eugene Dutta MD Hip X-Ray 08/05/17 0000 Signed Impressions: Service Date/Time: Saturday, August 05, 2017 10:35 - CONCLUSION: 1. Postoperative left proximal femur fixation. Deandre Guidry MD Carotid Artery Ultrasound 08/05/17 0000 Signed Impressions: Service Date/Time: Saturday, August 05, 2017 14:22 - CONCLUSION: 1. Bilateral carotid plaque without significant flow-limiting stenosis. 2. Antegrade vertebral artery flow bilaterally. Christiano Moore MD CT Angiography 08/05/17 0000 Signed Impressions: Service Date/Time: Saturday, August 05, 2017 01:47 - CONCLUSION: 1. No pulmonary emboli. 2. Bibasilar atelectasis. 3. Cardiomegaly. 4. Soft tissue nodule involving within the neck. See the CT of the cervical spine reported separately. 5. Diffuse thickening of adrenal glands bilaterally without a discrete mass. Carlos Klein Jr., MD Head CT 08/04/17 0000 Signed Impressions: Service Date/Time: Friday, August 04, 2017 23:29 - CONCLUSION: No acute disease. Carlos Klein Jr., MD Cervical Spine CT 08/04/17 0000 Signed Impressions: Service Date/Time: Friday, August 04, 2017 23:29 - CONCLUSION: 1. No fracture or dislocation. 2. Degenerative changes. 3. 2.5 x 1.6 and meter soft tissue nodule involving the right neck felt to relate to an exophytic thyroid nodule from the right lobe. Ultrasound could be utilized to further evaluate if needed. Carlos Klein Jr., MD Objective Remarks GENERAL: This is a well-nourished, well-developed patient, in no apparent distress. CARDIOVASCULAR: Regular rate and regular rhythm without murmurs, gallops, or rubs. RESPIRATORY: Clear to auscultation. Breath sounds equal bilaterally. No wheezes , rales, or rhonchi. GASTROINTESTINAL: Abdomen soft, non-tender, nondistended. Normal, active bowel sounds MUSCULOSKELETAL: Extremities without clubbing, cyanosis, or edema. NEURO: awake and alert. Procedures 08/05/17 - Left hip reduction and intramedullary nail fixation by Dr. Pandya Medications and IVs Inpatient Medications Acetaminophen (Tylenol) 650 mg Q4H PRN PO headache/fever/pain1-3 Last administered on 08/20/17 09:15; Start 08/05/17 at 08:30 Acetaminophen/ Hydrocodone Bitart ([place] 5-325 Mg) 1 tab Q3H PRN PO pain 3<10 Last administered on 09/01/17at 07:52; Start 08/05/17 at 13:00 Albuterol/ Ipratropium (Duoneb Neb) 1 ampule Q4HR NEB PRN INH SHORTNESS OF BREATH Last administered on 08/31/17 13:19; Start 08/26/17 at 04:15 Amlodipine Besylate (Norvasc) 10 mg DAILY PO Last administered on 09/01/17at 07: 53; Start 08/08/17 at 09:00 Azithromycin 500 mg/Sodium Chloride 250 ml @ 250 mls/hr Q24H IV Last administered on 08/28/17at 03:56; Start 08/26/17 at 04:15; Stop 08/28/17 at 15:55; Status DC Bisacodyl (Dulcolax Supp) 10 mg DAILY PRN RECTAL SEVERE CONSITIPATION; Start at 11:00 Calcium/Vitamin D (Oscal-D 250-125) 250 mg TID PO Last administered on at 07:51; Start 08/05/17 at 13:00 Cefazolin Sodium 1000 mg/Sodium Chloride 100 ml @ 200 mls/hr Q8H IV Last administered on 08/06/17at 08:35; Start 08/05/17 at 18:00; Stop 08/06/17 at 10:29 ; Status DC Cholecalciferol (Vitamin D3) 5,000 units DAILY PO Last administered on at 07:51; Start 08/06/17 at 09:00 Diphenhydramine HCl (Benadryl) 25 mg Q6H PRN PO ITCHING; Start 08/05/17 at 13: 00 Enalaprilat (Vasotec Inj) 1.25 mg Q6H PRN IV PUSH SBP> OR = 180, DBP> OR = 100 Last administered on 08/09/17at 00:15; Start 08/06/17 at 14:15 Enoxaparin Sodium (Lovenox Inj) 30 mg Q24H SQ Last administered on 09/01/17at 10: 15; Start 08/06/17 at 10:00 Ergocalciferol (Drisdol) 50,000 units ONCE ONCE PO Last administered on at 18:02; Start 08/05/17 at 14:00; Stop 08/05/17 at 14:01; Status DC Furosemide (Lasix Inj) 20 mg ONCE ONCE IV PUSH Last administered on 08/08/17at 01:52; Start 08/07/17 at 16:00; Stop 08/07/17 at 16:01; Status DC Hydralazine HCl (Apresoline Inj) 10 mg ONCE ONCE IV PUSH Last administered on 08/05/17at 00:16; Start 08/05/17 at 00:00; Stop 08/05/17 at 00:01; Status DC Ketorolac Tromethamine (Toradol Inj) 15 mg TID IV PUSH Last administered on at 08:37; Start 08/17/17 at 18:00; Stop 08/18/17 at 11:36; Status DC Lactobacillus Acidophilus (Lactinex) 1 tab Q12HR PO Last administered on at 07:51; Start 08/29/17 at 12:00 Lactulose (Lactulose Liq) 30 ml DAILY PRN PO SEVERE CONSITIPATION Last administered on 08/29/17at 12:11; Start 08/29/17 at 11:00 Levofloxacin (Levaquin) 750 mg DAILY@1700 PO Last administered on 08/31/17at 16: 16; Start 08/28/17 at 17:00; Stop 09/07/17 at 16:59 Lisinopril (Prinivil) 10 mg DAILY PO Last administered on 09/01/17at 07:52; Start 08/13/17 at 09:00 Loperamide HCl (Imodium) 2 mg UNSCH PRN PO DIARRHEA Last administered on at 13:17; Start 08/24/17 at 11:45 Magnesium Hydroxide (Milk Of Magnesia Liq) 30 ml Q12H PRN PO Mild constipation Last administered on 08/29/17at 12:11; Start 08/29/17 at 11:00 Miscellaneous Information ALL NURSING DEPARTME... UNSCH PRN .XX SEE LABEL COMMENTS; Start 08/05/17 at 11:00; Stop 08/06/17 at 10:59; Status DC Morphine Sulfate (Morphine Inj) 2 mg Q3HR PRN IV PUSH SEE LABEL COMMENTS; Start 08/05/17 at 08:30 Naloxone HCl (Narcan Inj) 0.4 mg UNSCH PRN IV PUSH SEE LABEL COMMENTS; Start at 01:15 Ondansetron HCl (Zofran Inj) 4 mg Q4H PRN IVP NAUSEA OR VOMITING; Start at 13:00; Stop 08/26/17 at 04:12; Status DC Pantoprazole Sodium (Protonix Inj) 40 mg ONCE ONCE IV PUSH Last administered on 08/05/17at 06:30; Start 08/05/17 at 06:30; Stop 08/05/17 at 06:31; Status DC Pantoprazole Sodium (Protonix) 40 mg DAILY PO Last administered on 09/01/17at 07: 51; Start 08/06/17 at 09:00 Piperacillin Sod/ Tazobactam Sod 100 ml @ 200 mls/hr Q6H IV Last administered on 08/28/17at 06:11; Start 08/26/17 at 05:00; Stop 08/28/17 at 15:55; Status DC Potassium Phosphate 15 mmol/ Sodium Chloride 255 ml @ 63.75 mls/ hr ONCE ONCE IV Last administered on 08/11/17at 17:32; Start 08/11/17 at 16:00; Stop at 19:59; Status DC Potassium Chloride (KCl) 30 meq ONCE ONCE PO Last administered on 08/30/17at 16: 45; Start 08/30/17 at 16:00; Stop 08/30/17 at 16:01; Status DC Prochlorperazine Edisylate (Compazine Inj) 5 mg Q4H PRN IV PUSH nausea/vomiting ; Start 08/26/17 at 04:15 Senna/Docusate Sodium ([place]-Colace) 1 tab BID PO Last administered on 09/01/17at 07:51; Start 08/29/17 at 21:00 Sennosides (Senokot) 17.2 mg Q12H PRN PO Moderate constipation; Start 08/29/17 at 11:00 Sodium Chloride 250 ml @ 15 mls/hr ONCE ONCE IV ; Start 08/07/17 at 16:00; Stop 08/08/17 at 08:39; Status DC Sodium Chloride (NS Flush) 2 ml BID IV FLUSH Last administered on 08/31/17at 09: 13; Start 08/05/17 at 09:00 A/P Problem List: (1) Fracture, intertrochanteric, left femur ICD Code: S72.142A - Displaced intertrochanteric fracture of left femur, initial encounter for closed fracture (2) Elevated troponin ICD Code: R74.8 - Abnormal levels of other serum enzymes Status: Acute Assessment and Plan 1. Fracture left femur - Status post left hip reduction and intramedullary nail fixation by Dr. Pandya on 08/05/17 2. Elevated troponin - Repeat negative, EKG no ST or T-wave changes. Patient without any signs of chest pain 3. Pneumonia - X-ray on 08/25 shows mildl left base infiltrate - Levaquin 750 mg by mouth 08/28-09/07 -Sputum cultures ordered 4. Buttocks Stage 3 pressure ulcers - Wound cultures positive for Pseudomonas - Wound care - Wound cultures sensitive to Levaquin Encephalopathy - Patient currently at her baseline. She does have dementia. Does not speak Maltese Rhabdomyolysis on admission - Resolved Renal insufficiency - Renally dose all meds - AVoid nephrotoxic agents Thyroid nodule - to Be followed up as an outpatient Discharge Planning dc planning in progress;[facility] willing to take the pt and will work out a contract with the hospital. Problem Qualifiers (1) Fracture, intertrochanteric, left femur: Qualified Codes: S72.142A - Displaced intertrochanteric fracture of left femur , initial encounter for closed fracture Crystal Ballard MD Sep 01, 2017 10:34
[2017-09-01 12:00] VITALS: BP 135/69; PULSE 67; RESP 18; TEMP 97.3; O2SAT 98
[2017-09-01 16:00] VITALS: BP 136/65; PULSE 65; RESP 18; TEMP 97.6; O2SAT 98
[2017-09-01] MEDS: LEVOFLOXACIN 750 MG TAB PO SCH (17:51)
[2017-09-01 20:00] VITALS: BP 131/64; PULSE 63; RESP 17; TEMP 99.2; O2SAT 96
[2017-09-02] VITALS: BP 131/62; PULSE 72; RESP 18; TEMP 98.3; O2SAT 97
[2017-09-02 04:00] VITALS: BP 127/58; PULSE 63; RESP 18; TEMP 98.3; O2SAT 96
[2017-09-02 06:25] LABS: BICARBONATE 25.7 MEQ/L (21.0-32.0); CALCIUM 10.5 MG/DL (8.5-10.1); CREATININE 1.09 MG/DL (0.50-1.00)
[2017-09-02 08:00] VITALS: BP 151/73; PULSE 65; RESP 18; TEMP 98.4; O2SAT 96
[2017-09-02] MEDS: SODIUM CHLORIDE 0.9% FLUSH 10 ML FLUSH IV FLUSH SCH (09:00)
[2017-09-02] MEDS: LISINOPRIL 10 MG TAB PO SCH (09:26)
[2017-09-02] MEDS: DOCUSATE SODIUM 50 MG/SENNA 8.6 MG TAB PO SCH (09:26)
[2017-09-02] MEDS: PANTOPRAZOLE SOD 40 MG DELAYED RELEASE TAB PO SCH (09:26)
[2017-09-02] MEDS: LACTOBACILLUS ACIDOPHILUS TAB PO SCH (09:26)
[2017-09-02] MEDS: CHOLECALCIFEROL (VIT D3) 5000 UNIT CAP PO SCH (09:26)
[2017-09-02] MEDS: ENOXAPARIN SODIUM 30 MG/0.3 ML SYRINGE SQ SCH (09:27)
[2017-09-02] MEDS: CALCIUM/VITAMIN D 250 MG/125 U TAB PO SCH ×3 (09:27→16:50)
[2017-09-02] MEDS: LACTULOSE SYRUP 20 GM/30 ML CUP PO PRN (09:27)
[2017-09-02 12:00] VITALS: BP 131/90; PULSE 62; RESP 18; TEMP 97.1; O2SAT 98
[2017-09-02] MEDS: ACETAMINOPHEN/HYDROcodone 325 MG/5 MG TAB PO PRN (14:04)
[2017-09-02] MEDS ORDERED: LEVA750T9 PO (15:18)
--- NOTE | 2017-09-02 15:21 | HHI.DS ---
Discharge Summary Admission Date Aug 05, 2017 at 01:32 Discharge Date: Sep 02, 2017 Admitting Diagnosis Left trochanteric fracture, elevated troponin (1) Fracture, intertrochanteric, left femur ICD Code: S72.142A - Displaced intertrochanteric fracture of left femur, initial encounter for closed fracture (2) Elevated troponin ICD Code: R74.8 - Abnormal levels of other serum enzymes Status: Acute Procedures 08/05/17 - Left hip reduction and intramedullary nail fixation by Dr. Pandya Brief History - From Admission History from ER physician communication, interview of medical records. Patient is [place]-speaking. Even when I had a nurse at the bedside who speaks fluent [place], patient is not answering any questions at all. She would not even answer her name when asking [place]. The patient's family was not present at the time of my exam. I have left a voice mail message for patient's son to get further history from him. Per ER communication, patient's family was present at the bedside when the ER physician evaluated her. The of patient's son found the patient on the floor next to the bed 5 PM yesterday. They brought her back to her bed. They were not sure how long patient has been on the floor although they do not think that it was that long. Patient at baseline also has confusion as per the son. Per ER notes, patient's mental status is at her baseline confusion after the fall. They noticed though that patient was not getting up to walk today and had pain on her left hip which was why they brought her to hospital. Patient was agitated on the ambulance and was given 2 mg Versed by [facility]. Apparently, patient was talking and following commands prior to Versed. Per ER physician, patient was also given 10 mg morphine total IV prior to her evaluation. At the time of my exam, patient is saturating 98% on room air. She would easily awakens to verbal stimuli. However she would not speak back. She would just stare. CBC/BMP: 08/31/17 0629 09/02/17 0544 Significant Findings Laboratory Tests Test 08/30/17 16:16 08/31/17 06:29 09/02/17 05:44 White Blood Count 3.3 TH/MM3 (4.0-11.0) Red Blood Count 3.70 MIL/MM3 (4.00-5.30) Hemoglobin 10.3 GM/DL (11.6-15.3) Hematocrit 31.6 % (35.0-46.0) Monocytes (%) (Auto) 9.5 % (0.0-8.0) Lymphocytes # (Auto) 0.9 TH/MM3 (1.0-4.8) Blood Urea Nitrogen 22 MG/DL (7-18) 30 MG/DL (7-18) Calcium Level 11.1 MG/DL (8.5-10.1) 10.5 MG/DL (8.5-10.1) Chloride Level 112 MEQ/L (98-107) 111 MEQ/L (98-107) Estimat Glomerular Filtration Rate 52 ML/MIN (>89) 47 ML/MIN (>89) Creatinine 1.09 MG/DL (0.50-1.00) Imaging Last Impressions Chest X-Ray 08/25/17 0000 Signed Impressions: Service Date/Time: Friday, August 25, 2017 22:40 - CONCLUSION: Mild left base infiltrate Morgan Villa MD Hip and Pelvis X-Ray 08/19/17 0000 Signed Impressions: Service Date/Time: Saturday, August 19, 2017 10:06 - CONCLUSION: 1. Nondisplaced fracture of the left inferior pubic ramus. Second fracture not clearly identified. 2. Stable left hip status post ORIF. 3. Decreased bone density otherwise intact pelvis. Eugene Dutta MD Hip X-Ray 08/05/17 0000 Signed Impressions: Service Date/Time: Saturday, August 05, 2017 10:35 - CONCLUSION: 1. Postoperative left proximal femur fixation. Deandre Guidry MD Carotid Artery Ultrasound 08/05/17 0000 Signed Impressions: Service Date/Time: Saturday, August 05, 2017 14:22 - CONCLUSION: 1. Bilateral carotid plaque without significant flow-limiting stenosis. 2. Antegrade vertebral artery flow bilaterally. Christiano Moore MD CT Angiography 08/05/17 0000 Signed Impressions: Service Date/Time: Saturday, August 05, 2017 01:47 - CONCLUSION: 1. No pulmonary emboli. 2. Bibasilar atelectasis. 3. Cardiomegaly. 4. Soft tissue nodule involving within the neck. See the CT of the cervical spine reported separately. 5. Diffuse thickening of adrenal glands bilaterally without a discrete mass. Carlos Klein Jr., MD Head CT 08/04/17 Signed Impressions: Service Date/Time: Friday, August 04, 2017 23:29 - CONCLUSION: No acute disease. Carlos Klein Jr., MD Cervical Spine CT 08/04/17 Signed Impressions: Service Date/Time: Friday, August 04, 2017 23:29 - CONCLUSION: 1. No fracture or dislocation. 2. Degenerative changes. 3. 2.5 x 1.6 and meter soft tissue nodule involving the right neck felt to relate to an exophytic thyroid nodule from the right lobe. Ultrasound could be utilized to further evaluate if needed. Carlos Klein Jr., MD PE at Discharge GENERAL: This is a very pleasantly confused elderly female [place]-speaking only , well-nourished, well-developed patient, in no apparent distress. CARDIOVASCULAR: Regular rate and regular rhythm without murmurs, gallops, or rubs. RESPIRATORY: Clear to auscultation. Breath sounds equal bilaterally. No wheezes , rales, or rhonchi. GASTROINTESTINAL: Abdomen soft, non-tender, nondistended. Normal, active bowel sounds SKIN: Wounds on buttocks MUSCULOSKELETAL: Extremities without clubbing, cyanosis, or edema. NEURO: awake and alert. Pt update on day of discharge The patient was resting comfortably in bed. Discussed with nursing at the bedside. No acute concerns. Hospital Course Left hip intertrochanteric fracture s/p fall Hip/pelvis imaging shows intertrochanteric left hip fracture. Consulted orthopedics, s/p left hip reduction and intramedullary nail fixation on 08/05. WBAT LLE. Lovenox per ortho, to be changed to Xarelto upon discharge. PT recommended rehab. The pt received pain control with a bowel regimen and incentive spirometry. The pt will follow up with orthopedic surgery upon discharge. PNA CXR reviewed LLL infiltrate. Obtained sputum cx, blood cx. Started IV abx azithromycin, zosyn. The pt will complete a course of Levaquin. Stage 3 pressure ulcers In gluteal lift just to the left bedside the coccyx. Wound cx wit pseudomonas. The pt will complete a course of Levaquin. Wound care was consulted and recommended: 1.Please cleanse wound to coccyx with normal saline and pat dry 2. Apply Maxorb II just to wound bed 3. Apply Calazime skin protectant paste to periwound 4. Apply skin prep before applying cover dressing 5. Apply bordered gauze 6. Change dressing every other day or PRN if saturated or dislodged. 7. Turn patient every 2 hours and PRN for comfort and offloading of pressure from rody prominences. Normocytic normochromic anemia S/p transfusion 2 units PRBC. She will follow up with her PCP as an outpt. Encephalopathy in a patient with dementia Per daughter patient is at her baseline. She is being discharged to a SNF. Mild troponin elevation Troponins elevated but flat at 0.09, 0.08, 0.05. EKG reviewed, shows sinus tach with no acute ischemic changes. Echo shows moderate to severe tricuspid valve regurgitation. Asymptomatic. The pt will have outpt follow-up. Mild Rhabdomyolysis Elevated CPK at 563 on admission. Resolved s/p IVF hydration. Renal insufficiency IVF hydration provided. Resolved. Unwitnessed fall Head CT and C-spine CT images reviewed, no acute findings. Carotid U/S with bilateral plaque, no significant stenosis. Echo shows EF 60-65%, moderate to severe tricuspid valve regurgitation. She was placed on fall precautions. Thyroid Nodule Incidentally found on C-spine CT; shows 2.5 x 1.6cm soft tissue nodule involving right neck, felt to relate to an exophytic thyroid nodule from the right lobe. TSH/T4, normal. She will have outpatient f/u with her PCP. Hypertension She was started on Norvasc and Lisinopril, which she will continue. Vitamin D deficiency Vitamin D level 16.7. She will continue by mouth repletion. Patient will need to have vitamin D level rechecked in 3 months as outpatient. Pt Condition on Discharge: Stable Discharge Disposition: Discharge to SNF Discharge Time: > 30 minutes Discharge Instructions DIET: Follow Instructions for: As Tolerated, No Restrictions Activities you can perform: See Additionl Instruction Follow up Referrals: Orthopedics - 1 Week @ [facility] with Live Pandya MD PCP Follow-up - 1 Week New Medications: Calcium Carbonate-Vitamin D (Calcium 600+D 200) 600-200 Mg-Unit Tab 1 TAB PO BID for Nutritional Supplement, #90 TAB 0 Refills Ergocalciferol (Ergocalciferol) 50,000 Unit Cap 47787 UNITS PO Q7D for Nutritional Supplement, #8 CAP Hydrocodone-Acetaminophen ([place]) 5 Mg-325 Mg Tab 1 TAB PO Q4H PRN for PAIN, #40 TAB 0 Refills Rivaroxaban (Xarelto) 10 Mg Tab 10 MG PO DAILY for Blood Clot Prevention, #14 TAB 0 Refills Walker/Adult/Folding (Walker/Adult/Folding) 1 Mis Mis EA .XX DIRECTED, #1 0 Refills Amlodipine (Norvasc) 10 Mg Tab 10 MG PO DAILY for hypertension for 30 Days, #30 TAB 0 Refills Levofloxacin (Levaquin) 750 Mg Tablet 750 MG PO DAILY@1700 for Infection for 4 Days, TAB Lisinopril (Lisinopril) 10 Mg Tab 10 MG PO DAILY for hypertension for 30 Days, #30 TAB 0 Refills Continued Medications: Melatonin (Melatonin) 10 Mg-1 Mg Tab 10 MG PO HS PRN for SLEEP, TAB 0 Refills Samson Chauhan DO Sep 02, 2017 15:21
[2017-09-02] MEDS: LEVOFLOXACIN 750 MG TAB PO SCH (16:50)
== END 2017-09-02 19:00 | DRG 480 ==
LOC: NEPE 22:31 → NEDA 08-05 01:32 → NEDH 08-05 06:14 → NEDA 08-05 08:31 → N06A 08-05 16:19
PROVIDERS: ADMIT Hospitalist; ATTEND Hospitalist
PROC: 0T9B70Z Drainage of Bladder with Drainage Device, Via Natural or Artificial Opening (ICD-10-PCS; 2017-08-05)
PROC: 0QS736Z Reposition Left Upper Femur with Intramedullary Internal Fixation Device, Percutaneous Approach (ICD-10-PCS; principal; 2017-08-05 09:54)
PROC: 30233N1 Transfusion of Nonautologous Red Blood Cells into Peripheral Vein, Percutaneous Approach (ICD-10-PCS; 2017-08-07)
DX: S72.142A Displaced intertrochanteric fracture of left femur, initial encounter for closed fracture (principal); J18.9 Pneumonia, unspecified organism; G93.40 Encephalopathy, unspecified; M62.82 Rhabdomyolysis; I07.1 Rheumatic tricuspid insufficiency; E83.39 Other disorders of phosphorus metabolism; L89.323 Pressure ulcer of left buttock, stage 3; F03.90 Unspecified dementia, unspecified severity, without behavioral disturbance, psychotic disturbance, mood disturbance, and anxiety; D64.9 Anemia, unspecified; M81.0 Age-related osteoporosis without current pathological fracture; R45.1 Restlessness and agitation; N18.9 Chronic kidney disease, unspecified; R33.9 Retention of urine, unspecified; R09.02 Hypoxemia; E04.1 Nontoxic single thyroid nodule; E55.9 Vitamin D deficiency, unspecified; I12.9 Hypertensive chronic kidney disease with stage 1 through stage 4 chronic kidney disease, or unspecified chronic kidney disease; H91.90 Unspecified hearing loss, unspecified ear; E87.6 Hypokalemia; M79.89 Other specified soft tissue disorders; R07.89 Other chest pain; R19.7 Diarrhea, unspecified; D50.0 Iron deficiency anemia secondary to blood loss (chronic); B96.5 Pseudomonas (aeruginosa) (mallei) (pseudomallei) as the cause of diseases classified elsewhere; W19.XXXA Unspecified fall, initial encounter
CPT/HCPCS: 36430; 51702; 70450; 71045; 71275; 72125; 73502; 76000; 80048; 80053; 81001; 82306; 82550; 82552; 83036; 83735; 84100; 84132; 84439; 84443; 84484; 85014; 85018; 85025; 85027; 85610; 85730; 86403; 86850; 86900; 86901; 86920; 87070; 87077; 87086; 87186; 87205; 93005; 93306; 93880; 94150; 94640; 94664; 96361; 96374; 96375; C1713; C9113; J0360; J0456; J0690; J1580; J1650; J1885; J1940; J2370; J2405; J2543; J2710; J3010; J3370; J7030; J7040; J7050; P9016; Q9967

== ENCOUNTER 2017-09-28 20:59 | Inpatient (IN) | payer SELFPAY ==
[~2017-09-28] VITALS: Ht 154.9 cm; Wt 75.7 kg
[~2017-09-28 20:59] MED LIST changes: +AMLO10 PO; +CALCTAB19 PO; +LEVA750T9 PO; +LISI10TA3 PO; +MELA1TAB18 PO; -MELO7.5 PO; +NORC5TAB PO; +VITA500012 PO; +WALKER/ADULT/FO1 MIS; +XARE10TA PO; -Z.0.NO CURRENT MEDS
[2017-09-28 21:07] VITALS: BP 101/56; PULSE 89; RESP 20; TEMP 97; O2SAT 95
[2017-09-28] MEDS ORDERED: PANTOPRAZOLE INJ 80 MG in SODIUM CHLORIDE 0.9% INJ 35 ML IV ONE (21:22)
[2017-09-28 21:23] VITALS: RESP 20; O2SAT 96
[2017-09-28] MEDS ORDERED: SODIUM CHLOR 0.9% 1000 ML INJ 1,000 ML IV SCH (21:30)
--- NOTE | 2017-09-28 21:45 | PD ---
HPI Chief Complaint: General Weakness Time Seen by Provider: 21:15 Travel History International Travel<30 days: No Contact w/Intl Traveler<30days: No Traveled to known affect area: No History of Present Illness HPI 87-year-old female was brought in by EMS for lethargy. Patient resides a local [place] [facility]. Patient found to be lethargic with low O2 saturation and hypotension this evening. EMS was called. Patient was given normal saline solution 500 cc IV bolus on the way to the ED. Patient speaks Somali only. I have the Somali-speaking nurse at the bedside however patient is not communicating with us at this point. Patient only complains of pain all over. Patient was admitted to [facility] August 05 and discharged September 02. Patient was admitted with diagnosis of left femur fracture status post ORIF. Patient is on Xarelto. Patient also was treated for pneumonia, stage III pressure ulcers on the coccyx area, history of anemia, encephalopathy and dementia, elevated troponin, rhabdomyolysis, renal insufficiency, hypertension, thyroid nodule. senior living staff reported no fever at the facility. senior living staff reported no coughing congestion at the facility. senior living staff reported no vomiting or diarrhea at the facility. [facility] Past Medical History Medical History: Unable to Obtain Cancer: No Cardiovascular Problems: No Endocrine: No Genitourinary: No Musculoskeletal: No Neurologic: No Psychiatric: No Reproductive: No Respiratory: No Tetanus Vaccination: Unknown Social History Alcohol Use: No Tobacco Use: No Substance Use: No Allergies-Medications (Allergen,Severity, Reaction): Coded Allergies: No Known Allergies (Unverified Allergy, Unknown, 08/05/17) Reported Meds & Prescriptions Reported Meds & Active Scripts Active Levaquin (Levofloxacin) 750 Mg Tablet 750 Mg PO DAILY@1700 4 Days Lisinopril 10 Mg Tab 10 Mg PO DAILY 30 Days Norvasc (Amlodipine Besylate) 10 Mg Tab 10 Mg PO DAILY 30 Days Calcium 600+D 200 (Calcium Carbonate-Vitamin D) 600-200 Mg-Unit Tab 1 Tab PO BID Ergocalciferol 50,000 Unit Cap 50,000 Units PO Q7D Xarelto (Rivaroxaban) 10 Mg Tab 10 Mg PO DAILY Exchange (Hydrocodone-Acetaminophen) 5 Mg-325 Mg Tab 1 Tab PO Q4H PRN Walker/Adult/Folding (Device) 1 Mis Mis Ea .XX DIRECTED Reported Melatonin 10 Mg-1 Mg Tab 10 Mg PO HS PRN Review of Systems ROS Limitations: Altered Mental Status Physical Exam Narrative GENERAL: Well-nourished, well-developed patient. SKIN: Focused skin assessment warm/dry. HEAD: Normocephalic. EYES: No scleral icterus. No injection or drainage. NECK: Supple, trachea midline. No JVD or lymphadenopathy. CARDIOVASCULAR: Regular rate and rhythm without murmurs, gallops, or rubs. RESPIRATORY: Breath sounds equal bilaterally. No accessory muscle use. GASTROINTESTINAL: Abdomen soft, non-tender, nondistended. Patient incontinence of the stool. The stool was black and tarry. Hemoccult positive. MUSCULOSKELETAL: No cyanosis, or edema. BACK: Nontender without obvious deformity. No CVA tenderness. Neurologic exam: Patient lying in bed with lethargy. Patient complains of pain all over however not answering questions. Patient moves extremity minimally. Data Data Last Documented VS Vital Signs Date Time Temp Pulse Resp B/P (MAP) Pulse Ox O2 Delivery O2 Flow Rate FiO2 09/28/17 22:24 90 20 86/54 (65) 97 Nasal Cannula 2.00 09/28/17 21:07 97.0 Orders Orders Electrocardiogram (09/28/17 21:20) Complete Blood Count With Diff (09/28/17 21:20) Comprehensive Metabolic Panel (09/28/17 21:20) Creatine Kinase (Cpk) (09/28/17 21:20) Troponin I (09/28/17 21:20) B-Type Natriuretic Peptide (09/28/17 21:20) Prothrombin Time / Inr (Pt) (09/28/17 21:20) Act Partial Throm Time (Ptt) (09/28/17 21:20) Blood Culture (09/28/17 21:20) Urinalysis - C+S If Indicated (09/28/17 21:20) Thyroid Stimulating Hormone (09/28/17 21:20) Chest, Single Ap (09/28/17 21:20) Iv Access Insert/Monitor (09/28/17 21:20) Ecg Monitoring (09/28/17 21:20) Oximetry (09/28/17 21:20) Type And Screen (09/28/17 21:20) Lactic Acid (09/28/17 21:20) Sodium Chlor 0.9% 1000 Ml Inj (Ns 1000 M (09/28/17 21:30) Sodium Chloride 0.9... W/Pantoprazole In (09/28/17 21:22) Sodium Chloride 0.9... W/Pantoprazole In (09/28/17 21:22) Sodium Chlor 0.9% 1000 Ml Inj (Ns 1000 M (09/28/17 22:30) Urine Culture (09/28/17 21:30) ^ Lab Follow Up (09/28/17 22:32) Prothrombin Complex Conc Inj (Kcentra In (09/28/17 22:45) Ct Abd/Pel W/O Iv Contrast (09/28/17 21:22) Norepinephrine-Dextrose Drip (Levophed-D (09/28/17 23:30) Terbutaline Inj (Brethine Inj) (09/28/17 23:30) Lactic Acid Sepsis Protocol (09/28/17 23:18) Sodium Chlor 0.9% 1000 Ml Inj (Ns 1000 M (09/28/17 23:30) Piperacil-Tazo 2.25 Gm Premix (Zosyn 2.2 (09/28/17 23:30) Vancomycin Inj (Vancomycin Inj) (09/28/17 23:30) Labs Laboratory Tests Test 09/28/17 21:30 White Blood Count 27.9 TH/MM3 Red Blood Count 3.98 MIL/MM3 Hemoglobin 10.6 GM/DL Hematocrit 33.0 % Mean Corpuscular Volume 83.0 FL Mean Corpuscular Hemoglobin 26.6 PG Mean Corpuscular Hemoglobin Concent 32.0 % Red Cell Distribution Width 17.0 % Platelet Count 568 TH/MM3 Mean Platelet Volume 8.9 FL Neutrophils (%) (Auto) 93.7 % Lymphocytes (%) (Auto) 1.5 % Monocytes (%) (Auto) 4.0 % Eosinophils (%) (Auto) 0.6 % Basophils (%) (Auto) 0.2 % Neutrophils # (Auto) 26.1 TH/MM3 Lymphocytes # (Auto) 0.4 TH/MM3 Monocytes # (Auto) 1.1 TH/MM3 Eosinophils # (Auto) 0.2 TH/MM3 Basophils # (Auto) 0.1 TH/MM3 CBC Comment AUTO DIFF Differential Total Cells Counted 100 Neutrophils % (Manual) 52 % Band Neutrophils % 39 % Monocytes % 1 % Neutrophils # (Manual) 27.6 TH/MM3 Metamyelocytes 7 % Myelocytes 1 % Differential Comment FINAL DIFF MANUAL Toxic Granulation 1+ Platelet Estimate HIGH Platelet Morphology Comment NORMAL Red Cell Morphology Comment NORMAL Prothrombin Time 13.5 SEC Prothromb Time International Ratio 1.3 RATIO Activated Partial Thromboplast Time 29.4 SEC Urine Color YELLOW Urine Turbidity CLOUDY Urine pH 5.0 Urine Specific [place] 1.015 Urine Protein 30 mg/dL Urine Glucose (UA) NEG mg/dL Urine Ketones NEG mg/dL Urine Occult Blood NEG Urine Nitrite NEG Urine Bilirubin NEG Urine Urobilinogen LESS THAN 2.0 MG/DL Urine Leukocyte Esterase LARGE Urine RBC 16 /hpf Urine WBC 100 /hpf Urine WBC Clumps MANY Urine Squamous Epithelial Cells 7 /hpf Urine Amorphous Sediment OCC Urine Bacteria MANY /hpf Urine Mucus MANY /lpf Microscopic Urinalysis Comment CULTURE INDICATED Blood Urea Nitrogen 79 MG/DL Creatinine 4.65 MG/DL Random Glucose 155 MG/DL Total Protein 4.3 GM/DL Albumin 1.4 GM/DL Calcium Level 8.8 MG/DL Alkaline Phosphatase 105 U/L Aspartate Amino Transf (AST/SGOT) 18 U/L Alanine Aminotransferase (ALT/SGPT) 13 U/L Total Bilirubin 0.4 MG/DL Sodium Level 143 MEQ/L Potassium Level 4.0 MEQ/L Chloride Level 113 MEQ/L Carbon Dioxide Level 16.7 MEQ/L Anion Gap 13 MEQ/L Estimat Glomerular Filtration Rate 9 ML/MIN Lactic Acid Level 2.4 mmol/L Total Creatine Kinase 36 U/L Troponin I 0.02 NG/ML B-Type Natriuretic Peptide 25 PG/ML Thyroid Stimulating Hormone 3rd Gen 2.430 uIU/ML [facility] Medical Decision Making Medical Screen Exam Complete: Yes Emergency Medical Condition: Yes Medical Record Reviewed: Yes Interpretation(s) Last Impressions Chest X-Ray 09/28/172119 Signed Impressions: Service Date/Time: Thursday, September 28, 2017 21:33 - CONCLUSION: 1. Small left pleural effusion. 2. Scattered hazy opacities bilaterally consistent with mild pulmonary vascular congestion, atelectasis and/or infiltrate. 3. Mild cardiomegaly. Juan Ivory MD CBC WBC 27.9. Hemoglobin 10.6 hematocrit 33.0. Platelet 568. 93 neutrophil. BMP with bicarb 16.7. BUN 79. Creatinine 4.65. GFR 9. Lactic acid 2.4. BNP 25. INR 1.3. UA positive for WBC and bacteria. Differential Diagnosis Differential diagnosis including GI bleed, anemia, pneumonia, UTI, sepsis, dehydration, electrolyte imbalance. Narrative Course 87-year-old female with respiratory distress and hypotension. Patient was [facility] recently [facility] [place] [facility] ORIF of the left femur fracture. Patient's on Xarelto. Hemoccult positive. Normal saline solution 1 L IV bolus. Repeat normal saline solution 1 L IV bolus. Normal saline solution 100 cc an hour. Protonix bolus and drip started. K Centra given. Levophed drip to keep MAP above 65. Zosyn 2.25 g IV. Vancomycin 1 g IV. Diagnosis Primary Impression: Septic shock Additional Impressions: UTI (urinary tract infection) Qualified Codes: N30.00 - Acute cystitis without hematuria GI bleed Qualified Codes: K92.2 - Gastrointestinal hemorrhage, unspecified Acute kidney injury Admitting Information Admitting Physician Requests: Admit Reymundo Kang MD September 28, 2017 21:45
[2017-09-28] MEDS: PANTOPRAZOLE INJ 80 MG in SODIUM CHLORIDE 0.9% INJ 100 ML IV SCH (21:50)
[2017-09-28 22:04] LABS: AUTOMATED NEUTROPHIL # 26.1 TH/MM3 (1.8-7.7); BASOPHIL # 0.1 TH/MM3 (0-0.2); BASOPHIL % 0.2 % (0.0-2.0); EOSINOPHIL # 0.2 TH/MM3 (0-0.4); EOSINOPHIL % 0.6 % (0.0-4.0); HEMOGLOBIN 10.6 GM/DL (11.6-15.3); LYMPH % 1.5 % (9.0-44.0); LYMPHOCYTE # 0.4 TH/MM3 (1.0-4.8); MEAN CORPUSCULAR HEMOGLOBIN 26.6 PG (27.0-34.0); MEAN PLATELET VOLUME 8.9 FL (7.0-11.0); MONOCYTE # 1.1 TH/MM3 (0-0.9); NEUT % 93.7 % (16.0-70.0); PLATELET COUNT 568 TH/MM3 (150-450); RED BLOOD COUNT 3.98 MIL/MM3 (4.00-5.30); WHITE BLOOD COUNT 27.9 TH/MM3 (4.0-11.0)
[2017-09-28 22:15] LABS: ALBUMIN 1.4 GM/DL (3.4-5.0); AST (GOT) 18 U/L (15-37); BICARBONATE 16.7 MEQ/L (21.0-32.0); BLOOD UREA NITROGEN 79 MG/DL (7-18); CALCIUM 8.8 MG/DL (8.5-10.1); CHLORIDE 113 MEQ/L (98-107); CREATININE 4.65 MG/DL (0.50-1.00); GLOMERULAR FILTRATION RATE 9 ML/MIN (>89); GLUCOSE,RANDOM 155 MG/DL (74-106); SODIUM (NA) 143 MEQ/L (136-145)
[2017-09-28 22:16] LABS: ALT (GPT) 13 U/L (10-53)
--- NOTE | 2017-09-28 22:17 | RADRPT ---
EXAM DATE/TIME: 09/28/2017 21:33 [facility] COMPARISON: CHEST SINGLE AP, August 25, 2017, 22:40. INDICATIONS : Shortness of breath. MEDICAL HISTORY : None. SURGICAL HISTORY : Left hip ORIF. ENCOUNTER: Initial ACUITY: 1 day PAIN SCORE: 0/10 LOCATION: Bilateral chest FINDINGS: The heart is mildly prominent. Small left pleural effusion is noted. Scattered hazy opacities are not ed bilaterally consistent with mild pulmonary vascular congestion, atelectasis and/or infiltrate. CONCLUSION: 1. Small left pleural effusion. 2. Scattered hazy opacities bilaterally consistent with mild pulmonary vascular congestion, atelectas is and/or infiltrate. 3. Mild cardiomegaly. Juan Ivory MD on September 28, 2017 at 22:12 Board Certified Radiologist. This report was verified electronically.
[2017-09-28 22:20] LABS: INTERNATIONAL NORMALIZED RATIO 1.3 RATIO; PROTHROMBIN TIME - PATIENT 13.5 SEC (9.8-11.6)
[2017-09-28 22:24] VITALS: BP 86/54; PULSE 90; RESP 20; O2SAT 97
[2017-09-28 22:26] LABS: ALKALINE PHOSPHATASE 105 U/L (45-117); TOTAL BILIRUBIN ADULT 0.4 MG/DL (0.2-1.0); TOTAL PROTEIN 4.3 GM/DL (6.4-8.2); TROPONIN I 0.02 NG/ML (0.02-0.05)
[2017-09-28 22:27] LABS: AMORPHOUS SEDIMENT, URINE OCC; BACTERIA, URINE MANY /hpf; BILIRUBIN, URINE NEG (NEG); BLOOD, URINE NEG (NEG); GLUCOSE,URINE NEG (NEG); KETONE, URINE NEG (NEG); MUCUS URINE MANY /lpf (OCC); NITRITE,URINE NEG (NEG); SQUAMOUS EPITHELIAL CELL URINE 7 /hpf (0-5); URINE COLOR YELLOW (YELLW/STRAW); URINE LEUKOCYTE ESTERASE LARGE (NEG); WHITE BLOOD CELL CLUMPS MANY
[2017-09-28] MEDS ORDERED: SODIUM CHLOR 0.9% 1000 ML INJ 1,000 ML IV ONE ×2 (22:30→23:30)
[2017-09-28 22:33] LABS: BANDS 39 % (0-6); METAMYELOCYTES 7 % (0-1); MONOCYTES 1 % (0-8); MYELOCYTES 1 % (0-0); NEUTROPHIL # MANUAL DIFF 27.6 TH/MM3 (1.8-7.7); POLYS (SEG NEUTROPHILS) 52 % (16-70)
[2017-09-28 22:34] LABS: TOXIC GRANULATION 1+ (NORMAL)
[2017-09-28] MEDS ORDERED: PROTHROMBIN COMPLEX CONC INJ 3,500 UNITS in SYRINGE/BAG 1 EA IV ONE (22:45)
[2017-09-28 23:00] VITALS: BP 109/55; PULSE 86; RESP 20; O2SAT 99
[2017-09-28 23:15] VITALS: BP 85/48; PULSE 84; RESP 20; O2SAT 96
[2017-09-28] MEDS ORDERED: TERBUTALINE INJ 1 MG/ML AMP SQ PRN (23:30)
[2017-09-28] MEDS ORDERED: PIPERACIL-TAZO 2.25 GM PREMIX 50 ML IV ONE (23:30)
[2017-09-28] MEDS ORDERED: VANCOMYCIN INJ 1,000 MG in SODIUM CHLOR 0.9% 250 ML INJ 250 ML IV ONE (23:30)
[2017-09-28] MEDS: NOREPINEPHRINE-DEXTROSE DRIP 250 ML IV PRN (23:39)
[2017-09-28 23:45] VITALS: BP 81/50; PULSE 78; RESP 20; O2SAT 97
--- NOTE | 2017-09-28 23:45 | RADRPT ---
EXAM DATE/TIME: 09/28/2017 23:22 [facility] COMPARISON: No previous studies available for comparison. INDICATIONS : Blood in stool. ORAL CONTRAST: No oral contrast ingested. RADIATION DOSE: 7.37 CTDIvol (mGy) MEDICAL HISTORY : Non-responsive. SURGICAL HISTORY : Non-responsive. ENCOUNTER: Initial ACUITY: 1 day PAIN SCALE: Non-responsive LOCATION: abdomen TECHNIQUE: Volumetric scanning of the abdomen and pelvis was performed. Using automated exposure control and ad justment of the mA and/or kV according to patient size, radiation dose was kept as low as reasonably achievable to obtain optimal diagnostic quality images. DICOM format image data is available electro nically for review and comparison. FINDINGS: LOWER LUNGS: Dense infiltrate in both lung bases with bilateral pleural effusions left greater than right. LIVER: The unenhanced liver is grossly unremarkable. The gallbladder is markedly distended. There is ascites around the liver.. SPLEEN: Normal size without lesion. Large amount of surrounding fluid. PANCREAS: Fatty atrophy without focal mass KIDNEYS: Normal in size and shape. There is no mass, stone, or hydronephrosis. ADRENAL GLANDS: Within normal limits. VASCULAR: There is no aortic aneurysm. BOWEL/MESENTERY: There is very impressive wall thickening within the descending colon beginning near the cecum. There is some surrounding free fluid without evidence of free air. Is the patient at risk for typhlitis? Th e transverse colon is also slightly thick walled. ABDOMINAL WALL: Within normal limits. RETROPERITONEUM: There is no lymphadenopathy. BLADDER: No wall thickening or mass. REPRODUCTIVE: Within normal limits. INGUINAL: There is no lymphadenopathy or hernia. MUSCULOSKELETAL: Within normal limits for patient age. CONCLUSION: There is very impressive wall thickening throughout the colon beginning in the cecum extending along the descending colon to the transverse colon. Free fluid throughout the abdomen and pelvis. Flavio Benavides MD on September 28, 2017 at 23:41 Board Certified Radiologist. This report was verified electronically.
[2017-09-29] VITALS (28 sets, daily range): BP systolic 81–122; BP diastolic 43–58; PULSE 69–96; RESP 9–35; TEMP 97.5–98; O2SAT 82–99
[2017-09-29 00:31] LABS: CREATININE, RANDOM URINE 125.1 MG/DL
[2017-09-29] MEDS ORDERED: NURSING INFORMATION XX SCH (01:15)
[2017-09-29] MEDS: LACTATED RINGER'S 1000 ML INJ 1,000 ML IV SCH ×3 (01:15→08:19)
[2017-09-29] MEDS ORDERED: FLUCONAZOLE 400 MG PREMIX BAG 200 ML IV ONE (01:15)
[2017-09-29] MEDS ORDERED: ONDANSETRON HCL 4 MG/2 ML VIAL IV PUSH PRN (01:15)
[2017-09-29] MEDS ORDERED: SODIUM CHLORIDE 0.9% FLUSH 10 ML FLUSH IV FLUSH PRN (01:15)
[2017-09-29] MEDS ORDERED: CHLORHEXIDINE GLUCONATE 2 % 1 PACK (2 CLOTHS) TOP PRN (01:15)
[2017-09-29] MEDS ORDERED: RESP: ALBUTEROL 2.5 MG/3 ML NEB (PRN) INH (01:15)
--- NOTE | 2017-09-29 01:32 | HHI.HP ---
[facility] Service Critical Care Medicine Primary Care Physician Timbo Silverio M.D. Admission Diagnosis Septic shock. GI bleed. UTI. Acute kidney injury. Diagnosis: (1) Dementia Diagnosis: Secondary (2) Acute kidney injury Diagnosis: Secondary (3) Septic shock Diagnosis: Principal (4) UTI (urinary tract infection) Diagnosis: Secondary (5) GI bleed Diagnosis: Principal (6) Pain Diagnosis: Secondary (7) Decubitus ulcers Diagnosis: Secondary (8) Confusion Diagnosis: Secondary (9) Colitis Diagnosis: Principal Travel History International Travel<30 Days: No Contact w/Intl Traveler <30 Da: No Traveled to Known Affected Are: No History of Present Illness 87 yo Belarusian speaking female who has a past medical history of hypertension, osteoarthritis, . She was admitted to [facility] 08/05 through after a fall in which she sustained an intertrochanteric fracture of the left femur for which she underwent ORIF. Her postoperative course was complicated by pneumonia which was treated with Levaquin. She had been discharged to [facility]. She presented to [facility] emergency department today after she became hypotensive with blood pressure 83/ 55 and sats were in the 80s. ED Nurse who speaks fluent Belarusian states that patient was not able to provide much history stating only that "I hurt all over ". She was hypotensive in the 70s over 40s. She had two large liquid melena bowel movements in the ED. Right femoral central venous line was placed by the emergency department physician. She was bolused with 2 L normal saline. She was started on Levophed which is currently running at 4 mcg/min. She had been on rivaroxaban. She was given K Centra 50 U/kg, started on Protonix drip, and administered Zosyn and vancomycin. CT abdomen and pelvis was obtained which demonstrates wall thickening of ascending and transverse colon with free fluid. No free air is noted. White blood cell count is 27.9 with left shift and 39% bands. Hemoglobin is 10.6. She is in acute renal failure with creatinine of 4.65.Patient is not able to provide much history due to significant baseline dementia. Her abdomen is tender on exam. Her son states that she has been having diarrhea about 3-4 days. No vomiting. Review of Systems ROS Limitations: Clinical Condition Past Family Social History Allergies: Coded Allergies: No Known Allergies (Unverified Allergy, Unknown, 08/05/17) Past Medical History Hypertension Osteoarthritis Stage III sacral decubitus ulcer Vitamin D deficiency Chronic iron deficiency anemia Dementia - son states "has been going on a while" but states much more prominent and progressing since her fall with hip fracture in July. She requires assistance with ADLs. He states she intermittently recognizes family, often does not. Past Surgical History ORIF left hip with IM nail fixation 08/05/17 (Dr. Live Pandya) Reported Medications Norvasc 10 mg p.o. daily Calcium/vitamin D 600/201 tab p.o. twice daily Ferrous sulfate 325 mg p.o. 3 times daily Lisinopril 10 mg p.o. daily Vitamin D2 2000 units p.o. daily Xarelto 10 mg p.o. daily Ergocalciferol 50,000 units p.o. weekly Theragran-M 1 tab p.o. daily Vitamin C 500 mg p.o. twice daily Zinc 220 mg p.o. daily Arginate 1 pack p.o. twice daily Bisacodyl 10 mg [place] daily Hydrocodone 5/325 1 tab p.o. every 4 hours as needed for pain Imodium as needed (she has not been receiving) Protein powder 1 scoop twice daily Family History Parents when she was 10 years old. Son was not sure what they from but felt like their deaths may have been war related Social History Lifetime non-smoker No alcohol or illicit drug use She has a daughter and a son She is a resident of [facility] She has 2 adult children who are her next of kin. Reportedly she does not have advanced directives Physical Exam Vital Signs Vital Signs Date Time Temp Pulse Resp B/P (MAP) Pulse Ox O2 Delivery O2 Flow Rate FiO2 09/29/17 01:15 74 20 97/53 (68) 97 Nasal Cannula 2.00 09/29/17 01:00 76 20 98/54 (69) 94 Nasal Cannula 2.00 09/29/17 01:00 76 98/54 09/29/17 00:45 69 20 100/51 (67) 95 Nasal Cannula 2.00 09/29/17 00:32 81 20 101/53 (69) 96 Nasal Cannula 2.00 09/29/17 00:15 78 20 84/53 (63) 94 Nasal Cannula 2.00 09/29/17 00:05 87 77/46 09/28/17 23:45 78 20 81/50 (60) 97 Nasal Cannula 3.00 09/28/17 23:39 86 80/50 09/28/17 23:15 84 20 85/48 (60) 96 Nasal Cannula 2.00 09/28/17 23:00 86 20 109/55 (73) 99 Nasal Cannula 2.00 09/28/17 22:24 90 20 86/54 (65) 97 Nasal Cannula 2.00 09/28/17 21:23 20 96 Nasal Cannula 2.00 09/28/17 21:07 97.0 89 20 101/56 (71) 95 Physical Exam GENERAL: Elderly female who is laying in [facility]. She is moaning ( and nurse who speaks Belarusian states she is babbling incoherently) SKIN: Cool to touch. There is a 2x1 cm stage II sacral decubitus ulcer with granulation tissue surrounding a larger area. No drainage or fluctuance. HEAD: Atraumatic. Normocephalic. EYES: Pupils equal and round, conjunctiva pale. No scleral icterus. No injection or drainage. ENT: No nasal bleeding or discharge. Mucous membranes dry. Poor dentition. NECK: Trachea midline. No JVD. CARDIOVASCULAR: Regular rate and rhythm, sinus on the monitor with rate in the 80s. 2/6 systolic murmur LSB. RESPIRATORY: Tachypneic, no accessory muscle use. Diminished bibasilar with occasional rhonchi. No wheeze or rales GASTROINTESTINAL: Abdomen moderately distended, non-rigid, diffusely tender to palpation. Unable to appreciate rebound. : Silverio in place, currently with no urine output. MUSCULOSKELETAL: Extremities without clubbing, cyanosis, or edema. NEUROLOGICAL: Awake, mumbling. Disoriented. Moving upper extremities spontaneously, wiggles toes. Laboratory Laboratory Tests Test 09/28/17 21:30 09/29/17 00:10 09/29/17 00:32 White Blood Count 27.9 Red Blood Count 3.98 Hemoglobin 10.6 Hematocrit 33.0 Mean Corpuscular Volume 83.0 Mean Corpuscular Hemoglobin 26.6 Mean Corpuscular Hemoglobin Concent 32.0 Red Cell Distribution Width 17.0 Platelet Count 568 Mean Platelet Volume 8.9 Neutrophils (%) (Auto) 93.7 Lymphocytes (%) (Auto) 1.5 Monocytes (%) (Auto) 4.0 Eosinophils (%) (Auto) 0.6 Basophils (%) (Auto) 0.2 Neutrophils # (Auto) 26.1 Lymphocytes # (Auto) 0.4 Monocytes # (Auto) 1.1 Eosinophils # (Auto) 0.2 Basophils # (Auto) 0.1 CBC Comment AUTO DIFF Differential Total Cells Counted 100 Neutrophils % (Manual) 52 Band Neutrophils % 39 Monocytes % 1 Neutrophils # (Manual) 27.6 Metamyelocytes 7 Myelocytes 1 Differential Comment FINAL DIFF MANUAL Toxic Granulation 1+ Platelet Estimate HIGH Platelet Morphology Comment NORMAL Red Cell Morphology Comment NORMAL Prothrombin Time 13.5 Prothromb Time International Ratio 1.3 Activated Partial Thromboplast Time 29.4 Urine Color YELLOW Urine Turbidity CLOUDY Urine pH 5.0 Urine Specific [place] 1.015 Urine Protein 30 Urine Glucose (UA) NEG Urine Ketones NEG Urine Occult Blood NEG Urine Nitrite NEG Urine Bilirubin NEG Urine Urobilinogen LESS THAN 2.0 Urine Leukocyte Esterase LARGE Urine RBC 16 Urine WBC 100 Urine WBC Clumps MANY Urine Squamous Epithelial Cells 7 Urine Amorphous Sediment OCC Urine Bacteria MANY Urine Mucus MANY Microscopic Urinalysis Comment CULTURE INDICATED Urine Eosinophils NONE SEEN Urine Random Creatinine 125.1 Urine Random Sodium 22 Blood Urea Nitrogen 79 Creatinine 4.65 Random Glucose 155 Total Protein 4.3 Albumin 1.4 Calcium Level 8.8 Alkaline Phosphatase 105 Aspartate Amino Transf (AST/SGOT) 18 Alanine Aminotransferase (ALT/SGPT) 13 Total Bilirubin 0.4 Sodium Level 143 Potassium Level 4.0 Chloride Level 113 Carbon Dioxide Level 16.7 Anion Gap 13 Estimat Glomerular Filtration Rate 9 Lactic Acid Level 2.4 2.0 Total Creatine Kinase 36 Troponin I 0.02 B-Type Natriuretic Peptide 25 Thyroid Stimulating Hormone 3rd Gen 2.430 Blood Gas Puncture Site LINE Blood Gas Patient Temperature 98.6 Venous Blood pH 7.37 Venous Blood Partial Pressure CO2 29 Venous Blood Partial Pressure O2 31 Venous Blood HCO3 16 Venous Blood Oxygen Saturation 48 Venous Blood Oxygen Content 6.1 Venous Blood Base Excess -8.0 Oxygen Delivery Device NASAL CANNULA Blood Gas Liter Flow 2 Blood Gas Inspired Oxygen 98 Date/Time Source Procedure Growth Status 09/28/17 21:30 Blood Peripheral Aerobic Blood Culture Pending Received 09/28/17 21:30 Blood Peripheral Anaerobic Blood Culture Pending Received 09/28/17 21:30 Urine Random Urine Urine Culture Pending Received Result Diagram: 5/6/18 2130 5/6/18 2130 Septic Shock Reassessment Septic shock perfusion: reassessment completed Caprini VTE Risk Assessment Caprini VTE Risk Assessment: Mod/High Risk (score >= 2) VTE Pharm Contraindication: Active bleeding Caprini Risk Assessment Model Point Value = 1 Point Value = 2 Point Value = 3 Point Value = 5 Age 41-60 Minor surgery BMI > 25 kg/m2 Swollen legs Varicose veins or History of unexplained or recurrent spontaneous Oral contraceptives or hormone replacement Sepsis (< 1 month) Serious lung disease, including pneumonia (< 1 month) Abnormal pulmonary function Acute myocardial infarction Congestive heart failure (< 1 month) History of inflammatory bowel disease Medical patient at bed rest Age 61-74 Arthroscopic surgery Major open surgery (> 45 min) Laparoscopic surgery (> 45 min) Malignancy Confined to bed (> 72 hours) Immobilizing plaster cast Central venous access Age >= 75 History of VTE Family history of VTE Factor V Leiden Prothrombin [id number] Lupus anticoagulant Anticardiolipin antibodies Elevated serum homocysteine Heparin-induced thrombocytopenia Other congenital or acquired thrombophilia Stroke (< 1 month) Elective arthroplasty Hip, pelvis, or leg fracture Acute spinal cord injury (< 1 month) Prophylaxis Regimen Total Risk Factor Score Risk Level Prophylaxis Regimen 0-1 Low Early ambulation 2 Moderate Order ONE of the following: *Sequential Compression Device (SCD) *Heparin 5000 units SQ BID 3-4 Higher Order ONE of the following medications: *Heparin 5000 units SQ TID *Enoxaparin/Lovenox 40 mg SQ daily (WT < 150 kg, CrCl > 30 mL/min) *Enoxaparin/Lovenox 30 mg SQ daily (WT < 150 kg, CrCl > 10-29 mL/min) *Enoxaparin/Lovenox 30 mg SQ BID (WT < 150 kg, CrCl > 30 mL/min) AND/OR *Sequential Compression Device (SCD) 5 or more Highest Order ONE of the following medications: *Heparin 5000 units SQ TID (Preferred with Epidurals) *Enoxaparin/Lovenox 40 mg SQ daily (WT < 150 kg, CrCl > 30 mL/min) *Enoxaparin/Lovenox 30 mg SQ daily (WT < 150 kg, CrCl > 10-29 mL/min) *Enoxaparin/Lovenox 30 mg SQ BID (WT < 150 kg, CrCl > 30 mL/min) AND *Sequential Compression Device (SCD) Assessment and Plan Problem List: (1) Acute kidney injury ICD Code: N17.9 - Acute kidney failure, unspecified Status: Acute (2) Septic shock ICD Code: A41.9 - Sepsis, unspecified organism; R65.21 - Severe sepsis with septic shock Status: Acute (3) UTI (urinary tract infection) ICD Code: N39.0 - Urinary tract infection, site not specified Status: Acute (4) GI bleed ICD Code: K92.2 - Gastrointestinal hemorrhage, unspecified Status: Acute (5) Decubitus ulcers ICD Code: L89.90 - Pressure ulcer of unspecified site, unspecified stage Status: Chronic (6) Dementia ICD Code: F03.90 - Unspecified dementia without behavioral disturbance Status: Chronic (7) Colitis ICD Code: K52.9 - Noninfective gastroenteritis and colitis, unspecified Status: Acute (8) Moderate protein malnutrition ICD Code: E44.0 - Moderate protein-calorie malnutrition Status: Chronic (9) Metabolic acidosis ICD Code: E87.2 - Acidosis Status: Acute (10) Bandemia ICD Code: D72.825 - Bandemia Status: Acute (11) Anticoagulated ICD Code: Z79.01 - intermediate (current) use of anticoagulants Status: Chronic (12) Thrombocytosis ICD Code: D47.3 - Essential (hemorrhagic) thrombocythemia Status: Acute (13) Hyperglycemia ICD Code: R73.9 - Hyperglycemia, unspecified Status: Acute Assessment and Plan NEURO: Dementia - Moderate to Severe per family Morphine as needed for pain. Daughter wishes to ensure comfort. RESP: On nasal cannula. Wean as tolerated. Patient will not be intubated per wishes expressed by family. CV: Septic/hypovolemic shock Lactic acidemia Received 2 L normal saline bolus in the emergency department. Levophed to maintain MAP greater than 65. Monitor serial lactic acid. LR 125 mill liters per hour. Essential hypertension at baseline Hold lisinopril 10 mg daily due to acute kidney injury and hypotension, hold Norvasc 10 mg daily due to hypotension. GI: Melena Diarrhea present on admission Colitis with probable Mesenteric ischemia Moderate protein energy malnutrition Held rivaroxaban (on for DVT prevention), given KCentra, monitoring serial Hgb. Consult gastroenterology due to melena. CT scan with significant wall thickening of ascending and transverse colon with free fluid throughout the abdomen and pelvis. There is no free air. Presentation concerning for mesenteric ischemia. Treating medically with fluid resuscitation, pressors as needed to maintain MAP, Antibiotics. She is not a candidate for angiogram due to HEDY. She is not in A fib. She is a very poor surgical candidate with overall medical condition condition, protein malnutrition, dementia, etc. Discussed risk and morbidity of surgery and family expresses understanding and would NOT want to pursue surgery even if she fails medical management. NPO Stool sent for C. difficile Resume MVI/Zinc 220 daily/Vitamin C 500 for wound healing of decubitus when she is able to take po. FEN/RENAL: Acute kidney injury Hyperchloremia Acute metabolic acidosis. Insert Silverio and monitor intake and output. Monitor electrolytes and replace as indicated. No evidence of hydronephrosis on CT abdomen. CPK is normal. Check FeNa and urine eosinophils. ID: Septic shock Colitis Leukocytosis and bandemia UTI Received Zosyn and a dose of vancomycin in the emergency department. We will place on cefepime, Flagyl for colitis/C. difficile, Diflucan. Follow-up blood cultures, urine culture. Re-dose vancomycin as indicated. She previously was on 10 day course of Levaquin for pneumonia in August. SKIN: Stage II sacral decubitus ulcer, present on admission Is healing and does not appear infected. Multivitamins for wound healing per above discussion HEME: Acute blood loss overlying chronic anemia Anticoagulated with rivaroxaban (DVT prophylaxis following ORIF femur) Reactive thrombocytosis Hold rivaroxaban. Received K Centra 50 U/kg in the emergency department. Type and screen has been sent Serial hemoglobin every 6 hours. Transfuse as needed for hemoglobin less than 8 or if clinically indicated for hemorrhagic shock ENDO: Acute stress hyperglycemia. Monitor bedside glucose and initiate low-dose insulin sliding scale as indicated. PROPH: SCDs for DVT prophylaxis. Pharmacologic DVT prophylaxis is contraindicated due to GI bleeding. ACCESS: Right femoral central venous line placed by ED physician 09/29/17 #1 Current condition discussed in detail with patient's son (Stu Andres) who is currently in [place]. He is driving to [facility] and expects to arrive around 7 am. Also discussed over the phone with patient's daughter (Patrizia Wynn) in a separate conversation. Daughter indicates that she has spoken with her brother and that they desire DO NOT RESUSCITATE/DO NOT INTUBATE and agree would not want to pursue surgical intervention if she fails to improve with medical management. DNR/DNI Level 3 H&P Problem Qualifiers (1) UTI (urinary tract infection): Qualified Codes: N30.00 - Acute cystitis without hematuria (2) GI bleed: Qualified Codes: K92.2 - Gastrointestinal hemorrhage, unspecified (3) Decubitus ulcers: Qualified Codes: L89.152 - Pressure ulcer of sacral region, stage 2 Janessa Baker MD September 29, 2017 01:32
[2017-09-29] MEDS: metroNIDAZOLE 500 MG INJ 100 ML IV SCH ×3 (01:33→16:12)
[2017-09-29 01:49] LABS: HEMATOCRIT 27.2 % (35.0-46.0); HEMOGLOBIN 8.9 GM/DL (11.6-15.3)
[2017-09-29] MEDS ORDERED: LOPE2TAB21 (02:38)
[2017-09-29] MEDS ORDERED: ZINC220T PO (02:38)
[2017-09-29] MEDS ORDERED: ASCO500C (02:38)
[2017-09-29] MEDS ORDERED: THERM PO (02:38)
[2017-09-29] MEDS ORDERED: ANTI2TAB10 PO (02:38)
[2017-09-29] MEDS ORDERED: FERR325T18 PO (02:38)
[2017-09-29] MEDS ORDERED: ERGO2000 PO (02:38)
[2017-09-29] MEDS: CHLORHEXIDINE GLUCONATE 2 % 1 PACK (2 CLOTHS) TOP SCH (04:45)
[2017-09-29] MEDS: PANTOPRAZOLE INJ 80 MG in SODIUM CHLORIDE 0.9% INJ 100 ML IV SCH ×3 (05:16→17:04)
[2017-09-29 05:52] LABS: HEMATOCRIT 36.4 % (35.0-46.0); HEMOGLOBIN 11.8 GM/DL (11.6-15.3); MEAN CELL VOLUME 83.6 FL (80.0-100.0); MEAN CORPUSCULAR HEMOGLOBIN 27.1 PG (27.0-34.0); MEAN CORPUSCULAR HGB CONC 32.4 % (32.0-36.0); MEAN PLATELET VOLUME 9.2 FL (7.0-11.0); PLATELET COUNT 527 TH/MM3 (150-450); RED BLOOD COUNT 4.36 MIL/MM3 (4.00-5.30); RED CELL DISTRIBUTION WIDTH 16.7 % (11.6-17.2); WHITE BLOOD COUNT 34.5 TH/MM3 (4.0-11.0)
[2017-09-29 06:05] LABS: ALBUMIN 1.6 GM/DL (3.4-5.0); ALT (GPT) 13 U/L (10-53); AST (GOT) 27 U/L (15-37); BICARBONATE 14.4 MEQ/L (21.0-32.0); BLOOD UREA NITROGEN 79 MG/DL (7-18); CALCIUM 8.8 MG/DL (8.5-10.1); CHLORIDE 114 MEQ/L (98-107); CREATININE 4.57 MG/DL (0.50-1.00); GLOMERULAR FILTRATION RATE 9 ML/MIN (>89); GLUCOSE,RANDOM 151 MG/DL (74-106); SODIUM (NA) 143 MEQ/L (136-145)
[2017-09-29 06:09] LABS: ALKALINE PHOSPHATASE 111 U/L (45-117); TOTAL BILIRUBIN ADULT 0.5 MG/DL (0.2-1.0); TOTAL PROTEIN 4.8 GM/DL (6.4-8.2)
[2017-09-29] MEDS: CEFEPIME INJ 1,000 MG in SODIUM CHLORIDE 0.9% INJ 100 ML IV SCH (08:18)
[2017-09-29] MEDS: SODIUM CHLORIDE 0.9% FLUSH 10 ML FLUSH IV FLUSH SCH (08:18)
[2017-09-29] MEDS: NOREPINEPHRINE-DEXTROSE DRIP 250 ML IV PRN ×2 (08:19→18:00)
[2017-09-29] MEDS: VANCOMYCIN 500 MG VIAL (FOR ORAL USE ONLY) PO SCH ×3 (08:50→17:04)
--- NOTE | 2017-09-29 10:10 | EKG ---
Date Performed: 09/28/2017 Time Performed: 22:00:18 PTAGE: 87 years EKG: Sinus rhythm WITH OCCASIONAL VENTRICULAR PREMATURE COMPLEXES NONSPECIFIC T-WAVE ABNORMALITY BORDERLINE ECG PREVIOUS TRACING : 08/15/2017 17.14 Compared to prior study, nonspecific T-wave changes are now noted. DOCTOR: Sudeep Cantor Interpretating Date/Time 09/29/2017 10:08:38
--- NOTE | 2017-09-29 10:38 | PD.CONS ---
HPI History of Present Illness This is a 87 year old Mauritian speaking female with dementia, hx fall and ORIF femur who presented with hypotension. GI is consulted for melena and colitis. Pt was on rivaroxaban. Reportedly she had 2 dark tarry stools in the ER and had been having loose stools for 3-5 days. She has had no stools since being in [facility]. Her abd is tender on exam, she is otherwise noncontributory. her son is at bedside and speaks Mauritian. Per son she said she did not want to be touched. He is not sure if she has ever had a colonoscopy or EGD. He is not aware of any prior hx of GIB or gastric ulcers. (Joan Walsh) PFSH Past Medical History left femur fracture dementia OSWALD OA Past Surgical History ORIF left femur (Joan Walsh) Coded Allergies: No Known Allergies (Unverified Allergy, Unknown, 08/05/17) Family History unk Social History no toxic habits (Joan Walsh) Review of Systems Gastrointestinal: COMPLAINS OF: Abdominal pain otherwise noncontributory (Joan Walsh) GI Exam Vitals I&O Vital Signs Date Time Temp Pulse Resp B/P (MAP) Pulse Ox O2 Delivery O2 Flow Rate FiO2 09/29/17 08:19 91 106/51 09/29/17 06:00 93 09/29/17 06:00 97.5 93 35 99/55 (70) 95 09/29/17 05:00 97.5 81 26 102/56 (71) 95 09/29/17 05:00 81 09/29/17 04:29 09/29/17 03:49 85 16 98/54 (69) 95 Nasal Cannula 2.00 09/29/17 03:15 88 20 111/56 (74) 96 Nasal Cannula 2.00 09/29/17 03:00 79 15 88/52 (64) 96 Nasal Cannula 2.00 09/29/17 02:45 79 20 95/51 (66) 97 Nasal Cannula 2.00 09/29/17 02:30 79 15 90/55 (67) 99 Nasal Cannula 2.00 09/29/17 02:28 82 88/51 09/29/17 02:15 69 20 88/51 (63) 96 Nasal Cannula 2.00 09/29/17 02:00 77 15 93/50 (64) 97 Nasal Cannula 2.00 09/29/17 01:30 75 20 90/54 (66) 98 2.00 09/29/17 01:15 74 20 97/53 (68) 97 Nasal Cannula 2.00 09/29/17 01:00 76 20 98/54 (69) 94 Nasal Cannula 2.00 09/29/17 01:00 76 98/54 09/29/17 00:45 69 20 100/51 (67) 95 Nasal Cannula 2.00 09/29/17 00:32 81 20 101/53 (69) 96 Nasal Cannula 2.00 09/29/17 00:15 78 20 84/53 (63) 94 Nasal Cannula 2.00 09/29/17 00:05 87 77/46 09/28/17 23:45 78 20 81/50 (60) 97 Nasal Cannula 3.00 09/28/17 23:39 86 80/50 09/28/17 23:15 84 20 85/48 (60) 96 Nasal Cannula 2.00 09/28/17 23:00 86 20 109/55 (73) 99 Nasal Cannula 2.00 09/28/17 22:24 90 20 86/54 (65) 97 Nasal Cannula 2.00 09/28/17 21:23 20 96 Nasal Cannula 2.00 09/28/17 21:07 97.0 89 20 101/56 (71) 95 I/O 09/28/17 09/28/17 09/28/17 09/29/17 09/29/17 09/29/17 07:00 15:00 23:00 07:00 15:00 23:00 Intake Total 35 ml 3161.8 ml Output Total 20 ml Balance 35 ml 3141.8 ml Intake Oral 0 ml IV Total 35 ml 3161.8 ml Output Urine Total 0 ml Stool Total 20 ml Laboratory Test 09/28/17 21:30 09/29/17 00:10 09/29/17 00:32 09/29/17 01:10 White Blood Count 27.9 TH/MM3 Red Blood Count 3.98 MIL/MM3 Hemoglobin 10.6 GM/DL Hematocrit 33.0 % Mean Corpuscular Volume 83.0 FL Mean Corpuscular Hemoglobin 26.6 PG Mean Corpuscular Hemoglobin Concent 32.0 % Red Cell Distribution Width 17.0 % Platelet Count 568 TH/MM3 Mean Platelet Volume 8.9 FL Neutrophils (%) (Auto) 93.7 % Lymphocytes (%) (Auto) 1.5 % Monocytes (%) (Auto) 4.0 % Eosinophils (%) (Auto) 0.6 % Basophils (%) (Auto) 0.2 % Neutrophils # (Auto) 26.1 TH/MM3 Lymphocytes # (Auto) 0.4 TH/MM3 Monocytes # (Auto) 1.1 TH/MM3 Eosinophils # (Auto) 0.2 TH/MM3 Basophils # (Auto) 0.1 TH/MM3 CBC Comment AUTO DIFF Differential Total Cells Counted 100 Neutrophils % (Manual) 52 % Band Neutrophils % 39 % Monocytes % 1 % Neutrophils # (Manual) 27.6 TH/MM3 Metamyelocytes 7 % Myelocytes 1 % Differential Comment FINAL DIFF MANUAL Toxic Granulation 1+ Platelet Estimate HIGH Platelet Morphology Comment NORMAL Red Cell Morphology Comment NORMAL Prothrombin Time 13.5 SEC Prothromb Time International Ratio 1.3 RATIO Activated Partial Thromboplast Time 29.4 SEC Urine Color YELLOW Urine Turbidity CLOUDY Urine pH 5.0 Urine Specific [place] 1.015 Urine Protein 30 mg/dL Urine Glucose (UA) NEG mg/dL Urine Ketones NEG mg/dL Urine Occult Blood NEG Urine Nitrite NEG Urine Bilirubin NEG Urine Urobilinogen LESS THAN 2.0 MG/DL Urine Leukocyte Esterase LARGE Urine RBC 16 /hpf Urine WBC 100 /hpf Urine WBC Clumps MANY Urine Squamous Epithelial Cells 7 /hpf Urine Amorphous Sediment OCC Urine Bacteria MANY /hpf Urine Mucus MANY /lpf Microscopic Urinalysis Comment CULTURE INDICATED Urine Eosinophils NONE SEEN /HPF Urine Random Creatinine 125.1 MG/DL Urine Random Sodium 22 MEQ/L Blood Urea Nitrogen 79 MG/DL Creatinine 4.65 MG/DL Random Glucose 155 MG/DL Total Protein 4.3 GM/DL Albumin 1.4 GM/DL Calcium Level 8.8 MG/DL Alkaline Phosphatase 105 U/L Aspartate Amino Transf (AST/SGOT) 18 U/L Alanine Aminotransferase (ALT/SGPT) 13 U/L Total Bilirubin 0.4 MG/DL Sodium Level 143 MEQ/L Potassium Level 4.0 MEQ/L Chloride Level 113 MEQ/L Carbon Dioxide Level 16.7 MEQ/L Anion Gap 13 MEQ/L Estimat Glomerular Filtration Rate 9 ML/MIN Lactic Acid Level 2.4 mmol/L 2.0 mmol/L Total Creatine Kinase 36 U/L Troponin I 0.02 NG/ML B-Type Natriuretic Peptide 25 PG/ML Thyroid Stimulating Hormone 3rd Gen 2.430 uIU/ML Blood Gas Puncture Site LINE Blood Gas Patient Temperature 98.6 Venous Blood pH 7.37 Venous Blood Partial Pressure CO2 29 mmHg Venous Blood Partial Pressure O2 31 mmHg Venous Blood HCO3 16 mmol/L Venous Blood Oxygen Saturation 48 % Venous Blood Oxygen Content 6.1 Vol % Venous Blood Base Excess -8.0 mmol/L Oxygen Delivery Device NASAL CANNULA Blood Gas Liter Flow 2 L/M Blood Gas Inspired Oxygen 98 % Stool C. difficile Toxin (PCR) POSITIVE Stl C. difficile Toxin Epiderm 027 PRESUMPTIVE POSITIVE Test 09/29/17 01:20 09/29/17 04:45 09/29/17 05:36 Hemoglobin 8.9 GM/DL 11.8 GM/DL Hematocrit 27.2 % 36.4 % Nasal Screen MRSA (PCR) MRSA NOT DETECTED White Blood Count 34.5 TH/MM3 Red Blood Count 4.36 MIL/MM3 Mean Corpuscular Volume 83.6 FL Mean Corpuscular Hemoglobin 27.1 PG Mean Corpuscular Hemoglobin Concent 32.4 % Red Cell Distribution Width 16.7 % Platelet Count 527 TH/MM3 Mean Platelet Volume 9.2 FL Hematology Comments Blood Urea Nitrogen 79 MG/DL Creatinine 4.57 MG/DL Random Glucose 151 MG/DL Total Protein 4.8 GM/DL Albumin 1.6 GM/DL Calcium Level 8.8 MG/DL Alkaline Phosphatase 111 U/L Aspartate Amino Transf (AST/SGOT) 27 U/L Alanine Aminotransferase (ALT/SGPT) 13 U/L Total Bilirubin 0.5 MG/DL Sodium Level 143 MEQ/L Potassium Level 4.3 MEQ/L Chloride Level 114 MEQ/L Carbon Dioxide Level 14.4 MEQ/L Anion Gap 15 MEQ/L Estimat Glomerular Filtration Rate 9 ML/MIN Date/Time Source Procedure Growth Status 09/28/17 21:30 Blood Peripheral Aerobic Blood Culture Pending Received 09/28/17 21:30 Blood Peripheral Anaerobic Blood Culture Pending Received 09/28/17 21:30 Urine Random Urine Urine Culture Pending Received Physical Examination HEENT: PERRL; normocephalic; atraumatic; no jaundice. CHEST: respirations shallow CARDIAC: tachy ABDOMEN: Soft, nondistended, diffusely TTP; no hepatosplenomegaly; bowel sounds are present in all four quadrants. EXTREMITIES: No clubbing, cyanosis, or edema. SKIN: pale [employer]: lethargic (Joan Walsh) Assessment and Plan Plan ASSESSMENT - melanotic stool - poss bleed. on xarelto CT showed impressive colon wall thickening. + c diff - diarrhea, abd pain - c diff. has PO vanc but per RN too lethargic to swallow. also on cefepime, flagyl - anemia - likely multifactorial. pt on xarelto. no prior hx GIB. limited hx obtained. - HEDY, hypotension, dementia, sepsis - per [facility] - hold rivaroxaban - not stable for procedures - await palliative care consult - notify GI of active bleeding - monitor labs - supportive care pt seen by myself and Dr Dobbins and this note is on his behalf (Joan Walsh) Physician Comments Seen and examined with [facility], sepsis from C diff colitis. Acute renal failure form dehydration and sepsis. On iv flagyl and PO vancomicin. Place NG for meds. ID consulted. Discussed with family in detail at the bedside. Risk for toxic megacolon, will also consult general surgery. NPO with aggressive ivf rehydration, Thank you (Tavo Dobbins MD) Joan Walsh September 29, 2017 10:38 Tavo Dobbins MD September 29, 2017 12:33
--- NOTE | 2017-09-29 10:48 | EKG ---
Date Performed: 09/29/2017 Time Performed: 02:27:01 PTAGE: 87 years EKG: Sinus rhythm WITH SINUS ARRHYTHMIA NONSPECIFIC T-WAVE ABNORMALITY BORDERLINE ECG Since the PREVIOUS TRACING , no significant change noted PREVIOUS TRACIN09/28/2017 22.00 DOCTOR: Sudeep Cantor Interpretating Date/Time 09/29/2017 10:47:01
[2017-09-29] MEDS ORDERED: SODIUM BICARBONATE 8.4% INJ 50 MEQ/50 ML SYR IV PUSH ONE ×2 (12:30→15:15)
[2017-09-29] MEDS ORDERED: DEXTROSE 50% IN WATER 50 ML VIAL(D50) IV PUSH PRN (12:30)
[2017-09-29] MEDS: INSULIN NovoLIN REGULAR SUPPLEMENTAL SCALE SQ SCH ×3 (12:30→20:00)
[2017-09-29] MEDS ORDERED: GLUCAGON 1 MG/ML VIAL OTHER PRN (12:30)
[2017-09-29] MEDS ORDERED: TERBUTALINE INJ 1 MG/ML AMP SQ PRN (15:15)
[2017-09-29] MEDS ORDERED: LACTATED RINGER'S 1000 ML INJ 1,000 ML IV ONE (15:15)
[2017-09-29] MEDS ORDERED: ALBUMIN 5% INJ 500 ML IV ONE (15:15)
[2017-09-29 15:55] LABS: HEMATOCRIT 33.5 % (35.0-46.0); HEMOGLOBIN 10.8 GM/DL (11.6-15.3)
[2017-09-29] MEDS: SODIUM BICARBONATE 8.4% INJ 50 MEQ in SODIUM CHLOR 0.45% 1000 ML INJ 1,000 ML IV SCH (16:07)
[2017-09-29] MEDS: VASOPRESSIN INJ 40 UNITS in DEXTROSE 5% IN WATER 100ML INJ 98 ML IV SCH ×2 (16:58)
[2017-09-29] MEDS: HYDROCORTISONE SOD SUCCINATE 100 MG VIAL IV PUSH SCH (17:04)
--- NOTE | 2017-09-29 17:06 | PD.CONS ---
HPI Service Nephrology Consult Requested By Dr. Cedillo Reason for Consult Acute kidney injury Primary Care Physician Timbo Silverio M.D. History of Present Illness Patient is a 87 year old female with a past medical history of Hypertension, Osteoarthritis, Stage III sacral decubitus ulcer, Vitamin D deficiency, Chronic iron deficiency anemia, and Dementia. Patient presented to the emergency department with lethargy, hypotension, and O2 sats in the 80's. She is a resident of [facility] where is is recovering from a ORIF. Most of history is obtained from chart. She was bolused with IVF and is now on pressors. Nephrology is consulted for acute kidney injury with a creatinine of 4.57, potassium of 4.3, and CO2 of 14.4. CT of abdomen with kidneys of normal in size and shape. There is no mass, stone, or hydronephrosis. HEDY is all acute with a baseline creatinine of 0.91 on 08/15/17. (Nuris Galvez) Review of Systems ROS Limitations: Altered Mental Status (Nuris Galvez) Past Family Social History Allergies: Coded Allergies: No Known Allergies (Unverified Allergy, Unknown, 08/05/17) Past Medical History Hypertension Osteoarthritis Stage III sacral decubitus ulcer Vitamin D deficiency Chronic iron deficiency anemia Dementia Past Surgical History ORIF left hip with IM nail fixation 08/05/17 (Dr. Live Pandya) Active Ordered Medications Current Medications Medications (Trade) Dose Ordered Sig/Gilmer Route Start Time Stop Time Status Last Admin Pantoprazole Sodium 80 mg/ Sodium Chloride 100 ml @ 10 mls/hr Q10H IV 09/28/17 21:22 09/29/17 07:22 Norepinephrine Bitartrate 250 ml @ 7.5 mls/hr TITRATE PRN IV 09/28/17 23:30 09/29/17 08:19 (Brethine Inj) 1 mg UNSCH PRN SQ 09/28/17 23:30 Metronidazole 100 ml @ 100 mls/hr Q8H IV 09/29/17 01:00 09/29/17 16:12 Cefepime HCl 1000 mg/Sodium Chloride 100 ml @ 200 mls/hr Q24H IV 09/29/17 08:00 09/29/17 08:18 Fluconazole/ Sodium Chloride 100 ml @ 100 mls/hr Q24H IV 09/30/17 01:15 (NS Flush) 2 ml UNSCH PRN IV FLUSH 09/29/17 01:15 (NS Flush) 2 ml BID IV FLUSH 09/29/17 09:00 09/29/17 08:18 (Morphine Inj) 2 mg Q2H PRN IV PUSH 09/29/17 01:15 (Zofran Inj) 4 mg Q6H PRN IV PUSH 09/29/17 01:15 (Albuterol Neb) 2.5 mg Q2HR NEB PRN INH 09/29/17 01:15 ([facility]) 1 Q361D XX 09/29/17 01:15 09/29/17 04:45 (Chlorhexidine 2% Cloth) 3 pack Taper DAILY@04 TOP 09/29/17 04:00 09/25/18 03:59 09/29/17 04:45 (Chlorhexidine 2% Cloth) 3 pack UNSCH PRN TOP 09/29/17 01:15 (Morphine Inj) 4 mg Q2H PRN IV PUSH 09/29/17 05:00 (VANCOMYCIN for oral use only) 125 mg QID PO 09/29/17 09:00 (D50w (Vial) Inj) 50 ml UNSCH PRN IV PUSH 09/29/17 12:30 (Glucagon Inj) 1 mg UNSCH PRN OTHER 09/29/17 12:30 (NovoLIN R SUPPLEMENTAL SCALE) 1 Q4HR SQ 09/29/17 12:30 Vasopressin 40 units/Dextrose 100 ml @ 6 mls/hr [id number] IV 09/29/17 15:06 (Brethine Inj) 1 mg UNSCH PRN SQ 09/29/17 15:15 Albumin Human 500 ml @ 250 mls/hr ONCE ONCE IV 09/29/17 15:15 09/29/17 17:14 09/29/17 15:41 Sodium Bicarbonate 50 meq/Sodium Chloride 1,050 ml @ 150 mls/hr Q7H IV 09/29/17 16:00 09/29/17 16:07 (SoluCORTEF INJ) 50 mg Q6HR IV PUSH 09/29/17 18:00 Family History Social History Lifetime non-smoker No alcohol or illicit drug use She has a daughter and a son She is a resident of [place] [facility] She has 2 adult children who are her next of kin. Reportedly she does not have advanced directives (Nuris Galvez) Physical Exam Vital Signs Vital Signs Date Time Temp Pulse Resp B/P (MAP) Pulse Ox O2 Delivery O2 Flow Rate FiO2 09/29/17 12:00 91 09/29/17 12:00 97.8 91 19 86/48 (61) 97 09/29/17 11:00 96 24 87/51 (63) 99 09/29/17 10:00 93 20 89/51 (64) 96 09/29/17 10:00 93 09/29/17 09:00 91 25 92/54 (67) 82 09/29/17 08:19 91 106/51 09/29/17 08:00 97.6 91 21 94/55 (68) 95 09/29/17 08:00 91 09/29/17 06:00 93 09/29/17 06:00 97.5 93 35 99/55 (70) 95 09/29/17 05:00 97.5 81 26 102/56 (71) 95 09/29/17 05:00 81 09/29/17 04:29 09/29/17 03:49 85 16 98/54 (69) 95 Nasal Cannula 2.00 09/29/17 03:15 88 20 111/56 (74) 96 Nasal Cannula 2.00 09/29/17 03:00 79 15 88/52 (64) 96 Nasal Cannula 2.00 09/29/17 02:45 79 20 95/51 (66) 97 Nasal Cannula 2.00 09/29/17 02:30 79 15 90/55 (67) 99 Nasal Cannula 2.00 09/29/17 02:28 82 88/51 09/29/17 02:15 69 20 88/51 (63) 96 Nasal Cannula 2.00 09/29/17 02:00 77 15 93/50 (64) 97 Nasal Cannula 2.00 09/29/17 01:30 75 20 90/54 (66) 98 2.00 09/29/17 01:15 74 20 97/53 (68) 97 Nasal Cannula 2.00 09/29/17 01:00 76 20 98/54 (69) 94 Nasal Cannula 2.00 09/29/17 01:00 76 98/54 09/29/17 00:45 69 20 100/51 (67) 95 Nasal Cannula 2.00 09/29/17 00:32 81 20 101/53 (69) 96 Nasal Cannula 2.00 09/29/17 00:15 78 20 84/53 (63) 94 Nasal Cannula 2.00 09/29/17 00:05 87 77/46 09/28/17 23:45 78 20 81/50 (60) 97 Nasal Cannula 3.00 09/28/17 23:39 86 80/50 09/28/17 23:15 84 20 85/48 (60) 96 Nasal Cannula 2.00 09/28/17 23:00 86 20 109/55 (73) 99 Nasal Cannula 2.00 09/28/17 22:24 90 20 86/54 (65) 97 Nasal Cannula 2.00 09/28/17 21:23 20 96 Nasal Cannula 2.00 09/28/17 21:07 97.0 89 20 101/56 (71) 95 Physical Exam GENERAL: Frail elderly female SKIN: Warm and dry. HEAD: Normocephalic. EYES: No scleral icterus. No injection or drainage. NECK: Supple, trachea midline. No JVD or lymphadenopathy. CARDIOVASCULAR: Regular rate and rhythm. Murmer noted RESPIRATORY: Breath sounds diminished equal bilaterally. No accessory muscle use. GASTROINTESTINAL: Abdomen large, distended,and painful MUSCULOSKELETAL: No cyanosis, or edema. BACK: Nontender without obvious deformity. No CVA tenderness. Laboratory Laboratory Tests Test 09/28/17 21:30 09/29/17 00:10 09/29/17 00:32 09/29/17 01:10 White Blood Count 27.9 Red Blood Count 3.98 Hemoglobin 10.6 Hematocrit 33.0 Mean Corpuscular Volume 83.0 Mean Corpuscular Hemoglobin 26.6 Mean Corpuscular Hemoglobin Concent 32.0 Red Cell Distribution Width 17.0 Platelet Count 568 Mean Platelet Volume 8.9 Neutrophils (%) (Auto) 93.7 Lymphocytes (%) (Auto) 1.5 Monocytes (%) (Auto) 4.0 Eosinophils (%) (Auto) 0.6 Basophils (%) (Auto) 0.2 Neutrophils # (Auto) 26.1 Lymphocytes # (Auto) 0.4 Monocytes # (Auto) 1.1 Eosinophils # (Auto) 0.2 Basophils # (Auto) 0.1 CBC Comment AUTO DIFF Differential Total Cells Counted 100 Neutrophils % (Manual) 52 Band Neutrophils % 39 Monocytes % 1 Neutrophils # (Manual) 27.6 Metamyelocytes 7 Myelocytes 1 Differential Comment FINAL DIFF MANUAL Toxic Granulation 1+ Platelet Estimate HIGH Platelet Morphology Comment NORMAL Red Cell Morphology Comment NORMAL Prothrombin Time 13.5 Prothromb Time International Ratio 1.3 Activated Partial Thromboplast Time 29.4 Urine Color YELLOW Urine Turbidity CLOUDY Urine pH 5.0 Urine Specific [place] 1.015 Urine Protein 30 Urine Glucose (UA) NEG Urine Ketones NEG Urine Occult Blood NEG Urine Nitrite NEG Urine Bilirubin NEG Urine Urobilinogen LESS THAN 2.0 Urine Leukocyte Esterase LARGE Urine RBC 16 Urine WBC 100 Urine WBC Clumps MANY Urine Squamous Epithelial Cells 7 Urine Amorphous Sediment OCC Urine Bacteria MANY Urine Mucus MANY Microscopic Urinalysis Comment CULTURE INDICATED Urine Eosinophils NONE SEEN Urine Random Creatinine 125.1 Urine Random Sodium 22 Blood Urea Nitrogen 79 Creatinine 4.65 Random Glucose 155 Total Protein 4.3 Albumin 1.4 Calcium Level 8.8 Alkaline Phosphatase 105 Aspartate Amino Transf (AST/SGOT) 18 Alanine Aminotransferase (ALT/SGPT) 13 Total Bilirubin 0.4 Sodium Level 143 Potassium Level 4.0 Chloride Level 113 Carbon Dioxide Level 16.7 Anion Gap 13 Estimat Glomerular Filtration Rate 9 Lactic Acid Level 2.4 2.0 Total Creatine Kinase 36 Troponin I 0.02 B-Type Natriuretic Peptide 25 Thyroid Stimulating Hormone 3rd Gen 2.430 Blood Gas Puncture Site LINE Blood Gas Patient Temperature 98.6 Venous Blood pH 7.37 Venous Blood Partial Pressure CO2 29 Venous Blood Partial Pressure O2 31 Venous Blood HCO3 16 Venous Blood Oxygen Saturation 48 Venous Blood Oxygen Content 6.1 Venous Blood Base Excess -8.0 Oxygen Delivery Device NASAL CANNULA Blood Gas Liter Flow 2 Blood Gas Inspired Oxygen 98 Stool C. difficile Toxin (PCR) POSITIVE Stl C. difficile Toxin Epiderm 027 PRESUMPTIVE POSITIVE Test 09/29/17 01:20 09/29/17 04:45 09/29/17 05:36 09/29/17 13:22 Hemoglobin 8.9 11.8 10.8 Hematocrit 27.2 36.4 33.5 Nasal Screen MRSA (PCR) MRSA NOT DETECTED White Blood Count 34.5 Red Blood Count 4.36 Mean Corpuscular Volume 83.6 Mean Corpuscular Hemoglobin 27.1 Mean Corpuscular Hemoglobin Concent 32.4 Red Cell Distribution Width 16.7 Platelet Count 527 Mean Platelet Volume 9.2 Hematology Comments Blood Urea Nitrogen 79 Creatinine 4.57 Random Glucose 151 Total Protein 4.8 Albumin 1.6 Calcium Level 8.8 Alkaline Phosphatase 111 Aspartate Amino Transf (AST/SGOT) 27 Alanine Aminotransferase (ALT/SGPT) 13 Total Bilirubin 0.5 Sodium Level 143 Potassium Level 4.3 Chloride Level 114 Carbon Dioxide Level 14.4 Anion Gap 15 Estimat Glomerular Filtration Rate 9 Date/Time Source Procedure Growth Status 09/28/17 21:30 Blood Peripheral Aerobic Blood Culture - Preliminary NO GROWTH IN 1 DAY Resulted 09/28/17 21:30 Blood Peripheral Anaerobic Blood Culture - Preliminary NO GROWTH IN 1 DAY Resulted 09/28/17 21:30 Urine Random Urine Urine Culture - Preliminary IMMATURE GROWTH - REINCUBATE Resulted (Nuris Galvez) Result Diagram: 09/29/17 1322 09/29/17 0536 Imaging Last Impressions Abdomen/Pelvis CT 09/28/172121 Signed Impressions: Service Date/Time: Thursday, September 28, 2017 23:22 - CONCLUSION: There is very impressive wall thickening throughout the colon beginning in the cecum extending along the descending colon to the transverse colon. Free fluid throughout the abdomen and pelvis. Flavio Benavides MD Chest X-Ray 09/28/[id number] Signed Impressions: Service Date/Time: Thursday, September 28, 2017 21:33 - CONCLUSION: 1. Small left pleural effusion. 2. Scattered hazy opacities bilaterally consistent with mild pulmonary vascular congestion, atelectasis and/or infiltrate. 3. Mild cardiomegaly. Juan Ivory MD (Nuris Galvez) Assessment and Plan Problem List: (1) Acute kidney injury ICD Codes: N17.9 - Acute kidney failure, unspecified Status: Acute Plan: Acute kidney injury with a creatinine of 4.57, potassium of 4.3, and CO2 of 14.4. HEDY from possible prerenal VS ATN from hypovolemia and infection FeNa at 0.56% suggestive of prerenal state. CT of abdomen with kidneys of normal in size and shape. There is no mass, stone , or hydronephrosis. HEDY is all acute with a baseline creatinine of 0.91 on 08/15/17. Plan Avoid nephrotoxins Will monitor urinary output and renal panel Maintain strict I+Os Renal dose medication Maintain MAP greater than 65mmhg CO2 at 14.4 sodium bicarbonate given Labs in AM (2) Septic shock ICD Codes: A41.9 - Sepsis, unspecified organism; R65.21 - Severe sepsis with septic shock Status: Acute (3) UTI (urinary tract infection) ICD Codes: N39.0 - Urinary tract infection, site not specified Status: Acute (4) GI bleed ICD Codes: K92.2 - Gastrointestinal hemorrhage, unspecified Status: Acute (Nuris Galvez) Problem List: (1) Acute kidney injury ICD Codes: N17.9 - Acute kidney failure, unspecified Status: Acute Plan: Acute kidney injury with a creatinine of 4.57, potassium of 4.3, and CO2 of 14.4. HEDY from possible prerenal VS ATN from hypovolemia and infection FeNa at 0.56% suggestive of prerenal state. CT of abdomen with kidneys of normal in size and shape. There is no mass, stone , or hydronephrosis. HEDY is all acute with a baseline creatinine of 0.91 on 08/15/17. Plan Avoid nephrotoxins Will monitor urinary output and renal panel Maintain strict I+Os Renal dose medication Maintain MAP greater than 65mmhg CO2 at 14.4 sodium bicarbonate given Labs in AM. Patient seen and examined, agree with above. Develop HEDY and metabolic acidosis. Most likely has ATN, vs pre renal. Patient is No Code. No urgent need for Dialysis at present. (2) Septic shock ICD Codes: A41.9 - Sepsis, unspecified organism; R65.21 - Severe sepsis with septic shock Status: Acute (3) UTI (urinary tract infection) ICD Codes: N39.0 - Urinary tract infection, site not specified Status: Acute (4) GI bleed ICD Codes: K92.2 - Gastrointestinal hemorrhage, unspecified Status: Acute (Phillip Quick MD) Problem Qualifiers (1) UTI (urinary tract infection): Qualified Codes: N30.00 - Acute cystitis without hematuria (2) GI bleed: Qualified Codes: K92.2 - Gastrointestinal hemorrhage, unspecified Nuris Galvez September 29, 2017 17:06 Phillip Quick MD September 29, 2017 18:52
--- NOTE | 2017-09-29 18:39 | MB ---
cc: Nader Lorenzo MD DATE: 09/29/2017 REQUESTING PHYSICIAN: Tavo Dobbins MD REASON FOR CONSULTATION: C. difficile colitis. HISTORY OF PRESENT ILLNESS: This is an 87-year-old white female of [place] descent who was brought to the emergency department from correction facility with hypotension, lethargy and decreased oxygen saturation. The patient was noted to be lethargic. She was given IV fluid boluses. Blood pressure was 86/54 in the emergency department and a white blood cell count was 27.9 with 39% bands, and she was also noted to be in acute renal failure with creatinine of 4.65 and a lactic acid level was elevated at 2.4. She was admitted to intensive care unit and is currently on vasopressors. The patient was noted to have a small left pleural effusion and scattered hazy opacity bilaterally consistent with mild pulmonary vascular congestion on chest x-ray. CT scan of the abdomen showed impressive wall thickening within the descending colon beginning near the cecum and also through the transverse colon. The patient is now barely responsive. I examined her and she barely opened her eyes. However, after I finished examining her, she did open her left eye, saw her [id number] at the foot of the bed and briefly waved to her and went right back to sleep state. She is on Levophed at 12 mcg and vasopressin. She has a rectal bag in place, which has little stool output. She also has a Silverio catheter in place, which has very little urine in the tubing. Her white count increased from 27.9 yesterday to 34.5 today. The patient was recently in the hospital in July and was evaluated for a left trochanteric fracture on 08/05, and she underwent left hip reduction and intramedullary nail fixation for displaced left hip intertrochanteric fracture. She was on antibiotics during the hospitalization and she was discharged on p.o. Levaquin for 4 days after discharge on 09/02. There daughter mentioned that at the nursing facility prior to being brought here, her p.o. intake had decreased to the point where she was eating 5% of her meals the day prior to admission. During the hospitalization in July, she was also treated for pneumonia, and she was also noted to have a stage III pressure ulceration of the coccyx. Stool for C. difficile toxin and toxin epiderm 027 is positive. PAST MEDICAL HISTORY: Hypotension, chronic iron deficiency anemia, dementia, osteoarthritis, sacral decubitus ulceration, open reduction and internal fixation of the left hip. ALLERGIES: NO KNOWN DRUG ALLERGIES. MEDICATIONS: Intravenous metronidazole, fluconazole, cefepime, p.o. vancomycin, hydrocortisone, vasopressin, Levophed, Protonix. SOCIAL HISTORY: No tobacco, no alcohol, no illicit drugs. The patient was admitted from a prison facility. FAMILY HISTORY: Unable to obtain. REVIEW OF SYSTEMS: Unable to obtain. PHYSICAL EXAMINATION: GENERAL: She is an elderly female who is obtunded. She is on O2 via nasal cannula. VITAL SIGNS: Temperature 97.8, BP 147/58, heart rate 73, respirations 20. HEENT: Unable to fully assess since the patient cannot cooperate. The pupils are reactive. No icterus. Oropharynx, mucosa appears dry. Poor dentition. NECK: Supple without adenopathy. LUNGS: Decreased breath sounds throughout. HEART: Normal S1 and S2. No murmurs, rubs or gallops. ABDOMEN: Distended, soft. Tenderness is appreciated on palpation of the mid abdomen. The patient grimaces. No palpable mass. RECTAL: Not performed. EXTREMITIES: No clubbing or cyanosis. Trace edema at the knees. SKIN: No rash. NEUROLOGIC: Unable to fully assess. The patient is not awake enough to cooperate. PSYCHIATRIC: Unable to fully assess. LABORATORY DATA: WBC 34.5, platelets 527, hemoglobin 10.8. Creatinine 4.57, BUN 79, estimated GFR 9, sodium 143. Liver function test normal. Urinalysis shows many bacteria, many white blood cell clumps, 100 white cells. Urine culture pending. IMPRESSION: 1. Septic shock. 2. Severe Clostridium difficile colitis. 3. Urinary tract infection. 4. Acute renal failure. 5. Leukocytosis secondary to Clostridium difficile colitis, which also is probably the cause of sepsis and septic shock. However, she may have urinary infection, which could also be a cause of the septic shock as well. RECOMMENDATIONS: 1. Continue IV metronidazole. 2. Continue p.o. vancomycin. Increase the dose to 500 mg q.i.d. and hopefully, the patient will be able to take this p.o. 3. Discontinue fluconazole. 4. Continue cefepime while monitoring the urine culture. 5. Follow urine cultures. 6. Monitor white blood cell count. 7. Monitor urine function. 8. Monitor clinical response. The patient is very critically ill and if her kidney function does not begin to improve, outlook may be very poor. Her son is at bedside, along with his and they are aware of her critical illness. Thank you for this consultation. I will monitor the patient's progress along with you and will make further recommendations on followup. MD CELY Dutta/RHEA , 05:52 PM , 06:38 PM JAD
[2017-09-29 18:41] LABS: HEMATOCRIT 28.8 % (35.0-46.0); HEMOGLOBIN 9.3 GM/DL (11.6-15.3)
--- NOTE | 2017-09-29 18:51 | PD.CONS ---
Consult Service Palliative Care . Consult Requested By Dr. Olmedo . Primary Care Physician Timbo Silverio M.D. . Reason for Consultation a. To assist with evaluation and management of symptoms including: pain; confusion; dyspnea b. To assist medical decision maker(s) with: better understanding of current medical conditions; weighing benefits/burdens of medical treatment options; making medical treatment decisions. . HPI History of Present Illness Ms. Andres is an 87 y/o [place] speaking female who was transferred to [facility] emergency department from [facility] on after she was found confused, hypotensive (BP 83/55) with oxygen saturations in the 80s. The patient has a known history of hypertension, osteoarthritis, and dementia and she was recently admitted to [facility] from 08/05/2017 through 09/02/2017 for a left intertrochanteric femur fracture for which she underwent ORIF. That hospitalization was complicated by pneumonia for which she received intravenous antibiotics and was discharged on levofloxacin. Per her son and [id number], the patient initially did well at her rehab facility. Appetite was good. She participated with physical therapy and had been up and able to ambulate with a walker with assistance. Family reports that she developed some diarrhea approximately 1 week prior to this admission. They were not aware if there was any blood in the stool at [facility]. The patient remained on Rivaroxaban as part of DVT prophylaxis. Nursing staff also informed family that appetite had decreased as of 09/25/17 as she went from eating 100% of meals to approximately 50% of meals. Family reports the patient has been suffering from mild dementia for some time but this had become significantly worse over the last 3-4 months. She is still able to recognize family members but has intermittent hallucinations --e.g. she sees family members in the television. Initial vital signs in the emergency department revealed temperature 97.0; pulse 89; respiratory rate 20; blood pressure 101/56; pulse oximetry 95% on room air. Initial examination by the emergency production department supervisor was notable only for : The patient complained of pain all over but otherwise was not answering questions even in [place]. She moved her extremities minimally. She was incontinent of black and tarry type stool that was Hemoccult positive. Initial diagnostic testing in the emergency department noted the following: * CBC showed WBC 27.9; hemoglobin 10.6; platelet count 568 she had 39% band neutrophils. Toxic granulation was present. * Coagulation profile showed PT 13.5; INR 1.3 * Urinalysis was remarkable for large leukocyte esterase, many white blood cell clumps, many bacteria * Chemistry profile showed sodium 143; potassium 4.0; chloride 113; CO2 16.7; anion gap 13; BUN 79; creatinine 4.65; GFR 9; glucose 155; calcium 8.8 * Liver function tests showed total bilirubin 0.4; normal transaminases; alkaline phosphatase 105; total protein 4.3; albumin 1.4 * Cardiac serology showed troponin 0 0.02; total CK 36; B-type natriuretic peptide 25 * TSH was 2.43 * Chest x-ray showed small left pleural effusion; scattered hazy opacities bilaterally consistent with mild pulmonary vascular congestion/atelectasis/ infiltrate; mild cardiomegaly There were several obvious concerns at time of admission including GI bleeding while on anticoagulants, possible sepsis, urinary tract infection, acute kidney injury. The patient was given IV fluid boluses. She was started on a Protonix bolus and drip. K Centra was given. Pressors were started to maintain her mean arterial pressure. She was started on empiric intravenous antibiotics. Critical care and gastroenterology were consulted. A CT of the abdomen and pelvis obtained which demonstrated wall thickening of the ascending and transverse colon with free fluid. There was no free air. Since admission, yesterday difficile testing has come back positive. Other cultures are negative to date. There has been no active bleeding since admission to the intensive care unit. GI has recommended treatment of the Clostridium difficile colitis. They also recommended general surgery consultation and infectious disease consultation. Nephrology has done their initial evaluation will be monitoring renal function carefully. They felt the most likely diagnosis was ATN from hypovolemia and infection. The patient remains critically ill with marginal blood pressures on pressor support. She shows intermittent grimacing but is unable even in [place] to quantify or further describe her pain/discomfort. She wakes up intermittently and is able to smile and even blow kisses at her son and [id number]. Dr. Baker has spoken to both son and daughter and there was agreement on "no code" status. . Function/Cognitive Trajectory Prior to her fall and hip fracture several weeks ago, the patient was living with her son and her son's . The patient ambulated without assistive device. She was able to dress on her own and would make her own bed and would occasionally help with washing dishes. She needed assistance with bathing. She would rarely leave the house. Family reports increasing confusion particularly over the course of the last few months. She was still recognizing family members however. She was still able to have a reasonably meaningful Facetime conversation with her daughter in [place]. She did not normally complain of a lot of aches and pains other than some discomfort in the left shoulder area and some intermittent chest pains of uncertain etiology. As noted above, the patient was able to participate in rehabilitation following her femur fracture. Per family she was able to walk with a walker with some assistance in rehab. Family did take her out of rehab briefly about a week ago to go to the immigration office where she was able to sign forms. Appetite has been reasonably good up until several days ago shortly after the diarrhea began. . Review of Systems ROS Limitations: Clinical Condition (Patient is confused and minimally verbal. Family is at bedside and are unable to get her to speak even in [place]. Review of systems is taken as best as possible from existing medical record and from available family.) Constitutional: COMPLAINS OF: Fatigue, Weight loss, Change in appetite, Pain, Generalized weakness, DENIES: Fever Endocrine: DENIES: Polydipsia, Polyphagia Eyes: COMPLAINS OF: Vision loss, DENIES: Diplopia Ears, nose, mouth, throat: COMPLAINS OF: Hearing loss, DENIES: Throat pain, Ear Pain, Epistaxis Respiratory: COMPLAINS OF: Shortness of breath, DENIES: Cough, Hemoptysis Cardiovascular: COMPLAINS OF: Chest pain, Dyspnea on Exertion, Lower Extremity Edema Gastrointestinal: COMPLAINS OF: Black stools, Bloody stools, Diarrhea, DENIES: Vomiting Musculoskeletal: COMPLAINS OF: Joint pain, Muscle aches, Stiffness Integumentary: DENIES: Pruritus Hematologic/Lymphatics: DENIES: Bruising Neurologic: DENIES: Headache, Seizures Psychiatric: COMPLAINS OF: Confusion, Depression Past Family Social History Coded Allergies: No Known Allergies (Unverified Allergy, Unknown, 08/05/17) Past Medical History Hypertension Osteoarthritis Stage III sacral decubitus ulcer Vitamin D deficiency Chronic iron deficiency anemia Dementia Recent left femur fracture with ORIF Recent pneumonia complicating the femur fracture . Past Surgical History * ORIF left hip with IM nail fixation 08/05/17 (Dr. Live Pandya) * Cataract surgery . Reported Medications Prehospitalization medications at the nursing facility included the following: Norvasc 10 mg p.o. daily Calcium/vitamin D 600/201 tab p.o. twice daily Ferrous sulfate 325 mg p.o. 3 times daily Lisinopril 10 mg p.o. daily Vitamin D2 2000 units p.o. daily Xarelto 10 mg p.o. daily Ergocalciferol 50,000 units p.o. weekly Theragran-M 1 tab p.o. daily Vitamin C 500 mg p.o. twice daily Zinc 220 mg p.o. daily Arginate 1 pack p.o. twice daily Bisacodyl 10 mg [place] daily Hydrocodone 5/325 1 tab p.o. every 4 hours as needed for pain Imodium as needed (she has not been receiving) Protein powder 1 scoop twice daily . Current Medications Medications (Trade) Dose Ordered Sig/Gilmer Route Start Time Stop Time Status Last Admin Pantoprazole Sodium 80 mg/ Sodium Chloride 100 ml @ 10 mls/hr Q10H IV 09/28/17 21:22 09/29/17 17:04 Norepinephrine Bitartrate 250 ml @ 7.5 mls/hr TITRATE PRN IV 09/28/17 23:30 09/29/17 18:00 (Brethine Inj) 1 mg UNSCH PRN SQ 09/28/17 23:30 Metronidazole 100 ml @ 100 mls/hr Q8H IV 09/29/17 01:00 09/29/17 16:12 Cefepime HCl 1000 mg/Sodium Chloride 100 ml @ 200 mls/hr Q24H IV 09/29/17 08:00 09/29/17 08:18 Fluconazole/ Sodium Chloride 100 ml @ 100 mls/hr Q24H IV 09/30/17 01:15 (NS Flush) 2 ml UNSCH PRN IV FLUSH 09/29/17 01:15 (NS Flush) 2 ml BID IV FLUSH 09/29/17 09:00 09/29/17 08:18 (Morphine Inj) 2 mg Q2H PRN IV PUSH 09/29/17 01:15 (Zofran Inj) 4 mg Q6H PRN IV PUSH 09/29/17 01:15 (Albuterol Neb) 2.5 mg Q2HR NEB PRN INH 09/29/17 01:15 ([facility]) 1 Q361D XX 09/29/17 01:15 09/29/17 04:45 (Chlorhexidine 2% Cloth) 3 pack Taper DAILY@04 TOP 09/29/17 04:00 09/25/18 03:59 09/29/17 04:45 (Chlorhexidine 2% Cloth) 3 pack UNSCH PRN TOP 09/29/17 01:15 (Morphine Inj) 4 mg Q2H PRN IV PUSH 09/29/17 05:00 (VANCOMYCIN for oral use only) 125 mg QID PO 09/29/17 09:00 (D50w (Vial) Inj) 50 ml UNSCH PRN IV PUSH 09/29/17 12:30 (Glucagon Inj) 1 mg UNSCH PRN OTHER 09/29/17 12:30 (NovoLIN R SUPPLEMENTAL SCALE) 1 Q4HR SQ 09/29/17 12:30 Vasopressin 40 units/Dextrose 100 ml @ 6 mls/hr [id number] IV 09/29/17 15:06 09/29/17 16:58 (Brethine Inj) 1 mg UNSCH PRN SQ 09/29/17 15:15 Sodium Bicarbonate 50 meq/Sodium Chloride 1,050 ml @ 150 mls/hr Q7H IV 09/29/17 16:00 09/29/17 16:07 (SoluCORTEF INJ) 50 mg Q6HR IV PUSH 09/29/17 18:00 09/29/17 17:04 . Family History The patient's parents when she was 10 years old. Family believes the parental deaths may have been war related. Family is uncertain about medical conditions that may run in the family. . Substance Use Tobacco: Lifetime non-smoker. Alcohol: No history of abuse Prescription med abuse: No history of abuse Illicits: No known use of illicits . Psychosocial History The patient was born in [place]. She has lived most of her adult life in [facility]. She moved to the [place] in 1997. The patient has less than a high school education. 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 The patient was once. Her in approximately 1992. She has 2 children. Her son ---Stu -- lives locally and the patient was living with the son and her [id number] at the time of her fall and hip fracture. The patient's daughter -- Patrizia Wynn-- lives in [place]. Spiritual/Cultural Factors Family reports patient believes in God. She does not belong to any local samaria community. She worships in her own way and occasionally prays. . Living Will: Never completed Health Care Surrogate: Never completed Durable Power of Mosaic Tiler: Never completed Date completed: Patient has not completed a living will or designated a healthcare surrogate. . Health Care Surrogate(s): No designation of healthcare surrogate. . Documented care wishes: No written documentation of healthcare goals or preferences. . Today's verbally stated goals: Patient is currently unable to verbalize healthcare goals or preferences. . Family/friends goals: Family does not want patient to undergo resuscitation but would like to see if aggressive medical management might help her improve. . Ethical and Legal Issues Patient is incapacitated to make her own healthcare decisions. Because of her underlying dementia. It is unlikely she will recover capacity to make such decisions. . Physical Exam Vital Signs Date Time Temp Pulse Resp B/P (MAP) Pulse Ox O2 Delivery O2 Flow Rate FiO2 09/29/17 18:00 71 122/58 09/29/17 16:58 76 09/29/17 12:00 91 09/29/17 12:00 97.8 91 19 86/48 (61) 97 09/29/17 11:00 96 24 87/51 (63) 99 09/29/17 10:00 93 20 89/51 (64) 96 09/29/17 10:00 93 09/29/17 09:00 91 25 92/54 (67) 82 09/29/17 08:19 91 106/51 09/29/17 08:00 97.6 91 21 94/55 (68) 95 09/29/17 08:00 91 09/29/17 06:00 93 09/29/17 06:00 97.5 93 35 99/55 (70) 95 09/29/17 05:00 97.5 81 26 102/56 (71) 95 09/29/17 05:00 81 09/29/17 04:29 09/29/17 03:49 85 16 98/54 (69) 95 Nasal Cannula 2.00 09/29/17 03:15 88 20 111/56 (74) 96 Nasal Cannula 2.00 09/29/17 03:00 79 15 88/52 (64) 96 Nasal Cannula 2.00 09/29/17 02:45 79 20 95/51 (66) 97 Nasal Cannula 2.00 09/29/17 02:30 79 15 90/55 (67) 99 Nasal Cannula 2.00 09/29/17 02:28 82 88/51 09/29/17 02:15 69 20 88/51 (63) 96 Nasal Cannula 2.00 09/29/17 02:00 77 15 93/50 (64) 97 Nasal Cannula 2.00 09/29/17 01:30 75 20 90/54 (66) 98 2.00 09/29/17 01:15 74 20 97/53 (68) 97 Nasal Cannula 2.00 09/29/17 01:00 76 20 98/54 (69) 94 Nasal Cannula 2.00 09/29/17 01:00 76 98/54 09/29/17 00:45 69 20 100/51 (67) 95 Nasal Cannula 2.00 09/29/17 00:32 81 20 101/53 (69) 96 Nasal Cannula 2.00 09/29/17 00:15 78 20 84/53 (63) 94 Nasal Cannula 2.00 09/29/17 00:05 87 77/46 09/28/17 23:45 78 20 81/50 (60) 97 Nasal Cannula 3.00 09/28/17 23:39 86 80/50 09/28/17 23:15 84 20 85/48 (60) 96 Nasal Cannula 2.00 09/28/17 23:00 86 20 109/55 (73) 99 Nasal Cannula 2.00 09/28/17 22:24 90 20 86/54 (65) 97 Nasal Cannula 2.00 09/28/17 21:23 20 96 Nasal Cannula 2.00 09/28/17 21:07 97.0 89 20 101/56 (71) 95 . Exam CONSTITUTIONAL/GENERAL: This is a pale, frail-appearing , thin patient, intermittently awake in a medical intensive care unit bed. At times she is able to smile and blow kisses at family members. At other times she is grimacing. TUBES/LINES/DRAINS: Nasal cannula oxygen; right femoral triple-lumen central line; peripheral IV; Silverio catheter; SCDs SKIN: No jaundice, rashes, or lesions. No wounds seen anteriorly. Skin temperature appropriate. Not diaphoretic. HEAD: Atraumatic. Normocephalic. EYES: Pupils equal and round and reactive. Extraocular motions intact. No scleral icterus. No injection or drainage. Fundi not examined. ENT: Hearing grossly normal--able to turn to voice.. Nose without bleeding or purulent drainage. Poor dentition. Throat without visible erythema, exudates, masses, or lesions. NECK: Trachea midline. Supple, nontender. No palpable thyroid enlargement or nodularity. CARDIOVASCULAR: Regular rate and rhythm without gallops, or rubs. 2/6 systolic murmur heard at the left sternal border. No JVD. Peripheral pulses symmetric. RESPIRATORY/CHEST: Symmetric, unlabored respirations. Clear to auscultation. Breath sounds equal bilaterally and diminished at the bases. No wheezes, rales, or rhonchi. GASTROINTESTINAL: Abdomen soft, moderately distended. There is diffuse moderate tenderness to palpation. No discrete hepato-splenomegaly, or palpable masses. No guarding. Bowel sounds present. GENITOURINARY: Without palpable bladder distension. Silverio catheter in place. MUSCULOSKELETAL: Extremities without clubbing, cyanosis, or edema. No joint tenderness or effusion noted. No calf tenderness. No mottling. LYMPHATICS: No palpable cervical or supraclavicular adenopathy. NEUROLOGICAL: Awakens intermittently. Able to smile at family members and blow kisses. Intermittently able to follow simple commands in [place]. Moves all extremities. PSYCHIATRIC: No obvious anxiety/depression. No apparent hallucinations or other psychotic thought process. . Diagnostic Tests Laboratory Laboratory Tests Test 09/28/17 21:30 09/29/17 00:10 09/29/17 00:32 09/29/17 01:10 White Blood Count 27.9 TH/MM3 (4.0-11.0) Red Blood Count 3.98 MIL/MM3 (4.00-5.30) Hemoglobin 10.6 GM/DL (11.6-15.3) Hematocrit 33.0 % (35.0-46.0) Mean Corpuscular Volume 83.0 FL (80.0-100.0) Mean Corpuscular Hemoglobin 26.6 PG (27.0-34.0) Mean Corpuscular Hemoglobin Concent 32.0 % (32.0-36.0) Red Cell Distribution Width 17.0 % (11.6-17.2) Platelet Count 568 TH/MM3 (150-450) Mean Platelet Volume 8.9 FL (7.0-11.0) Neutrophils (%) (Auto) 93.7 % (16.0-70.0) Lymphocytes (%) (Auto) 1.5 % (9.0-44.0) Monocytes (%) (Auto) 4.0 % (0.0-8.0) Eosinophils (%) (Auto) 0.6 % (0.0-4.0) Basophils (%) (Auto) 0.2 % (0.0-2.0) Neutrophils # (Auto) 26.1 TH/MM3 (1.8-7.7) Lymphocytes # (Auto) 0.4 TH/MM3 (1.0-4.8) Monocytes # (Auto) 1.1 TH/MM3 (0-0.9) Eosinophils # (Auto) 0.2 TH/MM3 (0-0.4) Basophils # (Auto) 0.1 TH/MM3 (0-0.2) CBC Comment AUTO DIFF Differential Total Cells Counted 100 Neutrophils % (Manual) 52 % (16-70) Band Neutrophils % 39 % (0-6) Monocytes % 1 % (0-8) Neutrophils # (Manual) 27.6 TH/MM3 (1.8-7.7) Metamyelocytes 7 % (0-1) Myelocytes 1 % (0-0) Differential Comment FINAL DIFF MANUAL Toxic Granulation 1+ (NORMAL) Platelet Estimate HIGH (NORMAL) Platelet Morphology Comment NORMAL (NORMAL) Red Cell Morphology Comment NORMAL (NORMAL) Prothrombin Time 13.5 SEC (9.8-11.6) Prothromb Time International Ratio 1.3 RATIO Activated Partial Thromboplast Time 29.4 SEC (24.3-30.1) Urine Color YELLOW (YELLW/STRAW) Urine Turbidity CLOUDY (CLEAR) Urine pH 5.0 (5.0-8.5) Urine Specific [place] 1.015 (1.002-1.035) Urine Protein 30 mg/dL (NEG-TRACE) Urine Glucose (UA) NEG mg/dL (NEG) Urine Ketones NEG mg/dL (NEG) Urine Occult Blood NEG (NEG) Urine Nitrite NEG (NEG) Urine Bilirubin NEG (NEG) Urine Urobilinogen LESS THAN 2.0 MG/DL (LESS Urine Leukocyte Esterase LARGE (NEG) Urine RBC 16 /hpf (0-3) Urine WBC 100 /hpf (0-5) Urine WBC Clumps MANY (NONE) Urine Squamous Epithelial Cells 7 /hpf (0-5) Urine Amorphous Sediment OCC Urine Bacteria MANY /hpf (NONE) Urine Mucus MANY /lpf (OCC) Microscopic Urinalysis Comment CULTURE INDICATED Urine Eosinophils NONE SEEN /HPF (NONE SEEN) Urine Random Creatinine 125.1 MG/DL Urine Random Sodium 22 MEQ/L Blood Urea Nitrogen 79 MG/DL (7-18) Creatinine 4.65 MG/DL (0.50-1.00) Random Glucose 155 MG/DL (74-106) Total Protein 4.3 GM/DL (6.4-8.2) Albumin 1.4 GM/DL (3.4-5.0) Calcium Level 8.8 MG/DL (8.5-10.1) Alkaline Phosphatase 105 U/L (45-117) Aspartate Amino Transf (AST/SGOT) 18 U/L (15-37) Alanine Aminotransferase (ALT/SGPT) 13 U/L (10-53) Total Bilirubin 0.4 MG/DL (0.2-1.0) Sodium Level 143 MEQ/L (136-145) Potassium Level 4.0 MEQ/L (3.5-5.1) Chloride Level 113 MEQ/L (98-107) Carbon Dioxide Level 16.7 MEQ/L (21.0-32.0) Anion Gap 13 MEQ/L (5-15) Estimat Glomerular Filtration Rate 9 ML/MIN (>89) Lactic Acid Level 2.4 mmol/L (0.4-2.0) 2.0 mmol/L (0.4-2.0) Total Creatine Kinase 36 U/L (26-192) Troponin I 0.02 NG/ML (0.02-0.05) B-Type Natriuretic Peptide 25 PG/ML (0-100) Thyroid Stimulating Hormone 3rd Gen 2.430 uIU/ML (0.358-3.740) Blood Gas Puncture Site LINE Blood Gas Patient Temperature 98.6 Venous Blood pH 7.37 (7.360-7.400) Venous Blood Partial Pressure CO2 29 mmHg (44-48) Venous Blood Partial Pressure O2 31 mmHg (35-40) Venous Blood HCO3 16 mmol/L (22-26) Venous Blood Oxygen Saturation 48 % (70-76) Venous Blood Oxygen Content 6.1 Vol % (9.0-17.0) Venous Blood Base Excess -8.0 mmol/L (-2-2) Oxygen Delivery Device NASAL CANNULA Blood Gas Liter Flow 2 L/M Blood Gas Inspired Oxygen 98 % Stool C. difficile Toxin (PCR) POSITIVE (NEGATIVE) Stl C. difficile Toxin Epiderm 027 PRESUMPTIVE POSITIVE Test 09/29/17 01:20 09/29/17 04:45 09/29/17 05:36 09/29/17 13:22 Hemoglobin 8.9 GM/DL (11.6-15.3) 11.8 GM/DL (11.6-15.3) 10.8 GM/DL (11.6-15.3) Hematocrit 27.2 % (35.0-46.0) 36.4 % (35.0-46.0) 33.5 % (35.0-46.0) Nasal Screen MRSA (PCR) MRSA NOT DETECTED (NOT White Blood Count 34.5 TH/MM3 (4.0-11.0) Red Blood Count 4.36 MIL/MM3 (4.00-5.30) Mean Corpuscular Volume 83.6 FL (80.0-100.0) Mean Corpuscular Hemoglobin 27.1 PG (27.0-34.0) Mean Corpuscular Hemoglobin Concent 32.4 % (32.0-36.0) Red Cell Distribution Width 16.7 % (11.6-17.2) Platelet Count 527 TH/MM3 (150-450) Mean Platelet Volume 9.2 FL (7.0-11.0) Hematology Comments Blood Urea Nitrogen 79 MG/DL (7-18) Creatinine 4.57 MG/DL (0.50-1.00) Random Glucose 151 MG/DL (74-106) Total Protein 4.8 GM/DL (6.4-8.2) Albumin 1.6 GM/DL (3.4-5.0) Calcium Level 8.8 MG/DL (8.5-10.1) Alkaline Phosphatase 111 U/L (45-117) Aspartate Amino Transf (AST/SGOT) 27 U/L (15-37) Alanine Aminotransferase (ALT/SGPT) 13 U/L (10-53) Total Bilirubin 0.5 MG/DL (0.2-1.0) Sodium Level 143 MEQ/L (136-145) Potassium Level 4.3 MEQ/L (3.5-5.1) Chloride Level 114 MEQ/L (98-107) Carbon Dioxide Level 14.4 MEQ/L (21.0-32.0) Anion Gap 15 MEQ/L (5-15) Estimat Glomerular Filtration Rate 9 ML/MIN (>89) . Result Diagram: 09/29/17 1322 09/29/17 0536 Microbiology Microbiology Date/Time Source Procedure Growth Status 09/28/17 21:30 Blood Peripheral Aerobic Blood Culture - Preliminary NO GROWTH IN 1 DAY Resulted 09/28/17 21:30 Blood Peripheral Anaerobic Blood Culture - Preliminary NO GROWTH IN 1 DAY Resulted 09/28/17 21:15 Blood Peripheral Aerobic Blood Culture - Preliminary NO GROWTH IN 1 DAY Resulted 09/28/17 21:15 Blood Peripheral Anaerobic Blood Culture - Preliminary NO GROWTH IN 1 DAY Resulted 09/28/17 21:30 Urine Random Urine Urine Culture - Preliminary IMMATURE GROWTH - REINCUBATE Resulted . Imaging Last Impressions Abdomen/Pelvis CT 09/28/172121 Signed Impressions: Service Date/Time: Thursday, September 28, 2017 23:22 - CONCLUSION: There is very impressive wall thickening throughout the colon beginning in the cecum extending along the descending colon to the transverse colon. Free fluid throughout the abdomen and pelvis. Flavio Benavides MD Chest X-Ray 09/28/[id number] Signed Impressions: Service Date/Time: Thursday, September 28, 2017 21:33 - CONCLUSION: 1. Small left pleural effusion. 2. Scattered hazy opacities bilaterally consistent with mild pulmonary vascular congestion, atelectasis and/or infiltrate. 3. Mild cardiomegaly. Juan Ivory MD . Procedures * Femoral venous central line placement . Patient/Family Conference Present at Family Conference: Son (Stu Andres) [id number] . Family Conference Time (mins): 40 Family Conference Location: Bedside Issues Discussed: * Palliative care role, purpose, approach * Additional medical, psychosocial, and spiritual history * Patients general health, functional status, and cognitive changes in the months leading up to the current hospitalization * Family understanding of the current medical problems * Family understanding of prognosis * Patients goals of care as best understood from conversations and/or values * Current medical treatment options and benefits/burdens of those options * Likely scenarios comparing ongoing aggressive care with a transition to comfort measures only * Questions answered to the best of my ability * Palliative care contact information provided We specifically discussed that the patient was critically ill and that it was quite possible she would not be able to survive the intensive care unit experience. We also discussed how even if she were to survive the hospitalization, given her age and the events that have transpired since her fall and hip fracture, her chances of returning back to her son's home and being semi-independent work very low. It was far more likely that she would need ongoing nursing care. . Assessment and Plan Disease Oriented Problem List: (1) Clostridium difficile colitis (2) Septic shock (3) GI bleed (4) UTI (urinary tract infection) (5) Acute kidney injury (6) Decubitus ulcers (7) Fracture, intertrochanteric, left femur Symptom Scale: (1) Pain 0-10 Scale: Unable to quantify Comment: The patient, per family, did not have any significant prehospitalization pain syndromes. She was not complaining of pain at her recent hip surgery site. She has shown evidence of pain with grimacing over the last few days but cannot describe the location or characteristics. It appears to have been abdominal pain. . (2) Dyspnea 0-10 Scale: Unable to quantify Comment: Patient appears to be comfortable on O2 via nasal cannula. Source of dyspnea is unclear but probably has to due to increased respiratory needs from sepsis and shock. . (3) Confusion 0-10 Scale: Unable to quantify Comment: Patient has some underlying dementia which is grown worse over the past few months. This is probably exacerbated by infection, hypotension, anemia , and strange environments. . Pertinent Non-Medical Issues Psychosocial: Spiritual: Legal: Ethical issues impacting care: Important Contacts * David Andres (son and co-proxy) -- lives locally -- [phone] * Patrizia Wynn (daughter and co-proxy) -- lives in [place] -- . Prognosis Patient is critically ill and it has become difficult to maintain blood pressure even with pressor support. She is at high risk of not surviving the ICU and hospitalization. Should see survive the hospitalization the chances of her returning to her semi-independent functional status at her son's home are very small. More than likely she would need fci care and we would see fci to hospital transitions until her . . Code Status: No Code Plan == Code Status: NO CODE (per Dr. Baker' conversations with both children). Son confirmed this on my conversation of 09/29/17. == Decision making: patient is incapacitated to make her own healthcare decisions. There is no reasonable probability of her recovering capacity to do so because of her underlying dementia. Proxy decision making falls to her son and daughter as co-proxies == Gaols of Medical treatment: Family would like aggressive medical treatment including pressor support and antibiotics to see if she can improve. As noted above they do not want chest compressions, intubation, or shock. == Symptoms: * PAIN: Per family, the patient did not have any significant prehospitalization pain syndromes. She was not complaining of pain at her recent hip surgery site. She has shown evidence of pain with grimacing over the last few days but cannot describe the location or characteristics. It appears to have been abdominal pain. Other current sources of pain might include her Silverio catheter, vascular access lines, nasal cannula, and prolonged bedbound status. Patient currently has orders for morphine sulfate at 2-4 mg IV as needed. Because of patient's current renal function she will have a hard time metabolizing the morphine. May want to consider IV fentanyl as her "as needed" opioid. We will need to watch her blood pressures carefully as they may drop further with opioid administration. * Dyspnea: Dyspnea is probably secondary to her increased metabolic rate from sepsis and possibly due to her blood loss. Appears to be adequately treated at this time by nasal cannula oxygen. We will need to watch hemoglobins for need for transfusion particularly if there is more bleeding. * Confusion: Patient has underlying dementia. This has likely been exacerbated several factors including infection, uremia, medications, hypotension, and strange environment. Patient does not appear to be suffering from this confusion at this time. We will try and treat underlying treatable factors and reassess. == Palliative care will continue to follow to assist with symptom management and to further clarify goals of medical treatment as the clinical course evolves. . Thank you for the opportunity to participate in the care of Ms. Andres. . Attestation To help prompt me to consider important information that might be impacting today's encounter and assessment, information from prior notes written by myself or my colleagues may have been "brought forward" into today's note. My signature on this note, however, is an attestation that I personally performed the exam, history, and/or decision-making noted today, and, unless otherwise indicated, the interactions with patient, family, and staff as well as the review of records all occurred today. I also attest that the listed assessment and stated plan reflect my best clinical judgment today based on the combination of historical information, prior notes, and today's exam/ interactions. When time spent is documented, it refers only to time spent today by the signer, or if indicated, combined time spent today by collaborating physician/nurse practitioner. . John Scott MD September 29, 2017 18:50
[2017-09-29 19:27] LABS: BICARBONATE 17.4 MEQ/L (21.0-32.0); CALCIUM 8.8 MG/DL (8.5-10.1); CREATININE 4.53 MG/DL (0.50-1.00)
--- NOTE | 2017-09-29 22:25 | MB ---
cc: Maurice Crooks MD DATE: 09/29/2017 CHIEF COMPLAINT: Septic shock, abdominal pain, C. difficile colitis. HISTORY OF PRESENT ILLNESS: The patient is an 87-year-old female that is Guamanian speaking, who presents with septic shock and hemodynamic instability, abdominal pain. The patient was noted to have a recent fall in which she sustained an intertrochanteric fracture. She underwent ORIF. This was between 08/05-09/02, when she was discharged to a SNF. She was noted to have pneumonia at that time, which she was placed on antibiotics and was residing in a halfway, when she developed a change in mental status, hypotension and fevers. The patient is a poor historian, difficulty to elicit a full history as the patient has dementia and is not entirely verbal for me and Guamanian speaking. [id number], who indicates she speaks several languages including Turkmen is at bedside and provided appropriate history along with a son. The patient was undergoing resuscitation, placed on pressure support. She is noted to be protecting her airway at this time. She had further evaluation including leukocytosis of 34,000. A CT scan showing diffuse colonic wall thickening and positive for C. difficile colitis. She has been placed on antibiotics as well. She has been having diarrhea as well as noted multiple times per day. PAST MEDICAL HISTORY: Hypertension, osteoarthritis, sacral ulcer, vitamin deficiency, iron anemia, dementia, recent fall. PAST SURGICAL HISTORY: ORIF of the left hip. MEDICATIONS: See JERRICA, Isauro. ALLERGIES: NO KNOWN DRUG ALLERGIES. SOCIAL HISTORY: Residing in SNF, nonsmoker, nondrinker. FAMILY HISTORY: Son dying at 12 years old. Otherwise, unable to obtain full family history. REVIEW OF SYSTEMS: GENERAL: Unable to obtain, general, critically ill. HEENT: Unable to obtain. NECK: Unable to obtain. LUNGS: Unable to obtain. CARDIAC: Unable to obtain. ABDOMEN: Abdominal pain, diarrhea. GENITOURINARY: Unable to obtain. ENDOCRINE: Unable to obtain. INTEGUMENT: Unable to obtain, ulcer on sacrum. NEUROLOGIC: Unable to obtain. PHYSICAL EXAMINATION: GENERAL: The patient critical. VITAL SIGNS: Temperature 97, pulse 74, respiration 20, blood pressure 97/53, saturation 97% on 2 liters nasal cannula. HEENT: Pupils equal, round, reactive. NECK: Supple, Trachea midline. LUNGS: Bilateral expansion clear. HEART: S1, S2, regular, tachycardic. ABDOMEN: Distended, moderately tender. No rigidity. No evidence of rebound. GENITOURINARY: Silverio. MUSCULOSKELETAL: No edema or cyanosis. NEUROLOGIC: Not answering questions, but is moving all extremities. LABORATORY DATA, DIAGNOSTIC DATA: WBC 34.5, hemoglobin 11, hematocrit 36.4, platelets 527. Sodium 143, potassium 4.3, chloride 114, CO2 is 14, BUN 79, creatinine 4.5, lactate 2. AST 27, ALT 13, total bilirubin 0.5. INR 1.3. CT reviewed by myself, showing free intra-abdominal fluid, significant thickening of the ascending colon flexure and sigmoid. ASSESSMENT: The patient is an 87-year-old female with multiple medical issues, dementia, Clostridium difficile colitis, critical, Intensive Care Unit, requiring pressor support for septic shock. PLAN: After further workup, the patient with the above main issues including Clostridium difficile colitis, I agree with medical management including IV fluids, pressure support, IV antibiotics, pain control. Discussed with [id number], who indicated she fully understands and speaks Turkmen, as well as Guamanian and several other languages, that they would like to attempt medical management and avoid surgery at this time. I discussed with the family that the patient would likely warrant a surgical intervention due to the severity and significance of the Clostridium difficile colitis. However, given the circumstances, as the patient appears to be critically ill, advanced age, currently a DNR status and renal failure, that the patient would likely have a very grim outcome regardless of surgical intervention or not. Family indicated they would like to hold off on surgery. I discussed I would be available if anything changes. They state understanding and agreed. Agree with palliative care consultation, followup GI recommendations. Will continue to follow. MD RAMOS Ibarra/DAVID , 09:44 PM , 10:24 PM
[2017-09-30] VITALS (21 sets, daily range): BP systolic 95–130; BP diastolic 50–60; PULSE 58–76; RESP 18–27; TEMP 96.5–98.8; O2SAT 91–96
[2017-09-30] MEDS: SODIUM CHLORIDE 0.9% FLUSH 10 ML FLUSH IV FLUSH SCH ×3 (00:35→20:41)
[2017-09-30] MEDS: VANCOMYCIN 500 MG VIAL (FOR ORAL USE ONLY) PO SCH ×5 (00:35→20:41)
[2017-09-30] MEDS: SODIUM BICARBONATE 8.4% INJ 50 MEQ in SODIUM CHLOR 0.45% 1000 ML INJ 1,000 ML IV SCH ×3 (00:38→20:00)
[2017-09-30] MEDS: HYDROCORTISONE SOD SUCCINATE 100 MG VIAL IV PUSH SCH ×4 (00:56→17:11)
[2017-09-30] MEDS: FLUCONAZOLE 200 MG PREMIX BAG 100 ML IV SCH (00:57)
[2017-09-30] MEDS: metroNIDAZOLE 500 MG INJ 100 ML IV SCH ×3 (00:57→16:02)
[2017-09-30 00:58] LABS: HEMATOCRIT 28.9 % (35.0-46.0); HEMOGLOBIN 9.3 GM/DL (11.6-15.3)
[2017-09-30] MEDS: INSULIN NovoLIN REGULAR SUPPLEMENTAL SCALE SQ SCH ×6 (00:58→20:00)
[2017-09-30] MEDS: CHLORHEXIDINE GLUCONATE 2 % 1 PACK (2 CLOTHS) TOP SCH (04:00)
[2017-09-30 06:25] LABS: AUTOMATED NEUTROPHIL # 24.1 TH/MM3 (1.8-7.7); BASOPHIL % 0.1 % (0.0-2.0); EOSINOPHIL # 0.1 TH/MM3 (0-0.4); EOSINOPHIL % 0.4 % (0.0-4.0); HEMATOCRIT 27.4 % (35.0-46.0); MEAN CELL VOLUME 82.9 FL (80.0-100.0); MEAN CORPUSCULAR HEMOGLOBIN 27.2 PG (27.0-34.0); MEAN CORPUSCULAR HGB CONC 32.8 % (32.0-36.0); MEAN PLATELET VOLUME 8.9 FL (7.0-11.0); MONO % 3.2 % (0.0-8.0); MONOCYTE # 0.8 TH/MM3 (0-0.9); NEUT % 92.3 % (16.0-70.0); PLATELET COUNT 260 TH/MM3 (150-450); RED CELL DISTRIBUTION WIDTH 16.9 % (11.6-17.2); WHITE BLOOD COUNT 26.1 TH/MM3 (4.0-11.0)
[2017-09-30 06:35] LABS: INTERNATIONAL NORMALIZED RATIO 1.4 RATIO; PROTHROMBIN TIME - PATIENT 14.5 SEC (9.8-11.6)
[2017-09-30 06:54] LABS: ALBUMIN 1.7 GM/DL (3.4-5.0); ALT (GPT) 10 U/L (10-53); AST (GOT) 27 U/L (15-37); BICARBONATE 19.4 MEQ/L (21.0-32.0); BLOOD UREA NITROGEN 77 MG/DL (7-18); CALCIUM 8.6 MG/DL (8.5-10.1); CHLORIDE 112 MEQ/L (98-107); CREATININE 4.37 MG/DL (0.50-1.00); GLOMERULAR FILTRATION RATE 10 ML/MIN (>89); GLUCOSE,RANDOM 135 MG/DL (74-106); MAGNESIUM 2.1 MG/DL (1.5-2.5); PHOSPHORUS 3.9 MG/DL (2.5-4.9); SODIUM (NA) 144 MEQ/L (136-145)
[2017-09-30 06:56] LABS: ALKALINE PHOSPHATASE 96 U/L (45-117); TOTAL BILIRUBIN ADULT 0.4 MG/DL (0.2-1.0); TOTAL PROTEIN 4.1 GM/DL (6.4-8.2)
[2017-09-30] MEDS: CEFEPIME INJ 1,000 MG in SODIUM CHLORIDE 0.9% INJ 100 ML IV SCH (08:03)
[2017-09-30] MEDS: VASOPRESSIN INJ 40 UNITS in DEXTROSE 5% IN WATER 100ML INJ 98 ML IV SCH ×2 (08:03)
[2017-09-30] MEDS: PANTOPRAZOLE INJ 80 MG in SODIUM CHLORIDE 0.9% INJ 100 ML IV SCH ×2 (08:06→15:58)
[2017-09-30 08:23] LABS: BANDS 13 % (0-6); CORRECTED NUCLEATED RBC 4 /100 WBC (0-0); METAMYELOCYTES 5 % (0-1); MONOCYTES 2 % (0-8); MYELOCYTES 3 % (0-0); NEUTROPHIL # MANUAL DIFF 25.6 TH/MM3 (1.8-7.7); NUCLEATED RED BLOOD CELL 4 (0-0); POLYS (SEG NEUTROPHILS) 76 % (16-70); PROMYELOCYTES 1 % (0-0)
[2017-09-30 08:24] LABS: TOXIC VACUOLATION PRESENT (NONE SEEN)
[2017-09-30 08:25] LABS: TOXIC GRANULATION 1+ (NORMAL)
--- NOTE | 2017-09-30 09:23 | HHI.PR ---
cc: ValeiryMaurice Subjective Subjective Notes more alert today, still with pain, remain on pressors but lower dose Objective Vitals/I&O Vital Signs Date Time Temp Pulse Resp B/P (MAP) Pulse Ox O2 Delivery O2 Flow Rate FiO2 09/30/17 08:03 61 123/58 09/30/17 04:00 98.8 18 96 09/29/17 03:49 Nasal Cannula 2.00 Labs Laboratory Tests Test 09/29/17 13:22 09/29/17 18:11 09/30/17 00:24 09/30/17 06:10 Hemoglobin 10.8 9.3 9.3 9.0 Hematocrit 33.5 28.8 28.9 27.4 Blood Urea Nitrogen 79 77 Creatinine 4.53 4.37 Random Glucose 176 135 Calcium Level 8.8 8.6 Sodium Level 144 144 Potassium Level 4.1 3.7 Chloride Level 112 112 Carbon Dioxide Level 17.4 19.4 Anion Gap 15 13 Estimat Glomerular Filtration Rate 9 10 White Blood Count 26.1 Red Blood Count 3.30 Mean Corpuscular Volume 82.9 Mean Corpuscular Hemoglobin 27.2 Mean Corpuscular Hemoglobin Concent 32.8 Red Cell Distribution Width 16.9 Platelet Count 260 Mean Platelet Volume 8.9 Neutrophils (%) (Auto) 92.3 Lymphocytes (%) (Auto) 4.0 Monocytes (%) (Auto) 3.2 Eosinophils (%) (Auto) 0.4 Basophils (%) (Auto) 0.1 Neutrophils # (Auto) 24.1 Lymphocytes # (Auto) 1.0 Monocytes # (Auto) 0.8 Eosinophils # (Auto) 0.1 Basophils # (Auto) 0.0 CBC Comment AUTO DIFF Differential Total Cells Counted 100 Neutrophils % (Manual) 76 Band Neutrophils % 13 Monocytes % 2 Neutrophils # (Manual) 25.6 Metamyelocytes 5 Myelocytes 3 Promyelocytes 1 Nucleated Red Blood Cells 4 Differential Comment FINAL DIFF MANUAL Toxic Granulation 1+ Toxic Vacuolation PRESENT Platelet Estimate NORMAL Platelet Morphology Comment NORMAL Prothrombin Time 14.5 Prothromb Time International Ratio 1.4 Total Protein 4.1 Albumin 1.7 Phosphorus Level 3.9 Magnesium Level 2.1 Alkaline Phosphatase 96 Aspartate Amino Transf (AST/SGOT) 27 Alanine Aminotransferase (ALT/SGPT) 10 Total Bilirubin 0.4 Lactic Acid Level 2.1 Date/Time Source Procedure Growth Status 09/28/17 21:30 Blood Peripheral Aerobic Blood Culture - Preliminary NO GROWTH IN 1 DAY Resulted 09/28/17 21:30 Blood Peripheral Anaerobic Blood Culture - Preliminary NO GROWTH IN 1 DAY Resulted 09/28/17 21:30 Urine Random Urine Urine Culture - Preliminary IMMATURE GROWTH - REINCUBATE Resulted Lungs: Clear Abdomen: Other (soft +ttp, +distension) A/P Assessment and Plan 87-year-old female with multiple medical issues, dementia, Clostridium difficile colitis, critical, Intensive Care Unit, requiring pressor support for septic shock. DNR PLAN ABX, Pain control, ivf close monitoring in ICU non operative management at this point will follow Maurice Crooks MD September 30, 2017 09:23
--- NOTE | 2017-09-30 10:07 | HHI.NPPN ---
Subjective Renal Failure: Acute History of Present Illness Patient is a 87 year old female with a past medical history of Hypertension, Osteoarthritis, Stage III sacral decubitus ulcer, Vitamin D deficiency, Chronic iron deficiency anemia, and Dementia. Patient presented to the emergency department with lethargy, hypotension, and O2 sats in the 80's. She is a resident of [facility] where is is recovering from a ORIF. Most of history is obtained from chart. She was bolused with IVF and is now on pressors. Nephrology is consulted for acute kidney injury with a creatinine of 4.57, potassium of 4.3, and CO2 of 14.4. CT of abdomen with kidneys of normal in size and shape. There is no mass, stone, or hydronephrosis. HEDY is all acute with a baseline creatinine of 0.91 on 08/15/17. Additional Remarks Son at bedside. Denies any shortness of breath. Creatinine slightly improved at 4.37 from 4.53. Urinary output also improved. (Nuris Galvez) Review of Systems Respiratory Respiratory Remarks denies any SOB (Nuris Galvez) Gastrointestinal Gastrointestinal: Abdominal Pain (Nuris Galvez) Objective Data Data 09/30/17 10/01/17 19:00 07:00 Intake Total 400 ml Balance 400 ml IV Total 400 ml Vital Signs Date Time Temp Pulse Resp B/P (MAP) Pulse Ox O2 Delivery O2 Flow Rate FiO2 09/30/17 09:00 60 21 130/60 (83) 93 09/30/17 08:03 61 123/58 09/30/17 08:00 96.5 58 23 123/58 (79) 94 09/30/17 08:00 58 09/30/17 07:00 60 22 92 09/30/17 06:00 65 09/30/17 04:00 98.8 69 18 107/59 (75) 96 09/30/17 04:00 65 09/30/17 02:00 68 09/30/17 00:00 97.0 74 24 114/58 (76) 96 09/30/17 00:00 68 09/29/17 22:00 84 09/29/17 20:00 74 09/29/17 20:00 74 122/57 09/29/17 20:00 97.6 74 20 122/57 (78) 94 09/29/17 18:00 71 09/29/17 18:00 71 22 122/58 (79) 93 09/29/17 18:00 71 122/58 09/29/17 17:00 76 26 109/56 (73) 97 09/29/17 16:58 76 09/29/17 16:00 98.0 77 19 104/54 (71) 91 09/29/17 16:00 77 09/29/17 15:00 91 9 81/43 (56) 96 09/29/17 14:00 94 32 96/55 (69) 95 09/29/17 14:00 94 09/29/17 13:00 94 32 87/51 (63) 96 09/29/17 12:00 91 09/29/17 12:00 97.8 91 19 86/48 (61) 97 09/29/17 11:00 96 24 87/51 (63) 99 (Nuris Galvez) -: 09/30/17 0610 09/30/17 0610 Imaging Last Impressions Abdomen/Pelvis CT 09/28/172121 Signed Impressions: Service Date/Time: Thursday, September 28, 2017 23:22 - CONCLUSION: There is very impressive wall thickening throughout the colon beginning in the cecum extending along the descending colon to the transverse colon. Free fluid throughout the abdomen and pelvis. Flavio Benavides MD Chest X-Ray 09/28/[id number] Signed Impressions: Service Date/Time: Thursday, September 28, 2017 21:33 - CONCLUSION: 1. Small left pleural effusion. 2. Scattered hazy opacities bilaterally consistent with mild pulmonary vascular congestion, atelectasis and/or infiltrate. 3. Mild cardiomegaly. Juan Ivory MD Tubes & Lines: Silverio (Nuris Galvez) Physical Exam General Appearance: No Acute Distress, Comfortable (Nuris Galvez) Pulmonary Resp Exam: Breath Sounds Equal, No Distress (Nuris Galvez) Cardiology CV Exam: Normal Sinus Rhythm, Good Perfusion (Nuris Galvez) Gastrointestinal/Abdomen GI Exam: Soft GI Remarks tender (Nuris Galvez) Integumentary Skin Exam: Clear, Warm (Nuris Galvez) Extremeties Extremities Exam: No Edema (Nuris Galvez) Neurologic Neuro Exam: Alert, Awake Neuro Remarks Central African speaking (Nuris Galvez) Assessment/Plan Problem List: (1) Acute kidney injury ICD Codes: N17.9 - Acute kidney failure, unspecified Status: Acute Plan: Acute kidney injury with a creatinine of 4.57, potassium of 4.3, and CO2 of 14.4. day of consult. HEDY from possible prerenal VS ATN from hypovolemia and infection FeNa at 0.56% suggestive of prerenal state. CT of abdomen with kidneys of normal in size and shape. There is no mass, stone , or hydronephrosis. HEDY is all acute with a baseline creatinine of 0.91 on 08/15/17. Plan Avoid nephrotoxins Will monitor urinary output and renal panel Maintain strict I+Os Renal dose medication Continue IVF with slight improvement in creatinine at 4.37 from 4.53 and UOP of 700ml/24 hours CO2 at 19.4 from 14.4 and levophed has been weaned off. continue to monitor with no urgent need for dialysis Being treated for C Diff per ID (2) Septic shock ICD Codes: A41.9 - Sepsis, unspecified organism; R65.21 - Severe sepsis with septic shock Status: Acute (3) UTI (urinary tract infection) ICD Codes: N39.0 - Urinary tract infection, site not specified Status: Acute (4) GI bleed ICD Codes: K92.2 - Gastrointestinal hemorrhage, unspecified Status: Acute (5) C. difficile colitis ICD Codes: A04.72 - Enterocolitis due to Clostridium difficile, not specified as recurrent (Nuris Galvez) Problem List: (1) Acute kidney injury ICD Codes: N17.9 - Acute kidney failure, unspecified Status: Acute Plan: Acute kidney injury with a creatinine of 4.57, potassium of 4.3, and CO2 of 14.4. day of consult. HEDY from possible prerenal VS ATN from hypovolemia and infection FeNa at 0.56% suggestive of prerenal state. CT of abdomen with kidneys of normal in size and shape. There is no mass, stone , or hydronephrosis. HEDY is all acute with a baseline creatinine of 0.91 on 08/15/17. Plan Avoid nephrotoxins Will monitor urinary output and renal panel Maintain strict I+Os Renal dose medication Continue IVF with slight improvement in creatinine at 4.37 from 4.53 and UOP of 700ml/24 hours CO2 at 19.4 from 14.4 and levophed has been weaned off. continue to monitor with no urgent need for dialysis Being treated for C Diff per ID. Patient seen and examined, agree with above. Slight improvement in the Creatinine. (2) Septic shock ICD Codes: A41.9 - Sepsis, unspecified organism; R65.21 - Severe sepsis with septic shock Status: Acute (3) UTI (urinary tract infection) ICD Codes: N39.0 - Urinary tract infection, site not specified Status: Acute (4) GI bleed ICD Codes: K92.2 - Gastrointestinal hemorrhage, unspecified Status: Acute (5) C. difficile colitis ICD Codes: A04.72 - Enterocolitis due to Clostridium difficile, not specified as recurrent (Phillip Quick MD) Problem Qualifiers (1) UTI (urinary tract infection): Qualified Codes: N30.00 - Acute cystitis without hematuria (2) GI bleed: Qualified Codes: K92.2 - Gastrointestinal hemorrhage, unspecified Nuris Galvez September 30, 2017 10:07 Phillip Quick MD October 01, 2017 22:04
--- NOTE | 2017-09-30 11:52 | HHI.HCPN ---
Reason for visit a. To assist with evaluation and management of symptoms including: pain; confusion; dyspnea b. To assist medical decision maker(s) with: better understanding of current medical conditions; weighing benefits/burdens of medical treatment options; making medical treatment decisions. . Subjective/Interval History Ms. Andres'niki shock is improving. BPs are increasing to the normal range while pressors are actively being weaned. Patient is tolerating some oral meds. While son was here this AM, he asked her about pain in Bel[place]ian and she denied being uncomfortable. Bedside nurse reports no apparent distress or non-verbal signs of pain this AM. Surgery has evaluated patient. Dr. Crooks has indicated that due to the severity of the C diff infection she would probably need a surgical intervention , but given her age , renal function, and how ill she is, the outcome is likely to be quite grim either way. Family continues to opt for medical management only. . Family/friend interactions No family at bedside. . Advance Directives Living Will: Never completed Health Care Surrogate: Never completed Durable Power of Electronics Lead: Never completed Advance Directive Specifics Date completed: Patient has not completed a living will or designated a healthcare surrogate. . Health Care Surrogate(s): No designation of healthcare surrogate. . Documented care wishes: No written documentation of healthcare goals or preferences. . Objective Vital Signs Date Time Temp Pulse Resp B/P (MAP) Pulse Ox O2 Delivery O2 Flow Rate FiO2 09/30/17 11:00 61 22 117/58 (77) 92 09/30/17 10:00 66 26 116/57 (76) 93 09/30/17 10:00 66 09/30/17 09:00 60 21 130/60 (83) 93 09/30/17 08:03 61 123/58 09/30/17 08:00 96.5 58 23 123/58 (79) 94 09/30/17 08:00 58 09/30/17 07:00 60 22 92 09/30/17 06:00 65 09/30/17 04:00 98.8 69 18 107/59 (75) 96 09/30/17 04:00 65 09/30/17 02:00 68 09/30/17 00:00 97.0 74 24 114/58 (76) 96 09/30/17 00:00 68 09/29/17 22:00 84 09/29/17 20:00 74 09/29/17 20:00 74 122/57 09/29/17 20:00 97.6 74 20 122/57 (78) 94 09/29/17 18:00 71 09/29/17 18:00 71 22 122/58 (79) 93 09/29/17 18:00 71 122/58 09/29/17 17:00 76 26 109/56 (73) 97 09/29/17 16:58 76 09/29/17 16:00 98.0 77 19 104/54 (71) 91 09/29/17 16:00 77 09/29/17 15:00 91 9 81/43 (56) 96 09/29/17 14:00 94 32 96/55 (69) 95 09/29/17 14:00 94 09/29/17 13:00 94 32 87/51 (63) 96 09/29/17 12:00 91 09/29/17 12:00 97.8 91 19 86/48 (61) 97 Intake & Output 09/30/17 09/30/17 07:00 19:00 Intake Total 6741 ml 400 ml Output Total 1000 ml Balance 5741 ml 400 ml IV Total 6741 ml 400 ml Output Urine Total 700 ml Stool Total 300 ml . Physical Exam CONSTITUTIONAL/GENERAL: This is a pale, frail-appearing , thin patient, in an MICU bed. Eyes are open but she is not interacting. TUBES/LINES/DRAINS: Nasal cannula oxygen; right femoral triple-lumen central line; peripheral IV; Silverio catheter; SCDs SKIN: No jaundice, rashes, or lesions. No wounds seen anteriorly. Skin temperature appropriate. Not diaphoretic. EYES: Pupils equal and round. Extraocular motions intact. No scleral icterus. No injection or drainage. Fundi not examined. ENT: Hearing grossly normal--able to turn to voice.. Nose without bleeding or purulent drainage. Poor dentition. Throat without visible erythema, exudates, masses, or lesions. NECK: Trachea midline. Supple, nontender. CARDIOVASCULAR: Regular rate and rhythm without gallops, or rubs. 2/6 systolic murmur heard at the left sternal border. No JVD. RESPIRATORY/CHEST: Symmetric, unlabored respirations. Clear to auscultation. Breath sounds equal bilaterally and diminished at the bases. No wheezes, rales, or rhonchi. GASTROINTESTINAL: Abdomen soft, moderately distended. There is diffuse moderate tenderness to palpation. No discrete hepato-splenomegaly, or palpable masses. No guarding. Bowel sounds present. GENITOURINARY: Without palpable bladder distension. Silverio catheter in place. MUSCULOSKELETAL: Extremities without clubbing, cyanosis, or edema. No mottling. LYMPHATICS: Not examined. NEUROLOGICAL: Awakens intermittently. Moves all extremities. Intermittent confusion. PSYCHIATRIC: No obvious anxiety/depression. No apparent hallucinations or other psychotic thought process. . Diagnostic Tests Laboratory Laboratory Tests Test 09/28/17 21:30 09/29/17 00:10 09/29/17 00:32 09/29/17 01:10 White Blood Count 27.9 TH/MM3 (4.0-11.0) Red Blood Count 3.98 MIL/MM3 (4.00-5.30) Hemoglobin 10.6 GM/DL (11.6-15.3) Hematocrit 33.0 % (35.0-46.0) Mean Corpuscular Volume 83.0 FL (80.0-100.0) Mean Corpuscular Hemoglobin 26.6 PG (27.0-34.0) Mean Corpuscular Hemoglobin Concent 32.0 % (32.0-36.0) Red Cell Distribution Width 17.0 % (11.6-17.2) Platelet Count 568 TH/MM3 (150-450) Mean Platelet Volume 8.9 FL (7.0-11.0) Neutrophils (%) (Auto) 93.7 % (16.0-70.0) Lymphocytes (%) (Auto) 1.5 % (9.0-44.0) Monocytes (%) (Auto) 4.0 % (0.0-8.0) Eosinophils (%) (Auto) 0.6 % (0.0-4.0) Basophils (%) (Auto) 0.2 % (0.0-2.0) Neutrophils # (Auto) 26.1 TH/MM3 (1.8-7.7) Lymphocytes # (Auto) 0.4 TH/MM3 (1.0-4.8) Monocytes # (Auto) 1.1 TH/MM3 (0-0.9) Eosinophils # (Auto) 0.2 TH/MM3 (0-0.4) Basophils # (Auto) 0.1 TH/MM3 (0-0.2) CBC Comment AUTO DIFF Differential Total Cells Counted 100 Neutrophils % (Manual) 52 % (16-70) Band Neutrophils % 39 % (0-6) Monocytes % 1 % (0-8) Neutrophils # (Manual) 27.6 TH/MM3 (1.8-7.7) Metamyelocytes 7 % (0-1) Myelocytes 1 % (0-0) Differential Comment FINAL DIFF MANUAL Toxic Granulation 1+ (NORMAL) Platelet Estimate HIGH (NORMAL) Platelet Morphology Comment NORMAL (NORMAL) Red Cell Morphology Comment NORMAL (NORMAL) Prothrombin Time 13.5 SEC (9.8-11.6) Prothromb Time International Ratio 1.3 RATIO Activated Partial Thromboplast Time 29.4 SEC (24.3-30.1) Urine Color YELLOW (YELLW/STRAW) Urine Turbidity CLOUDY (CLEAR) Urine pH 5.0 (5.0-8.5) Urine Specific [place] 1.015 (1.002-1.035) Urine Protein 30 mg/dL (NEG-TRACE) Urine Glucose (UA) NEG mg/dL (NEG) Urine Ketones NEG mg/dL (NEG) Urine Occult Blood NEG (NEG) Urine Nitrite NEG (NEG) Urine Bilirubin NEG (NEG) Urine Urobilinogen LESS THAN 2.0 MG/DL (LESS Urine Leukocyte Esterase LARGE (NEG) Urine RBC 16 /hpf (0-3) Urine WBC 100 /hpf (0-5) Urine WBC Clumps MANY (NONE) Urine Squamous Epithelial Cells 7 /hpf (0-5) Urine Amorphous Sediment OCC Urine Bacteria MANY /hpf (NONE) Urine Mucus MANY /lpf (OCC) Microscopic Urinalysis Comment CULTURE INDICATED Urine Eosinophils NONE SEEN /HPF (NONE SEEN) Urine Random Creatinine 125.1 MG/DL Urine Random Sodium 22 MEQ/L Blood Urea Nitrogen 79 MG/DL (7-18) Creatinine 4.65 MG/DL (0.50-1.00) Random Glucose 155 MG/DL (74-106) Total Protein 4.3 GM/DL (6.4-8.2) Albumin 1.4 GM/DL (3.4-5.0) Calcium Level 8.8 MG/DL (8.5-10.1) Alkaline Phosphatase 105 U/L (45-117) Aspartate Amino Transf (AST/SGOT) 18 U/L (15-37) Alanine Aminotransferase (ALT/SGPT) 13 U/L (10-53) Total Bilirubin 0.4 MG/DL (0.2-1.0) Sodium Level 143 MEQ/L (136-145) Potassium Level 4.0 MEQ/L (3.5-5.1) Chloride Level 113 MEQ/L (98-107) Carbon Dioxide Level 16.7 MEQ/L (21.0-32.0) Anion Gap 13 MEQ/L (5-15) Estimat Glomerular Filtration Rate 9 ML/MIN (>89) Lactic Acid Level 2.4 mmol/L (0.4-2.0) 2.0 mmol/L (0.4-2.0) Total Creatine Kinase 36 U/L (26-192) Troponin I 0.02 NG/ML (0.02-0.05) B-Type Natriuretic Peptide 25 PG/ML (0-100) Thyroid Stimulating Hormone 3rd Gen 2.430 uIU/ML (0.358-3.740) Blood Gas Puncture Site LINE Blood Gas Patient Temperature 98.6 Venous Blood pH 7.37 (7.360-7.400) Venous Blood Partial Pressure CO2 29 mmHg (44-48) Venous Blood Partial Pressure O2 31 mmHg (35-40) Venous Blood HCO3 16 mmol/L (22-26) Venous Blood Oxygen Saturation 48 % (70-76) Venous Blood Oxygen Content 6.1 Vol % (9.0-17.0) Venous Blood Base Excess -8.0 mmol/L (-2-2) Oxygen Delivery Device NASAL CANNULA Blood Gas Liter Flow 2 L/M Blood Gas Inspired Oxygen 98 % Stool C. difficile Toxin (PCR) POSITIVE (NEGATIVE) Stl C. difficile Toxin Epiderm 027 PRESUMPTIVE POSITIVE Test 09/29/17 01:20 09/29/17 04:45 09/29/17 05:36 09/29/17 13:22 Hemoglobin 8.9 GM/DL (11.6-15.3) 11.8 GM/DL (11.6-15.3) 10.8 GM/DL (11.6-15.3) Hematocrit 27.2 % (35.0-46.0) 36.4 % (35.0-46.0) 33.5 % (35.0-46.0) Nasal Screen MRSA (PCR) MRSA NOT DETECTED (NOT White Blood Count 34.5 TH/MM3 (4.0-11.0) Red Blood Count 4.36 MIL/MM3 (4.00-5.30) Mean Corpuscular Volume 83.6 FL (80.0-100.0) Mean Corpuscular Hemoglobin 27.1 PG (27.0-34.0) Mean Corpuscular Hemoglobin Concent 32.4 % (32.0-36.0) Red Cell Distribution Width 16.7 % (11.6-17.2) Platelet Count 527 TH/MM3 (150-450) Mean Platelet Volume 9.2 FL (7.0-11.0) Hematology Comments Blood Urea Nitrogen 79 MG/DL (7-18) Creatinine 4.57 MG/DL (0.50-1.00) Random Glucose 151 MG/DL (74-106) Total Protein 4.8 GM/DL (6.4-8.2) Albumin 1.6 GM/DL (3.4-5.0) Calcium Level 8.8 MG/DL (8.5-10.1) Alkaline Phosphatase 111 U/L (45-117) Aspartate Amino Transf (AST/SGOT) 27 U/L (15-37) Alanine Aminotransferase (ALT/SGPT) 13 U/L (10-53) Total Bilirubin 0.5 MG/DL (0.2-1.0) Sodium Level 143 MEQ/L (136-145) Potassium Level 4.3 MEQ/L (3.5-5.1) Chloride Level 114 MEQ/L (98-107) Carbon Dioxide Level 14.4 MEQ/L (21.0-32.0) Anion Gap 15 MEQ/L (5-15) Estimat Glomerular Filtration Rate 9 ML/MIN (>89) Test 09/29/17 18:11 09/30/17 00:24 09/30/17 06:10 Hemoglobin 9.3 GM/DL (11.6-15.3) 9.3 GM/DL (11.6-15.3) 9.0 GM/DL (11.6-15.3) Hematocrit 28.8 % (35.0-46.0) 28.9 % (35.0-46.0) 27.4 % (35.0-46.0) Blood Urea Nitrogen 79 MG/DL (7-18) 77 MG/DL (7-18) Creatinine 4.53 MG/DL (0.50-1.00) 4.37 MG/DL (0.50-1.00) Random Glucose 176 MG/DL (74-106) 135 MG/DL (74-106) Calcium Level 8.8 MG/DL (8.5-10.1) 8.6 MG/DL (8.5-10.1) Sodium Level 144 MEQ/L (136-145) 144 MEQ/L (136-145) Potassium Level 4.1 MEQ/L (3.5-5.1) 3.7 MEQ/L (3.5-5.1) Chloride Level 112 MEQ/L (98-107) 112 MEQ/L (98-107) Carbon Dioxide Level 17.4 MEQ/L (21.0-32.0) 19.4 MEQ/L (21.0-32.0) Anion Gap 15 MEQ/L (5-15) 13 MEQ/L (5-15) Estimat Glomerular Filtration Rate 9 ML/MIN (>89) 10 ML/MIN (>89) White Blood Count 26.1 TH/MM3 (4.0-11.0) Red Blood Count 3.30 MIL/MM3 (4.00-5.30) Mean Corpuscular Volume 82.9 FL (80.0-100.0) Mean Corpuscular Hemoglobin 27.2 PG (27.0-34.0) Mean Corpuscular Hemoglobin Concent 32.8 % (32.0-36.0) Red Cell Distribution Width 16.9 % (11.6-17.2) Platelet Count 260 TH/MM3 (150-450) Mean Platelet Volume 8.9 FL (7.0-11.0) Neutrophils (%) (Auto) 92.3 % (16.0-70.0) Lymphocytes (%) (Auto) 4.0 % (9.0-44.0) Monocytes (%) (Auto) 3.2 % (0.0-8.0) Eosinophils (%) (Auto) 0.4 % (0.0-4.0) Basophils (%) (Auto) 0.1 % (0.0-2.0) Neutrophils # (Auto) 24.1 TH/MM3 (1.8-7.7) Lymphocytes # (Auto) 1.0 TH/MM3 (1.0-4.8) Monocytes # (Auto) 0.8 TH/MM3 (0-0.9) Eosinophils # (Auto) 0.1 TH/MM3 (0-0.4) Basophils # (Auto) 0.0 TH/MM3 (0-0.2) CBC Comment AUTO DIFF Differential Total Cells Counted 100 Neutrophils % (Manual) 76 % (16-70) Band Neutrophils % 13 % (0-6) Monocytes % 2 % (0-8) Neutrophils # (Manual) 25.6 TH/MM3 (1.8-7.7) Metamyelocytes 5 % (0-1) Myelocytes 3 % (0-0) Promyelocytes 1 % (0-0) Nucleated Red Blood Cells 4 /100 WBC (0-0) Differential Comment FINAL DIFF MANUAL Toxic Granulation 1+ (NORMAL) Toxic Vacuolation PRESENT (NONE SEEN) Platelet Estimate NORMAL (NORMAL) Platelet Morphology Comment NORMAL (NORMAL) Prothrombin Time 14.5 SEC (9.8-11.6) Prothromb Time International Ratio 1.4 RATIO Total Protein 4.1 GM/DL (6.4-8.2) Albumin 1.7 GM/DL (3.4-5.0) Phosphorus Level 3.9 MG/DL (2.5-4.9) Magnesium Level 2.1 MG/DL (1.5-2.5) Alkaline Phosphatase 96 U/L (45-117) Aspartate Amino Transf (AST/SGOT) 27 U/L (15-37) Alanine Aminotransferase (ALT/SGPT) 10 U/L (10-53) Total Bilirubin 0.4 MG/DL (0.2-1.0) Lactic Acid Level 2.1 mmol/L (0.4-2.0) . Result Diagram: 09/30/1710 09/30/17 0610 Microbiology Microbiology Date/Time Source Procedure Growth Status 09/28/17 21:30 Blood Peripheral Aerobic Blood Culture - Preliminary NO GROWTH IN 2 DAYS Resulted 09/28/17 21:30 Blood Peripheral Anaerobic Blood Culture - Preliminary NO GROWTH IN 2 DAYS Resulted 09/28/17 21:15 Blood Peripheral Aerobic Blood Culture - Preliminary NO GROWTH IN 2 DAYS Resulted 09/28/17 21:15 Blood Peripheral Anaerobic Blood Culture - Preliminary NO GROWTH IN 2 DAYS Resulted 09/28/17 21:30 Urine Random Urine Urine Culture - Preliminary Group D Enterococcus Resulted . Imaging Last Impressions Abdomen/Pelvis CT 09/28/172121 Signed Impressions: Service Date/Time: Thursday, September 28, 2017 23:22 - CONCLUSION: There is very impressive wall thickening throughout the colon beginning in the cecum extending along the descending colon to the transverse colon. Free fluid throughout the abdomen and pelvis. Flavio Benavides MD Chest X-Ray 09/28/172119 Signed Impressions: Service Date/Time: Thursday, September 28, 2017 21:33 - CONCLUSION: 1. Small left pleural effusion. 2. Scattered hazy opacities bilaterally consistent with mild pulmonary vascular congestion, atelectasis and/or infiltrate. 3. Mild cardiomegaly. Juan Ivory MD . Procedures * Femoral venous central line placement . Assessment and Plan Disease Oriented Problem List: (1) Clostridium difficile colitis (2) Septic shock Comment: Some improvement in WBC overnight. (3) GI bleed Comment: No active bleeding noted since passing melanotic stools in the ED. Hg stable. . (4) UTI (urinary tract infection) (5) Acute kidney injury Comment: Minimal improvement overnight. (6) Decubitus ulcers (7) Fracture, intertrochanteric, left femur (8) Hypoalbuminemia Symptom Scale: (1) Pain 0-10 Scale: Unable to quantify Comment: The patient, per family, did not have any significant prehospitalization pain syndromes. She was not complaining of pain at her recent hip surgery site. She has shown evidence of pain with grimacing over the last few days but cannot describe the location or characteristics. It appears to have been abdominal pain. . (2) Dyspnea 0-10 Scale: Unable to quantify Comment: Patient appears to be comfortable on O2 via nasal cannula. Source of dyspnea is unclear but probably has to due to increased respiratory needs from sepsis and shock. . (3) Confusion 0-10 Scale: Unable to quantify Comment: Patient has some underlying dementia which is grown worse over the past few months. This is probably exacerbated by infection, hypotension, anemia , and strange environments. . Pertinent Non-Medical Issues Psychosocial: Had been living with son and [id number] prior to fall/hip fracture. There is a daughter in [place]. Spiritual: Believes in God. Does not belong to a local samaria group. Legal: No advance directives. Daughter and son are proxy decision makers. Ethical issues impacting care: Patient is incapacitated and is not anticipated to regain capacity to make her own health care decisions. . Important Contacts * Stu Andres (son and co-proxy) -- lives [facility] -- [phone] * aPtrizia Wynn (daughter and co-proxy) -- lives in [place] -- . Prognosis Patient arrived critically ill and it was quite difficult to maintain blood pressure even with pressor support. There has been some improvement particularly in hemodynamic stability. However, she remain very ill with significant risk of during this hospitalization. Should see survive the hospitalization the chances of her returning to her semi-independent functional status at her son's home are very small. More than likely she would need residential care and we would see residential to hospital transitions until her . . Code Status: No Code Plan == Code Status: NO CODE (per Dr. Baker' conversations with both children). Son confirmed this on my conversation of 09/29/17. == Decision making: Patient is incapacitated to make her own healthcare decisions. There is no reasonable probability of her recovering capacity to do so because of her underlying dementia. Proxy decision making falls to her son and daughter as co-proxies == Goals of Medical treatment: Family would like aggressive medical treatment including pressor support and antibiotics to see if she can improve. As noted above they do not want chest compressions, intubation, or shock. == Symptoms: * PAIN: Per family, the patient did not have any significant prehospitalization pain syndromes. She was not complaining of pain at her recent hip surgery site. She has shown evidence of pain with grimacing over the last few days but cannot describe the location or characteristics. It appears to have been abdominal pain. Other current sources of pain might include her Silverio catheter, vascular access lines, nasal cannula, and prolonged bedbound status. Patient currently has orders for morphine sulfate at 2-4 mg IV as needed. Because of patient's current renal function she will have a hard time metabolizing the morphine. May want to consider IV fentanyl as her "as needed" opioid. We will need to watch her blood pressures carefully as they may drop further with opioid administration. * Dyspnea: Dyspnea is probably secondary to her increased metabolic rate from sepsis and possibly due to her blood loss. Appears to be adequately treated at this time by nasal cannula oxygen. We will need to watch hemoglobins for need for transfusion particularly if there is more bleeding. * Confusion: Patient has underlying dementia. This has likely been exacerbated several factors including infection, uremia, medications, hypotension, and strange environment. Patient does not appear to be suffering from this confusion at this time. We will try and treat underlying treatable factors and reassess. == Family opting for medical management only at this time. They do not feel that surgery would help the patient in the long run. == Palliative care will continue to follow to assist with symptom management and to further clarify goals of medical treatment as the clinical course evolves. . John Scott MD September 30, 2017 11:52
--- NOTE | 2017-09-30 12:12 | HHI.GIFU ---
Subjective Remarks Pt resting in bed Not answering questions Family at bedside states she has not been that responsive today Rectal tube with loose brown stool in Silverio bag (Rebecca Souza) Objective Vitals I&O Vital Signs Date Time Temp Pulse Resp B/P (MAP) Pulse Ox O2 Delivery O2 Flow Rate FiO2 09/30/17 11:00 61 22 117/58 (77) 92 09/30/17 10:00 66 26 116/57 (76) 93 09/30/17 10:00 66 09/30/17 09:00 60 21 130/60 (83) 93 09/30/17 08:03 61 123/58 09/30/17 08:00 96.5 58 23 123/58 (79) 94 09/30/17 08:00 58 09/30/17 07:00 60 22 92 09/30/17 06:00 65 09/30/17 04:00 98.8 69 18 107/59 (75) 96 09/30/17 04:00 65 09/30/17 02:00 68 09/30/17 00:00 97.0 74 24 114/58 (76) 96 09/30/17 00:00 68 09/29/17 22:00 84 09/29/17 20:00 74 09/29/17 20:00 74 122/57 09/29/17 20:00 97.6 74 20 122/57 (78) 94 09/29/17 18:00 71 09/29/17 18:00 71 22 122/58 (79) 93 09/29/17 18:00 71 122/58 09/29/17 17:00 76 26 109/56 (73) 97 09/29/17 16:58 76 09/29/17 16:00 98.0 77 19 104/54 (71) 91 09/29/17 16:00 77 09/29/17 15:00 91 9 81/43 (56) 96 09/29/17 14:00 94 32 96/55 (69) 95 09/29/17 14:00 94 09/29/17 13:00 94 32 87/51 (63) 96 I/O 09/29/17 09/29/17 09/29/17 09/30/17 09/30/17 09/30/17 07:00 15:00 23:00 07:00 15:00 23:00 Intake Total 3161.8 ml 2253 ml 4488 ml 400 ml Output Total 20 ml 0 ml 1000 ml Balance 3141.8 ml 2253 ml 3488 ml 400 ml Intake Oral 0 ml 0 ml IV Total 3161.8 ml 2253 ml 4488 ml 400 ml Output Urine Total 0 ml 0 ml 700 ml Stool Total 20 ml 0 ml 300 ml Laboratory Laboratory Tests Test 09/29/17 13:22 09/29/17 18:11 09/30/17 00:24 09/30/17 06:10 Hemoglobin 10.8 9.3 9.3 9.0 Hematocrit 33.5 28.8 28.9 27.4 Blood Urea Nitrogen 79 77 Creatinine 4.53 4.37 Random Glucose 176 135 Calcium Level 8.8 8.6 Sodium Level 144 144 Potassium Level 4.1 3.7 Chloride Level 112 112 Carbon Dioxide Level 17.4 19.4 Anion Gap 15 13 Estimat Glomerular Filtration Rate 9 10 White Blood Count 26.1 Red Blood Count 3.30 Mean Corpuscular Volume 82.9 Mean Corpuscular Hemoglobin 27.2 Mean Corpuscular Hemoglobin Concent 32.8 Red Cell Distribution Width 16.9 Platelet Count 260 Mean Platelet Volume 8.9 Neutrophils (%) (Auto) 92.3 Lymphocytes (%) (Auto) 4.0 Monocytes (%) (Auto) 3.2 Eosinophils (%) (Auto) 0.4 Basophils (%) (Auto) 0.1 Neutrophils # (Auto) 24.1 Lymphocytes # (Auto) 1.0 Monocytes # (Auto) 0.8 Eosinophils # (Auto) 0.1 Basophils # (Auto) 0.0 CBC Comment AUTO DIFF Differential Total Cells Counted 100 Neutrophils % (Manual) 76 Band Neutrophils % 13 Monocytes % 2 Neutrophils # (Manual) 25.6 Metamyelocytes 5 Myelocytes 3 Promyelocytes 1 Nucleated Red Blood Cells 4 Differential Comment FINAL DIFF MANUAL Toxic Granulation 1+ Toxic Vacuolation PRESENT Platelet Estimate NORMAL Platelet Morphology Comment NORMAL Prothrombin Time 14.5 Prothromb Time International Ratio 1.4 Total Protein 4.1 Albumin 1.7 Phosphorus Level 3.9 Magnesium Level 2.1 Alkaline Phosphatase 96 Aspartate Amino Transf (AST/SGOT) 27 Alanine Aminotransferase (ALT/SGPT) 10 Total Bilirubin 0.4 Lactic Acid Level 2.1 Date/Time Source Procedure Growth Status 09/28/17 21:30 Blood Peripheral Aerobic Blood Culture - Preliminary NO GROWTH IN 2 DAYS Resulted 09/28/17 21:30 Blood Peripheral Anaerobic Blood Culture - Preliminary NO GROWTH IN 2 DAYS Resulted 09/28/17 21:30 Urine Random Urine Urine Culture - Preliminary Group D Enterococcus Resulted Imaging Last Impressions Abdomen/Pelvis CT 09/28/172121 Signed Impressions: Service Date/Time: Thursday, September 28, 2017 23:22 - CONCLUSION: There is very impressive wall thickening throughout the colon beginning in the cecum extending along the descending colon to the transverse colon. Free fluid throughout the abdomen and pelvis. Flavio Benavides MD Chest X-Ray 09/28/172119 Signed Impressions: Service Date/Time: Thursday, September 28, 2017 21:33 - CONCLUSION: 1. Small left pleural effusion. 2. Scattered hazy opacities bilaterally consistent with mild pulmonary vascular congestion, atelectasis and/or infiltrate. 3. Mild cardiomegaly. Juan Ivory MD Physical Exam HEENT: Normocephalic; atraumatic CHEST: Even/unlabored CARDIAC: RRR (+) systolic murmur ABDOMEN: Distended, soft, bowel sounds active, rectal tube with 300 mL of liquid brown stool in Silverio bag EXTREMITIES: No clubbing, cyanosis, or edema. SKIN: Pale ERP MANAGER: Awake, not responding to questions (Rebecca Souza) Assessment and Plan Plan ASSESSMENT - C diff colitis with reports of melanotic stool- Pt on Xarelto C. diff positive Epid. positive. CT abdomen and pelvis W/O IV contrast (09/28) --> There is very impressive wall thickening throughout the colon beginning in the cecum extending along the descending colon to the transverse colon. Free fluid throughout the abdomen and pelvis. - HEDY secondary to septic shock secondary to C diff colitis. (09/30) Appreciated ID consult- Recommend increasing Vancomycin to 500mg QID and continuing IV Flagyl. Leukocytosis improving. WBC- 26.1. Afebrile. BP stable on Vasopressin and Levo. H/H currently 02/19.4. No bloody stool noted in rectal Silverio bag at this time. Xarelto on hold. Pt remains on Protonix gtt. Abdomen is soft, pt does not appear uncomfortable while I palpate her abdomen, however she does not respond to questions. PLAN - ID consult appreciated - Vanco PO 500mg QID - IV Flagyl - Monitor labs (H&H,WBCs) - Monitor for signs of worsening infection - Monitor stool output - Xarelto on hold - Protonix - Further recommendations based on clinical course and results of above Pt has been seen and examined by myself and Dr. Dobbins and this note is written on his behalf (Rebecca Souza) Physician Comments Seen and examined with LITIGATION ATTORNEY ASSOCIATE, appreciate ID and surgery. Improvement in labs today. NOn surgical management at this time. GI will sign off, reconsult as needed. Thank you (Tavo Dobbins MD) Rebecca Souza September 30, 2017 12:12 Tavo Dobbins MD September 30, 2017 17:12
--- NOTE | 2017-09-30 14:24 | HHI.IDPN ---
Note Infectious Disease Note Patient is easily arousable. She keeps her eyes open when awakened. The son is at bedside and was able to interpret. She follows simple commands. She denies pains. Afebrile. Blood pressure is stable on low-dose vasopressin. Has very good urine output. Admitted with hypotension, lethargy and decreased oxygen saturation. 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 ALLERGIES: NO KNOWN DRUG ALLERGIES. MEDICATIONS: Current Medications Medications (Trade) Dose Ordered Sig/Gilmer Route PRN Reason Start Time Stop Time Status Last Admin Dose Admin Pantoprazole Sodium 80 mg/ Sodium Chloride 100 ml @ 10 mls/hr Q10H IV 09/28/17 21:22 09/30/17 08:06 Norepinephrine Bitartrate 250 ml @ 7.5 mls/hr TITRATE PRN IV Blood pressure management 09/28/17 23:30 09/29/17 18:00 Metronidazole 100 ml @ 100 mls/hr Q8H IV 09/29/17 01:00 09/30/17 08:03 Cefepime HCl 1000 mg/Sodium Chloride 100 ml @ 200 mls/hr Q24H IV 09/29/17 08:00 09/30/17 08:03 Fluconazole/ Sodium Chloride 100 ml @ 100 mls/hr Q24H IV 09/30/17 01:15 09/30/17 00:57 Sodium Chloride (NS Flush) 2 ml UNSCH PRN IV FLUSH FLUSH AFTER USING IV ACCESS 09/29/17 01:15 Sodium Chloride (NS Flush) 2 ml BID IV FLUSH 09/29/17 09:00 09/30/17 08:04 Morphine Sulfate (Morphine Inj) 2 mg Q2H PRN IV PUSH PAIN 1-5 09/29/17 01:15 Ondansetron HCl (Zofran Inj) 4 mg Q6H PRN IV PUSH NAUSEA OR VOMITING 09/29/17 01:15 Albuterol Sulfate (Albuterol Neb) 2.5 mg Q2HR NEB PRN INH SOB/WHEEZING 09/29/17 01:15 Miscellaneous Information ([facility] Nursing Information) 1 [id number] XX 09/29/17 01:15 09/29/17 04:45 Chlorhexidine Gluconate (Chlorhexidine 2% Cloth) 3 pack Taper DAILY@04 TOP 09/29/17 04:00 09/25/18 03:59 09/29/17 04:45 Chlorhexidine Gluconate (Chlorhexidine 2% Cloth) 3 pack UNSCH PRN TOP HYGIENIC CARE 09/29/17 01:15 Morphine Sulfate (Morphine Inj) 4 mg Q2H PRN IV PUSH PAIN 6-10 09/29/17 05:00 Dextrose (D50w (Vial) Inj) 50 ml UNSCH PRN IV PUSH HYPOGLYCEMIA-SEE COMMENTS 09/29/17 12:30 Glucagon (Glucagon Inj) 1 mg UNSCH PRN OTHER HYPOGLYCEMIA-SEE COMMENTS 09/29/17 12:30 Insulin Human Regular (NovoLIN R SUPPLEMENTAL SCALE) 1 Q4HR SQ 09/29/17 12:30 09/30/17 00:58 Vasopressin 40 units/Dextrose 100 ml @ 6 mls/hr [id number] IV 09/29/17 15:06 09/30/17 08:03 Terbutaline Sulfate (Brethine Inj) 1 mg UNSCH PRN SQ For Extravasation 09/29/17 15:15 Sodium Bicarbonate 50 meq/Sodium Chloride 1,050 ml @ 150 mls/hr Q7H IV 09/29/17 16:00 09/30/17 10:57 Hydrocortisone Sodium Succinate (SoluCORTEF INJ) 50 mg Q6HR IV PUSH 09/29/17 18:00 09/30/17 11:00 Vancomycin HCl (VANCOMYCIN for oral use only) 500 mg QID PO 09/29/17 21:00 09/30/17 12:08 SOCIAL HISTORY: No tobacco, no alcohol, no illicit drugs. The patient [facility]. OBJECTIVE: Vital Signs Date Time Temp Pulse Resp B/P (MAP) Pulse Ox O2 Delivery O2 Flow Rate FiO2 09/30/17 13:00 67 25 114/56 (75) 92 09/30/17 12:00 60 09/30/17 12:00 97.2 60 20 124/60 (81) 93 09/30/17 11:00 61 22 117/58 (77) 92 09/30/17 10:00 66 26 116/57 (76) 93 09/30/17 10:00 66 09/30/17 09:00 60 21 130/60 (83) 93 09/30/17 08:03 61 123/58 5/8/18 08:00 96.5 58 23 123/58 (79) 94 09/30/17 08:00 58 09/30/17 07:00 60 22 92 09/30/17 06:00 65 09/30/17 04:00 98.8 69 18 107/59 (75) 96 09/30/17 04:00 65 09/30/17 02:00 68 09/30/17 00:00 97.0 74 24 114/58 (76) 96 09/30/17 00:00 68 09/29/17 22:00 84 09/29/17 20:00 74 09/29/17 20:00 74 122/57 09/29/17 20:00 97.6 74 20 122/57 (78) 94 09/29/17 18:00 71 09/29/17 18:00 71 22 122/58 (79) 93 09/29/17 18:00 71 122/58 09/29/17 17:00 76 26 109/56 (73) 97 09/29/17 16:58 76 09/29/17 16:00 98.0 77 19 104/54 (71) 91 09/29/17 16:00 77 09/29/17 15:00 91 9 81/43 (56) 96 Laboratory Tests Test 09/28/17 21:30 09/29/17 01:20 09/29/17 05:36 09/29/17 13:22 White Blood Count 27.9 TH/MM3 34.5 TH/MM3 Red Blood Count 3.98 MIL/MM3 4.36 MIL/MM3 Hemoglobin 10.6 GM/DL 8.9 GM/DL 11.8 GM/DL 10.8 GM/DL Hematocrit 33.0 % 27.2 % 36.4 % 33.5 % Mean Corpuscular Volume 83.0 FL 83.6 FL Mean Corpuscular Hemoglobin 26.6 PG 27.1 PG Mean Corpuscular Hemoglobin Concent 32.0 % 32.4 % Red Cell Distribution Width 17.0 % 16.7 % Platelet Count 568 TH/MM3 527 TH/MM3 Mean Platelet Volume 8.9 FL 9.2 FL Neutrophils (%) (Auto) 93.7 % Lymphocytes (%) (Auto) 1.5 % Monocytes (%) (Auto) 4.0 % Eosinophils (%) (Auto) 0.6 % Basophils (%) (Auto) 0.2 % Neutrophils # (Auto) 26.1 TH/MM3 Lymphocytes # (Auto) 0.4 TH/MM3 Monocytes # (Auto) 1.1 TH/MM3 Eosinophils # (Auto) 0.2 TH/MM3 Basophils # (Auto) 0.1 TH/MM3 CBC Comment AUTO DIFF Differential Total Cells Counted 100 Neutrophils % (Manual) 52 % Band Neutrophils % 39 % Monocytes % 1 % Neutrophils # (Manual) 27.6 TH/MM3 Metamyelocytes 7 % Myelocytes 1 % Differential Comment FINAL DIFF MANUAL Toxic Granulation 1+ Platelet Estimate HIGH Platelet Morphology Comment NORMAL Red Cell Morphology Comment NORMAL Hematology Comments Test 09/29/17 18:11 09/30/17 00:24 09/30/17 06:10 Hemoglobin 9.3 GM/DL 9.3 GM/DL 9.0 GM/DL Hematocrit 28.8 % 28.9 % 27.4 % White Blood Count 26.1 TH/MM3 Red Blood Count 3.30 MIL/MM3 Mean Corpuscular Volume 82.9 FL Mean Corpuscular Hemoglobin 27.2 PG Mean Corpuscular Hemoglobin Concent 32.8 % Red Cell Distribution Width 16.9 % Platelet Count 260 TH/MM3 Mean Platelet Volume 8.9 FL Neutrophils (%) (Auto) 92.3 % Lymphocytes (%) (Auto) 4.0 % Monocytes (%) (Auto) 3.2 % Eosinophils (%) (Auto) 0.4 % Basophils (%) (Auto) 0.1 % Neutrophils # (Auto) 24.1 TH/MM3 Lymphocytes # (Auto) 1.0 TH/MM3 Monocytes # (Auto) 0.8 TH/MM3 Eosinophils # (Auto) 0.1 TH/MM3 Basophils # (Auto) 0.0 TH/MM3 CBC Comment AUTO DIFF Differential Total Cells Counted 100 Neutrophils % (Manual) 76 % Band Neutrophils % 13 % Monocytes % 2 % Neutrophils # (Manual) 25.6 TH/MM3 Metamyelocytes 5 % Myelocytes 3 % Promyelocytes 1 % Nucleated Red Blood Cells 4 /100 WBC Differential Comment FINAL DIFF MANUAL Toxic Granulation 1+ Toxic Vacuolation PRESENT Platelet Estimate NORMAL Platelet Morphology Comment NORMAL Laboratory Tests Test 09/28/17 21:30 09/29/17 00:10 09/29/17 05:36 09/29/17 18:11 Blood Urea Nitrogen 79 MG/DL 79 MG/DL 79 MG/DL Creatinine 4.65 MG/DL 4.57 MG/DL 4.53 MG/DL Random Glucose 155 MG/DL 151 MG/DL 176 MG/DL Total Protein 4.3 GM/DL 4.8 GM/DL Albumin 1.4 GM/DL 1.6 GM/DL Calcium Level 8.8 MG/DL 8.8 MG/DL 8.8 MG/DL Alkaline Phosphatase 105 U/L 111 U/L Aspartate Amino Transf (AST/SGOT) 18 U/L 27 U/L Alanine Aminotransferase (ALT/SGPT) 13 U/L 13 U/L Total Bilirubin 0.4 MG/DL 0.5 MG/DL Sodium Level 143 MEQ/L 143 MEQ/L 144 MEQ/L Potassium Level 4.0 MEQ/L 4.3 MEQ/L 4.1 MEQ/L Chloride Level 113 MEQ/L 114 MEQ/L 112 MEQ/L Carbon Dioxide Level 16.7 MEQ/L 14.4 MEQ/L 17.4 MEQ/L Anion Gap 13 MEQ/L 15 MEQ/L 15 MEQ/L Estimat Glomerular Filtration Rate 9 ML/MIN 9 ML/MIN 9 ML/MIN Lactic Acid Level 2.4 mmol/L 2.0 mmol/L Total Creatine Kinase 36 U/L Troponin I 0.02 NG/ML B-Type Natriuretic Peptide 25 PG/ML Thyroid Stimulating Hormone 3rd Gen 2.430 uIU/ML Test 09/30/17 06:10 Blood Urea Nitrogen 77 MG/DL Creatinine 4.37 MG/DL Random Glucose 135 MG/DL Total Protein 4.1 GM/DL Albumin 1.7 GM/DL Calcium Level 8.6 MG/DL Phosphorus Level 3.9 MG/DL Magnesium Level 2.1 MG/DL Alkaline Phosphatase 96 U/L Aspartate Amino Transf (AST/SGOT) 27 U/L Alanine Aminotransferase (ALT/SGPT) 10 U/L Total Bilirubin 0.4 MG/DL Sodium Level 144 MEQ/L Potassium Level 3.7 MEQ/L Chloride Level 112 MEQ/L Carbon Dioxide Level 19.4 MEQ/L Anion Gap 13 MEQ/L Estimat Glomerular Filtration Rate 10 ML/MIN Lactic Acid Level 2.1 mmol/L Microbiology Date/Time Source Procedure Growth Status 09/28/17 21:30 Blood Peripheral Aerobic Blood Culture - Preliminary NO GROWTH IN 2 DAYS Resulted 09/28/17 21:30 Blood Peripheral Anaerobic Blood Culture - Preliminary NO GROWTH IN 2 DAYS Resulted 09/28/17 21:15 Blood Peripheral Aerobic Blood Culture - Preliminary NO GROWTH IN 2 DAYS Resulted 09/28/17 21:15 Blood Peripheral Anaerobic Blood Culture - Preliminary NO GROWTH IN 2 DAYS Resulted 09/28/17 21:30 Urine Random Urine Urine Culture - Preliminary Group D Enterococcus Resulted Imaging: Abdomen/Pelvis CT 09/28/[id number] Signed Impressions: Service Date/Time: Thursday, September 28, 2017 23:22 - CONCLUSION: There is very impressive wall thickening throughout the colon beginning in the cecum extending along the descending colon to the transverse colon. Free fluid throughout the abdomen and pelvis. Flavio Benavides MD Chest X-Ray 09/28/[id number] Signed Impressions: Service Date/Time: Thursday, September 28, 2017 21:33 - CONCLUSION: 1. Small left pleural effusion. 2. Scattered hazy opacities bilaterally consistent with mild pulmonary vascular congestion, atelectasis and/or infiltrate. 3. Mild cardiomegaly. Juan Ivory MD PHYSICAL EXAMINATION: GENERAL: No acute distress. HEENT: EOMI, SABRINA. No icterus. Oropharynx very dry. Poor dentition. NECK: Supple without adenopathy. LUNGS: Decreased breath sounds. HEART: Normal S1 and S2. No murmurs, rubs or gallops. ABDOMEN: Distended, soft. non tender. No palpable mass. EXTREMITIES: No clubbing or cyanosis. Trace edema at the knees. SKIN: No rash. NEUROLOGIC: non focal. PSYCHIATRIC: Unable to fully assess. IMPRESSION: 1. Septic shock. 2. Severe Clostridium difficile colitis. 3. Urinary tract infection. Group D enterococci on preliminary urine culture eval. 4. Acute renal failure. 5. Leukocytosis secondary to Clostridium difficile colitis, which also is probably the cause of sepsis and septic shock. However, urinary infection, which could also be a cause of the septic shock as well. Appears to be improving but still has significant renal function decline. RECOMMENDATIONS: 1. Continue IV metronidazole. 2. Continue p.o. vancomycin. 3. Stop cefepime. 4. Monitor urine culture. 5. Monitor white blood cell count. 5. Monitor clinical response. Discussed with patient's son at bedside. Discussed with DENA. Nader Lorenzo MD September 30, 2017 14:24
--- NOTE | 2017-09-30 14:56 | HHI.CCPN ---
Subjective Remarks/Hospital Course 09/29: 87 yo Bahraini speaking female who has a past medical history of hypertension, osteoarthritis, . She was admitted to [facility] through 09/02/17 after a fall in which she sustained an intertrochanteric fracture of the left femur for which she underwent ORIF. Her postoperative course was complicated by pneumonia which was treated with Levaquin. She had been discharged to [facility]. She presented to [facility] emergency department today after she became hypotensive with blood pressure 83/55 and sats were in the 80s. ED Nurse who speaks fluent [place]raini states that patient was not able to provide much history stating only that "I hurt all over". She was hypotensive in the 70s over 40s. She had two large liquid melena bowel movements in the ED. Right femoral central venous line was placed by the emergency department physician. She was bolused with 2 L normal saline. She was started on Levophed which is currently running at 4 mcg/min. She had been on rivaroxaban. She was given K Centra 50 U/kg, started on Protonix drip, and administered Zosyn and vancomycin. CT abdomen and pelvis was obtained which demonstrates wall thickening of ascending and transverse colon with free fluid. No free air is noted. White blood cell count is 27.9 with left shift and 39% bands. Hemoglobin is 10.6. She is in acute renal failure with creatinine of 4.65.Patient is not able to provide much history due to significant baseline dementia. Her abdomen is tender on exam. Her son states that she has been having diarrhea about 3-4 days. No vomiting. 09/30: Resting comfortably in bed on nasal cannula. Levophed titrated off. On low-dose vasopressin. Stool positive for C. difficile. Objective Vital Signs Date Time Temp Pulse Resp B/P (MAP) Pulse Ox O2 Delivery O2 Flow Rate FiO2 09/30/17 14:00 68 21 109/55 (73) 93 09/30/17 12:00 97.2 09/29/17 03:49 Nasal Cannula 2.00 Intake and Output 09/30/17 09/30/17 10/01/17 08:00 16:00 00:00 Intake Total 4488 ml 400 ml Output Total 1000 ml Balance 3488 ml 400 ml Result Diagram: 5/8/60909/30/17609 Objective Remarks GENERAL: Elderly female who is laying in bed. Not in any acute distress SKIN: Cool to touch. There is a 2x1 cm stage II sacral decubitus ulcer with granulation tissue surrounding a larger area. No drainage or fluctuance. HEAD: Atraumatic. Normocephalic. EYES: Pupils equal and round, conjunctiva pale. No scleral icterus. No injection or drainage. ENT: No nasal bleeding or discharge. Mucous membranes dry. Poor dentition. NECK: Trachea midline. No JVD. CARDIOVASCULAR: Regular rate and rhythm, sinus on the monitor with rate in the 80s. 2/6 systolic murmur LSB. RESPIRATORY: Tachypneic, no accessory muscle use. Diminished bibasilar with occasional rhonchi. No wheeze or rales GASTROINTESTINAL: Abdomen moderately distended, non-rigid, diffusely tender to palpation. Unable to appreciate rebound. : Silverio in place, currently with no urine output. MUSCULOSKELETAL: Extremities without clubbing, cyanosis, or edema. NEUROLOGICAL: Awake, mumbling. Disoriented. Moving upper extremities spontaneously, wiggles toes. A/P Problem List: (1) Acute kidney injury ICD Code: N17.9 - Acute kidney failure, unspecified Status: Acute (2) Septic shock ICD Code: A41.9 - Sepsis, unspecified organism; R65.21 - Severe sepsis with septic shock Status: Acute (3) UTI (urinary tract infection) ICD Code: N39.0 - Urinary tract infection, site not specified Status: Acute (4) GI bleed ICD Code: K92.2 - Gastrointestinal hemorrhage, unspecified Status: Acute (5) Decubitus ulcers ICD Code: L89.90 - Pressure ulcer of unspecified site, unspecified stage Status: Chronic (6) Dementia ICD Code: F03.90 - Unspecified dementia without behavioral disturbance Status: Chronic (7) Colitis ICD Code: K52.9 - Noninfective gastroenteritis and colitis, unspecified Status: Acute (8) Moderate protein malnutrition ICD Code: E44.0 - Moderate protein-calorie malnutrition Status: Chronic (9) Metabolic acidosis ICD Code: E87.2 - Acidosis Status: Acute (10) Bandemia ICD Code: D72.825 - Bandemia Status: Acute (11) Anticoagulated ICD Code: Z79.01 - template fitter (current) use of anticoagulants Status: Chronic (12) Thrombocytosis ICD Code: D47.3 - Essential (hemorrhagic) thrombocythemia Status: Acute (13) Hyperglycemia ICD Code: R73.9 - Hyperglycemia, unspecified Status: Acute Assessment and Plan NEURO: Dementia - Moderate to Severe per family Morphine as needed for pain. Daughter wishes to ensure comfort. RESP: On nasal cannula. Wean as tolerated. Patient will not be intubated per wishes expressed by family. CV: Septic/hypovolemic shock Lactic acidemia Received 2 L normal saline bolus in the emergency department. Titrated off Levophed. Remains on low-dose vasopressin. Monitor serial lactic acid. LR 125 mill liters per hour. Essential hypertension at baseline Hold lisinopril 10 mg daily due to acute kidney injury and hypotension, hold Norvasc 10 mg daily due to hypotension. GI: Melena Diarrhea present on admission Colitis with probable Mesenteric ischemia Moderate protein energy malnutrition Held rivaroxaban (on for DVT prevention), given KCentra, monitoring serial Hgb. Consult gastroenterology due to melena. CT scan with significant wall thickening of ascending and transverse colon with free fluid throughout the abdomen and pelvis. There is no free air. Presentation concerning for mesenteric ischemia. Treating medically with fluid resuscitation, pressors as needed to maintain MAP, Antibiotics. She is not a candidate for angiogram due to HEDY. She is not in A fib. She is a very poor surgical candidate with overall medical condition condition, protein malnutrition, dementia, etc. Discussed risk and morbidity of surgery and family expresses understanding and would NOT want to pursue surgery even if she fails medical management. NPO Stool sent for C. difficile Resume MVI/Zinc 220 daily/Vitamin C 500 for wound healing of decubitus when she is able to take po. FEN/RENAL: Acute kidney injury Hyperchloremia Acute metabolic acidosis. Insert Silverio and monitor intake and output. Monitor electrolytes and replace as indicated. No evidence of hydronephrosis on CT abdomen. CPK is normal. Check FeNa and urine eosinophils. ID: Septic shock Colitis Leukocytosis and bandemia UTI C. difficile colitis Received Zosyn and a dose of vancomycin in the emergency department. Cefepime stopped on 09/30. On IV Flagyl/p.o. vancomycin for C. difficile colitis per ID. Follow-up blood cultures, urine culture. She previously was on 10 day course of Levaquin for pneumonia in August. SKIN: Stage II sacral decubitus ulcer, present on admission Is healing and does not appear infected. Multivitamins for wound healing per above discussion HEME: Acute blood loss overlying chronic anemia Anticoagulated with rivaroxaban (DVT prophylaxis following ORIF femur) Reactive thrombocytosis Hold rivaroxaban. Received K Centra 50 U/kg in the emergency department. Type and screen has been sent Serial hemoglobin every 6 hours. Transfuse as needed for hemoglobin less than 8 or if clinically indicated for hemorrhagic shock ENDO: Acute stress hyperglycemia. Monitor bedside glucose and initiate low-dose insulin sliding scale as indicated. PROPH: SCDs for DVT prophylaxis. Pharmacologic DVT prophylaxis is contraindicated due to GI bleeding. ACCESS: Right femoral central venous line placed by ED physician 09/29/17 #1 Current condition discussed in detail by Dr. Baker with patient's son (Stu Andres) who is currently in [place]. Also discussed over the phone with patient' s daughter (Patrizia Wynn) in a separate conversation. Daughter indicates that she has spoken with her brother and that they desire DO NOT RESUSCITATE/DO NOT INTUBATE and agree would not want to pursue surgical intervention if she fails to improve with medical management. Palliative care team following to assist with deciding goals of therapy. DNR/DNI Problem Qualifiers (1) UTI (urinary tract infection): Qualified Codes: N30.00 - Acute cystitis without hematuria (2) GI bleed: Qualified Codes: K92.2 - Gastrointestinal hemorrhage, unspecified (3) Decubitus ulcers: Qualified Codes: L89.152 - Pressure ulcer of sacral region, stage 2 Hemanth Larson MD September 30, 2017 14:56
[2017-09-30 17:53] LABS: HEMATOCRIT 27.6 % (35.0-46.0); HEMOGLOBIN 8.9 GM/DL (11.6-15.3)
[2017-10-01] VITALS (43 sets, daily range): BP systolic 82–105; BP diastolic 40–56; PULSE 63–85; RESP 18–31; TEMP 97.3–98.6; O2SAT 73–98
[2017-10-01] MEDS: HYDROCORTISONE SOD SUCCINATE 100 MG VIAL IV PUSH SCH ×4 (00:09→18:03)
[2017-10-01] MEDS: FLUCONAZOLE 200 MG PREMIX BAG 100 ML IV SCH (00:09)
[2017-10-01] MEDS: metroNIDAZOLE 500 MG INJ 100 ML IV SCH ×3 (00:09→16:14)
[2017-10-01] MEDS: VASOPRESSIN INJ 40 UNITS in DEXTROSE 5% IN WATER 100ML INJ 98 ML IV SCH ×2 (00:26)
[2017-10-01 01:05] LABS: HEMATOCRIT 26.4 % (35.0-46.0); HEMOGLOBIN 8.6 GM/DL (11.6-15.3)
[2017-10-01] MEDS: INSULIN NovoLIN REGULAR SUPPLEMENTAL SCALE SQ SCH ×6 (04:00→20:00)
[2017-10-01] MEDS: CHLORHEXIDINE GLUCONATE 2 % 1 PACK (2 CLOTHS) TOP SCH (04:00)
[2017-10-01] MEDS: SODIUM BICARBONATE 8.4% INJ 50 MEQ in SODIUM CHLOR 0.45% 1000 ML INJ 1,000 ML IV SCH ×3 (04:40→13:23)
[2017-10-01 06:24] LABS: HEMATOCRIT 28.5 % (35.0-46.0); HEMOGLOBIN 9.2 GM/DL (11.6-15.3)
[2017-10-01] MEDS: PANTOPRAZOLE INJ 80 MG in SODIUM CHLORIDE 0.9% INJ 100 ML IV SCH ×2 (06:32→13:23)
[2017-10-01] MEDS: VANCOMYCIN 500 MG VIAL (FOR ORAL USE ONLY) PO SCH ×4 (08:24→20:36)
[2017-10-01] MEDS: SODIUM CHLORIDE 0.9% FLUSH 10 ML FLUSH IV FLUSH SCH ×2 (08:25→20:37)
[2017-10-01] MEDS: CEFEPIME INJ 1,000 MG in SODIUM CHLORIDE 0.9% INJ 100 ML IV SCH (08:25)
--- NOTE | 2017-10-01 09:16 | HHI.CCPN ---
Subjective Remarks/Hospital Course 09/29: 87 yo Hong Konger speaking female who has a past medical history of hypertension, osteoarthritis, . She was admitted to [facility] through 09/02/17 after a fall in which she sustained an intertrochanteric fracture of the left femur for which she underwent ORIF. Her postoperative course was complicated by pneumonia which was treated with Levaquin. She had been discharged to [facility]. She presented to [facility] emergency department today after she became hypotensive with blood pressure 83/55 and sats were in the 80s. ED Nurse who speaks fluent [place] Konger states that patient was not able to provide much history stating only that "I hurt all over". She was hypotensive in the 70s over 40s. She had two large liquid melena bowel movements in the ED. Right femoral central venous line was placed by the emergency department physician. She was bolused with 2 L normal saline. She was started on Levophed which is currently running at 4 mcg/min. She had been on rivaroxaban. She was given K Centra 50 U/kg, started on Protonix drip, and administered Zosyn and vancomycin. CT abdomen and pelvis was obtained which demonstrates wall thickening of ascending and transverse colon with free fluid. No free air is noted. White blood cell count is 27.9 with left shift and 39% bands. Hemoglobin is 10.6. She is in acute renal failure with creatinine of 4.65.Patient is not able to provide much history due to significant baseline dementia. Her abdomen is tender on exam. Her son states that she has been having diarrhea about 3-4 days. No vomiting. 09/30: Resting comfortably in bed on nasal cannula. Levophed titrated off. On low-dose vasopressin. Stool positive for C. difficile. 10/01: Lying in bed no acute distress. Currently on 0.02 units vasopressin. Map maintained about 70. Urine output is adequate overnight. Creatinine remains very elevated at 4.4, but urine output 1.5 L in 24 hours. Reinsert Silverio catheter for acute renal failure and accurate intake output monitoring Objective Vital Signs Date Time Temp Pulse Resp B/P (MAP) Pulse Ox O2 Delivery O2 Flow Rate FiO2 10/01/17 06:00 68 10/01/17 06:00 23 99/52 (68) 89 10/01/17 04:00 97.8 5/7/18 03:49 Nasal Cannula 2.00 Intake and Output 10/01/17 10/01/17 10/02/17 08:00 16:00 00:00 Intake Total 1300 ml Output Total 300 ml Balance 1000 ml Result Diagram: 10/01/17 0553 09/30/17 0610 Objective Remarks GENERAL: Elderly female who is laying in bed. Not in any acute distress SKIN: Cool to touch. There is a 2x1 cm stage II sacral decubitus ulcer with granulation tissue surrounding a larger area. HEAD: Atraumatic. Normocephalic. EYES: Pupils equal and round, conjunctiva pale. No scleral icterus. No injection or drainage. ENT: No nasal bleeding or discharge. Mucous membranes dry. Poor dentition. NECK: Trachea midline. No JVD. CARDIOVASCULAR: Regular rate and rhythm, sinus on the monitor with rate in the 80s. 2/6 systolic murmur LSB. RESPIRATORY: Tachypneic, no accessory muscle use. Diminished bibasilar with occasional rhonchi. GASTROINTESTINAL: Abdomen moderately distended, non-rigid, diffusely tender to palpation. Unable to appreciate rebound. : no Silverio MUSCULOSKELETAL: Extremities without clubbing, cyanosis, or edema. NEUROLOGICAL: Awake, mumbling. Disoriented. Moving upper extremities spontaneously, do not follow commands Urinary Catheter: Yes Vascular Central Line Catheter: Yes A/P Problem List: (1) Acute kidney injury ICD Code: N17.9 - Acute kidney failure, unspecified Status: Acute (2) Septic shock ICD Code: A41.9 - Sepsis, unspecified organism; R65.21 - Severe sepsis with septic shock Status: Acute (3) UTI (urinary tract infection) ICD Code: N39.0 - Urinary tract infection, site not specified Status: Acute (4) GI bleed ICD Code: K92.2 - Gastrointestinal hemorrhage, unspecified Status: Acute (5) Decubitus ulcers ICD Code: L89.90 - Pressure ulcer of unspecified site, unspecified stage Status: Chronic (6) Dementia ICD Code: F03.90 - Unspecified dementia without behavioral disturbance Status: Chronic (7) Colitis ICD Code: K52.9 - Noninfective gastroenteritis and colitis, unspecified Status: Acute (8) Moderate protein malnutrition ICD Code: E44.0 - Moderate protein-calorie malnutrition Status: Chronic (9) Metabolic acidosis ICD Code: E87.2 - Acidosis Status: Acute (10) Bandemia ICD Code: D72.825 - Bandemia Status: Acute (11) Anticoagulated ICD Code: Z79.01 - prison (current) use of anticoagulants Status: Chronic (12) Thrombocytosis ICD Code: D47.3 - Essential (hemorrhagic) thrombocythemia Status: Acute (13) Hyperglycemia ICD Code: R73.9 - Hyperglycemia, unspecified Status: Acute Assessment and Plan NEURO: Dementia - Moderate to Severe per family Morphine as needed for pain. Daughter wishes to ensure comfort. RESP: On nasal cannula. Wean as tolerated. Patient will not be intubated per wishes expressed by family. CV: Septic/hypovolemic shock Lactic acidemia Received 2 L normal saline bolus in the emergency department. Titrated off Levophed. Remains on low-dose vasopressin. Wean to DC. Tolerate SBP 90, MAP 60 Reduce IV fluid to 75 mL/h Essential hypertension at baseline Hold lisinopril 10 mg daily due to acute kidney injury and hypotension, hold Norvasc 10 mg daily due to hypotension. GI: C. difficile colitis melena Diarrhea present on admission Moderate protein energy malnutrition Held rivaroxaban (on for DVT prevention), given KCentra, monitoring serial Hgb. Consulted gastroenterology due to melena. CT scan with significant wall thickening of ascending and transverse colon with free fluid throughout the abdomen and pelvis. There is no free air. She is a very poor surgical candidate with overall medical condition condition, protein malnutrition, dementia, etc. Discussed risk and morbidity of surgery and family expresses understanding and would NOT want to pursue surgery even if she fails medical management. NPO except meds IV Flagyl and p.o. vancomycin for C. difficile Resume MVI/Zinc 220 daily/Vitamin C 500 for wound healing of decubitus when she is able to take po. FEN/RENAL: Acute kidney failure Hyperchloremia Acute metabolic acidosis. Re Insert Silverio and monitor intake and output. Monitor electrolytes and replace as indicated. No evidence of hydronephrosis on CT abdomen. CPK is normal. Due to overall poor prognosis patient is not a candidate for hemodialysis. And there is no acute indication There is no reason to consult nephrology at this time ID: Septic shock Leukocytosis and bandemia UTI C. difficile colitis Received Zosyn and a dose of vancomycin in the emergency department. Cefepime stopped on 09/30. On IV Flagyl/p.o. vancomycin for C. difficile colitis per ID. Follow-up blood cultures, urine culture. She previously was on 10 day course of Levaquin for pneumonia in August. SKIN: Stage II sacral decubitus ulcer, present on admission Is healing and does not appear infected. Multivitamins for wound healing per above discussion HEME: Acute blood loss overlying chronic anemia Anticoagulated with rivaroxaban (DVT prophylaxis following ORIF femur) Reactive thrombocytosis Hold rivaroxaban. Received K Centra 50 U/kg in the emergency department. Type and screen has been sent Serial hemoglobin every 6 hours. Transfuse as needed for hemoglobin less than 8 or if clinically indicated for hemorrhagic shock ENDO: Acute stress hyperglycemia. Monitor bedside glucose and initiate low-dose insulin sliding scale as indicated. PROPH: SCDs for DVT prophylaxis. Pharmacologic DVT prophylaxis is contraindicated due to GI bleeding. ACCESS: Right femoral central venous line placed by ED physician 09/29/17. DC if patient stays off pressors Current condition discussed in detail by Dr. Baker with patient's son (Stu Andres) who is currently in [place]. Also discussed over the phone with patient' s daughter (Patrizia Wynn) in a separate conversation. Daughter indicates that she has spoken with her brother and that they desire DO NOT RESUSCITATE/DO NOT INTUBATE and agree would not want to pursue surgical intervention if she fails to improve with medical management. Palliative care team following to assist with deciding goals of therapy. DNR/DNI Level3 [facility] consulted to assume care in am 10/02/17 Problem Qualifiers (1) UTI (urinary tract infection): Qualified Codes: N30.00 - Acute cystitis without hematuria (2) GI bleed: Qualified Codes: K92.2 - Gastrointestinal hemorrhage, unspecified (3) Decubitus ulcers: Qualified Codes: L89.152 - Pressure ulcer of sacral region, stage 2 Jeremi Mora MD October 01, 2017 09:16
[2017-10-01] MEDS: ALBUMIN 25% INJ 50 ML IV SCH ×2 (10:19→20:37)
--- NOTE | 2017-10-01 11:30 | HHI.NPPN ---
Subjective Renal Failure: Acute History of Present Illness Patient is a 87 year old female with a past medical history of Hypertension, Osteoarthritis, Stage III sacral decubitus ulcer, Vitamin D deficiency, Chronic iron deficiency anemia, and Dementia. Patient presented to the emergency department with lethargy, hypotension, and O2 sats in the 80's. She is a resident of [facility] where is is recovering from a ORIF. Most of history is obtained from chart. She was bolused with IVF and is now on pressors. Nephrology is consulted for acute kidney injury with a creatinine of 4.57, potassium of 4.3, and CO2 of 14.4. CT of abdomen with kidneys of normal in size and shape. There is no mass, stone, or hydronephrosis. HEDY is all acute with a baseline creatinine of 0.91 on 08/15/17. Additional Remarks Family at bedside. Denies any shortness of breath. Abdomen is tender on palpation. Urinary output continues to improve. (Nuris Galvez) Review of Systems Respiratory Respiratory Remarks denies any SOB (Nuris Galvez) Gastrointestinal Gastrointestinal: Abdominal Pain (Nuris Galvez) Objective Data Data Vital Signs Date Time Temp Pulse Resp B/P (MAP) Pulse Ox O2 Delivery O2 Flow Rate FiO2 10/01/17 06:00 68 10/01/17 06:00 68 23 99/52 (68) 89 10/01/17 05:00 64 21 99/51 (67) 93 10/01/17 04:00 64 10/01/17 04:00 97.8 64 21 105/56 (72) 93 10/01/17 03:00 64 23 99/51 (67) 93 10/01/17 02:00 64 10/01/17 02:00 64 19 100/53 (69) 91 10/01/17 01:00 65 24 97/51 (66) 91 10/01/17 00:26 69 10/01/17 00:00 63 10/01/17 00:00 97.3 63 22 95/51 (66) 92 09/30/17 23:00 71 23 96/54 (68) 91 09/30/17 22:00 76 22 103/54 (70) 95 09/30/17 22:00 76 09/30/17 21:00 68 24 112/57 (75) 94 09/30/17 20:00 97.0 68 21 98/51 (67) 95 09/30/17 20:00 68 09/30/17 20:00 68 98/51 09/30/17 19:00 73 24 96/55 (69) 93 09/30/17 18:00 72 09/30/17 18:00 72 22 104/53 (70) 95 09/30/17 17:00 70 23 98/53 (68) 91 09/30/17 16:00 74 09/30/17 16:00 97.4 74 26 101/52 (68) 93 09/30/17 15:15 75 103/56 09/30/17 15:00 75 27 95/50 (65) 92 09/30/17 15:00 75 95/50 09/30/17 14:00 68 21 109/55 (73) 93 09/30/17 14:00 68 09/30/17 13:00 67 25 114/56 (75) 92 09/30/17 12:00 60 09/30/17 12:00 97.2 60 20 124/60 (81) 93 (Nuris Galvez) -: 10/01/17 0553 09/30/17 0610 Imaging Last Impressions Abdomen/Pelvis CT 09/28/172121 Signed Impressions: Service Date/Time: Thursday, September 28, 2017 23:22 - CONCLUSION: There is very impressive wall thickening throughout the colon beginning in the cecum extending along the descending colon to the transverse colon. Free fluid throughout the abdomen and pelvis. Flavio Benavides MD Chest X-Ray 09/28/[id number] Signed Impressions: Service Date/Time: Thursday, September 28, 2017 21:33 - CONCLUSION: 1. Small left pleural effusion. 2. Scattered hazy opacities bilaterally consistent with mild pulmonary vascular congestion, atelectasis and/or infiltrate. 3. Mild cardiomegaly. Juan Ivory MD (Nuris Galvez) Physical Exam General Appearance: No Acute Distress, Comfortable (Nuris Galvez) Pulmonary Resp Exam: Breath Sounds Equal, No Distress (Nuris Galvez) Cardiology CV Exam: Normal Sinus Rhythm, Good Perfusion (Nuris Galvez) Gastrointestinal/Abdomen GI Exam: Soft GI Remarks tender (Nuris Galvez) Integumentary Skin Exam: Clear, Warm (Nuris Galvez) Extremeties Extremities Exam: No Edema (Nuris Galvez) Neurologic Neuro Exam: Alert, Awake Neuro Remarks Fijian speaking (Nuris Galvez) Assessment/Plan Problem List: (1) Acute kidney injury ICD Codes: N17.9 - Acute kidney failure, unspecified Status: Acute Plan: Acute kidney injury with a creatinine of 4.57, potassium of 4.3, and CO2 of 14.4. day of consult. HEDY from possible prerenal VS ATN from hypovolemia and infection FeNa at 0.56% suggestive of prerenal state. CT of abdomen with kidneys of normal in size and shape. There is no mass, stone , or hydronephrosis. HEDY is all acute with a baseline creatinine of 0.91 on 08/15/17. Plan Continue albumin every 12 hours Avoid nephrotoxins Will monitor urinary output and renal panel Maintain strict I+Os Renal dose medication Continue IVF urinary output continue to improve with 1.5 liters/24 hours Labs ordered for am (2) Septic shock ICD Codes: A41.9 - Sepsis, unspecified organism; R65.21 - Severe sepsis with septic shock Status: Acute (3) UTI (urinary tract infection) ICD Codes: N39.0 - Urinary tract infection, site not specified Status: Acute (4) GI bleed ICD Codes: K92.2 - Gastrointestinal hemorrhage, unspecified Status: Acute (5) C. difficile colitis ICD Codes: A04.72 - Enterocolitis due to Clostridium difficile, not specified as recurrent (Nuris Galvez) Problem List: (1) Acute kidney injury ICD Codes: N17.9 - Acute kidney failure, unspecified Status: Acute Plan: Acute kidney injury with a creatinine of 4.57, potassium of 4.3, and CO2 of 14.4. day of consult. HEDY from possible prerenal VS ATN from hypovolemia and infection FeNa at 0.56% suggestive of prerenal state. CT of abdomen with kidneys of normal in size and shape. There is no mass, stone , or hydronephrosis. HEDY is all acute with a baseline creatinine of 0.91 on 08/15/17. Plan Continue albumin every 12 hours Avoid nephrotoxins Will monitor urinary output and renal panel Maintain strict I+Os Renal dose medication Continue IVF urinary output continue to improve with 1.5 liters/24 hours Labs ordered for am. Patient seen and examined, agree with above. No new BMP, D/W the family at bed side. (2) Septic shock ICD Codes: A41.9 - Sepsis, unspecified organism; R65.21 - Severe sepsis with septic shock Status: Acute (3) UTI (urinary tract infection) ICD Codes: N39.0 - Urinary tract infection, site not specified Status: Acute (4) GI bleed ICD Codes: K92.2 - Gastrointestinal hemorrhage, unspecified Status: Acute (5) C. difficile colitis ICD Codes: A04.72 - Enterocolitis due to Clostridium difficile, not specified as recurrent (Phillip Quick MD) Problem Qualifiers (1) UTI (urinary tract infection): Qualified Codes: N30.00 - Acute cystitis without hematuria (2) GI bleed: Qualified Codes: K92.2 - Gastrointestinal hemorrhage, unspecified Nuris Galvez October 01, 2017 11:30 Phillip Quick MD October 01, 2017 22:24
--- NOTE | 2017-10-01 14:49 | HHI.PR ---
cc: Maurice Crooks MD Subjective Subjective Notes Resting in bed Nonverbal Objective Vitals/I&O Vital Signs Date Time Temp Pulse Resp B/P (MAP) Pulse Ox O2 Delivery O2 Flow Rate FiO2 10/01/17 12:30 83 23 92/50 (64) 96 10/01/17 12:00 97.5 09/29/17 03:49 Nasal Cannula 2.00 Labs Laboratory Tests Test 09/30/17 16:00 10/01/17 00:20 10/01/17 05:53 Urine Osmolality 366 Hemoglobin 8.6 9.2 Hematocrit 26.4 28.5 Date/Time Source Procedure Growth Status 09/28/17 21:30 Blood Peripheral Aerobic Blood Culture - Preliminary NO GROWTH IN 3 DAYS Resulted 09/28/17 21:30 Blood Peripheral Anaerobic Blood Culture - Preliminary NO GROWTH IN 3 DAYS Resulted 09/28/17 21:30 Urine Random Urine Urine Culture - Preliminary Group D Enterococcus Resulted Cardiovascular: Regular Lungs: Clear Abdomen: Non-distended, Other (tender throughout to palpation ) Extremities: No edema A/P Assessment and Plan 87 year old female with C-diff colitis -Now off pressors -Continue to monitor WBC/fevers -NPO -May benefit from repeat CT scan in the next few days -Clinically improving -Will continue non operative treatment at this time -Discussed with son and grandson at bedside Amanda Maldonado/Product Test Specialist [employer] October 01, 2017 14:49
--- NOTE | 2017-10-01 18:09 | HHI.HCPN ---
Reason for visit a. To assist with evaluation and management of symptoms including: pain; confusion; dyspnea b. To assist medical decision maker(s) with: better understanding of current medical conditions; weighing benefits/burdens of medical treatment options; making medical treatment decisions. . Subjective/Interval History Ms. Andres is awake and alert a time of my visit. Grandsons have arrived from [place] and [place] and they tell me she recognized them and knew their names. Family asks her multiple times in [place] if she is comfortable and she denies pain or other symptoms. Breathing comfortably off 02 supplementation. Patient is now off all pressors. Systolic BPs are mostly in the 90s with MAP ranging 61-67. No new chemistries today and creatinine of 09/30 was 4.37. Patient remains NPO. No blood noted in stool by nursing staff. Urine output adequate. . Family/friend interactions During my visit, the patient's son, two grandsons, and a granddaughter are visiting. The grandsons had multiple questions on how/why the patient developed C diff colitis and whether the patient had received probiotics during her last hospitalization here and in the nursing facility. I did my best to answer questions. . Advance Directives Living Will: Never completed Health Care Surrogate: Never completed Durable Power of Missionary Coordinator: Never completed Advance Directive Specifics Date completed: Patient has not completed a living will or designated a healthcare surrogate. . Health Care Surrogate(s): No designation of healthcare surrogate. . Documented care wishes: No written documentation of healthcare goals or preferences. . Objective Vital Signs Date Time Temp Pulse Resp B/P (MAP) Pulse Ox O2 Delivery O2 Flow Rate FiO2 10/01/17 16:15 71 20 92/53 (66) 96 10/01/17 16:00 97.3 76 21 85/49 (61) 95 10/01/17 15:46 80 24 95/50 (65) 83 10/01/17 15:30 73 22 90/51 (64) 95 10/01/17 15:15 81 26 93/52 (66) 79 10/01/17 15:00 79 23 94/51 (65) 92 10/01/17 14:45 73 21 94/51 (65) 95 10/01/17 14:30 74 18 98/52 (67) 96 10/01/17 14:15 81 23 92/51 (65) 95 10/01/17 14:00 81 24 93/52 (66) 95 10/01/17 13:00 78 25 88/51 (63) 96 10/01/17 12:30 83 23 92/50 (64) 96 10/01/17 12:15 82 28 94/51 (65) 95 10/01/17 12:00 97.5 77 21 94/50 (65) 96 10/01/17 11:45 72 22 97/52 (67) 97 10/01/17 11:30 71 21 96/50 (65) 73 10/01/17 11:15 75 24 96/55 (69) 97 10/01/17 11:00 74 23 93/55 (68) 97 10/01/17 10:45 75 20 87/50 (62) 87 10/01/17 10:35 79 22 87/48 (61) 98 10/01/17 10:30 82 21 83/46 (58) 97 10/01/17 10:15 81 22 85/47 (60) 95 10/01/17 10:00 81 27 95/51 (66) 89 10/01/17 09:45 78 27 96/53 (67) 92 10/01/17 09:30 73 24 88/49 (62) 95 10/01/17 09:15 85 25 82/50 (61) 94 10/01/17 09:00 76 20 89/54 (66) 93 10/01/17 08:45 72 25 89/50 (63) 93 10/01/17 08:30 69 21 96/53 (67) 92 10/01/17 08:15 64 22 103/53 (70) 93 10/01/17 08:00 69 10/01/17 08:00 97.7 66 21 94/40 (58) 91 10/01/17 06:00 68 10/01/17 06:00 68 23 99/52 (68) 89 10/01/17 05:00 64 21 99/51 (67) 93 10/01/17 04:00 64 10/01/17 04:00 97.8 64 21 105/56 (72) 93 10/01/17 03:00 64 23 99/51 (67) 93 10/01/17 02:00 64 10/01/17 02:00 64 19 100/53 (69) 91 10/01/17 01:00 65 24 97/51 (66) 91 10/01/17 00:26 69 10/01/17 00:00 63 10/01/17 00:00 97.3 63 22 95/51 (66) 92 09/30/17 23:00 71 23 96/54 (68) 91 09/30/17 22:00 76 22 103/54 (70) 95 09/30/17 22:00 76 09/30/17 21:00 68 24 112/57 (75) 94 09/30/17 20:00 97.0 68 21 98/51 (67) 95 09/30/17 20:00 68 09/30/17 20:00 68 98/51 09/30/17 19:00 73 24 96/55 (69) 93 09/30/17 18:00 72 09/30/17 18:00 72 22 104/53 (70) 95 Intake & Output 10/01/17 10/01/17 07:00 19:00 Intake Total 2300 ml 1500 ml Output Total 300 ml Balance 2000 ml 1500 ml IV Total 2300 ml 1500 ml Output Urine Total 300 ml Stool Total 0 ml . Physical Exam CONSTITUTIONAL/GENERAL: This is a pale, frail-appearing , thin patient, in an MICU bed. More wakeful than on 09/30. Watching family members. Voice is weak. No apparent distress. TUBES/LINES/DRAINS: Nasal cannula oxygen; right femoral triple-lumen central line; peripheral IV; SCDs; fecal management system SKIN: No jaundice, rashes, or lesions. No wounds seen anteriorly. Skin temperature appropriate. Not diaphoretic. EYES: Pupils equal and round. Extraocular motions intact. No scleral icterus. No injection or drainage. Fundi not examined. ENT: Hearing grossly normal--able to turn to voice.. Nose without bleeding or purulent drainage. Poor dentition. Throat without visible erythema, exudates, masses, or lesions. NECK: Trachea midline. Supple, nontender. CARDIOVASCULAR: Regular rate and rhythm without gallops, or rubs. 2/6 systolic murmur heard at the left sternal border. No JVD. RESPIRATORY/CHEST: Symmetric, unlabored respirations. Clear to auscultation. Breath sounds equal bilaterally and diminished at the bases. No wheezes, rales, or rhonchi. GASTROINTESTINAL: Abdomen soft, moderately distended. There is diffuse moderate tenderness to palpation. No discrete hepato-splenomegaly, or palpable masses. No guarding. Bowel sounds present. GENITOURINARY: Without palpable bladder distension. MUSCULOSKELETAL: Extremities without clubbing, cyanosis, or edema. No mottling. LYMPHATICS: Not examined. NEUROLOGICAL: Awake, alert, moves all extremities. Knows names of grandchildren. Follow simple commands. PSYCHIATRIC: No obvious anxiety/depression. No apparent hallucinations or other psychotic thought process. . Diagnostic Tests Laboratory Laboratory Tests Test 09/28/17 21:30 09/29/17 00:10 09/29/17 00:32 09/29/17 01:10 White Blood Count 27.9 TH/MM3 (4.0-11.0) Red Blood Count 3.98 MIL/MM3 (4.00-5.30) Hemoglobin 10.6 GM/DL (11.6-15.3) Hematocrit 33.0 % (35.0-46.0) Mean Corpuscular Volume 83.0 FL (80.0-100.0) Mean Corpuscular Hemoglobin 26.6 PG (27.0-34.0) Mean Corpuscular Hemoglobin Concent 32.0 % (32.0-36.0) Red Cell Distribution Width 17.0 % (11.6-17.2) Platelet Count 568 TH/MM3 (150-450) Mean Platelet Volume 8.9 FL (7.0-11.0) Neutrophils (%) (Auto) 93.7 % (16.0-70.0) Lymphocytes (%) (Auto) 1.5 % (9.0-44.0) Monocytes (%) (Auto) 4.0 % (0.0-8.0) Eosinophils (%) (Auto) 0.6 % (0.0-4.0) Basophils (%) (Auto) 0.2 % (0.0-2.0) Neutrophils # (Auto) 26.1 TH/MM3 (1.8-7.7) Lymphocytes # (Auto) 0.4 TH/MM3 (1.0-4.8) Monocytes # (Auto) 1.1 TH/MM3 (0-0.9) Eosinophils # (Auto) 0.2 TH/MM3 (0-0.4) Basophils # (Auto) 0.1 TH/MM3 (0-0.2) CBC Comment AUTO DIFF Differential Total Cells Counted 100 Neutrophils % (Manual) 52 % (16-70) Band Neutrophils % 39 % (0-6) Monocytes % 1 % (0-8) Neutrophils # (Manual) 27.6 TH/MM3 (1.8-7.7) Metamyelocytes 7 % (0-1) Myelocytes 1 % (0-0) Differential Comment FINAL DIFF MANUAL Toxic Granulation 1+ (NORMAL) Platelet Estimate HIGH (NORMAL) Platelet Morphology Comment NORMAL (NORMAL) Red Cell Morphology Comment NORMAL (NORMAL) Prothrombin Time 13.5 SEC (9.8-11.6) Prothromb Time International Ratio 1.3 RATIO Activated Partial Thromboplast Time 29.4 SEC (24.3-30.1) Urine Color YELLOW (YELLW/STRAW) Urine Turbidity CLOUDY (CLEAR) Urine pH 5.0 (5.0-8.5) Urine Specific [place] 1.015 (1.002-1.035) Urine Protein 30 mg/dL (NEG-TRACE) Urine Glucose (UA) NEG mg/dL (NEG) Urine Ketones NEG mg/dL (NEG) Urine Occult Blood NEG (NEG) Urine Nitrite NEG (NEG) Urine Bilirubin NEG (NEG) Urine Urobilinogen LESS THAN 2.0 MG/DL (LESS Urine Leukocyte Esterase LARGE (NEG) Urine RBC 16 /hpf (0-3) Urine WBC 100 /hpf (0-5) Urine WBC Clumps MANY (NONE) Urine Squamous Epithelial Cells 7 /hpf (0-5) Urine Amorphous Sediment OCC Urine Bacteria MANY /hpf (NONE) Urine Mucus MANY /lpf (OCC) Microscopic Urinalysis Comment CULTURE INDICATED Urine Eosinophils NONE SEEN /HPF (NONE SEEN) Urine Random Creatinine 125.1 MG/DL Urine Random Sodium 22 MEQ/L Blood Urea Nitrogen 79 MG/DL (7-18) Creatinine 4.65 MG/DL (0.50-1.00) Random Glucose 155 MG/DL (74-106) Total Protein 4.3 GM/DL (6.4-8.2) Albumin 1.4 GM/DL (3.4-5.0) Calcium Level 8.8 MG/DL (8.5-10.1) Alkaline Phosphatase 105 U/L (45-117) Aspartate Amino Transf (AST/SGOT) 18 U/L (15-37) Alanine Aminotransferase (ALT/SGPT) 13 U/L (10-53) Total Bilirubin 0.4 MG/DL (0.2-1.0) Sodium Level 143 MEQ/L (136-145) Potassium Level 4.0 MEQ/L (3.5-5.1) Chloride Level 113 MEQ/L (98-107) Carbon Dioxide Level 16.7 MEQ/L (21.0-32.0) Anion Gap 13 MEQ/L (5-15) Estimat Glomerular Filtration Rate 9 ML/MIN (>89) Lactic Acid Level 2.4 mmol/L (0.4-2.0) 2.0 mmol/L (0.4-2.0) Total Creatine Kinase 36 U/L (26-192) Troponin I 0.02 NG/ML (0.02-0.05) B-Type Natriuretic Peptide 25 PG/ML (0-100) Thyroid Stimulating Hormone 3rd Gen 2.430 uIU/ML (0.358-3.740) Blood Gas Puncture Site LINE Blood Gas Patient Temperature 98.6 Venous Blood pH 7.37 (7.360-7.400) Venous Blood Partial Pressure CO2 29 mmHg (44-48) Venous Blood Partial Pressure O2 31 mmHg (35-40) Venous Blood HCO3 16 mmol/L (22-26) Venous Blood Oxygen Saturation 48 % (70-76) Venous Blood Oxygen Content 6.1 Vol % (9.0-17.0) Venous Blood Base Excess -8.0 mmol/L (-2-2) Oxygen Delivery Device NASAL CANNULA Blood Gas Liter Flow 2 L/M Blood Gas Inspired Oxygen 98 % Stool C. difficile Toxin (PCR) POSITIVE (NEGATIVE) Stl C. difficile Toxin Epiderm 027 PRESUMPTIVE POSITIVE Test 09/29/17 01:20 09/29/17 04:45 09/29/17 05:36 09/29/17 13:22 Hemoglobin 8.9 GM/DL (11.6-15.3) 11.8 GM/DL (11.6-15.3) 10.8 GM/DL (11.6-15.3) Hematocrit 27.2 % (35.0-46.0) 36.4 % (35.0-46.0) 33.5 % (35.0-46.0) Nasal Screen MRSA (PCR) MRSA NOT DETECTED (NOT White Blood Count 34.5 TH/MM3 (4.0-11.0) Red Blood Count 4.36 MIL/MM3 (4.00-5.30) Mean Corpuscular Volume 83.6 FL (80.0-100.0) Mean Corpuscular Hemoglobin 27.1 PG (27.0-34.0) Mean Corpuscular Hemoglobin Concent 32.4 % (32.0-36.0) Red Cell Distribution Width 16.7 % (11.6-17.2) Platelet Count 527 TH/MM3 (150-450) Mean Platelet Volume 9.2 FL (7.0-11.0) Hematology Comments Blood Urea Nitrogen 79 MG/DL (7-18) Creatinine 4.57 MG/DL (0.50-1.00) Random Glucose 151 MG/DL (74-106) Total Protein 4.8 GM/DL (6.4-8.2) Albumin 1.6 GM/DL (3.4-5.0) Calcium Level 8.8 MG/DL (8.5-10.1) Alkaline Phosphatase 111 U/L (45-117) Aspartate Amino Transf (AST/SGOT) 27 U/L (15-37) Alanine Aminotransferase (ALT/SGPT) 13 U/L (10-53) Total Bilirubin 0.5 MG/DL (0.2-1.0) Sodium Level 143 MEQ/L (136-145) Potassium Level 4.3 MEQ/L (3.5-5.1) Chloride Level 114 MEQ/L (98-107) Carbon Dioxide Level 14.4 MEQ/L (21.0-32.0) Anion Gap 15 MEQ/L (5-15) Estimat Glomerular Filtration Rate 9 ML/MIN (>89) Test 09/29/17 18:11 09/30/17 00:24 09/30/17 06:10 09/30/17 12:30 Hemoglobin 9.3 GM/DL (11.6-15.3) 9.3 GM/DL (11.6-15.3) 9.0 GM/DL (11.6-15.3) 8.9 GM/DL (11.6-15.3) Hematocrit 28.8 % (35.0-46.0) 28.9 % (35.0-46.0) 27.4 % (35.0-46.0) 27.6 % (35.0-46.0) Blood Urea Nitrogen 79 MG/DL (7-18) 77 MG/DL (7-18) Creatinine 4.53 MG/DL (0.50-1.00) 4.37 MG/DL (0.50-1.00) Random Glucose 176 MG/DL (74-106) 135 MG/DL (74-106) Calcium Level 8.8 MG/DL (8.5-10.1) 8.6 MG/DL (8.5-10.1) Sodium Level 144 MEQ/L (136-145) 144 MEQ/L (136-145) Potassium Level 4.1 MEQ/L (3.5-5.1) 3.7 MEQ/L (3.5-5.1) Chloride Level 112 MEQ/L (98-107) 112 MEQ/L (98-107) Carbon Dioxide Level 17.4 MEQ/L (21.0-32.0) 19.4 MEQ/L (21.0-32.0) Anion Gap 15 MEQ/L (5-15) 13 MEQ/L (5-15) Estimat Glomerular Filtration Rate 9 ML/MIN (>89) 10 ML/MIN (>89) White Blood Count 26.1 TH/MM3 (4.0-11.0) Red Blood Count 3.30 MIL/MM3 (4.00-5.30) Mean Corpuscular Volume 82.9 FL (80.0-100.0) Mean Corpuscular Hemoglobin 27.2 PG (27.0-34.0) Mean Corpuscular Hemoglobin Concent 32.8 % (32.0-36.0) Red Cell Distribution Width 16.9 % (11.6-17.2) Platelet Count 260 TH/MM3 (150-450) Mean Platelet Volume 8.9 FL (7.0-11.0) Neutrophils (%) (Auto) 92.3 % (16.0-70.0) Lymphocytes (%) (Auto) 4.0 % (9.0-44.0) Monocytes (%) (Auto) 3.2 % (0.0-8.0) Eosinophils (%) (Auto) 0.4 % (0.0-4.0) Basophils (%) (Auto) 0.1 % (0.0-2.0) Neutrophils # (Auto) 24.1 TH/MM3 (1.8-7.7) Lymphocytes # (Auto) 1.0 TH/MM3 (1.0-4.8) Monocytes # (Auto) 0.8 TH/MM3 (0-0.9) Eosinophils # (Auto) 0.1 TH/MM3 (0-0.4) Basophils # (Auto) 0.0 TH/MM3 (0-0.2) CBC Comment AUTO DIFF Differential Total Cells Counted 100 Neutrophils % (Manual) 76 % (16-70) Band Neutrophils % 13 % (0-6) Monocytes % 2 % (0-8) Neutrophils # (Manual) 25.6 TH/MM3 (1.8-7.7) Metamyelocytes 5 % (0-1) Myelocytes 3 % (0-0) Promyelocytes 1 % (0-0) Nucleated Red Blood Cells 4 /100 WBC (0-0) Differential Comment FINAL DIFF MANUAL Toxic Granulation 1+ (NORMAL) Toxic Vacuolation PRESENT (NONE SEEN) Platelet Estimate NORMAL (NORMAL) Platelet Morphology Comment NORMAL (NORMAL) Prothrombin Time 14.5 SEC (9.8-11.6) Prothromb Time International Ratio 1.4 RATIO Total Protein 4.1 GM/DL (6.4-8.2) Albumin 1.7 GM/DL (3.4-5.0) Phosphorus Level 3.9 MG/DL (2.5-4.9) Magnesium Level 2.1 MG/DL (1.5-2.5) Alkaline Phosphatase 96 U/L (45-117) Aspartate Amino Transf (AST/SGOT) 27 U/L (15-37) Alanine Aminotransferase (ALT/SGPT) 10 U/L (10-53) Total Bilirubin 0.4 MG/DL (0.2-1.0) Lactic Acid Level 2.1 mmol/L (0.4-2.0) Test 09/30/17 16:00 10/01/17 00:20 10/01/17 05:53 Urine Osmolality 366 MOSM/KG (300-1300) Hemoglobin 8.6 GM/DL (11.6-15.3) 9.2 GM/DL (11.6-15.3) Hematocrit 26.4 % (35.0-46.0) 28.5 % (35.0-46.0) . Result Diagram: 10/01/17 0553 09/30/17 0610 Microbiology Microbiology Date/Time Source Procedure Growth Status 09/28/17 21:30 Blood Peripheral Aerobic Blood Culture - Preliminary NO GROWTH IN 3 DAYS Resulted 09/28/17 21:30 Blood Peripheral Anaerobic Blood Culture - Preliminary NO GROWTH IN 3 DAYS Resulted 09/28/17 21:15 Blood Peripheral Aerobic Blood Culture - Preliminary NO GROWTH IN 3 DAYS Resulted 09/28/17 21:15 Blood Peripheral Anaerobic Blood Culture - Preliminary NO GROWTH IN 3 DAYS Resulted 09/28/17 21:30 Urine Random Urine Urine Culture - Preliminary Group D Enterococcus Resulted . Imaging Last Impressions Abdomen/Pelvis CT 09/28/172121 Signed Impressions: Service Date/Time: Thursday, September 28, 2017 23:22 - CONCLUSION: There is very impressive wall thickening throughout the colon beginning in the cecum extending along the descending colon to the transverse colon. Free fluid throughout the abdomen and pelvis. Flavio Benavides MD Chest X-Ray 09/28/[id number] Signed Impressions: Service Date/Time: Thursday, September 28, 2017 21:33 - CONCLUSION: 1. Small left pleural effusion. 2. Scattered hazy opacities bilaterally consistent with mild pulmonary vascular congestion, atelectasis and/or infiltrate. 3. Mild cardiomegaly. Juan Ivory MD . Procedures * Femoral venous central line placement . Assessment and Plan Disease Oriented Problem List: (1) Clostridium difficile colitis (2) Septic shock Comment: Improving clinically. (3) GI bleed Comment: No active bleeding noted since passing melanotic stools in the ED. Hg stable. . (4) UTI (urinary tract infection) Comment: Group D enterococcus. . (5) Acute kidney injury Comment: Creatinine remains elevated. . (6) Decubitus ulcers (7) Fracture, intertrochanteric, left femur (8) Hypoalbuminemia Symptom Scale: (1) Pain 0-10 Scale: Unable to quantify Comment: The patient, per family, did not have any significant prehospitalization pain syndromes. She was not complaining of pain at her recent hip surgery site. She has shown evidence of pain with grimacing over the days leading up to admission but cannot describe the location or characteristics. It appears to have been abdominal pain. Now denying all pain. . . (2) Dyspnea 0-10 Scale: 0 Comment: Now appears comfortable off supplemental 02. . . (3) Confusion 0-10 Scale: Unable to quantify Comment: Patient has some underlying dementia which is grown worse over the past few months. This is probably exacerbated by infection, hypotension, anemia , and strange environments. Confusion getting close to baseline per family. . . Pertinent Non-Medical Issues Psychosocial: Had been living with son and [id number] prior to fall/hip fracture. There is a daughter in [place]. Spiritual: Believes in God. Does not belong to a local samaria group. Legal: No advance directives. Daughter and son are proxy decision makers. Ethical issues impacting care: Patient is incapacitated and is not anticipated to regain capacity to make her own health care decisions. . Important Contacts * Stu Andres (son and co-proxy) -- lives [facility] -- [phone] * Patrizia Liangpamvalentin (daughter and co-proxy) -- lives in [place] -- . Prognosis Patient arrived critically ill and it was quite difficult to maintain blood pressure even with pressor support. There has been some improvement particularly in hemodynamic stability. However, she remains very ill with significant risk of during this hospitalization. Should see survive the hospitalization the chances of her returning to her semi-independent functional status at her son's home are very small. More than likely she would need custodial care and we would see custodial to hospital transitions until her . . Code Status: No Code Plan == Code Status: NO CODE (per Dr. Baker' conversations with both children). Son confirmed this on my conversation of 09/29/17. == Decision making: Patient is incapacitated to make her own healthcare decisions. There is no reasonable probability of her recovering capacity to do so because of her underlying dementia. Proxy decision making falls to her son and daughter as co-proxies == Goals of Medical treatment: Family would like aggressive medical treatment including pressor support and antibiotics to see if she can improve. As noted above they do not want chest compressions, intubation, or shock. == Symptoms: * PAIN: Per family, the patient did not have any significant prehospitalization pain syndromes. She was not complaining of pain at her recent hip surgery site. She has shown evidence of pain with grimacing over the days leading up to hospitalization but cannot describe the location or characteristics. It appears to have been abdominal pain. Other current sources of pain might include her vascular access lines, and prolonged bedbound status. Patient currently has orders for morphine sulfate at 2-4 mg IV as needed. Because of patient's current renal function she will have a hard time metabolizing the morphine. May want to consider IV fentanyl as her "as needed" opioid. We will need to watch her blood pressures carefully as they may drop further with opioid administration. * Dyspnea: Dyspnea is probably secondary to her increased metabolic rate from sepsis and possibly due to her blood loss. Dyspnea mostly resolved and patient now comfortable even off supplemental 02. * Confusion: Patient has underlying dementia. This has likely been exacerbated several factors including infection, uremia, medications, hypotension, and strange environment. Patient does not appear to be suffering from this confusion at this time. We will try and treat underlying treatable factors and reassess. == Family opting for medical management only at this time. They do not feel that surgery would help the patient in the long run. == Palliative care will continue to follow to assist with symptom management and to further clarify goals of medical treatment as the clinical course evolves. . Attestation To help prompt me to consider important information that might be impacting today's encounter and assessment, information from prior notes written by myself or my colleagues may have been "brought forward" into today's note. My signature on this note, however, is an attestation that I personally performed the exam, history, and/or decision-making noted today, and, unless otherwise indicated, the interactions with patient, family, and staff as well as the review of records all occurred today. I also attest that the listed assessment and stated plan reflect my best clinical judgment today based on the combination of historical information, prior notes, and today's exam/ interactions. When time spent is documented, it refers only to time spent today by the signer, or if indicated, combined time spent today by collaborating physician/nurse practitioner. . John Scott MD October 01, 2017 18:09
[2017-10-01] MEDS ORDERED: SODIUM CHLOR 0.9% 250 ML INJ 250 ML IV ONE (20:00)
[2017-10-02] VITALS (15 sets, daily range): BP systolic 90–112; BP diastolic 47–59; PULSE 61–92; RESP 15–33; TEMP 96.8–98.4; O2SAT 92–98
[2017-10-02] MEDS: metroNIDAZOLE 500 MG INJ 100 ML IV SCH ×3 (00:06→16:21)
[2017-10-02] MEDS: HYDROCORTISONE SOD SUCCINATE 100 MG VIAL IV PUSH SCH ×4 (00:06→20:33)
[2017-10-02] MEDS: FLUCONAZOLE 200 MG PREMIX BAG 100 ML IV SCH (00:06)
[2017-10-02] MEDS: PANTOPRAZOLE INJ 80 MG in SODIUM CHLORIDE 0.9% INJ 100 ML IV SCH ×4 (02:05→22:27)
[2017-10-02] MEDS: INSULIN NovoLIN REGULAR SUPPLEMENTAL SCALE SQ SCH ×6 (04:00→20:00)
[2017-10-02] MEDS: CHLORHEXIDINE GLUCONATE 2 % 1 PACK (2 CLOTHS) TOP SCH (04:00)
[2017-10-02 04:39] LABS: AUTOMATED NEUTROPHIL # 23.3 TH/MM3 (1.8-7.7); EOSINOPHIL % 0.1 % (0.0-4.0); HEMATOCRIT 26.5 % (35.0-46.0); HEMOGLOBIN 8.3 GM/DL (11.6-15.3); LYMPH % 1.6 % (9.0-44.0); LYMPHOCYTE # 0.4 TH/MM3 (1.0-4.8); MEAN CELL VOLUME 85.8 FL (80.0-100.0); MEAN CORPUSCULAR HEMOGLOBIN 26.7 PG (27.0-34.0); MEAN CORPUSCULAR HGB CONC 31.2 % (32.0-36.0); MEAN PLATELET VOLUME 9.1 FL (7.0-11.0); MONO % 2.6 % (0.0-8.0); MONOCYTE # 0.6 TH/MM3 (0-0.9); NEUT % 95.7 % (16.0-70.0); PLATELET COUNT 178 TH/MM3 (150-450); RED BLOOD COUNT 3.09 MIL/MM3 (4.00-5.30); RED CELL DISTRIBUTION WIDTH 17.6 % (11.6-17.2); WHITE BLOOD COUNT 24.3 TH/MM3 (4.0-11.0)
[2017-10-02 04:49] LABS: ALBUMIN 1.8 GM/DL (3.4-5.0); ALT (GPT) 9 U/L (10-53); AST (GOT) 24 U/L (15-37); BICARBONATE 15.1 MEQ/L (21.0-32.0); BLOOD UREA NITROGEN 78 MG/DL (7-18); CALCIUM 8.4 MG/DL (8.5-10.1); CHLORIDE 110 MEQ/L (98-107); CREATININE 3.89 MG/DL (0.50-1.00); GLOMERULAR FILTRATION RATE 11 ML/MIN (>89); GLUCOSE,RANDOM 141 MG/DL (74-106); MAGNESIUM 1.9 MG/DL (1.5-2.5); SODIUM (NA) 144 MEQ/L (136-145)
[2017-10-02 04:52] LABS: ALKALINE PHOSPHATASE 114 U/L (45-117); TOTAL BILIRUBIN ADULT 0.4 MG/DL (0.2-1.0); TOTAL PROTEIN 3.9 GM/DL (6.4-8.2)
[2017-10-02 05:18] LABS: BANDS 15 % (0-6); METAMYELOCYTES 3 % (0-1); MYELOCYTES 1 % (0-0); NEUTROPHIL # MANUAL DIFF 24.3 TH/MM3 (1.8-7.7); POLYS (SEG NEUTROPHILS) 81 % (16-70)
[2017-10-02 05:19] LABS: TOXIC GRANULATION 2+ (NORMAL)
[2017-10-02] MEDS: SODIUM BICARBONATE 8.4% INJ 50 MEQ in SODIUM CHLOR 0.45% 1000 ML INJ 1,000 ML IV SCH (05:32)
[2017-10-02] MEDS: CEFEPIME INJ 1,000 MG in SODIUM CHLORIDE 0.9% INJ 100 ML IV SCH (07:36)
[2017-10-02] MEDS ORDERED: AMPICILLIN-SULBACTAM INJ 1,500 MG in SODIUM CHLORIDE 0.9% INJ 100 ML IV SCH (08:00)
[2017-10-02] MEDS: ALBUMIN 25% INJ 50 ML IV SCH ×2 (09:10→20:33)
[2017-10-02] MEDS: VANCOMYCIN 500 MG VIAL (FOR ORAL USE ONLY) PO SCH ×4 (09:10→20:33)
[2017-10-02] MEDS: SODIUM CHLORIDE 0.9% FLUSH 10 ML FLUSH IV FLUSH SCH ×2 (09:11→20:34)
[2017-10-02] MEDS ORDERED: ALTEPLASE RECOMBINANT 2 MG VIAL IV FLUSH SCH (10:00)
--- NOTE | 2017-10-02 14:54 | HHI.HCPN ---
Reason for visit a. To assist with evaluation and management of symptoms including: pain; confusion; dyspnea b. To assist medical decision maker(s) with: better understanding of current medical conditions; weighing benefits/burdens of medical treatment options; making medical treatment decisions. . Subjective/Interval History Bedside nurse reports patient was alert, interactive, blowing kisses earlier this AM. She has been more subdued since family has arrived and they feel she looks less energetic. Family asks multiple times about pain while I ma there and she denies pain. She has not needed opioids in MICU. Her only complaint is that she is hungry. Nurse reports no blood seen in bowel movements. BP remains stable off pressors. WBC still elevated but down slightly to 24.3. Bands up slightly to 15%. Platelets at 178. Renal function improving -- creatinine down to 3.89 .Albumin quite low at 1.8. . Family/friend interactions Patient had 4 grandchildren at bedside at time of my visit. I answered multiple questions regarding patient's condition, lab values, etc. . Advance Directives Living Will: Never completed Health Care Surrogate: Never completed Durable Power of Head Filter Tank Tender Helper: Never completed Advance Directive Specifics Date completed: Patient has not completed a living will or designated a healthcare surrogate. . Health Care Surrogate(s): No designation of healthcare surrogate. . Documented care wishes: No written documentation of healthcare goals or preferences. . Objective Vital Signs Date Time Temp Pulse Resp B/P (MAP) Pulse Ox O2 Delivery O2 Flow Rate FiO2 10/02/17 13:00 91 31 105/57 (73) 94 10/02/17 12:00 97.3 80 20 97/56 (70) 97 10/02/17 11:00 65 16 92/47 (62) 96 10/02/17 10:00 87 26 91/55 (67) 97 10/02/17 09:00 63 16 90/51 (64) 94 10/02/17 08:00 73 10/02/17 08:00 69 19 109/54 (72) 97 10/02/17 08:00 96.8 10/02/17 06:00 66 10/02/17 04:00 61 10/02/17 04:00 98.4 61 15 99/51 (67) 95 10/02/17 02:00 77 10/02/17 00:00 69 10/02/17 00:00 98.1 69 31 108/56 (73) 98 10/01/17 22:00 68 10/01/17 20:00 79 31 90/52 (65) 84 10/01/17 20:00 79 10/01/17 19:00 98.6 71 25 100/55 (70) 97 10/01/17 18:00 65 18 88/50 (63) 93 10/01/17 17:00 76 23 93/55 (68) 97 10/01/17 16:15 71 20 92/53 (66) 96 10/01/17 16:00 97.3 76 21 85/49 (61) 95 10/01/17 15:46 80 24 95/50 (65) 83 10/01/17 15:30 73 22 90/51 (64) 95 10/01/17 15:15 81 26 93/52 (66) 79 10/01/17 15:00 79 23 94/51 (65) 92 Intake & Output 10/02/17 10/02/17 07:00 19:00 Intake Total 1510 ml Output Total 225 ml Balance 1285 ml Intake Oral 0 ml IV Total 1510 ml Output Urine Total 175 ml Stool Total 50 ml . Physical Exam CONSTITUTIONAL/GENERAL: This is a pale, frail-appearing , thin patient, in an MICU bed. Voice is weak. No apparent distress. TUBES/LINES/DRAINS: Nasal cannula oxygen; right femoral triple-lumen central line; peripheral IV; SCDs; fecal management system SKIN: No jaundice, rashes, or lesions. No wounds seen anteriorly. Skin temperature appropriate. Not diaphoretic. EYES: Pupils equal and round. Extraocular motions intact. No scleral icterus. No injection or drainage. Fundi not examined. ENT: Hearing grossly normal--able to turn to voice.. Nose without bleeding or purulent drainage. Poor dentition. NECK: Trachea midline.. CARDIOVASCULAR: Regular rate and rhythm without gallops, or rubs. 2/6 systolic murmur heard at the left sternal border. No JVD. RESPIRATORY/CHEST: Symmetric, unlabored respirations. Clear to auscultation. Breath sounds equal bilaterally and diminished at the bases. No wheezes, rales, or rhonchi. GASTROINTESTINAL: Abdomen soft, moderately distended. There is diffuse minimal tenderness to palpation. No discrete hepato-splenomegaly, or palpable masses. No guarding. Bowel sounds present. GENITOURINARY: Without palpable bladder distension. MUSCULOSKELETAL: Extremities without clubbing, cyanosis, or edema. No mottling. LYMPHATICS: Not examined. NEUROLOGICAL: Awake, alert, moves all extremities. Knows names of grandchildren. Follow simple commands. PSYCHIATRIC: No obvious anxiety/depression. No apparent hallucinations or other psychotic thought process. . Diagnostic Tests Laboratory Laboratory Tests Test 09/29/17 18:11 09/30/17 00:24 09/30/17 06:10 09/30/17 12:30 Hemoglobin 9.3 GM/DL (11.6-15.3) 9.3 GM/DL (11.6-15.3) 9.0 GM/DL (11.6-15.3) 8.9 GM/DL (11.6-15.3) Hematocrit 28.8 % (35.0-46.0) 28.9 % (35.0-46.0) 27.4 % (35.0-46.0) 27.6 % (35.0-46.0) Blood Urea Nitrogen 79 MG/DL (7-18) 77 MG/DL (7-18) Creatinine 4.53 MG/DL (0.50-1.00) 4.37 MG/DL (0.50-1.00) Random Glucose 176 MG/DL (74-106) 135 MG/DL (74-106) Calcium Level 8.8 MG/DL (8.5-10.1) 8.6 MG/DL (8.5-10.1) Sodium Level 144 MEQ/L (136-145) 144 MEQ/L (136-145) Potassium Level 4.1 MEQ/L (3.5-5.1) 3.7 MEQ/L (3.5-5.1) Chloride Level 112 MEQ/L (98-107) 112 MEQ/L (98-107) Carbon Dioxide Level 17.4 MEQ/L (21.0-32.0) 19.4 MEQ/L (21.0-32.0) Anion Gap 15 MEQ/L (5-15) 13 MEQ/L (5-15) Estimat Glomerular Filtration Rate 9 ML/MIN (>89) 10 ML/MIN (>89) White Blood Count 26.1 TH/MM3 (4.0-11.0) Red Blood Count 3.30 MIL/MM3 (4.00-5.30) Mean Corpuscular Volume 82.9 FL (80.0-100.0) Mean Corpuscular Hemoglobin 27.2 PG (27.0-34.0) Mean Corpuscular Hemoglobin Concent 32.8 % (32.0-36.0) Red Cell Distribution Width 16.9 % (11.6-17.2) Platelet Count 260 TH/MM3 (150-450) Mean Platelet Volume 8.9 FL (7.0-11.0) Neutrophils (%) (Auto) 92.3 % (16.0-70.0) Lymphocytes (%) (Auto) 4.0 % (9.0-44.0) Monocytes (%) (Auto) 3.2 % (0.0-8.0) Eosinophils (%) (Auto) 0.4 % (0.0-4.0) Basophils (%) (Auto) 0.1 % (0.0-2.0) Neutrophils # (Auto) 24.1 TH/MM3 (1.8-7.7) Lymphocytes # (Auto) 1.0 TH/MM3 (1.0-4.8) Monocytes # (Auto) 0.8 TH/MM3 (0-0.9) Eosinophils # (Auto) 0.1 TH/MM3 (0-0.4) Basophils # (Auto) 0.0 TH/MM3 (0-0.2) CBC Comment AUTO DIFF Differential Total Cells Counted 100 Neutrophils % (Manual) 76 % (16-70) Band Neutrophils % 13 % (0-6) Monocytes % 2 % (0-8) Neutrophils # (Manual) 25.6 TH/MM3 (1.8-7.7) Metamyelocytes 5 % (0-1) Myelocytes 3 % (0-0) Promyelocytes 1 % (0-0) Nucleated Red Blood Cells 4 /100 WBC (0-0) Differential Comment FINAL DIFF MANUAL Toxic Granulation 1+ (NORMAL) Toxic Vacuolation PRESENT (NONE SEEN) Platelet Estimate NORMAL (NORMAL) Platelet Morphology Comment NORMAL (NORMAL) Prothrombin Time 14.5 SEC (9.8-11.6) Prothromb Time International Ratio 1.4 RATIO Total Protein 4.1 GM/DL (6.4-8.2) Albumin 1.7 GM/DL (3.4-5.0) Phosphorus Level 3.9 MG/DL (2.5-4.9) Magnesium Level 2.1 MG/DL (1.5-2.5) Alkaline Phosphatase 96 U/L (45-117) Aspartate Amino Transf (AST/SGOT) 27 U/L (15-37) Alanine Aminotransferase (ALT/SGPT) 10 U/L (10-53) Total Bilirubin 0.4 MG/DL (0.2-1.0) Lactic Acid Level 2.1 mmol/L (0.4-2.0) Test 09/30/17 16:00 10/01/17 00:20 10/01/17 05:53 10/01/17 19:00 Urine Osmolality 366 MOSM/KG (300-1300) Hemoglobin 8.6 GM/DL (11.6-15.3) 9.2 GM/DL (11.6-15.3) Hematocrit 26.4 % (35.0-46.0) 28.5 % (35.0-46.0) Troponin I 0.02 NG/ML (0.02-0.05) Test 10/02/17 03:40 White Blood Count 24.3 TH/MM3 (4.0-11.0) Red Blood Count 3.09 MIL/MM3 (4.00-5.30) Hemoglobin 8.3 GM/DL (11.6-15.3) Hematocrit 26.5 % (35.0-46.0) Mean Corpuscular Volume 85.8 FL (80.0-100.0) Mean Corpuscular Hemoglobin 26.7 PG (27.0-34.0) Mean Corpuscular Hemoglobin Concent 31.2 % (32.0-36.0) Red Cell Distribution Width 17.6 % (11.6-17.2) Platelet Count 178 TH/MM3 (150-450) Mean Platelet Volume 9.1 FL (7.0-11.0) Neutrophils (%) (Auto) 95.7 % (16.0-70.0) Lymphocytes (%) (Auto) 1.6 % (9.0-44.0) Monocytes (%) (Auto) 2.6 % (0.0-8.0) Eosinophils (%) (Auto) 0.1 % (0.0-4.0) Basophils (%) (Auto) 0.0 % (0.0-2.0) Neutrophils # (Auto) 23.3 TH/MM3 (1.8-7.7) Lymphocytes # (Auto) 0.4 TH/MM3 (1.0-4.8) Monocytes # (Auto) 0.6 TH/MM3 (0-0.9) Eosinophils # (Auto) 0.0 TH/MM3 (0-0.4) Basophils # (Auto) 0.0 TH/MM3 (0-0.2) CBC Comment AUTO DIFF Differential Total Cells Counted 100 Neutrophils % (Manual) 81 % (16-70) Band Neutrophils % 15 % (0-6) Neutrophils # (Manual) 24.3 TH/MM3 (1.8-7.7) Metamyelocytes 3 % (0-1) Myelocytes 1 % (0-0) Differential Comment FINAL DIFF MANUAL Toxic Granulation 2+ (NORMAL) Platelet Estimate NORMAL (NORMAL) Platelet Morphology Comment NORMAL (NORMAL) Blood Urea Nitrogen 78 MG/DL (7-18) Creatinine 3.89 MG/DL (0.50-1.00) Random Glucose 141 MG/DL (74-106) Total Protein 3.9 GM/DL (6.4-8.2) Albumin 1.8 GM/DL (3.4-5.0) Calcium Level 8.4 MG/DL (8.5-10.1) Magnesium Level 1.9 MG/DL (1.5-2.5) Alkaline Phosphatase 114 U/L (45-117) Aspartate Amino Transf (AST/SGOT) 24 U/L (15-37) Alanine Aminotransferase (ALT/SGPT) 9 U/L (10-53) Total Bilirubin 0.4 MG/DL (0.2-1.0) Sodium Level 144 MEQ/L (136-145) Potassium Level 3.2 MEQ/L (3.5-5.1) Chloride Level 110 MEQ/L (98-107) Carbon Dioxide Level 15.1 MEQ/L (21.0-32.0) Anion Gap 19 MEQ/L (5-15) Estimat Glomerular Filtration Rate 11 ML/MIN (>89) . Result Diagram: 10/02/17 0340 10/02/17 0340 Microbiology Microbiology Date/Time Source Procedure Growth Status 09/28/17 21:30 Blood Peripheral Aerobic Blood Culture - Preliminary NO GROWTH IN 4 DAYS Resulted 09/28/17 21:30 Blood Peripheral Anaerobic Blood Culture - Preliminary NO GROWTH IN 4 DAYS Resulted 09/28/17 21:30 Urine Random Urine Urine Culture - Final Enterococcus Faecalis Complete . Imaging Last Impressions Abdomen/Pelvis CT 09/28/172121 Signed Impressions: Service Date/Time: Thursday, September 28, 2017 23:22 - CONCLUSION: There is very impressive wall thickening throughout the colon beginning in the cecum extending along the descending colon to the transverse colon. Free fluid throughout the abdomen and pelvis. Flavio Benavides MD Chest X-Ray 09/28/172119 Signed Impressions: Service Date/Time: Thursday, September 28, 2017 21:33 - CONCLUSION: 1. Small left pleural effusion. 2. Scattered hazy opacities bilaterally consistent with mild pulmonary vascular congestion, atelectasis and/or infiltrate. 3. Mild cardiomegaly. Juan Ivory MD . Procedures * Femoral venous central line placement . Assessment and Plan Disease Oriented Problem List: (1) Clostridium difficile colitis (2) Septic shock Comment: Improving clinically. (3) GI bleed Comment: No active bleeding noted since passing melanotic stools in the ED. Hg stable. . (4) UTI (urinary tract infection) Comment: Group D enterococcus. . (5) Acute kidney injury Comment: Creatinine remains elevated. . (6) Decubitus ulcers (7) Fracture, intertrochanteric, left femur (8) Hypoalbuminemia Symptom Scale: (1) Pain 0-10 Scale: 0 Comment: The patient, per family, did not have any significant prehospitalization pain syndromes. She was not complaining of pain at her recent hip surgery site. She has shown evidence of pain with grimacing over the days leading up to admission but cannot describe the location or characteristics. It appears to have been abdominal pain. Now denying all pain. . . (2) Dyspnea 0-10 Scale: 0 Comment: Now appears comfortable off supplemental 02. . . (3) Confusion 0-10 Scale: Unable to quantify Comment: Patient has some underlying dementia which has grown worse over the past few months. This is probably exacerbated by infection, hypotension, anemia , and strange environments. Confusion getting close to baseline per family. . . Pertinent Non-Medical Issues Psychosocial: Had been living with son and [id number] prior to fall/hip fracture. There is a daughter in [place]. Spiritual: Believes in God. Does not belong to a local samaria group. Legal: No advance directives. Daughter and son are proxy decision makers. Ethical issues impacting care: Patient is incapacitated and is not anticipated to regain capacity to make her own health care decisions. . Important Contacts * Stu Andres (son and co-proxy) -- lives [facility] -- [phone] * Patrizia Wynn (daughter and co-proxy) -- lives in [place] -- . Prognosis Patient arrived critically ill and it was quite difficult to maintain blood pressure even with pressor support. There has been some improvement particularly in hemodynamic stability. Renal function has also begun to improve. She appears more likely to survive the hospitalization , but the chances of her returning to her semi-independent functional status at her son's home are very small. More than likely she would need usp care and we would see usp to hospital transitions until her . . . Code Status: No Code Plan == Code Status: NO CODE (per Dr. Baker' conversations with both children). Son confirmed this on my conversation of 09/29/17. == Decision making: Patient is incapacitated to make her own healthcare decisions. There is no reasonable probability of her recovering capacity to do so because of her underlying dementia. Proxy decision making falls to her son and daughter as co-proxies == Goals of Medical treatment: Family would like aggressive medical treatment including pressor support and antibiotics to see if she can improve. As noted above they do not want chest compressions, intubation, or shock. == Symptoms: * PAIN: Per family, the patient did not have any significant prehospitalization pain syndromes. She was not complaining of pain at her recent hip surgery site. She has shown evidence of pain with grimacing over the days leading up to hospitalization but cannot describe the location or characteristics. It appears to have been abdominal pain. Other current sources of pain might include her vascular access lines, and prolonged bedbound status. Patient currently has orders for morphine sulfate at 2-4 mg IV as needed. Because of patient's current renal function she will have a hard time metabolizing the morphine. May want to consider IV fentanyl as her "as needed" opioid. We will need to watch her blood pressures carefully as they may drop further with opioid administration. She has not required opioids to date. * Dyspnea: Dyspnea is probably secondary to her increased metabolic rate from sepsis and possibly due to her blood loss. Dyspnea now mostly resolved and patient now comfortable even off supplemental 02. * Confusion: Patient has underlying dementia. This has likely been exacerbated several factors including infection, uremia, medications, hypotension, and strange environment. Patient does not appear to be suffering from this confusion at this time. We will try and treat underlying treatable factors and reassess. * Hunger: Patient has been NPO. == Family opting for medical management only at this time. They do not feel that surgery would help the patient in the long run. == spoke via phone with Dr. Dobbins regarding nutrition. He thinks she may be able to start on PO. He will visit her later today and write for a diet order. == Palliative care will continue to follow to assist with symptom management and to further clarify goals of medical treatment as the clinical course evolves. . John Scott MD October 02, 2017 14:54
--- NOTE | 2017-10-02 15:49 | HHI.PR ---
Subjective Remarks patient awake - baseline dementia- speaks Malian responded and waved her hand when I greeted her in nauruan moves all extremities and pushed away examiing hands on exam and speaks in nauruan Objective Vitals Vital Signs Date Time Temp Pulse Resp B/P (MAP) Pulse Ox O2 Delivery O2 Flow Rate FiO2 10/02/17 13:00 91 31 105/57 (73) 94 10/02/17 12:00 97.3 80 20 97/56 (70) 97 10/02/17 11:00 65 16 92/47 (62) 96 10/02/17 10:00 87 26 91/55 (67) 97 10/02/17 09:00 63 16 90/51 (64) 94 10/02/17 08:00 73 10/02/17 08:00 69 19 109/54 (72) 97 10/02/17 08:00 96.8 10/02/17 06:00 66 10/02/17 04:00 61 10/02/17 04:00 98.4 61 15 99/51 (67) 95 10/02/17 02:00 77 10/02/17 00:00 69 10/02/17 00:00 98.1 69 31 108/56 (73) 98 10/01/17 22:00 68 10/01/17 20:00 79 31 90/52 (65) 84 10/01/17 20:00 79 10/01/17 19:00 98.6 71 25 100/55 (70) 97 10/01/17 18:00 65 18 88/50 (63) 93 10/01/17 17:00 76 23 93/55 (68) 97 10/01/17 16:15 71 20 92/53 (66) 96 10/01/17 16:00 97.3 76 21 85/49 (61) 95 10/01/17 15:46 80 24 95/50 (65) 83 I/O 10/01/17 10/01/17 10/01/17 10/02/17 10/02/17 10/02/17 06:59 14:59 22:59 06:59 14:59 22:59 Intake Total 1300 ml 1400 ml 100 ml 1510 ml Output Total 300 ml 375 ml 225 ml Balance 1000 ml 1400 ml -275 ml 1285 ml Intake Oral 0 ml 0 ml IV Total 1300 ml 1400 ml 100 ml 1510 ml Output Urine Total 300 ml 275 ml 175 ml Stool Total 0 ml 100 ml 50 ml Result Diagram: 10/02/1733910/02/17339 Imaging Last Impressions Abdomen/Pelvis CT 09/28/172121 Signed Impressions: Service Date/Time: Thursday, September 28, 2017 23:22 - CONCLUSION: There is very impressive wall thickening throughout the colon beginning in the cecum extending along the descending colon to the transverse colon. Free fluid throughout the abdomen and pelvis. Flavio Benavides MD Chest X-Ray 09/28/172119 Signed Impressions: Service Date/Time: Thursday, September 28, 2017 21:33 - CONCLUSION: 1. Small left pleural effusion. 2. Scattered hazy opacities bilaterally consistent with mild pulmonary vascular congestion, atelectasis and/or infiltrate. 3. Mild cardiomegaly. Juan Ivory MD Objective Remarks awakens when examined anicteric decreased breath sounds regular rhythm abdomen- distended, + tenderness on palpation, few bowels ounds extremities no edema moves all extremities spontaneously Urinary Catheter: Yes Assessment to: Continue Flower insert reason: Measure Accurate Output Date of Insertion: October 01, 2017 Vascular Central Line Catheter: Yes Assessment to: Continue Side: Right Location: Femoral A/P Problem List: (1) Dementia ICD Code: F03.90 - Unspecified dementia without behavioral disturbance Status: Chronic (2) Acute kidney injury ICD Code: N17.9 - Acute kidney failure, unspecified Status: Acute (3) Septic shock ICD Code: A41.9 - Sepsis, unspecified organism; R65.21 - Severe sepsis with septic shock Status: Acute (4) UTI (urinary tract infection) ICD Code: N39.0 - Urinary tract infection, site not specified Status: Acute (5) GI bleed ICD Code: K92.2 - Gastrointestinal hemorrhage, unspecified Status: Acute (6) Pain ICD Code: R52 - Pain, unspecified (7) Decubitus ulcers ICD Code: L89.90 - Pressure ulcer of unspecified site, unspecified stage Status: Chronic (8) Confusion ICD Code: R41.0 - Disorientation, unspecified (9) Colitis ICD Code: K52.9 - Noninfective gastroenteritis and colitis, unspecified Status: Acute Assessment and Plan NEURO: Dementia - Moderate to Severe per family Morphine as needed for pain. Daughter wishes to ensure comfort. RESP: On nasal cannula. Wean as tolerated. Patient will not be intubated per wishes expressed by family. CV: Septic/hypovolemic shock Lactic acidemia Titrated off Levophed and vasopressin. Reduce IV fluid to 75 mL/h with HC03 Essential hypertension at baseline Hold lisinopril 10 mg daily due to acute kidney injury and hypotension, hold Norvasc 10 mg daily due to hypotension. GI: C. difficile colitis melena Diarrhea present on admission Moderate protein energy malnutrition Held rivaroxaban (on for DVT prevention), given KCentra, monitoring serial Hgb. Consulted gastroenterology due to melena. CT scan with significant wall thickening of ascending and transverse colon with free fluid throughout the abdomen and pelvis. There is no free air. She is a very poor surgical candidate with overall medical condition condition, protein malnutrition, dementia, etc. Discussed risk and morbidity of surgery and family expresses understanding and would NOT want to pursue surgery even if she fails medical management. NPO except meds IV Flagyl and p.o. vancomycin for C. difficile Resume MVI/Zinc 220 daily/Vitamin C 500 for wound healing of decubitus when she is able to take po. trail fo clear liquids- d/w staff nurse- monitor abdominal exam FEN/RENAL: Acute kidney failure Hyperchloremia Acute metabolic acidosis. Hypokalemia- give 10 meq IV bolus. Monitor K - patient on IVHF with HC03 for metabolic acidosis continue flower .Monitor electrolytes and replace as indicated. No evidence of hydronephrosis on CT abdomen. CPK is normal. Due to overall poor prognosis patient is not a candidate for hemodialysis. And there is no acute indication - BMP in am ID: Septic shock Leukocytosis and bandemia UTI- grew E faecalis 09/28 speciemn C. difficile colitis - d/w Dr. Lorenzo. DC Unasyn - continue on Vancomycin and Flagyl and Cefepime She previously was on 10 day course of Levaquin for pneumonia in August. recheck UA now SKIN: Stage II sacral decubitus ulcer, present on admission Is healing and does not appear infected. Multivitamins for wound healing per above discussion HEME: Acute blood loss overlying chronic anemia Anticoagulated with rivaroxaban (DVT prophylaxis following ORIF femur) Reactive thrombocytosis Hold rivaroxaban. Received K Centra 50 U/kg in the emergency department. Type and screen has been sent Serial hemoglobin every 6 hours. Transfuse as needed for hemoglobin less than 8 or if clinically indicated for hemorrhagic shock ENDO: Acute stress hyperglycemia. Monitor bedside glucose and initiate low-dose insulin sliding scale as indicated. PROPH: SCDs for DVT prophylaxis. Pharmacologic DVT prophylaxis is contraindicated due to GI bleeding. ACCESS: Right femoral central venous line placed by ED physician 09/29/17. DC if patient stays off pressors Duringhospital stay - Dr. Baker discussed with patient's son (Stu Andres) who is currently in [place]. Also discussed over the phone with patient's daughter (Patrizia Wynn) in a separate conversation. Daughter indicates that she has spoken with her brother and that they desire DO NOT RESUSCITATE/DO NOT INTUBATE and agree would not want to pursue surgical intervention if she fails to improve with medical management. Palliative care team following to assist with deciding goals of therapy. DNR/DNI Problem Qualifiers (1) UTI (urinary tract infection): Qualified Codes: N30.00 - Acute cystitis without hematuria (2) GI bleed: Qualified Codes: K92.2 - Gastrointestinal hemorrhage, unspecified (3) Decubitus ulcers: Qualified Codes: L89.152 - Pressure ulcer of sacral region, stage 2 Heather Rueda MD October 02, 2017 15:49
--- NOTE | 2017-10-02 16:04 | HHI.PR ---
cc: Maurice Crooks MD Subjective Subjective Notes Resting in bed Nonverbal Per RN, had clear liquids for lunch Objective Vitals/I&O Vital Signs Date Time Temp Pulse Resp B/P (MAP) Pulse Ox O2 Delivery O2 Flow Rate FiO2 10/02/17 13:00 91 31 105/57 (73) 94 10/02/17 12:00 97.3 09/29/17 03:49 Nasal Cannula 2.00 Labs Laboratory Tests Test 10/01/17 19:00 10/02/17 03:40 Troponin I 0.02 White Blood Count 24.3 Red Blood Count 3.09 Hemoglobin 8.3 Hematocrit 26.5 Mean Corpuscular Volume 85.8 Mean Corpuscular Hemoglobin 26.7 Mean Corpuscular Hemoglobin Concent 31.2 Red Cell Distribution Width 17.6 Platelet Count 178 Mean Platelet Volume 9.1 Neutrophils (%) (Auto) 95.7 Lymphocytes (%) (Auto) 1.6 Monocytes (%) (Auto) 2.6 Eosinophils (%) (Auto) 0.1 Basophils (%) (Auto) 0.0 Neutrophils # (Auto) 23.3 Lymphocytes # (Auto) 0.4 Monocytes # (Auto) 0.6 Eosinophils # (Auto) 0.0 Basophils # (Auto) 0.0 CBC Comment AUTO DIFF Differential Total Cells Counted 100 Neutrophils % (Manual) 81 Band Neutrophils % 15 Neutrophils # (Manual) 24.3 Metamyelocytes 3 Myelocytes 1 Differential Comment FINAL DIFF MANUAL Toxic Granulation 2+ Platelet Estimate NORMAL Platelet Morphology Comment NORMAL Blood Urea Nitrogen 78 Creatinine 3.89 Random Glucose 141 Total Protein 3.9 Albumin 1.8 Calcium Level 8.4 Magnesium Level 1.9 Alkaline Phosphatase 114 Aspartate Amino Transf (AST/SGOT) 24 Alanine Aminotransferase (ALT/SGPT) 9 Total Bilirubin 0.4 Sodium Level 144 Potassium Level 3.2 Chloride Level 110 Carbon Dioxide Level 15.1 Anion Gap 19 Estimat Glomerular Filtration Rate 11 Date/Time Source Procedure Growth Status 09/28/17 21:30 Blood Peripheral Aerobic Blood Culture - Preliminary NO GROWTH IN 4 DAYS Resulted 09/28/17 21:30 Blood Peripheral Anaerobic Blood Culture - Preliminary NO GROWTH IN 4 DAYS Resulted 09/28/17 21:30 Urine Random Urine Urine Culture - Final Enterococcus Faecalis Complete Cardiovascular: Regular Lungs: Clear Abdomen: Other (tender with palpation but better on exam when compared to yesterday ) Extremities: No edema A/P Assessment and Plan 87 year old female with C-diff colitis -Remains off pressors -Continue to monitor WBC/fevers -Creatinine improving -Started on clear liquid diet -May benefit from repeat CT scan in the next few days if no improvement -Clinically improving -Will continue non operative treatment at this time Attending Statement patient seen at bedside doing better protecting airway still with pain but less Attestation The exam, history, and the medical decision-making described in the above note were completed with the assistance of the mid-level provider. I reviewed and agree with the findings presented. I attest that I had a [id number] encounter with the patient on the same day, and personally performed and documented my assessment and findings in the medical record. Amanda Maldonado/Venue Manager DEO October 02, 2017 16:04 Maurice Crooks MD October 04, 2017 21:42
[2017-10-02] MEDS ORDERED: POTASSIUM CHLOR 10 MEQ PREMIX 100 ML IV ONE (16:15)
--- NOTE | 2017-10-02 16:28 | HHI.IDPN ---
Note Infectious Disease Note Patient is easily arousable. She follows simple commands. Afebrile. Has very good urine output. Admitted with hypotension, lethargy and decreased oxygen saturation. 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 ALLERGIES: NO KNOWN DRUG ALLERGIES. MEDICATIONS: Current Medications Medications (Trade) Dose Ordered Sig/Gilmer Route PRN Reason Start Time Stop Time Status Last Admin Dose Admin Pantoprazole Sodium 80 mg/ Sodium Chloride 100 ml @ 10 mls/hr Q10H IV 09/28/17 21:22 10/02/17 12:34 Metronidazole 100 ml @ 100 mls/hr Q8H IV 09/29/17 01:00 10/02/17 09:10 Fluconazole/ Sodium Chloride 100 ml @ 100 mls/hr Q24H IV 09/30/17 01:15 10/02/17 00:06 Sodium Chloride (NS Flush) 2 ml UNSCH PRN IV FLUSH FLUSH AFTER USING IV ACCESS 09/29/17 01:15 Sodium Chloride (NS Flush) 2 ml BID IV FLUSH 09/29/17 09:00 10/02/17 09:11 Morphine Sulfate (Morphine Inj) 2 mg Q2H PRN IV PUSH PAIN 1-5 09/29/17 01:15 Ondansetron HCl (Zofran Inj) 4 mg Q6H PRN IV PUSH NAUSEA OR VOMITING 09/29/17 01:15 Albuterol Sulfate (Albuterol Neb) 2.5 mg Q2HR NEB PRN INH SOB/WHEEZING 09/29/17 01:15 Miscellaneous Information ([facility]) 1 Q361D XX 09/29/17 01:15 09/29/17 04:45 Chlorhexidine Gluconate (Chlorhexidine 2% Cloth) 3 pack Taper DAILY@04 TOP 09/29/17 04:00 09/25/18 03:59 10/02/17 04:00 Chlorhexidine Gluconate (Chlorhexidine 2% Cloth) 3 pack UNSCH PRN TOP HYGIENIC CARE 09/29/17 01:15 Morphine Sulfate (Morphine Inj) 4 mg Q2H PRN IV PUSH PAIN 6-10 09/29/17 05:00 Dextrose (D50w (Vial) Inj) 50 ml UNSCH PRN IV PUSH HYPOGLYCEMIA-SEE COMMENTS 09/29/17 12:30 Glucagon (Glucagon Inj) 1 mg UNSCH PRN OTHER HYPOGLYCEMIA-SEE COMMENTS 09/29/17 12:30 Insulin Human Regular (NovoLIN R SUPPLEMENTAL SCALE) 1 Q4HR SQ 09/29/17 12:30 10/01/17 16:16 Terbutaline Sulfate (Brethine Inj) 1 mg UNSCH PRN SQ For Extravasation 09/29/17 15:15 Sodium Bicarbonate 50 meq/Sodium Chloride 1,050 ml @ 75 mls/hr Q14H IV 09/29/17 16:00 10/02/17 05:32 Vancomycin HCl (VANCOMYCIN for oral use only) 500 mg QID PO 09/29/17 21:00 10/02/17 12:30 Albumin Human 50 ml @ 60 mls/hr Q12H IV 10/01/17 10:00 10/04/17 09:59 10/02/17 09:10 Hydrocortisone Sodium Succinate (SoluCORTEF INJ) 50 mg Q8HR IV PUSH 10/02/17 22:00 Potassium Chloride 100 ml @ 100 mls/hr BOLUS ONCE IV 10/02/17 16:15 10/02/17 17:14 SOCIAL HISTORY: No tobacco, no alcohol, no illicit drugs. The patient was admitted from a long term facility. OBJECTIVE: Vital Signs Date Time Temp Pulse Resp B/P (MAP) Pulse Ox O2 Delivery O2 Flow Rate FiO2 10/02/17 13:00 91 31 105/57 (73) 94 10/02/17 12:00 97.3 80 20 97/56 (70) 97 10/02/17 11:00 65 16 92/47 (62) 96 10/02/17 10:00 87 26 91/55 (67) 97 10/02/17 09:00 63 16 90/51 (64) 94 10/02/17 08:00 73 10/02/17 08:00 69 19 109/54 (72) 97 10/02/17 08:00 96.8 10/02/17 06:00 66 10/02/17 04:00 61 10/02/17 04:00 98.4 61 15 99/51 (67) 95 10/02/17 02:00 77 10/02/17 00:00 69 10/02/17 00:00 98.1 69 31 108/56 (73) 98 10/01/17 22:00 68 10/01/17 20:00 79 31 90/52 (65) 84 10/01/17 20:00 79 10/01/17 19:00 98.6 71 25 100/55 (70) 97 10/01/17 18:00 65 18 88/50 (63) 93 10/01/17 17:00 76 23 93/55 (68) 97 Laboratory Tests Test 10/01/17 00:20 10/01/17 05:53 10/02/17 03:40 Hemoglobin 8.6 GM/DL 9.2 GM/DL 8.3 GM/DL Hematocrit 26.4 % 28.5 % 26.5 % White Blood Count 24.3 TH/MM3 Red Blood Count 3.09 MIL/MM3 Mean Corpuscular Volume 85.8 FL Mean Corpuscular Hemoglobin 26.7 PG Mean Corpuscular Hemoglobin Concent 31.2 % Red Cell Distribution Width 17.6 % Platelet Count 178 TH/MM3 Mean Platelet Volume 9.1 FL Neutrophils (%) (Auto) 95.7 % Lymphocytes (%) (Auto) 1.6 % Monocytes (%) (Auto) 2.6 % Eosinophils (%) (Auto) 0.1 % Basophils (%) (Auto) 0.0 % Neutrophils # (Auto) 23.3 TH/MM3 Lymphocytes # (Auto) 0.4 TH/MM3 Monocytes # (Auto) 0.6 TH/MM3 Eosinophils # (Auto) 0.0 TH/MM3 Basophils # (Auto) 0.0 TH/MM3 CBC Comment AUTO DIFF Differential Total Cells Counted 100 Neutrophils % (Manual) 81 % Band Neutrophils % 15 % Neutrophils # (Manual) 24.3 TH/MM3 Metamyelocytes 3 % Myelocytes 1 % Differential Comment FINAL DIFF MANUAL Toxic Granulation 2+ Platelet Estimate NORMAL Platelet Morphology Comment NORMAL Laboratory Tests Test 10/01/17 19:00 10/02/17 03:40 Troponin I 0.02 NG/ML Blood Urea Nitrogen 78 MG/DL Creatinine 3.89 MG/DL Random Glucose 141 MG/DL Total Protein 3.9 GM/DL Albumin 1.8 GM/DL Calcium Level 8.4 MG/DL Magnesium Level 1.9 MG/DL Alkaline Phosphatase 114 U/L Aspartate Amino Transf (AST/SGOT) 24 U/L Alanine Aminotransferase (ALT/SGPT) 9 U/L Total Bilirubin 0.4 MG/DL Sodium Level 144 MEQ/L Potassium Level 3.2 MEQ/L Chloride Level 110 MEQ/L Carbon Dioxide Level 15.1 MEQ/L Anion Gap 19 MEQ/L Estimat Glomerular Filtration Rate 11 ML/MIN Imaging: Abdomen/Pelvis CT [id number]/28/[id number] Signed Impressions: Service Date/Time: Thursday, September 28, 2017 23:22 - CONCLUSION: There is very impressive wall thickening throughout the colon beginning in the cecum extending along the descending colon to the transverse colon. Free fluid throughout the abdomen and pelvis. Flavio Benavides MD Chest X-Ray 09/[id number]/[id number] Signed Impressions: Service Date/Time: Thursday, September 28, 2017 21:33 - CONCLUSION: 1. Small left pleural effusion. 2. Scattered hazy opacities bilaterally consistent with mild pulmonary vascular congestion, atelectasis and/or infiltrate. 3. Mild cardiomegaly. Juan Ivory MD PHYSICAL EXAMINATION: GENERAL: No acute distress. HEENT: EOMI, SABRINA. No icterus. Oropharynx very dry. Poor dentition. NECK: Supple without adenopathy. LUNGS: Decreased breath sounds. HEART: Normal S1 and S2. No murmurs, rubs or gallops. ABDOMEN: Distended, soft. tender on palpation. EXTREMITIES: No clubbing or cyanosis. Trace edema at the knees. SKIN: No rash. NEUROLOGIC: non focal. PSYCHIATRIC: Unable to fully assess. IMPRESSION: 1. Septic shock. 2. Severe Clostridium difficile colitis. 3. Urinary tract infection. Enterococcus faecalis. 4. Acute renal failure. 5. Leukocytosis secondary to Clostridium difficile colitis, which also is probably the cause of sepsis and septic shock. However, urinary infection, which could also be a cause of the septic shock as well. Appears to be improving but still has significant renal function decline. RECOMMENDATIONS: 1. Continue IV metronidazole. 2. Continue p.o. vancomycin. 3. Stop fluconazole. 4. Stop Unasyn. Try to avoid unnecessary antibiotics if at all possible. 5. Repeat the urine culture. 6. Monitor white blood cell count. 7. Monitor clinical response. Discussed with DENA. Nader Lorenzo MD October 02, 2017 16:28
--- NOTE | 2017-10-02 18:57 | HHI.NPPN ---
Subjective Renal Failure: Acute History of Present Illness Patient is a 87 year old female with a past medical history of Hypertension, Osteoarthritis, Stage III sacral decubitus ulcer, Vitamin D deficiency, Chronic iron deficiency anemia, and Dementia. Patient presented to the emergency department with lethargy, hypotension, and O2 sats in the 80's. She is a resident of [facility] where is is recovering from a ORIF. Most of history is obtained from chart. She was bolused with IVF and is now on pressors. Nephrology is consulted for acute kidney injury with a creatinine of 4.57, potassium of 4.3, and CO2 of 14.4. CT of abdomen with kidneys of normal in size and shape. There is no mass, stone, or hydronephrosis. HEDY is all acute with a baseline creatinine of 0.91 on 08/15/17. Additional Remarks Patient remain lethargic, and non verbal, not in distress. Review of Systems Respiratory Respiratory Remarks denies any SOB Gastrointestinal Gastrointestinal: Abdominal Pain Objective Data Data 10/02/17 10/03/17 19:00 07:00 Intake Total 1495 ml Output Total 350 ml Balance 1145 ml Intake Oral 60 ml IV Total 1435 ml Output Urine Total 300 ml Stool Total 50 ml Vital Signs Date Time Temp Pulse Resp B/P (MAP) Pulse Ox O2 Delivery O2 Flow Rate FiO2 10/02/17 16:00 98.2 91 20 112/59 (76) 92 10/02/17 15:00 68 17 99/54 (69) 92 10/02/17 14:00 92 33 106/56 (73) 95 10/02/17 13:00 91 31 105/57 (73) 94 10/02/17 12:00 97.3 80 20 97/56 (70) 97 10/02/17 11:00 65 16 92/47 (62) 96 10/02/17 10:00 87 26 91/55 (67) 97 10/02/17 09:00 63 16 90/51 (64) 94 10/02/17 08:00 73 10/02/17 08:00 69 19 109/54 (72) 97 10/02/17 08:00 96.8 10/02/17 06:00 66 10/02/17 04:00 61 10/02/17 04:00 98.4 61 15 99/51 (67) 95 10/02/17 02:00 77 10/02/17 00:00 69 10/02/17 00:00 98.1 69 31 108/56 (73) 98 10/01/17 22:00 68 10/01/17 20:00 79 31 90/52 (65) 84 10/01/17 20:00 79 10/01/17 19:00 98.6 71 25 100/55 (70) 97 -: 10/02/17 0340 10/02/17 0340 Physical Exam General Appearance: No Acute Distress, Comfortable Pulmonary Resp Exam: Breath Sounds Equal, No Distress Cardiology CV Exam: Normal Sinus Rhythm, Good Perfusion Gastrointestinal/Abdomen GI Exam: Soft Integumentary Skin Exam: Clear, Warm Extremeties Extremities Exam: No Edema Neurologic Neuro Exam: Alert, Awake Assessment/Plan Problem List: (1) Acute kidney injury ICD Codes: N17.9 - Acute kidney failure, unspecified Status: Acute Plan: Acute kidney injury with a creatinine of 4.57, potassium of 4.3, and CO2 of 14.4. day of consult. HEDY from possible prerenal VS ATN from hypovolemia and infection FeNa at 0.56% suggestive of prerenal state. CT of abdomen with kidneys of normal in size and shape. There is no mass, stone , or hydronephrosis. HEDY is all acute with a baseline creatinine of 0.91 on 08/15/17. Plan Continue albumin every 12 hours Avoid nephrotoxins Will monitor urinary output and renal panel Maintain strict I+Os Renal dose medication Continue IVF urinary output is slightly better. Creatinine is slightly better. Avoid Nephrotoxins. (2) Septic shock ICD Codes: A41.9 - Sepsis, unspecified organism; R65.21 - Severe sepsis with septic shock Status: Acute (3) UTI (urinary tract infection) ICD Codes: N39.0 - Urinary tract infection, site not specified Status: Acute (4) GI bleed ICD Codes: K92.2 - Gastrointestinal hemorrhage, unspecified Status: Acute (5) C. difficile colitis ICD Codes: A04.72 - Enterocolitis due to Clostridium difficile, not specified as recurrent Problem Qualifiers (1) UTI (urinary tract infection): Qualified Codes: N30.00 - Acute cystitis without hematuria (2) GI bleed: Qualified Codes: K92.2 - Gastrointestinal hemorrhage, unspecified Phillip Quick MD October 02, 2017 18:57
[2017-10-02 19:20] LABS: AMORPHOUS SEDIMENT, URINE RARE; BACTERIA, URINE FEW /hpf; BILIRUBIN, URINE NEG (NEG); BLOOD, URINE SMALL (NEG); GLUCOSE,URINE 300 mg/dL (NEG); HYALINE CAST, URINE 19 /lpf (RARE); KETONE, URINE 10 mg/dL (NEG); MUCUS URINE FEW /lpf (OCC); NITRITE,URINE NEG (NEG); PH, URINE 5.5 (5.0-8.5); SQUAMOUS EPITHELIAL CELL URINE 31 /hpf (0-5); URINE COLOR YELLOW (YELLW/STRAW); URINE LEUKOCYTE ESTERASE MOD (NEG)
--- NOTE | 2017-10-02 19:48 | EKG ---
Date Performed: 10/01/2017 Time Performed: 19:03:02 PTAGE: 87 years EKG: Sinus rhythm LOW QRS VOLTAGE IN PRECORDIAL LEADS POSSIBLE ANTERIOR MYOCARDIAL INFARCTION , OF INDETERMINATE AGE A BNORMAL ECG Since the PREVIOUS TRACING , no significant change noted PREVIOUS TRACIN09/29/2017 02.27 DOCTOR: Jose Trujillo Interpretating Date/Time 10/02/2017 19:47:50
[2017-10-03] VITALS (18 sets, daily range): BP systolic 95–112; BP diastolic 50–57; PULSE 71–97; RESP 19–31; TEMP 97–98; O2SAT 94–100
[2017-10-03] MEDS: SODIUM BICARBONATE 8.4% INJ 50 MEQ in SODIUM CHLOR 0.45% 1000 ML INJ 1,000 ML IV SCH ×2 (00:23→17:10)
[2017-10-03] MEDS: metroNIDAZOLE 500 MG INJ 100 ML IV SCH ×4 (01:05→23:38)
[2017-10-03] MEDS: CHLORHEXIDINE GLUCONATE 2 % 1 PACK (2 CLOTHS) TOP SCH (04:00)
[2017-10-03] MEDS: INSULIN NovoLIN REGULAR SUPPLEMENTAL SCALE SQ SCH ×7 (04:00→23:40)
[2017-10-03] MEDS: HYDROCORTISONE SOD SUCCINATE 100 MG VIAL IV PUSH SCH ×3 (05:12→21:36)
[2017-10-03 06:58] LABS: BICARBONATE 18.8 MEQ/L (21.0-32.0); CALCIUM 8.6 MG/DL (8.5-10.1); CREATININE 3.82 MG/DL (0.50-1.00)
[2017-10-03] MEDS: VANCOMYCIN 500 MG VIAL (FOR ORAL USE ONLY) PO SCH ×4 (08:52→20:12)
[2017-10-03] MEDS: SODIUM CHLORIDE 0.9% FLUSH 10 ML FLUSH IV FLUSH SCH ×2 (08:52→20:12)
[2017-10-03] MEDS: ALBUMIN 25% INJ 50 ML IV SCH ×2 (09:01→21:36)
[2017-10-03] MEDS: PANTOPRAZOLE INJ 80 MG in SODIUM CHLORIDE 0.9% INJ 100 ML IV SCH (10:35)
--- NOTE | 2017-10-03 10:47 | HHI.PR ---
cc: Maurice Crooks MD Subjective Subjective Notes Resting in bed Objective Vitals/I&O Vital Signs Date Time Temp Pulse Resp B/P (MAP) Pulse Ox O2 Delivery O2 Flow Rate FiO2 10/03/17 08:00 97.0 81 28 101/55 (70) 98 Labs Laboratory Tests Test 10/02/17 18:20 10/03/17 04:35 Urine Color YELLOW Urine Turbidity CLOUDY Urine pH 5.5 Urine Specific [place] 1.016 Urine Protein 100 Urine Glucose (UA) 300 Urine Ketones 10 Urine Occult Blood SMALL Urine Nitrite NEG Urine Bilirubin NEG Urine Urobilinogen LESS THAN 2.0 Urine Leukocyte Esterase MOD Urine RBC 12 Urine WBC 72 Urine Squamous Epithelial Cells 31 Urine Amorphous Sediment RARE Urine Bacteria FEW Urine Hyaline Casts 19 Urine Mucus FEW Microscopic Urinalysis Comment CATH-CULTURE IND Blood Urea Nitrogen 76 Creatinine 3.82 Random Glucose 153 Calcium Level 8.6 Sodium Level 146 Potassium Level 3.0 Chloride Level 111 Carbon Dioxide Level 18.8 Anion Gap 16 Estimat Glomerular Filtration Rate 11 Date/Time Source Procedure Growth Status 09/28/17 21:30 Blood Peripheral Aerobic Blood Culture - Preliminary NO GROWTH IN 4 DAYS Resulted 09/28/17 21:30 Blood Peripheral Anaerobic Blood Culture - Preliminary NO GROWTH IN 4 DAYS Resulted 10/02/17 18:20 Urine Catheterized Urine Urine Culture Pending Received Cardiovascular: Regular Lungs: Clear Abdomen: Other (grimices with palpation ) Extremities: No edema A/P Assessment and Plan 87 year old female with C-diff colitis -Continues to remains off pressors -Continue to monitor WBC/fevers -Creatinine improving -Tolerating clear liquid diet -Clinically improving -Will continue non operative treatment at this time -General Surgery will see PRN over the weekend; please call with any concerns or questions Amanda Maldonado/Naphthalene Still Operator DEO October 03, 2017 10:47
--- NOTE | 2017-10-03 11:04 | HHI.NPPN ---
Subjective Renal Failure: Acute History of Present Illness Patient is a 87 year old female with a past medical history of Hypertension, Osteoarthritis, Stage III sacral decubitus ulcer, Vitamin D deficiency, Chronic iron deficiency anemia, and Dementia. Patient presented to the emergency department with lethargy, hypotension, and O2 sats in the 80's. She is a resident of [facility] where is is recovering from a ORIF. Most of history is obtained from chart. She was bolused with IVF and is now on pressors. Nephrology is consulted for acute kidney injury with a creatinine of 4.57, potassium of 4.3, and CO2 of 14.4. CT of abdomen with kidneys of normal in size and shape. There is no mass, stone, or hydronephrosis. HEDY is all acute with a baseline creatinine of 0.91 on 08/15/17. Additional Remarks Patient remain lethargic, and non verbal, not in distress, clinically same. Review of Systems Respiratory Respiratory Remarks denies any SOB Gastrointestinal Gastrointestinal: Abdominal Pain Objective Data Data Vital Signs Date Time Temp Pulse Resp B/P (MAP) Pulse Ox O2 Delivery O2 Flow Rate FiO2 10/03/17 08:00 97.0 81 28 101/55 (70) 98 10/03/17 08:00 81 10/03/17 07:00 81 10/03/17 06:00 97 10/03/17 04:00 97.8 80 19 102/56 (71) 94 10/03/17 04:00 80 10/03/17 02:00 80 10/03/17 00:00 98.0 83 31 112/56 (74) 94 10/03/17 00:00 83 10/02/17 22:00 87 10/02/17 20:00 97.5 82 33 104/56 (72) 96 10/02/17 20:00 82 10/02/17 16:00 98.2 91 20 112/59 (76) 92 10/02/17 15:00 68 17 99/54 (69) 92 10/02/17 14:00 92 33 106/56 (73) 95 10/02/17 13:00 91 31 105/57 (73) 94 10/02/17 12:00 97.3 80 20 97/56 (70) 97 -: 10/02/17 0340 10/03/17 0435 Microbiology 10/02/17 Urine Culture, Received Pending Physical Exam General Appearance: No Acute Distress, Comfortable Pulmonary Resp Exam: Breath Sounds Equal, No Distress Cardiology CV Exam: Normal Sinus Rhythm, Good Perfusion Gastrointestinal/Abdomen GI Exam: Soft Integumentary Skin Exam: Clear, Warm Extremeties Extremities Exam: No Edema Neurologic Neuro Exam: Alert, Awake Assessment/Plan Problem List: (1) Acute kidney injury ICD Codes: N17.9 - Acute kidney failure, unspecified Status: Acute Plan: Acute kidney injury with a creatinine of 4.57, potassium of 4.3, and CO2 of 14.4. day of consult. HEDY from possible prerenal VS ATN from hypovolemia and infection FeNa at 0.56% suggestive of prerenal state. CT of abdomen with kidneys of normal in size and shape. There is no mass, stone , or hydronephrosis. HEDY is all acute with a baseline creatinine of 0.91 on 08/15/17. Plan Continue albumin every 12 hours Avoid nephrotoxins Will monitor urinary output and renal panel Maintain strict I+Os Renal dose medication Continue IVF urinary output is slightly better. Creatinine is almost same. Hco3 is better, on IVF with NaHco3. (2) Septic shock ICD Codes: A41.9 - Sepsis, unspecified organism; R65.21 - Severe sepsis with septic shock Status: Acute (3) UTI (urinary tract infection) ICD Codes: N39.0 - Urinary tract infection, site not specified Status: Acute (4) GI bleed ICD Codes: K92.2 - Gastrointestinal hemorrhage, unspecified Status: Acute (5) C. difficile colitis ICD Codes: A04.72 - Enterocolitis due to Clostridium difficile, not specified as recurrent Problem Qualifiers (1) UTI (urinary tract infection): Qualified Codes: N30.00 - Acute cystitis without hematuria (2) GI bleed: Qualified Codes: K92.2 - Gastrointestinal hemorrhage, unspecified Phillip Quick MD October 03, 2017 11:04
--- NOTE | 2017-10-03 14:36 | HHI.IDPN ---
Note Infectious Disease Note Patient is awake. She is not verbalizing. Responds to her 3 grandchildren in the room but only answers the questions. She follows simple commands. Denies abdominal pain. Afebrile. Continued good urine output. Admitted with hypotension, lethargy and decreased oxygen saturation. 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 ALLERGIES: NO KNOWN DRUG ALLERGIES. MEDICATIONS: Current Medications Medications (Trade) Dose Ordered Sig/Gilmer Route PRN Reason Start Time Stop Time Status Last Admin Dose Admin Pantoprazole Sodium 80 mg/ Sodium Chloride 100 ml @ 10 mls/hr Q10H IV 09/28/17 21:22 10/03/17 10:35 Metronidazole 100 ml @ 100 mls/hr Q8H IV 09/29/17 01:00 10/03/17 08:43 Sodium Chloride (NS Flush) 2 ml UNSCH PRN IV FLUSH FLUSH AFTER USING IV ACCESS 09/29/17 01:15 Sodium Chloride (NS Flush) 2 ml BID IV FLUSH 09/29/17 09:00 10/03/17 08:52 Morphine Sulfate (Morphine Inj) 2 mg Q2H PRN IV PUSH PAIN 1-5 09/29/17 01:15 Ondansetron HCl (Zofran Inj) 4 mg Q6H PRN IV PUSH NAUSEA OR VOMITING 09/29/17 01:15 Albuterol Sulfate (Albuterol Neb) 2.5 mg Q2HR NEB PRN INH SOB/WHEEZING 09/29/17 01:15 Miscellaneous Information ([facility] [place] [facility] [place] 1 Q361D XX 09/29/17 01:15 09/29/17 04:45 Chlorhexidine Gluconate (Chlorhexidine 2% Cloth) 3 pack Taper DAILY@04 TOP 09/29/17 04:00 09/25/18 03:59 10/03/17 04:00 Chlorhexidine Gluconate (Chlorhexidine 2% Cloth) 3 pack UNSCH PRN TOP HYGIENIC CARE 09/29/17 01:15 Morphine Sulfate (Morphine Inj) 4 mg Q2H PRN IV PUSH PAIN 6-10 09/29/17 05:00 Dextrose (D50w (Vial) Inj) 50 ml UNSCH PRN IV PUSH HYPOGLYCEMIA-SEE COMMENTS 09/29/17 12:30 Glucagon (Glucagon Inj) 1 mg UNSCH PRN OTHER HYPOGLYCEMIA-SEE COMMENTS 09/29/17 12:30 Insulin Human Regular (NovoLIN R SUPPLEMENTAL SCALE) 1 Q4HR SQ 09/29/17 12:30 10/03/17 04:00 Terbutaline Sulfate (Brethine Inj) 1 mg UNSCH PRN SQ For Extravasation 09/29/17 15:15 Sodium Bicarbonate 50 meq/Sodium Chloride 1,050 ml @ 75 mls/hr Q14H IV 09/29/17 16:00 10/03/17 00:23 Vancomycin HCl (VANCOMYCIN for oral use only) 500 mg QID PO 09/29/17 21:00 10/03/17 13:39 Albumin Human 50 ml @ 60 mls/hr Q12H IV 10/01/17 10:00 10/04/17 09:59 10/03/17 09:01 Hydrocortisone Sodium Succinate (SoluCORTEF INJ) 50 mg Q8HR IV PUSH 10/02/17 22:00 10/03/17 13:43 SOCIAL HISTORY: No tobacco, no alcohol, no illicit drugs. The patient was admitted from a [facility] facility. OBJECTIVE: Vital Signs Date Time Temp Pulse Resp B/P (MAP) Pulse Ox O2 Delivery O2 Flow Rate FiO2 10/03/17 12:00 71 10/03/17 12:00 97.5 71 23 107/51 (69) 100 10/03/17 11:00 80 10/03/17 10:00 74 10/03/17 09:00 80 10/03/17 08:00 97.0 81 28 101/55 (70) 98 10/03/17 08:00 81 10/03/17 07:00 81 10/03/17 06:00 97 10/03/17 04:00 97.8 80 19 102/56 (71) 94 10/03/17 04:00 80 10/03/17 02:00 80 10/03/17 00:00 98.0 83 31 112/56 (74) 94 10/03/17 00:00 83 10/02/17 22:00 87 10/02/17 20:00 97.5 82 33 104/56 (72) 96 10/02/17 20:00 82 10/02/17 16:00 98.2 91 20 112/59 (76) 92 10/02/17 15:00 68 17 99/54 (69) 92 Laboratory Tests Test 10/02/17 03:40 White Blood Count 24.3 TH/MM3 Red Blood Count 3.09 MIL/MM3 Hemoglobin 8.3 GM/DL Hematocrit 26.5 % Mean Corpuscular Volume 85.8 FL Mean Corpuscular Hemoglobin 26.7 PG Mean Corpuscular Hemoglobin Concent 31.2 % Red Cell Distribution Width 17.6 % Platelet Count 178 TH/MM3 Mean Platelet Volume 9.1 FL Neutrophils (%) (Auto) 95.7 % Lymphocytes (%) (Auto) 1.6 % Monocytes (%) (Auto) 2.6 % Eosinophils (%) (Auto) 0.1 % Basophils (%) (Auto) 0.0 % Neutrophils # (Auto) 23.3 TH/MM3 Lymphocytes # (Auto) 0.4 TH/MM3 Monocytes # (Auto) 0.6 TH/MM3 Eosinophils # (Auto) 0.0 TH/MM3 Basophils # (Auto) 0.0 TH/MM3 CBC Comment AUTO DIFF Differential Total Cells Counted 100 Neutrophils % (Manual) 81 % Band Neutrophils % 15 % Neutrophils # (Manual) 24.3 TH/MM3 Metamyelocytes 3 % Myelocytes 1 % Differential Comment FINAL DIFF MANUAL Toxic Granulation 2+ Platelet Estimate NORMAL Platelet Morphology Comment NORMAL Laboratory Tests Test 10/01/17 19:00 10/02/17 03:40 10/03/17 04:35 Troponin I 0.02 NG/ML Blood Urea Nitrogen 78 MG/DL 76 MG/DL Creatinine 3.89 MG/DL 3.82 MG/DL Random Glucose 141 MG/DL 153 MG/DL Total Protein 3.9 GM/DL Albumin 1.8 GM/DL Calcium Level 8.4 MG/DL 8.6 MG/DL Magnesium Level 1.9 MG/DL Alkaline Phosphatase 114 U/L Aspartate Amino Transf (AST/SGOT) 24 U/L Alanine Aminotransferase (ALT/SGPT) 9 U/L Total Bilirubin 0.4 MG/DL Sodium Level 144 MEQ/L 146 MEQ/L Potassium Level 3.2 MEQ/L 3.0 MEQ/L Chloride Level 110 MEQ/L 111 MEQ/L Carbon Dioxide Level 15.1 MEQ/L 18.8 MEQ/L Anion Gap 19 MEQ/L 16 MEQ/L Estimat Glomerular Filtration Rate 11 ML/MIN 11 ML/MIN Microbiology Date/Time Source Procedure Growth Status 10/02/17 18:20 Urine Catheterized Urine Urine Culture - Preliminary NO GROWTH IN 24 HOURS. Resulted Imaging: Abdomen/Pelvis CT 09/28/172121 Signed Impressions: Service Date/Time: Thursday, September 28, 2017 23:22 - CONCLUSION: There is very impressive wall thickening throughout the colon beginning in the cecum extending along the descending colon to the transverse colon. Free fluid throughout the abdomen and pelvis. Flavio Benavides MD Chest X-Ray 09/28/172119 Signed Impressions: Service Date/Time: Thursday, September 28, 2017 21:33 - CONCLUSION: 1. Small left pleural effusion. 2. Scattered hazy opacities bilaterally consistent with mild pulmonary vascular congestion, atelectasis and/or infiltrate. 3. Mild cardiomegaly. Juan Ivory MD PHYSICAL EXAMINATION: GENERAL: No acute distress. Awake. HEENT: EOMI, SABRINA. No icterus. Oropharynx very dry. Poor dentition. NECK: Supple without adenopathy. LUNGS: Decreased breath sounds. HEART: Normal S1 and S2. No murmurs, rubs or gallops. ABDOMEN: Distended, soft. Nontender. EXTREMITIES: No clubbing or cyanosis. Trace edema at the knees. Also has 2+ edema at the left hand. SKIN: No rash. NEUROLOGIC: non focal. PSYCHIATRIC: Unable to fully assess. IMPRESSION: 1. Septic shock. Improved. 2. Severe Clostridium difficile colitis. 3. Urinary tract infection. Enterococcus faecalis. 4. Acute renal failure. 5. Leukocytosis secondary to Clostridium difficile colitis, which also is probably the cause of sepsis and septic shock. However, urinary infection, which could also be a cause of the septic shock as well. Improving but still has significant renal function decline. RECOMMENDATIONS: 1. Continue IV metronidazole. 2. Continue p.o. vancomycin. 3. Monitor clinical response. 4. Okay to give Lactinex. 5. She should tolerate regular diet. Discussed with RN. Nader Lorenzo MD October 03, 2017 14:36
--- NOTE | 2017-10-03 18:16 | HHI.PR ---
Subjective Remarks patient seen with grandchildren at [facility] patient is more awake and interactive, responded appropriately in azerbaijani waved Objective Vitals Vital Signs Date Time Temp Pulse Resp B/P (MAP) Pulse Ox O2 Delivery O2 Flow Rate FiO2 10/03/17 16:00 97.0 93 22 111/57 (75) 99 10/03/17 16:00 93 10/03/17 15:00 88 10/03/17 14:00 84 10/03/17 13:00 72 10/03/17 12:00 71 10/03/17 12:00 97.5 71 23 107/51 (69) 100 10/03/17 11:00 80 10/03/17 10:00 74 10/03/17 09:00 80 10/03/17 08:00 97.0 81 28 101/55 (70) 98 10/03/17 08:00 81 10/03/17 07:00 81 10/03/17 06:00 97 10/03/17 04:00 97.8 80 19 102/56 (71) 94 10/03/17 04:00 80 10/03/17 02:00 80 10/03/17 00:00 98.0 83 31 112/56 (74) 94 10/03/17 00:00 83 10/02/17 22:00 87 10/02/17 20:00 97.5 82 33 104/56 (72) 96 10/02/17 20:00 82 I/O 10/02/17 10/02/17 10/02/17 10/03/17 10/03/17 10/03/17 07:00 15:00 23:00 07:00 15:00 23:00 Intake Total 1510 ml 450 ml 1095 ml 875 ml Output Total 225 ml 350 ml 400 ml Balance 1285 ml 450 ml 745 ml 475 ml Intake Oral 0 ml 60 ml 50 ml IV Total 1510 ml 450 ml 1035 ml 825 ml Output Urine Total 175 ml 300 ml 400 ml Stool Total 50 ml 50 ml 0 ml Result Diagram: 10/02/17 0340 10/03/17 0435 Imaging Last Impressions Abdomen/Pelvis CT 09/28/172121 Signed Impressions: Service Date/Time: Thursday, September 28, 2017 23:22 - CONCLUSION: There is very impressive wall thickening throughout the colon beginning in the cecum extending along the descending colon to the transverse colon. Free fluid throughout the abdomen and pelvis. Flavio Benavides MD Chest X-Ray 09/28/172119 Signed Impressions: Service Date/Time: Thursday, September 28, 2017 21:33 - CONCLUSION: 1. Small left pleural effusion. 2. Scattered hazy opacities bilaterally consistent with mild pulmonary vascular congestion, atelectasis and/or infiltrate. 3. Mild cardiomegaly. Juan Ivory MD Objective Remarks awake and alert, no acute distress anicteric decreased breath sounds regular rhythm abdomen- slightly distended, soft, + bowel sounds, mild tenderness on deep palpation of lower quadrant extremities tr edema moves all extremities spontaneously Urinary Catheter: Yes Assessment to: Continue Flower insert reason: Measure Accurate Output Date of Insertion: October 01, 2017 Side: Right Location: Femoral A/P Problem List: (1) Dementia ICD Code: F03.90 - Unspecified dementia without behavioral disturbance Status: Chronic (2) Acute kidney injury ICD Code: N17.9 - Acute kidney failure, unspecified Status: Acute (3) Septic shock ICD Code: A41.9 - Sepsis, unspecified organism; R65.21 - Severe sepsis with septic shock Status: Acute (4) UTI (urinary tract infection) ICD Code: N39.0 - Urinary tract infection, site not specified Status: Acute (5) GI bleed ICD Code: K92.2 - Gastrointestinal hemorrhage, unspecified Status: Acute (6) Pain ICD Code: R52 - Pain, unspecified (7) Decubitus ulcers ICD Code: L89.90 - Pressure ulcer of unspecified site, unspecified stage Status: Chronic (8) Confusion ICD Code: R41.0 - Disorientation, unspecified (9) Colitis ICD Code: K52.9 - Noninfective gastroenteritis and colitis, unspecified Status: Acute Assessment and Plan NEURO: Dementia - Moderate to Severe per family Morphine as needed for pain. Daughter wishes to ensure comfort. RESP: On nasal cannula. CV: Septic/hypovolemic shock Lactic acidemia off Levophed and vasopressin. Reduce IV fluid to 75 mL/h with HC03 On steroids - 5/10 down to - Hydrocortisone 50 mg q 8 - Taper Hydrocortisone in am Essential hypertension at baseline Hold lisinopril 10 mg daily due to acute kidney injury and hypotension, hold Norvasc 10 mg daily due to hypotension. GI: C. difficile colitis melena Diarrhea present on admission Moderate protein energy malnutrition Held rivaroxaban (on for DVT prevention), given KCentra, monitoring serial Hgb. Consulted gastroenterology due to melena. CT scan with significant wall thickening of ascending and transverse colon with free fluid throughout the abdomen and pelvis. There is no free air. She is a very poor surgical candidate with overall medical condition condition, protein malnutrition, dementia, etc. Discussed risk and morbidity of surgery and family expresses understanding and would NOT want to pursue surgery even if she fails medical management. NPO except meds IV Flagyl and p.o. vancomycin for C. difficile Resume MVI/Zinc 220 daily/Vitamin C 500 for wound healing of decubitus when she is able to take po. tolerated clear- advance diet to mechanical soft FEN/RENAL: Acute kidney failure Hyperchloremia Acute metabolic acidosis. Hypokalemia- give 10 meq IV bolus again . Monitor K - patient on IVHF with HC03 for metabolic acidosis continue flower .Monitor electrolytes and replace as indicated. No evidence of hydronephrosis on CT abdomen. CPK is normal. Due to overall poor prognosis patient is not a candidate for hemodialysis. And there is no acute indication creatinine stabilizing - BMP in am ID: Septic shock Leukocytosis and bandemia UTI- grew E faecalis 09/28 speciemn C. difficile colitis - d/w Dr. Lorenzo. CAROLYN Scott 10/02 - continue on Vancomycin and Flagyl and Cefepime She previously was on 10 day course of Levaquin for pneumonia in August. repeat UA pending SKIN: Stage II sacral decubitus ulcer, present on admission Is healing and does not appear infected. Multivitamins for wound healing per above discussion HEME: Acute blood loss overlying chronic anemia Anticoagulated with rivaroxaban (DVT prophylaxis following ORIF femur) Reactive thrombocytosis Hold rivaroxaban. Received K Centra 50 U/kg in the emergency department. Type and screen has been sent Serial hemoglobin every 6 hours. Transfuse as needed for hemoglobin less than 8 or if clinically indicated for hemorrhagic shock ENDO: Acute stress hyperglycemia. Monitor bedside glucose and initiate low-dose insulin sliding scale as indicated. PROPH: SCDs for DVT prophylaxis. Pharmacologic DVT prophylaxis is contraindicated due to GI bleeding. ACCESS: Right femoral central venous line placed by ED physician 09/29/17. CAROLYN if patient stays off pressors During hospital stay - Dr. Baker discussed with patient's son (Stu Andres) who is currently in [place]. Also discussed over the phone with patient's daughter (Patrizia Wynn) in a separate conversation. Daughter indicates that she has spoken with her brother and that they desire DO NOT RESUSCITATE/DO NOT INTUBATE and agree would not want to pursue surgical intervention if she fails to improve with medical management. Palliative care team following to assist with deciding goals of therapy. change to po Protonix DNR/DNI d/w grandchildren at bedside- - DNR. Patient states in rusddian "just let me go ". Per family she has been saying this even before they will discuss with their uncle- Stu- patient'son regarding possibly transitioning to Hospice d/w with them with Hospice- no active treatment- only comfort measures D/W THEM POOR PO INTAKE TOO- FAMILY DOES NOT WANT ANY ngt OR peg Problem Qualifiers (1) UTI (urinary tract infection): Qualified Codes: N30.00 - Acute cystitis without hematuria (2) GI bleed: Qualified Codes: K92.2 - Gastrointestinal hemorrhage, unspecified (3) Decubitus ulcers: Qualified Codes: L89.152 - Pressure ulcer of sacral region, stage 2 Heather Rueda MD October 03, 2017 18:16
[2017-10-03] MEDS: POTASSIUM CHLOR 10 MEQ PREMIX 100 ML IV SCH ×3 (20:11→22:27)
[2017-10-04] VITALS (19 sets, daily range): BP systolic 110–124; BP diastolic 55–73; PULSE 75–115; RESP 21–28; TEMP 97.6–98.9; O2SAT 93–98
[2017-10-04] MEDS: CHLORHEXIDINE GLUCONATE 2 % 1 PACK (2 CLOTHS) TOP SCH (04:00)
[2017-10-04] MEDS: INSULIN NovoLIN REGULAR SUPPLEMENTAL SCALE SQ SCH ×5 (04:11→21:26)
[2017-10-04] MEDS: HYDROCORTISONE SOD SUCCINATE 100 MG VIAL IV PUSH SCH ×2 (04:31→18:00)
[2017-10-04 05:14] LABS: BICARBONATE 20.4 MEQ/L (21.0-32.0); CALCIUM 8.7 MG/DL (8.5-10.1); CREATININE 3.44 MG/DL (0.50-1.00)
[2017-10-04] MEDS ORDERED: POTASSIUM CHLOR 20 MEQ PREMIX 100 ML IV ONE (08:00)
[2017-10-04] MEDS: NS + KCL 20 MEQ INJ 1,000 ML IV SCH ×2 (08:09→20:41)
[2017-10-04] MEDS: SODIUM CHLORIDE 0.9% FLUSH 10 ML FLUSH IV FLUSH SCH ×2 (08:10→20:41)
[2017-10-04] MEDS: metroNIDAZOLE 500 MG INJ 100 ML IV SCH ×2 (08:10→18:18)
[2017-10-04] MEDS: VANCOMYCIN 500 MG VIAL (FOR ORAL USE ONLY) PO SCH ×4 (08:10→20:41)
[2017-10-04] MEDS: PANTOPRAZOLE SOD 40 MG DELAYED RELEASE TAB PO SCH (08:10)
--- NOTE | 2017-10-04 11:36 | HHI.NPPN ---
Subjective Renal Failure: Acute History of Present Illness Patient is a 87 year old female with a past medical history of Hypertension, Osteoarthritis, Stage III sacral decubitus ulcer, Vitamin D deficiency, Chronic iron deficiency anemia, and Dementia. Patient presented to the emergency department with lethargy, hypotension, and O2 sats in the 80's. She is a resident of [facility] where is is recovering from a ORIF. Most of history is obtained from chart. She was bolused with IVF and is now on pressors. Nephrology is consulted for acute kidney injury with a creatinine of 4.57, potassium of 4.3, and CO2 of 14.4. CT of abdomen with kidneys of normal in size and shape. There is no mass, stone, or hydronephrosis. HEDY is all acute with a baseline creatinine of 0.91 on 08/15/17. Additional Remarks Patient is more alert, not in distress. Review of Systems Respiratory Respiratory Remarks denies any SOB Gastrointestinal Gastrointestinal: Abdominal Pain Objective Data Data Vital Signs Date Time Temp Pulse Resp B/P (MAP) Pulse Ox O2 Delivery O2 Flow Rate FiO2 10/04/17 08:00 98.0 90 22 124/60 (81) 97 10/04/17 08:00 90 10/04/17 06:00 83 10/04/17 04:30 84 22 97 10/04/17 04:00 97.9 82 22 119/62 (81) 96 10/04/17 04:00 86 10/04/17 03:30 84 21 93 10/04/17 03:00 75 21 112/59 (76) 98 10/04/17 02:30 82 23 96 10/04/17 02:00 89 10/04/17 02:00 89 22 116/57 (76) 98 10/04/17 01:30 96 28 98 10/04/17 01:00 91 26 110/58 (75) 95 10/04/17 00:30 92 28 97 10/04/17 00:00 87 10/04/17 00:00 97.6 87 27 111/55 (73) 97 10/03/17 22:00 91 10/03/17 20:00 97.8 95 22 95/50 (65) 96 10/03/17 20:00 95 10/03/17 18:00 95 10/03/17 17:00 87 10/03/17 16:00 97.0 93 22 111/57 (75) 99 10/03/17 16:00 93 10/03/17 15:00 88 10/03/17 14:00 84 10/03/17 13:00 72 10/03/17 12:00 71 10/03/17 12:00 97.5 71 23 107/51 (69) 100 -: 10/02/17 0340 10/04/17 0400 Physical Exam General Appearance: No Acute Distress, Comfortable Pulmonary Resp Exam: Breath Sounds Equal, No Distress Cardiology CV Exam: Normal Sinus Rhythm, Good Perfusion Gastrointestinal/Abdomen GI Exam: Soft Integumentary Skin Exam: Clear, Warm Extremeties Extremities Exam: No Edema Neurologic Neuro Exam: Alert, Awake Assessment/Plan Problem List: (1) Acute kidney injury ICD Codes: N17.9 - Acute kidney failure, unspecified Status: Acute Plan: Acute kidney injury with a creatinine of 4.57, potassium of 4.3, and CO2 of 14.4. day of consult. HEDY from possible prerenal VS ATN from hypovolemia and infection FeNa at 0.56% suggestive of prerenal state. CT of abdomen with kidneys of normal in size and shape. There is no mass, stone , or hydronephrosis. HEDY is all acute with a baseline creatinine of 0.91 on 08/15/17. Plan Continue albumin every 12 hours Avoid nephrotoxins Will monitor urinary output and renal panel Maintain strict I+Os Renal dose medication Continue IVF urinary output is slightly better. Creatinine is slightly better, now is 3.4, K is low and replaced. Continue IVF with Kcl. (2) Septic shock ICD Codes: A41.9 - Sepsis, unspecified organism; R65.21 - Severe sepsis with septic shock Status: Acute (3) UTI (urinary tract infection) ICD Codes: N39.0 - Urinary tract infection, site not specified Status: Acute (4) GI bleed ICD Codes: K92.2 - Gastrointestinal hemorrhage, unspecified Status: Acute (5) C. difficile colitis ICD Codes: A04.72 - Enterocolitis due to Clostridium difficile, not specified as recurrent Problem Qualifiers (1) UTI (urinary tract infection): Qualified Codes: N30.00 - Acute cystitis without hematuria (2) GI bleed: Qualified Codes: K92.2 - Gastrointestinal hemorrhage, unspecified Phillip Quick MD October 04, 2017 11:36
--- NOTE | 2017-10-04 16:38 | HHI.PR ---
Subjective Remarks awake and alert smiling waved with her left hand Objective Vitals Vital Signs Date Time Temp Pulse Resp B/P (MAP) Pulse Ox O2 Delivery O2 Flow Rate FiO2 10/04/17 14:00 90 10/04/17 12:00 98.0 81 22 120/60 (80) 97 10/04/17 12:00 90 10/04/17 10:00 90 10/04/17 08:00 98.0 90 22 124/60 (81) 97 10/04/17 08:00 90 10/04/17 06:00 83 10/04/17 04:30 84 22 97 10/04/17 04:00 97.9 82 22 119/62 (81) 96 10/04/17 04:00 86 10/04/17 03:30 84 21 93 10/04/17 03:00 75 21 112/59 (76) 98 10/04/17 02:30 82 23 96 10/04/17 02:00 89 10/04/17 02:00 89 22 116/57 (76) 98 10/04/17 01:30 96 28 98 10/04/17 01:00 91 26 110/58 (75) 95 10/04/17 00:30 92 28 97 10/04/17 00:00 87 10/04/17 00:00 97.6 87 27 111/55 (73) 97 10/03/17 22:00 91 10/03/17 20:00 97.8 95 22 95/50 (65) 96 10/03/17 20:00 95 10/03/17 18:00 95 10/03/17 17:00 87 I/O 10/03/17 10/03/17 10/03/17 10/04/17 10/04/17 10/04/17 07:00 15:00 23:00 07:00 15:00 23:00 Intake Total 875 ml 500 ml 1150 ml Output Total 400 ml 475 ml 375 ml Balance 475 ml 25 ml 775 ml Intake Oral 50 ml 50 ml IV Total 825 ml 500 ml 1100 ml Output Urine Total 400 ml 450 ml 350 ml Stool Total 0 ml 25 ml 25 ml Result Diagram: 10/02/17 0340 10/04/17 0400 Imaging Last Impressions Abdomen/Pelvis CT 09/28/172121 Signed Impressions: Service Date/Time: Thursday, September 28, 2017 23:22 - CONCLUSION: There is very impressive wall thickening throughout the colon beginning in the cecum extending along the descending colon to the transverse colon. Free fluid throughout the abdomen and pelvis. Flavio Benavides MD Chest X-Ray 09/28/172119 Signed Impressions: Service Date/Time: Thursday, September 28, 2017 21:33 - CONCLUSION: 1. Small left pleural effusion. 2. Scattered hazy opacities bilaterally consistent with mild pulmonary vascular congestion, atelectasis and/or infiltrate. 3. Mild cardiomegaly. Juan Ivory MD Objective Remarks awake and alert, no acute distress anicteric decreased breath sounds irregular rhythm abdomen- slightly distended, soft, + bowel sounds, mild tenderness on deep palpation extremities tr edema moves all extremities spontaneously Urinary Catheter: Yes Assessment to: Continue Flower insert reason: Measure Accurate Output Date of Insertion: October 01, 2017 Side: Right Location: Femoral A/P Problem List: (1) Dementia ICD Code: F03.90 - Unspecified dementia without behavioral disturbance Status: Chronic (2) Acute kidney injury ICD Code: N17.9 - Acute kidney failure, unspecified Status: Acute (3) Septic shock ICD Code: A41.9 - Sepsis, unspecified organism; R65.21 - Severe sepsis with septic shock Status: Acute (4) UTI (urinary tract infection) ICD Code: N39.0 - Urinary tract infection, site not specified Status: Acute (5) GI bleed ICD Code: K92.2 - Gastrointestinal hemorrhage, unspecified Status: Acute (6) Pain ICD Code: R52 - Pain, unspecified (7) Decubitus ulcers ICD Code: L89.90 - Pressure ulcer of unspecified site, unspecified stage Status: Chronic (8) Confusion ICD Code: R41.0 - Disorientation, unspecified (9) Colitis ICD Code: K52.9 - Noninfective gastroenteritis and colitis, unspecified Status: Acute Assessment and Plan NEURO: Dementia - Moderate to Severe per family Morphine as needed for pain. Daughter wishes to ensure comfort. RESP: On nasal cannula. CV: Septic/hypovolemic shock Lactic acidemia off Levophed and vasopressin. DC IVF with HC3- bicar improved. changed to IVF with KCL On steroids - 10/02 down to - Hydrocortisone 50 mg q 8 - Taper Hydrocortisone 30 mg q 12 Essential hypertension at baseline Hold lisinopril 10 mg daily due to acute kidney injury and hypotension, hold Norvasc 10 mg daily due to hypotension. GI: C. difficile colitis melena Diarrhea present on admission Moderate protein energy malnutrition Held rivaroxaban (on for DVT prevention), given KCentra, monitoring serial Hgb. Consulted gastroenterology due to melena. CT scan with significant wall thickening of ascending and transverse colon with free fluid throughout the abdomen and pelvis. There is no free air. She is a very poor surgical candidate with overall medical condition condition, protein malnutrition, dementia, etc. Discussed risk and morbidity of surgery and family expresses understanding and would NOT want to pursue surgery even if she fails medical management. IV Flagyl and p.o. vancomycin for C. difficile Resume MVI/Zinc 220 daily/Vitamin C 500 for wound healing of decubitus when she is able to take po. tolerated mechanical soft but poor po intake family refused NGT or PEG FEN/RENAL: Acute kidney failure Hyperchloremia Acute metabolic acidosis. Hypokalemia- DC HC03 in IVF- acidosis improved change to IVF to KCL continue flower .Monitor electrolytes and replace as indicated. No evidence of hydronephrosis on CT abdomen. CPK is normal. Due to overall poor prognosis patient is not a candidate for hemodialysis. And there is no acute indication creatinine stabilizing - BMP in am ID: Septic shock Leukocytosis and bandemia UTI- grew E faecalis 09/28 speciemn C. difficile colitis - d/w Dr. Lorenzo. DC Unasyn 10/02 - continue on Vancomycin and Flagyl and Cefepime She previously was on 10 day course of Levaquin for pneumonia in August. SKIN: Stage II sacral decubitus ulcer, present on admission Is healing and does not appear infected. Multivitamins for wound healing per above discussion HEME: Acute blood loss overlying chronic anemia Anticoagulated with rivaroxaban (DVT prophylaxis following ORIF femur) Reactive thrombocytosis Hold rivaroxaban. Received K Centra 50 U/kg in the emergency department. Type and screen has been sent Serial hemoglobin every 6 hours. Transfuse as needed for hemoglobin less than 8 or if clinically indicated for hemorrhagic shock ENDO: Acute stress hyperglycemia. Monitor bedside glucose and initiate low-dose insulin sliding scale as indicated. PROPH: SCDs for DVT prophylaxis. Pharmacologic DVT prophylaxis is contraindicated due to GI bleeding. ACCESS: Right femoral central venous line placed by ED physician 5/7/18. DC if patient stays off pressors During hospital stay - Dr. Baker discussed with patient's son (Stu Andres) who is currently in [place]. Also discussed over the phone with patient's daughter (Patrizia Wynn) in a separate conversation. Daughter indicates that she has spoken with her brother and that they desire DO NOT RESUSCITATE/DO NOT INTUBATE and agree would not want to pursue surgical intervention if she fails to improve with medical management. Palliative care team following to assist with deciding goals of therapy. po Protonix DNR/DNI 10/03 d/w grandchildren at bedside- - DNR. Patient states in [place] "just let me go ". Per family she has been saying this even before they will discuss with their uncle- Stu- patient'son regarding possibly transitioning to Hospice d/w with them with Hospice- no active treatment- only comfort measures D/w them poor po- family does not want any PEG or NGT Problem Qualifiers (1) UTI (urinary tract infection): Qualified Codes: N30.00 - Acute cystitis without hematuria (2) GI bleed: Qualified Codes: K92.2 - Gastrointestinal hemorrhage, unspecified (3) Decubitus ulcers: Qualified Codes: L89.152 - Pressure ulcer of sacral region, stage 2 Heather Rueda MD October 04, 2017 16:38
[2017-10-04] MEDS: MORPHINE SULFATE 4 MG/ML INJ IV PUSH PRN ×2 (20:42→23:27)
[2017-10-05] VITALS (12 sets, daily range): BP systolic 70–103; BP diastolic 51–61; PULSE 81–118; RESP 15–17; TEMP 97–98.8; O2SAT 94–97
[2017-10-05] MEDS: metroNIDAZOLE 500 MG INJ 100 ML IV SCH ×4 (00:09→23:45)
[2017-10-05] MEDS: CHLORHEXIDINE GLUCONATE 2 % 1 PACK (2 CLOTHS) TOP SCH ×2 (04:00→19:43)
[2017-10-05] MEDS: HYDROCORTISONE SOD SUCCINATE 100 MG VIAL IV PUSH SCH ×2 (05:55→17:11)
[2017-10-05] MEDS: INSULIN NovoLIN REGULAR SUPPLEMENTAL SCALE SQ SCH ×5 (08:00→22:44)
[2017-10-05] MEDS: SODIUM CHLORIDE 0.9% FLUSH 10 ML FLUSH IV FLUSH SCH ×2 (08:34→20:21)
[2017-10-05] MEDS: VANCOMYCIN 500 MG VIAL (FOR ORAL USE ONLY) PO SCH ×4 (09:00→20:21)
[2017-10-05] MEDS: PANTOPRAZOLE SOD 40 MG DELAYED RELEASE TAB PO SCH (09:00)
--- NOTE | 2017-10-05 11:10 | HHI.NPPN ---
Subjective Renal Failure: Acute History of Present Illness Patient is a 87 year old female with a past medical history of Hypertension, Osteoarthritis, Stage III sacral decubitus ulcer, Vitamin D deficiency, Chronic iron deficiency anemia, and Dementia. Patient presented to the emergency department with lethargy, hypotension, and O2 sats in the 80's. She is a resident of [facility] [place] where is is recovering from a ORIF. Most of history is obtained from chart. She was bolused with IVF and is now on pressors. Nephrology is consulted for acute kidney injury with a creatinine of 4.57, potassium of 4.3, and CO2 of 14.4. CT of abdomen with kidneys of normal in size and shape. There is no mass, stone, or hydronephrosis. HEDY is all acute with a baseline creatinine of 0.91 on 08/15/17. Additional Remarks Patient is lethargic today, not responding much, given Morphine. Review of Systems Respiratory Respiratory Remarks denies any SOB Gastrointestinal Gastrointestinal: Abdominal Pain Objective Data Data 10/05/17 10/06/17 19:00 07:00 Intake Total 100 ml Balance 100 ml IV Total 100 ml Vital Signs Date Time Temp Pulse Resp B/P (MAP) Pulse Ox O2 Delivery O2 Flow Rate FiO2 10/05/17 08:00 99 10/05/17 08:00 97.6 99 15 103/57 (72) 94 10/05/17 07:00 Room Air 10/05/17 06:00 101 10/05/17 04:00 110 10/05/17 04:00 98.8 104 15 85/57 (66) 95 10/05/17 02:00 118 10/05/17 00:00 108 10/05/17 00:00 98.3 110 16 70/51 (57) 94 10/04/17 22:00 106 10/04/17 20:00 98.9 107 25 116/67 (83) 95 10/04/17 20:00 Room Air 10/04/17 20:00 115 10/04/17 18:00 90 10/04/17 16:00 98.0 112 22 118/73 (88) 98 10/04/17 16:00 90 10/04/17 14:00 90 10/04/17 12:00 98.0 81 22 120/60 (80) 97 10/04/17 12:00 90 -: 10/02/17 0340 10/04/17 0400 Physical Exam General Appearance: No Acute Distress, Comfortable Pulmonary Resp Exam: Breath Sounds Equal, No Distress Cardiology CV Exam: Normal Sinus Rhythm, Good Perfusion Gastrointestinal/Abdomen GI Exam: Soft Integumentary Skin Exam: Clear, Warm Extremeties Extremities Exam: No Edema Neurologic Neuro Exam: Alert, Awake Assessment/Plan Problem List: (1) Acute kidney injury ICD Codes: N17.9 - Acute kidney failure, unspecified Status: Acute Plan: Acute kidney injury with a creatinine of 4.57, potassium of 4.3, and CO2 of 14.4. day of consult. HEDY from possible prerenal VS ATN from hypovolemia and infection FeNa at 0.56% suggestive of prerenal state. CT of abdomen with kidneys of normal in size and shape. There is no mass, stone , or hydronephrosis. HEDY is all acute with a baseline creatinine of 0.91 on 08/15/17. Plan Continue albumin every 12 hours Avoid nephrotoxins Will monitor urinary output and renal panel Maintain strict I+Os Renal dose medication Continue IVF urinary output is slightly better. No new BMP. D/W the Grand son, the family want to go for Hospice. Palliative care following. I will see PRN if needed. (2) Septic shock ICD Codes: A41.9 - Sepsis, unspecified organism; R65.21 - Severe sepsis with septic shock Status: Acute (3) UTI (urinary tract infection) ICD Codes: N39.0 - Urinary tract infection, site not specified Status: Acute (4) GI bleed ICD Codes: K92.2 - Gastrointestinal hemorrhage, unspecified Status: Acute (5) C. difficile colitis ICD Codes: A04.72 - Enterocolitis due to Clostridium difficile, not specified as recurrent Problem Qualifiers (1) UTI (urinary tract infection): Qualified Codes: N30.00 - Acute cystitis without hematuria (2) GI bleed: Qualified Codes: K92.2 - Gastrointestinal hemorrhage, unspecified Phillip Quick MD October 05, 2017 11:10
[2017-10-05] MEDS: NS + KCL 20 MEQ INJ 1,000 ML IV SCH (12:02)
--- NOTE | 2017-10-05 13:09 | HHI.PR ---
Subjective Remarks lethargic today moaning Objective Vitals Vital Signs Date Time Temp Pulse Resp B/P (MAP) Pulse Ox O2 Delivery O2 Flow Rate FiO2 10/05/17 12:00 100 10/05/17 12:00 97.8 100 15 94/58 (70) 97 10/05/17 10:00 94 10/05/17 08:00 99 10/05/17 08:00 97.6 99 15 103/57 (72) 94 10/05/17 07:00 Room Air 10/05/17 06:00 101 10/05/17 04:00 110 10/05/17 04:00 98.8 104 15 85/57 (66) 95 10/05/17 02:00 118 10/05/17 00:00 108 10/05/17 00:00 98.3 110 16 70/51 (57) 94 10/04/17 22:00 106 10/04/17 20:00 98.9 107 25 116/67 (83) 95 10/04/17 20:00 Room Air 10/04/17 20:00 115 10/04/17 18:00 90 10/04/17 16:00 98.0 112 22 118/73 (88) 98 10/04/17 16:00 90 10/04/17 14:00 90 I/O 10/04/17 10/04/17 10/04/17 10/05/17 10/05/17 10/05/17 07:00 15:00 23:00 07:00 15:00 23:00 Intake Total 1150 ml 1300 ml 15 ml 100 ml Output Total 375 ml 350 ml 300 ml Balance 775 ml 950 ml -285 ml 100 ml Intake Oral 50 ml 200 ml 15 ml IV Total 1100 ml 1100 ml 100 ml Output Urine Total 350 ml 350 ml 300 ml Stool Total 25 ml 0 ml Result Diagram: 10/02/17 0340 10/04/17 0400 Imaging Last Impressions Abdomen/Pelvis CT 09/28/172121 Signed Impressions: Service Date/Time: Thursday, September 28, 2017 23:22 - CONCLUSION: There is very impressive wall thickening throughout the colon beginning in the cecum extending along the descending colon to the transverse colon. Free fluid throughout the abdomen and pelvis. Flavio Benavides MD Chest X-Ray 09/28/172119 Signed Impressions: Service Date/Time: Thursday, September 28, 2017 21:33 - CONCLUSION: 1. Small left pleural effusion. 2. Scattered hazy opacities bilaterally consistent with mild pulmonary vascular congestion, atelectasis and/or infiltrate. 3. Mild cardiomegaly. Juan Ivory MD Objective Remarks lethargic- briefly opened eyes to call of her name anicteric decreased breath sounds irregular rhythm abdomen- slightly distended, soft, + bowel sounds, non tender ( pat received Morphine) extremities tr edema moves all extremities spontaneously Date of Insertion: October 01, 2017 Side: Right Location: Femoral A/P Problem List: (1) Dementia ICD Code: F03.90 - Unspecified dementia without behavioral disturbance Status: Chronic (2) Acute kidney injury ICD Code: N17.9 - Acute kidney failure, unspecified Status: Acute (3) Septic shock ICD Code: A41.9 - Sepsis, unspecified organism; R65.21 - Severe sepsis with septic shock Status: Acute (4) UTI (urinary tract infection) ICD Code: N39.0 - Urinary tract infection, site not specified Status: Acute (5) GI bleed ICD Code: K92.2 - Gastrointestinal hemorrhage, unspecified Status: Acute (6) Pain ICD Code: R52 - Pain, unspecified (7) Decubitus ulcers ICD Code: L89.90 - Pressure ulcer of unspecified site, unspecified stage Status: Chronic (8) Confusion ICD Code: R41.0 - Disorientation, unspecified (9) Colitis ICD Code: K52.9 - Noninfective gastroenteritis and colitis, unspecified Status: Acute Assessment and Plan NEURO: Dementia - Moderate to Severe per family Morphine as needed for pain. Daughter wishes to ensure comfort. RESP: On nasal cannula. CV: Septic/hypovolemic shock Lactic acidemia off Levophed and vasopressin. DC IVF with HC3- bicar improved. changed to IVF with KCL On steroids - 10/02 down to - Hydrocortisone 50 mg q 8 - Taper Hydrocortisone 30 mg q 12- 10/04 Essential hypertension at baseline Hold lisinopril 10 mg daily due to acute kidney injury and hypotension, hold Norvasc 10 mg daily due to hypotension. GI: C. difficile colitis melena Diarrhea present on admission Moderate protein energy malnutrition Held rivaroxaban (on for DVT prevention), given KCentra, monitoring serial Hgb. Consulted gastroenterology due to melena. CT scan with significant wall thickening of ascending and transverse colon with free fluid throughout the abdomen and pelvis. There is no free air. She is a very poor surgical candidate with overall medical condition condition, protein malnutrition, dementia, etc. Discussed risk and morbidity of surgery and family expresses understanding and would NOT want to pursue surgery even if she fails medical management. IV Flagyl and p.o. vancomycin for C. difficile Resume MVI/Zinc 220 daily/Vitamin C 500 for wound healing of decubitus when she is able to take po. tolerated mechanical soft but poor po intake family refused NGT or PEG FEN/RENAL: Acute kidney failure Hyperchloremia Acute metabolic acidosis. Hypokalemia- DC HC03 in IVF- acidosis improved change to IVF to KCL continue flower .Monitor electrolytes and replace as indicated. No evidence of hydronephrosis on CT abdomen. CPK is normal. Due to overall poor prognosis patient is not a candidate for hemodialysis. And there is no acute indication creatinine stabilizing replace K IV ID: Septic shock Leukocytosis and bandemia UTI- grew E faecalis 09/28 speciemn C. difficile colitis - d/w Dr. Lorenzo. DC Unasyn 10/02 - continue on Vancomycin and Flagyl and Cefepime She previously was on 10 day course of Levaquin for pneumonia in August. SKIN: Stage II sacral decubitus ulcer, present on admission Is healing and does not appear infected. Multivitamins for wound healing per above discussion HEME: Acute blood loss overlying chronic anemia Anticoagulated with rivaroxaban (DVT prophylaxis following ORIF femur) Reactive thrombocytosis Hold rivaroxaban. Received K Centra 50 U/kg in the emergency department. Type and screen has been sent Serial hemoglobin every 6 hours. Transfuse as needed for hemoglobin less than 8 or if clinically indicated for hemorrhagic shock ENDO: Acute stress hyperglycemia. Monitor bedside glucose and initiate low-dose insulin sliding scale as indicated. PROPH: SCDs for DVT prophylaxis. Pharmacologic DVT prophylaxis is contraindicated due to GI bleeding. ACCESS: Right femoral central venous line placed by ED physician 09/29/17. DC if patient stays off pressors During hospital stay - Dr. Baker discussed with patient's son (Stu Andres) who is currently in [place]. Also discussed over the phone with patient's daughter (Patrizia Wynn) in a separate conversation. Daughter indicates that she has spoken with her brother and that they desire DO NOT RESUSCITATE/DO NOT INTUBATE and agree would not want to pursue surgical intervention if she fails to improve with medical management. Palliative care team following to assist with deciding goals of therapy. po Protonix DNR/DNI 10/03 d/w grandchildren at bedside- - DNR. Patient states in [place] "just let me go" . Per family she has been saying this even before they will discuss with their uncle- Stu- patient's on regarding possibly transitioning to Hospice d/w with them with Hospice- no active treatment- only comfort measures D/w them poor po- family does not want any PEG or NGT Hospice consult Transfer to Medical floor Problem Qualifiers (1) UTI (urinary tract infection): Qualified Codes: N30.00 - Acute cystitis without hematuria (2) GI bleed: Qualified Codes: K92.2 - Gastrointestinal hemorrhage, unspecified (3) Decubitus ulcers: Qualified Codes: L89.152 - Pressure ulcer of sacral region, stage 2 Heather Rueda MD October 05, 2017 13:09
[2017-10-05] MEDS ORDERED: POTASSIUM CHLOR 10 MEQ PREMIX 100 ML IV ONE (13:15)
[2017-10-05] MEDS: MORPHINE SULFATE 4 MG/ML INJ IV PUSH PRN (23:45)
[2017-10-06] VITALS (13 sets, daily range): BP systolic 98–111; BP diastolic 59–65; PULSE 82–114; RESP 8–27; TEMP 97.1–98.2; O2SAT 94–99
[2017-10-06] MEDS: INSULIN NovoLIN REGULAR SUPPLEMENTAL SCALE SQ SCH ×4 (03:40→20:00)
[2017-10-06] MEDS: MORPHINE SULFATE 4 MG/ML INJ IV PUSH PRN ×4 (03:58→21:17)
[2017-10-06] MEDS: NS + KCL 20 MEQ INJ 1,000 ML IV SCH ×2 (03:58→17:19)
[2017-10-06] MEDS: HYDROCORTISONE SOD SUCCINATE 100 MG VIAL IV PUSH SCH ×2 (05:51→17:11)
[2017-10-06] MEDS: VANCOMYCIN 500 MG VIAL (FOR ORAL USE ONLY) PO SCH ×4 (09:00→21:00)
[2017-10-06] MEDS: PANTOPRAZOLE SOD 40 MG DELAYED RELEASE TAB PO SCH (09:00)
[2017-10-06] MEDS: metroNIDAZOLE 500 MG INJ 100 ML IV SCH (09:00)
[2017-10-06] MEDS: SODIUM CHLORIDE 0.9% FLUSH 10 ML FLUSH IV FLUSH SCH ×2 (09:01→21:18)
--- NOTE | 2017-10-06 12:10 | HHI.PR ---
Subjective Remarks more awake and alert today smiled - spoke with her in Belgian- patient responded poor po - starting to eat Objective Vitals Vital Signs Date Time Temp Pulse Resp B/P (MAP) Pulse Ox O2 Delivery O2 Flow Rate FiO2 10/06/17 10:00 100 10/06/17 08:00 99 Room Air 10/06/17 08:00 97.6 93 14 108/59 (75) 99 10/06/17 08:00 93 10/06/17 06:00 92 10/06/17 04:00 97.5 92 8 111/65 (80) 96 10/06/17 04:00 92 10/06/17 02:00 94 10/06/17 00:00 96 10/06/17 00:00 97.1 100 15 105/63 (77) 94 10/05/17 22:00 95 10/05/17 20:00 98.0 96 17 96/61 (73) 96 10/05/17 20:00 96 10/05/17 19:00 Room Air 10/05/17 18:00 115 10/05/17 16:00 81 10/05/17 16:00 97.0 81 15 102/59 (73) 95 10/05/17 14:00 100 I/O 10/05/17 10/05/17 10/05/17 10/06/17 10/06/17 10/06/17 07:00 15:00 23:00 07:00 15:00 23:00 Intake Total 15 ml 1200 ml 525 ml 1100 ml Output Total 300 ml 325 ml 350 ml Balance -285 ml 1200 ml 200 ml 750 ml Intake Oral 15 ml 0 ml 0 ml IV Total 1200 ml 525 ml 1100 ml Output Urine Total 300 ml 325 ml 350 ml Stool Total 0 ml 0 ml 0 ml Result Diagram: 10/02/17 0340 10/04/17 0400 Imaging Last Impressions Abdomen/Pelvis CT 09/28/172121 Signed Impressions: Service Date/Time: Thursday, September 28, 2017 23:22 - CONCLUSION: There is very impressive wall thickening throughout the colon beginning in the cecum extending along the descending colon to the transverse colon. Free fluid throughout the abdomen and pelvis. Flavio Benavides MD Chest X-Ray 09/28/172119 Signed Impressions: Service Date/Time: Thursday, September 28, 2017 21:33 - CONCLUSION: 1. Small left pleural effusion. 2. Scattered hazy opacities bilaterally consistent with mild pulmonary vascular congestion, atelectasis and/or infiltrate. 3. Mild cardiomegaly. Juan Ivory MD Objective Remarks more awake and alert, smiled anicteric decreased breath sounds irregular rhythm abdomen- slightly distended, soft, + bowel sounds, non tender extremities tr edema moves all extremities spontaneously Date of Insertion: October 01, 2017 Side: Right Location: Femoral A/P Problem List: (1) Dementia ICD Code: F03.90 - Unspecified dementia without behavioral disturbance Status: Chronic (2) Acute kidney injury ICD Code: N17.9 - Acute kidney failure, unspecified Status: Acute (3) Septic shock ICD Code: A41.9 - Sepsis, unspecified organism; R65.21 - Severe sepsis with septic shock Status: Acute (4) UTI (urinary tract infection) ICD Code: N39.0 - Urinary tract infection, site not specified Status: Acute (5) GI bleed ICD Code: K92.2 - Gastrointestinal hemorrhage, unspecified Status: Acute (6) Pain ICD Code: R52 - Pain, unspecified (7) Decubitus ulcers ICD Code: L89.90 - Pressure ulcer of unspecified site, unspecified stage Status: Chronic (8) Confusion ICD Code: R41.0 - Disorientation, unspecified (9) Colitis ICD Code: K52.9 - Noninfective gastroenteritis and colitis, unspecified Status: Acute Assessment and Plan NEURO: Dementia - Moderate to Severe per family Morphine as needed for pain. Daughter wishes to ensure comfort. RESP: On nasal cannula. CV: Septic/hypovolemic shock Lactic acidemia off Levophed and vasopressin. clinically improving DC IVF with HC3- bicar improved. changed to IVF with KCL On steroids - 10/02 down to - Hydrocortisone 50 mg q 8 - Taper Hydrocortisone 50 mg q 12- 10/04 - continue to taper in am if continues to improve Essential hypertension at baseline Hold lisinopril 10 mg daily due to acute kidney injury and hypotension, hold Norvasc 10 mg daily due to hypotension. GI: C. difficile colitis melena Diarrhea present on admission Moderate protein energy malnutrition Held rivaroxaban (on for DVT prevention), given KCentra, monitoring serial Hgb. Consulted gastroenterology due to melena. CT scan with significant wall thickening of ascending and transverse colon with free fluid throughout the abdomen and pelvis. There is no free air. She is a very poor surgical candidate with overall medical condition condition, protein malnutrition, dementia, etc. Discussed risk and morbidity of surgery and family expresses understanding and would NOT want to pursue surgery even if she fails medical management. IV Flagyl and p.o. vancomycin for C. difficile Resume MVI/Zinc 220 daily/Vitamin C 500 for wound healing of decubitus when she is able to take po. tolerated mechanical soft but poor po intake family refused NGT or PEG FEN/RENAL: Acute kidney failure Hyperchloremia Acute metabolic acidosis. Hypokalemia- DC HC03 in IVF- acidosis improved IVF with KCL continue flower .Monitor electrolytes and replace as indicated. No evidence of hydronephrosis on CT abdomen. CPK is normal. Due to overall poor prognosis patient is not a candidate for hemodialysis. And there is no acute indication creatinine stabilizing replace K IV ID: Septic shock Leukocytosis and bandemia UTI- grew E faecalis 09/28 speciemn C. difficile colitis - Dr. Lorenzo. ff - continue on Vancomycin and Flagyl and Cefepime She previously was on 10 day course of Levaquin for pneumonia in August. SKIN: Stage II sacral decubitus ulcer, present on admission Is healing and does not appear infected. Multivitamins for wound healing per above discussion HEME: Acute blood loss overlying chronic anemia Anticoagulated with rivaroxaban (DVT prophylaxis following ORIF femur) Reactive thrombocytosis Hold rivaroxaban. Received K Centra 50 U/kg in the emergency department. Type and screen has been sent Serial hemoglobin every 6 hours. Transfuse as needed for hemoglobin less than 8 or if clinically indicated for hemorrhagic shock ENDO: Acute stress hyperglycemia. Monitor bedside glucose and initiate low-dose insulin sliding scale as indicated. PROPH: SCDs for DVT prophylaxis. Pharmacologic DVT prophylaxis is contraindicated due to GI bleeding. ACCESS: Right femoral central venous line placed by ED physician 09/29/17. DC if patient stays off pressors During hospital stay - Dr. Baker discussed with patient's son (Stu Andres) who is currently in [place]. Also discussed over the phone with patient's daughter (Patrizia Wynn) in a separate conversation. Daughter indicates that she has spoken with her brother and that they desire DO NOT RESUSCITATE/DO NOT INTUBATE and agree would not want to pursue surgical intervention if she fails to improve with medical management. Palliative care team following to assist with deciding goals of therapy. po Protonix DNR/DNI 10/03 d/w grandchildren at bedside- - DNR. Patient states in Belgian "just let me go" . Per family she has been saying this even before they will discuss with their uncle- Stu- patient's on regarding possibly transitioning to Hospice d/w with them with Hospice- no active treatment- only comfort measures D/w them poor po- family does not want any PEG or NGT Hospice consulted 10/05- family will meet with Hospice tomorrow- Friday Transfer to Medical floor Problem Qualifiers (1) UTI (urinary tract infection): Qualified Codes: N30.00 - Acute cystitis without hematuria (2) GI bleed: Qualified Codes: K92.2 - Gastrointestinal hemorrhage, unspecified (3) Decubitus ulcers: Qualified Codes: L89.152 - Pressure ulcer of sacral region, stage 2 Heather Rueda MD October 06, 2017 12:10
--- NOTE | 2017-10-06 13:29 | HHI.IDPN ---
Note Infectious Disease Note Patient is more awake. Indicates that she has abdominal pain by raising the hand indicating she does not want me to palpate the abdomen. No fever. Stool output is decreased via the rectal bag. Pressure is stable. Admitted with hypotension, lethargy and decreased oxygen saturation. 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 ALLERGIES: NO KNOWN DRUG ALLERGIES. MEDICATIONS: Current Medications Medications (Trade) Dose Ordered Sig/Gilmer Route PRN Reason Start Time Stop Time Status Last Admin Dose Admin Metronidazole 100 ml @ 100 mls/hr Q8H IV 09/29/17 01:00 10/06/17 09:00 Sodium Chloride (NS Flush) 2 ml UNSCH PRN IV FLUSH FLUSH AFTER USING IV ACCESS 09/29/17 01:15 Sodium Chloride (NS Flush) 2 ml BID IV FLUSH 09/29/17 09:00 10/06/17 09:01 Morphine Sulfate (Morphine Inj) 2 mg Q2H PRN IV PUSH PAIN 1-5 09/29/17 01:15 10/06/17 11:52 Ondansetron HCl (Zofran Inj) 4 mg Q6H PRN IV PUSH NAUSEA OR VOMITING 09/29/17 01:15 Albuterol Sulfate (Albuterol Neb) 2.5 mg Q2HR NEB PRN INH SOB/WHEEZING 09/29/17 01:15 10/06/17 12:11 Miscellaneous Information ([facility] Nursing Information) 1 [id number] XX 09/29/17 01:15 09/29/17 04:45 Chlorhexidine Gluconate (Chlorhexidine 2% Cloth) Taper DAILY@04 TOP 09/29/17 04:00 09/25/18 03:59 10/05/17 04:00 Chlorhexidine Gluconate (Chlorhexidine 2% Cloth) 3 pack UNSCH PRN TOP HYGIENIC CARE 09/29/17 01:15 Morphine Sulfate (Morphine Inj) 4 mg Q2H PRN IV PUSH PAIN 6-10 09/29/17 05:00 10/04/17 23:27 Dextrose (D50w (Vial) Inj) 50 ml UNSCH PRN IV PUSH HYPOGLYCEMIA-SEE COMMENTS 09/29/17 12:30 Glucagon (Glucagon Inj) 1 mg UNSCH PRN OTHER HYPOGLYCEMIA-SEE COMMENTS 09/29/17 12:30 Insulin Human Regular (NovoLIN R SUPPLEMENTAL SCALE) 1 Q4HR SQ 09/29/17 12:30 10/04/17 12:00 Terbutaline Sulfate (Brethine Inj) 1 mg UNSCH PRN SQ For Extravasation 09/29/17 15:15 Vancomycin HCl (VANCOMYCIN for oral use only) 500 mg QID PO 09/29/17 21:00 10/04/17 20:41 Pantoprazole Sodium (Protonix) 40 mg DAILY PO 10/04/17 09:00 10/04/17 08:10 Potassium Chloride/Sodium Chloride 1,000 ml @ 70 mls/hr [id number] IV 10/04/17 08:00 10/06/17 03:58 Hydrocortisone Sodium Succinate (SoluCORTEF INJ) 50 mg Q12H IV PUSH 10/04/17 18:00 10/06/17 05:51 SOCIAL HISTORY: No tobacco, no alcohol, no illicit drugs. The patient was admitted from a intermediate facility. OBJECTIVE: Vital Signs Date Time Temp Pulse Resp B/P (MAP) Pulse Ox O2 Delivery O2 Flow Rate FiO2 10/06/17 12:15 95 Nasal Cannula 21 10/06/17 12:00 97.4 114 27 98/59 (72) 98 10/06/17 12:00 114 10/06/17 10:00 100 10/06/17 08:00 99 Room Air 10/06/17 08:00 97.6 93 14 108/59 (75) 99 10/06/17 08:00 93 10/06/17 06:00 92 10/06/17 04:00 97.5 92 8 111/65 (80) 96 10/06/17 04:00 92 10/06/17 02:00 94 10/06/17 00:00 96 10/06/17 00:00 97.1 100 15 105/63 (77) 94 10/05/17 22:00 95 10/05/17 20:00 98.0 96 17 96/61 (73) 96 10/05/17 20:00 96 10/05/17 19:00 Room Air 10/05/17 18:00 115 10/05/17 16:00 81 10/05/17 16:00 97.0 81 15 102/59 (73) 95 10/05/17 14:00 100 Microbiology Date/Time Source Procedure Growth Status 10/02/17 18:20 Urine Catheterized Urine Urine Culture - Preliminary NO GROWTH IN 24 HOURS. Resulted Imaging: Abdomen/Pelvis CT 09/28/172121 Signed Impressions: Service Date/Time: Thursday, September 28, 2017 23:22 - CONCLUSION: There is very impressive wall thickening throughout the colon beginning in the cecum extending along the descending colon to the transverse colon. Free fluid throughout the abdomen and pelvis. Flavio Benavides MD Chest X-Ray 09/28/172119 Signed Impressions: Service Date/Time: Thursday, September 28, 2017 21:33 - CONCLUSION: 1. Small left pleural effusion. 2. Scattered hazy opacities bilaterally consistent with mild pulmonary vascular congestion, atelectasis and/or infiltrate. 3. Mild cardiomegaly. Juan Ivory MD PHYSICAL EXAMINATION: GENERAL: No acute distress. Awake and alert. HEENT: EOMI, SABRINA. No icterus. Oropharynx very dry. NECK: Supple without adenopathy. LUNGS: Decreased breath sounds. HEART: Normal S1 and S2. No murmurs, rubs or gallops. ABDOMEN: Distended, soft. Mild tenderness. EXTREMITIES: No clubbing or cyanosis. 1+ edema at the right upper extremity. SKIN: No rash. NEUROLOGIC: non focal. PSYCHIATRIC: Unable to fully assess. IMPRESSION: 1. Septic shock. Improved. 2. Severe Clostridium difficile colitis. Appears to be improving. 3. Urinary tract infection. Enterococcus faecalis. Repeat urine culture negative. 4. Acute renal failure. 5. Leukocytosis secondary to Clostridium difficile colitis, which also is probably the cause of sepsis and septic shock. However, urinary infection, which could also be a cause of the septic shock as well. Appears to be improving. RECOMMENDATIONS: 1. Stop IV metronidazole. 2. Continue p.o. vancomycin. 3. Monitor clinical response. If continued improvement plan on giving oral vancomycin for 14 day duration. Nader Lorenzo MD October 06, 2017 13:29
--- NOTE | 2017-10-06 14:48 | HHI.PR ---
cc: Maurice Crooks MD Subjective Subjective Notes Resting in bed Sleeping Objective Vitals/I&O Vital Signs Date Time Temp Pulse Resp B/P (MAP) Pulse Ox O2 Delivery O2 Flow Rate FiO2 10/06/17 12:15 95 Nasal Cannula 21 10/06/17 12:00 97.4 114 27 98/59 (72) Labs Date/Time Source Procedure Growth Status 09/28/17 21:30 Blood Peripheral Aerobic Blood Culture - Final NO GROWTH IN 5 DAYS Complete 09/28/17 21:30 Blood Peripheral Anaerobic Blood Culture - Final NO GROWTH IN 5 DAYS Complete 10/02/17 18:20 Urine Catheterized Urine Urine Culture - Final NO GROWTH IN 48 HOURS. Complete Cardiovascular: Regular Lungs: Clear Abdomen: Non-distended, Non-tender Extremities: No edema A/P Assessment and Plan 87 year old female with C-diff colitis -Continues to remains off pressors -Diet as tolerated -Clinically improving -Will continue non operative treatment at this time Amanda Maldonado CHEMICAL PROCESS OPERATOR/Bulldozer Press Operator CHEMICAL PROCESS OPERATOR October 06, 2017 14:48
[2017-10-07] VITALS (7 sets, daily range): BP systolic 97–113; BP diastolic 56–67; PULSE 81–116; RESP 10–11; TEMP 97.5–97.8
[2017-10-07] MEDS: MORPHINE SULFATE 4 MG/ML INJ IV PUSH PRN ×4 (01:57→14:35)
[2017-10-07] MEDS: CHLORHEXIDINE GLUCONATE 2 % 1 PACK (2 CLOTHS) TOP SCH (04:00)
[2017-10-07] MEDS: HYDROCORTISONE SOD SUCCINATE 100 MG VIAL IV PUSH SCH (05:12)
[2017-10-07] MEDS: INSULIN NovoLIN REGULAR SUPPLEMENTAL SCALE SQ SCH (08:00)
[2017-10-07] MEDS: PANTOPRAZOLE SOD 40 MG DELAYED RELEASE TAB PO SCH (09:00)
[2017-10-07] MEDS: SODIUM CHLORIDE 0.9% FLUSH 10 ML FLUSH IV FLUSH SCH (09:00)
[2017-10-07] MEDS: VANCOMYCIN 500 MG VIAL (FOR ORAL USE ONLY) PO SCH ×2 (09:00→12:28)
--- NOTE | 2017-10-07 09:26 | HHI.PR ---
Subjective Remarks Pt lethargic. asleep but does briefly open her eyes then shuts them. discussed w RN, pt more lethargy this morning. There is a family meeting w hospice at 10 am today Objective Vitals Vital Signs Date Time Temp Pulse Resp B/P (MAP) Pulse Ox O2 Delivery O2 Flow Rate FiO2 10/07/17 06:00 82 10/07/17 04:00 91 10/07/17 04:00 97.5 91 11 104/56 (72) 10/07/17 02:02 10 10/07/17 02:00 81 10/07/17 00:00 82 10/07/17 00:00 97.8 82 11 97/56 (70) 10/06/17 22:00 84 10/06/17 20:00 98.2 97 16 102/60 (74) 10/06/17 20:00 97 10/06/17 19:00 Room Air 10/06/17 18:00 82 10/06/17 16:00 97.6 113 18 101/63 (76) 95 10/06/17 16:00 113 10/06/17 14:00 112 10/06/17 12:15 95 Nasal Cannula 21 10/06/17 12:00 97.4 114 27 98/59 (72) 98 10/06/17 12:00 114 10/06/17 10:00 100 I/O 10/06/17 10/06/17 10/06/17 10/07/17 10/07/17 10/07/17 07:00 15:00 23:00 07:00 15:00 23:00 Intake Total 1100 ml 100 ml 863 ml Output Total 350 ml 305 ml 300 ml Balance 750 ml 100 ml -305 ml 563 ml Intake Oral 0 ml 0 ml IV Total 1100 ml 100 ml 863 ml Output Urine Total 350 ml 300 ml 275 ml Stool Total 0 ml 5 ml 25 ml Result Diagram: 10/04/17 0400 Imaging Last Impressions Abdomen/Pelvis CT 09/28/172121 Signed Impressions: Service Date/Time: Thursday, September 28, 2017 23:22 - CONCLUSION: There is very impressive wall thickening throughout the colon beginning in the cecum extending along the descending colon to the transverse colon. Free fluid throughout the abdomen and pelvis. Flavio Benavides MD Chest X-Ray 09/28/172119 Signed Impressions: Service Date/Time: Thursday, September 28, 2017 21:33 - CONCLUSION: 1. Small left pleural effusion. 2. Scattered hazy opacities bilaterally consistent with mild pulmonary vascular congestion, atelectasis and/or infiltrate. 3. Mild cardiomegaly. Juan Ivory MD Objective Remarks asleep, briefly open eyes then closes them. doesn't speak to me or make any sound decreased breath sounds irregular rhythm abdomen- slightly distended, soft, + bowel sounds, non tender (she doesn't grimace on exam) extremities tr edema Date of Insertion: October 01, 2017 Side: Right Location: Femoral A/P Problem List: (1) Dementia ICD Code: F03.90 - Unspecified dementia without behavioral disturbance Status: Chronic (2) Acute kidney injury ICD Code: N17.9 - Acute kidney failure, unspecified Status: Acute (3) Septic shock ICD Code: A41.9 - Sepsis, unspecified organism; R65.21 - Severe sepsis with septic shock Status: Acute (4) UTI (urinary tract infection) ICD Code: N39.0 - Urinary tract infection, site not specified Status: Acute (5) GI bleed ICD Code: K92.2 - Gastrointestinal hemorrhage, unspecified Status: Acute (6) Pain ICD Code: R52 - Pain, unspecified (7) Decubitus ulcers ICD Code: L89.90 - Pressure ulcer of unspecified site, unspecified stage Status: Chronic (8) Confusion ICD Code: R41.0 - Disorientation, unspecified (9) Colitis ICD Code: K52.9 - Noninfective gastroenteritis and colitis, unspecified Status: Acute Assessment and Plan NEURO: Dementia - Moderate to Severe per family Morphine as needed for pain. Daughter wishes to ensure comfort. Hospice will be meeting w family today at 10am per RN RESP: On nasal cannula. CV: Septic/hypovolemic shock Lactic acidemia off Levophed and vasopressin. DC IVF with HC3- bicar improved. changed to IVF with KCL On steroid taper Taper Hydrocortisone 50 mg q 12- 10/04 - continue to taper in am if continues to improve Essential hypertension at baseline Hold lisinopril 10 mg daily due to acute kidney injury and hypotension, hold Norvasc 10 mg daily due to hypotension. GI: C. difficile colitis /melena/ Diarrhea present on admission/ Moderate protein energy malnutrition Held rivaroxaban (on for DVT prevention), given KCentra, monitoring serial Hgb. Consulted gastroenterology due to melena. CT scan with significant wall thickening of ascending and transverse colon with free fluid throughout the abdomen and pelvis. There is no free air. She is a very poor surgical candidate with overall medical condition condition, protein malnutrition, dementia, etc. Risk and morbidity of surgery were previously discussed w family and family expressed understanding and would NOT want to pursue surgery even if she fails medical management. s/p IV Flagyl and now on p.o. vancomycin for C. difficile Resume MVI/Zinc 220 daily/Vitamin C 500 for wound healing of decubitus when she is able to take po. tolerated mechanical soft but poor po intake family refused NGT or PEG FEN/RENAL: Acute kidney failure Hyperchloremia Acute metabolic acidosis. Hypokalemia- DC HC03 in IVF- acidosis improved IVF with KCL continue flower .Monitor electrolytes and replace as indicated. No evidence of hydronephrosis on CT abdomen. CPK is normal. Due to overall poor prognosis patient is not a candidate for hemodialysis. And there is no acute indication creatinine stabilizing replace K IV ID: Septic shock Leukocytosis and bandemia UTI- grew E faecalis / speciemn C. difficile colitis - Dr. Lorenzo, ID, following - continue on Vancomycin, s/p Flagyl and Cefepime She previously was on 10 day course of Levaquin for pneumonia in August. SKIN: Stage II sacral decubitus ulcer, present on admission Is healing. Multivitamins for wound healing per above discussion HEME: Acute blood loss overlying chronic anemia Anticoagulated with rivaroxaban (DVT prophylaxis following ORIF femur) Reactive thrombocytosis Hold rivaroxaban. Received K Centra 50 U/kg in the emergency department. Type and screen has been sent Serial hemoglobin every 6 hours. Transfuse as needed for hemoglobin less than 8 or if clinically indicated for hemorrhagic shock ENDO: Acute stress hyperglycemia. Monitor bedside glucose and initiate low-dose insulin sliding scale as indicated. PROPH: SCDs for DVT prophylaxis. Pharmacologic DVT prophylaxis is contraindicated due to GI bleeding. During hospital stay - Dr. Baker discussed with patient's son (Stu Andres) who is currently in [place]. Also discussed over the phone with patient's daughter (Patrizia Wynn) in a separate conversation. Daughter indicates that she has spoken with her brother and that they desire DO NOT RESUSCITATE/DO NOT INTUBATE and agree would not want to pursue surgical intervention if she fails to improve with medical management. Palliative care team following to assist with deciding goals of therapy. 10/03 previous hospitalist d/w grandchildren at bedside- - DNR. Patient stated in Angolan "just let me go". Per family she has been saying this even before they will discuss with their uncle- Stu- patient's on regarding possibly transitioning to Hospice d/w with them with Hospice- no active treatment- only comfort measures family does not want any PEG or NGT Discharge Planning Hospice consulted 10/05- family will meet with Hospice today at 10am Problem Qualifiers (1) UTI (urinary tract infection): Qualified Codes: N30.00 - Acute cystitis without hematuria (2) GI bleed: Qualified Codes: K92.2 - Gastrointestinal hemorrhage, unspecified (3) Decubitus ulcers: Qualified Codes: L89.152 - Pressure ulcer of sacral region, stage 2 Sheyla Yao MD October 07, 2017 09:26
--- NOTE | 2017-10-07 09:56 | HHI.PR ---
cc: Maurice Crooks MD Subjective Subjective Notes Lethargic Nonverbal Objective Vitals/I&O Vital Signs Date Time Temp Pulse Resp B/P (MAP) Pulse Ox O2 Delivery O2 Flow Rate FiO2 10/07/17 06:00 82 10/07/17 04:00 97.5 11 104/56 (72) 10/06/17 19:00 Room Air 10/06/17 16:00 95 10/06/17 12:15 21 Labs Date/Time Source Procedure Growth Status 09/28/17 21:30 Blood Peripheral Aerobic Blood Culture - Final NO GROWTH IN 5 DAYS Complete 09/28/17 21:30 Blood Peripheral Anaerobic Blood Culture - Final NO GROWTH IN 5 DAYS Complete 10/02/17 18:20 Urine Catheterized Urine Urine Culture - Final NO GROWTH IN 48 HOURS. Complete Cardiovascular: Regular Lungs: Clear Abdomen: Non-distended, Other (mild grimcing with palpation ) Extremities: Other (mild generalized edema ) A/P Assessment and Plan 87 year old female with C-diff colitis -Continues to remains off pressors -Diet as tolerated -Clinically improving -Will continue non operative treatment at this time -Family meeting with Hospice at 10 AM Amanda Maldonado/First Kierra DESOUZA October 07, 2017 09:56
--- NOTE | 2017-10-07 12:23 | HHI.DS ---
Discharge Summary Admission Date September 28, 2017 at 23:47 Discharge Date: October 07, 2017 Admitting Diagnosis Septic shock. GI bleed. UTI. Acute kidney injury. (1) Dementia ICD Code: F03.90 - Unspecified dementia without behavioral disturbance Diagnosis: Secondary Status: Chronic (2) Acute kidney injury ICD Code: N17.9 - Acute kidney failure, unspecified Diagnosis: Secondary Status: Acute (3) Septic shock ICD Code: A41.9 - Sepsis, unspecified organism; R65.21 - Severe sepsis with septic shock Diagnosis: Principal Status: Acute (4) UTI (urinary tract infection) ICD Code: N39.0 - Urinary tract infection, site not specified Diagnosis: Secondary Status: Acute (5) GI bleed ICD Code: K92.2 - Gastrointestinal hemorrhage, unspecified Diagnosis: Principal Status: Acute (6) Pain ICD Code: R52 - Pain, unspecified Diagnosis: Secondary (7) Decubitus ulcers ICD Code: L89.90 - Pressure ulcer of unspecified site, unspecified stage Diagnosis: Secondary Status: Chronic (8) Confusion ICD Code: R41.0 - Disorientation, unspecified Diagnosis: Secondary (9) Colitis ICD Code: K52.9 - Noninfective gastroenteritis and colitis, unspecified Diagnosis: Principal Status: Acute Procedures none Brief History - From Admission 87 yo Portuguese speaking female who has a past medical history of hypertension, osteoarthritis, . She was admitted to [facility] 08/05 through after a fall in which she sustained an intertrochanteric fracture of the left femur for which she underwent ORIF. Her postoperative course was complicated by pneumonia which was treated with Levaquin. She had been discharged to [facility]. She presented to [facility] emergency department today after she became hypotensive with blood pressure 83/ 55 and sats were in the 80s. ED Nurse who speaks fluent Portuguese states that patient was not able to provide much history stating only that "I hurt all over ". She was hypotensive in the 70s over 40s. She had two large liquid melena bowel movements in the ED. Right femoral central venous line was placed by the emergency department physician. She was bolused with 2 L normal saline. She was started on Levophed which is currently running at 4 mcg/min. She had been on rivaroxaban. She was given K Centra 50 U/kg, started on Protonix drip, and administered Zosyn and vancomycin. CT abdomen and pelvis was obtained which demonstrates wall thickening of ascending and transverse colon with free fluid. No free air is noted. White blood cell count is 27.9 with left shift and 39% bands. Hemoglobin is 10.6. She is in acute renal failure with creatinine of 4.65.Patient is not able to provide much history due to significant baseline dementia. Her abdomen is tender on exam. Her son states that she has been having diarrhea about 3-4 days. No vomiting. CBC/BMP: 10/04/17 0400 Imaging Last Impressions Abdomen/Pelvis CT 09/28/[id number] Signed Impressions: Service Date/Time: Thursday, September 28, 2017 23:22 - CONCLUSION: There is very impressive wall thickening throughout the colon beginning in the cecum extending along the descending colon to the transverse colon. Free fluid throughout the abdomen and pelvis. Flavio Benavides MD Chest X-Ray 09/28/[id number] Signed Impressions: Service Date/Time: Thursday, September 28, 2017 21:33 - CONCLUSION: 1. Small left pleural effusion. 2. Scattered hazy opacities bilaterally consistent with mild pulmonary vascular congestion, atelectasis and/or infiltrate. 3. Mild cardiomegaly. Juan Ivory MD PE at Discharge asleep, briefly open eyes then closes them. doesn't speak to me or make any sound decreased breath sounds irregular rhythm abdomen- slightly distended, soft, + bowel sounds, non tender (she doesn't grimace on exam) extremities tr edema Hospital Course Pt w PMHX of mod to severe Dementia per family - Moderate to Severe per family admitted for septic/hypovolemic shock from C. difficile colitis /melena/ Diarrhea present on admission, w Leukocytosis and bandemia, UTI- grew E faecalis 5 specimen. Pt was treated w pressors (levophed and vasopressin). She was treated w steroids and was tapered. GI evaluated the pt and CT scan showed significant wall thickening of ascending and transverse colon with free fluid throughout the abdomen and pelvis. Due to her overall medical condition, She was deemed a very poor surgical candidate (i.e protein malnutrition, dementia, etc). Risk and morbidity of surgery were previously discussed w family and family expressed understanding and would NOT want to pursue surgery even if she fails medical management. Infectious diseased evaluated the pt and recommended continuing her on Vancomycin, s/p Flagyl and Cefepime She previously was on 10 day course of Levaquin for pneumonia in August. She tolerated mechanical soft but poor po intake family refused NGT or PEG Pt found to also be in acute renal failure/acute metabolic acidosis/ hyperchloremia and was placed on HC03 in IVF and acidosis improved No evidence of hydronephrosis on CT abdomen. CPK was normal. Due to overall poor prognosis patient was not a candidate for hemodialysis. however there was no acute indication creatinine stabilized Stage II sacral decubitus ulcer, present on admission Is healing.on multivitamins for wound healing Acute blood loss overlying chronic anemia/ Anticoagulated with rivaroxaban (DVT prophylaxis following ORIF femur) Hold rivaroxaban. Received K Centra 50 U/kg in the emergency department. Type and screen has been sent Serial hemoglobin every 6 hours. Transfuse as needed for hemoglobin less than 8 or if clinically indicated for hemorrhagic shock Family met w hospice on 10/07/17 and she was discharged to the hospice care center. Pt Condition on Discharge: Deteriorating Discharge Disposition: Hospice/Med Facility Discharge Time: > 30 minutes Discharge Instructions DIET: Follow Instructions for: As Tolerated, No Restrictions Activities you can perform: Regular-No Restrictions Sheyla Yao MD October 07, 2017 12:23
== END 2017-10-07 15:00 | disposition hospice, inpatient (51) | DRG 871 ==
LOC: NEPE 20:59 → NEDA 23:47 → HIMW 09-29 04:20
PROVIDERS: ADMIT Hospitalist; ATTEND Hospitalist
DX: A41.4 Sepsis due to anaerobes (principal); R65.21 Severe sepsis with septic shock; N17.0 Acute kidney failure with tubular necrosis; R57.1 Hypovolemic shock; L89.152 Pressure ulcer of sacral region, stage 2; A04.72 Enterocolitis due to Clostridium difficile, not specified as recurrent; E44.0 Moderate protein-calorie malnutrition; E87.2 Acidosis; F03.90 Unspecified dementia, unspecified severity, without behavioral disturbance, psychotic disturbance, mood disturbance, and anxiety; D62 Acute posthemorrhagic anemia; I11.9 Hypertensive heart disease without heart failure; E55.9 Vitamin D deficiency, unspecified; D50.9 Iron deficiency anemia, unspecified; R73.9 Hyperglycemia, unspecified; E87.8 Other disorders of electrolyte and fluid balance, not elsewhere classified; D47.3 Essential (hemorrhagic) thrombocythemia; E87.6 Hypokalemia; M19.90 Unspecified osteoarthritis, unspecified site; Z51.5 Encounter for palliative care; Z66 Do not resuscitate; Z79.01 Long term (current) use of anticoagulants
CPT/HCPCS: 51702; 71045; 74176; 80048; 80053; 81001; 82550; 82570; 82805; 83605; 83735; 83880; 83935; 84100; 84300; 84443; 84484; 85007; 85014; 85018; 85027; 85610; 85730; 86850; 86900; 86901; 87040; 87077; 87086; 87186; 87205; 87493; 87641; 93005; 94664; 96361; 96365; 96367; 96375; C9113; C9132; J0295; J0692; J1450; J1720; J2270; J2543; J2997; J3370; J3480; J7030; J7050; J7120; J7613; P9045; P9047